=== PATIENT | female | born 1965 | race American Indian/Alaskan Native ===

== ENCOUNTER 2019-01-04 00:33 | Inpatient (IN) | payer MEDICAID ==
[2019-01-04] MEDS ORDERED: ZOFRAN IV ONE (02:31)
[2019-01-04] MEDS ORDERED: MORPHINE IV ONE (02:31)
[2019-01-04] MEDS ORDERED: NACL 0.9% 1000 ML 1,000 ML IV ONE (02:31)
[2019-01-04] MEDS ORDERED: VANCOMYCIN/NS 1 GM/250 ML 1 GM/250 ML BAG IV ONE (02:31)
--- NOTE | 2019-01-04 02:38 | Emergency Department Report ---
HPI - General Chief Complaint: Arrhythmia/Palpitations Time Seen by Provider: 01/04/19 02:22 - HPI HPI: Emergency emergency department with multiple complaints. Patient says that she has been dealing with some gangrenous wounds to the bilateral lower extremities and was just discharged from [facility] after being treated for this. She has had previous surgeries and department stunned by Dr. fisher, vascular surgery. Since the patient was discharged on 12/30/18, the patient says that she's been having nausea and vomiting and has been unable to keep down any food or liquid. She continues to have some bilateral lower extremity discomfort where she has the wounds. She has not checked her temperature but says that she's been having some chills. She has a past medical history of pyoderma gangrenosum. the patient also complains of some chest pain and palpitations. She has a history of [id number] diabetes, hypertension. Her primary care physician is Dr. Mauro and she sees [facility]. ED Past Medical Hx - Past Medical History Hx Hypertension: Yes Hx Diabetes: Yes Hx HIV: Yes Additional medical history: pyoderma gangrenosum - Surgical History Additional Surgical History: Right LE extremity. umbilical biopsy - Social History Smoking Status: Current Every Day Smoker - Medications Home Medications: Home Medications Medication Instructions Recorded Confirmed Last Taken Type Lisinopril [Zestril TAB] 40 mg PO QDAY 07/15/16 01/04/19 1 Day Ago History ~08/31/16 hydroCHLOROthiazide [HCTZ] 25 mg PO QDAY 07/15/16 01/04/19 1 Day Ago History ~08/31/16 metFORMIN [Glucophage] 500 mg PO QDAY 07/15/16 01/04/19 1 Day Ago History ~08/31/16 predniSONE [Deltasone] 30 mg PO QDAY 07/15/16 01/04/19 1 Day Ago History ~08/31/16 30 mg. PO Q day Metoprolol [Lopressor TAB] 50 mg PO BID #60 tablet 09/03/16 01/04/19 Unknown Rx Oxycodone HCl/Acetaminophen 1 each PO Q6HR PRN #12 tablet 09/03/16 01/04/19 Unknown Rx [Percocet 7.5/325 mg] Triamcinolone 0.1% [Kenalog 0.1% 1 applic TP BID #1 tube 01/20/17 01/04/19 Unknown Rx CREAM] hydrOXYzine HCl [Hydroxyzine HCl] 25 mg PO Q6HR PRN #15 tablet 01/20/17 01/04/19 Unknown Rx ED Review of Systems ROS: Stated complaint: DIABETE/HBP/PAIN Other details as noted in HPI Comment: All other systems reviewed and negative Constitutional: chills. denies: diaphoresis Eyes: denies: eye pain, vision change ENT: denies: ear pain, throat pain Respiratory: denies: cough, shortness of breath Cardiovascular: chest pain, palpitations Gastrointestinal: nausea, vomiting. denies: abdominal pain Genitourinary: denies: dysuria, discharge Musculoskeletal: denies: back pain, arthralgia Skin: lesions. denies: pruritus Neurological: denies: headache, weakness Physical Exam - Physical Exam Physical Exam: GENERAL: The patient is well-developed well-nourished. HEENT: Normocephalic. Atraumatic. Patient has moist mucous membranes. EYES: Extraocular motions are intact. Pupils are equal and reactive to light bilaterally. NECK: Supple. Trachea is midline. CHEST/LUNGS: Clear to auscultation. There is no respiratory distress noted. HEART/CARDIOVASCULAR: Regular. There is mild tachycardia. There is no obvious murmur. ABDOMEN: Abdomen is soft, nontender. Patient has normal bowel sounds. There is no abdominal distention. SKIN: The patient has multiple bilateral lower extremity ulcerating wounds. The left is much worse than the right. Patient has an area to the left medial lower leg/calf, but appears recently been provided and goes down to the muscle. She also has some of these ulcerating wounds to the left lateral foot. There is some bruising and/or weeping. No purulent discharge seen. No current bleeding. NEURO: The patient is awake, alert, and oriented. The patient is cooperative. The patient has no focal neurologic deficits. The patient has normal speech. MUSCULOSKELETAL: There is tenderness to palpation to the bilateral lower extremities with patient has multiple ulcerating wounds. ED Medical Decision Making - Lab Data Result diagrams: 01/06/19 05:01 01/05/19 04:31 - EKG Data -: EKG Interpreted by Me EKG shows normal: sinus rhythm, axis (left axis deviation), intervals, QRS complexes (LVH, Q waves to the septal leads, left anterior fascicular block), ST-T waves Rate: tachycardia (112 bpm) - EKG Data When compared to previous EKG there are: no significant change Interpretation: unchanged when compared t (09/01/16) - Radiology Data Radiology results: report reviewed, image reviewed interpreted by me: Chest x-ray does not show any pneumothorax, pleural effusion, pneumonia or obvious focal consolidation. Abdominal x-ray shows nonspecific nonobstructive bowel gas EXAM: XR TIB/FIB BILAT 2V HISTORY: LE wounds, rule out osteomyelitis TECHNIQUE: AP and lateral views of both tibia-fibula were obtained. FINDINGS: On the right side there is no evidence of fracture or osteomyelitis. The ankle and knee joints do not show any acute changes. There are vascular calcifications behind the knee. There is a moderate sized plantar calcaneal spur. The soft tissues are unremarkable. On the left side there is diffuse soft tissue swelling around the calf and particularly around the ankle. On the AP view there are questionable erosive changes along the lateral malleolus. The left ankle joint otherwise is well maintained. There is a spur along the posterior margin of the calcaneus. There is a stent behind the left knee along with surgical clips. IMPRESSION: Diffuse soft tissue swelling around the left calf with subcutaneous air around the ankle. Findings compatible cellulitis. Questionable cortical erosive changes of the distal end of the fibula/lateral malleolus. Osteomyelitis cannot be excluded. A three-view ankle series recommended for better delineation of this area. No acute process involving the right tibia-fibula. Transcribed By: RB Dictated By: DONAVAN REAL MD Electronically Authenticated By: DONAVAN REAL MD Signed Date/Time: 01/04/19 0326 LUNG SCAN, VENTILATION AND PERFUSION: History: Palpitations, elevated d-dimer. Technique: 5mci of Tc99m MAA was infused for the perfusion images. 15mci XE 133 gas was inhaled for the ventilatory images. Correlation is made with a chest x-ray dated 01/04/19. Findings: Inhalation of Xenon gas demonstrates a normal distribution of the activity throughout both lungs. The wash out phases show no focal retention of activity. After injection of Technetium 99m macroaggregated albumin gamma camera imaging of the lungs in multiple projections demonstrates normal pulmonary contours with a homogeneous distribution of activity. No focal areas of perfusion deficiency are identified. IMPRESSION: Low probability for pulmonary embolus. Transcribed By: TTR Dictated By: JOSH DAELY JR, MD Electronically Authenticated By: JOSH DALEY JR, MD Signed Date/Time: 01/04/19 0736 - Medical Decision Making This patient came in with a complaint of pain to the lateral lower extremities, left greater than right, the patient has gangrenous wounds and a history of surg ical debridement. She also has some palpitations and nausea and vomiting. Patient did not appear septic based on vitals and labs. However the wounds are extensive and may still appear cellulitic. X-ray was done of the bilateral tib- fib that did show superficial area of osteomyelitis to the distal left tib-fib. The patient's palpitations, she does have elevated troponin level without any renal insufficiency. EKG did not show any signs of ST elevation OR. Patient started on antibiotics, given aspirin, pain medication and IV fluid resuscitation. Negative for pulmonary embolism. Will be admitted for further evaluation and cardiology consultation. Accepted for admission by the [facility]. - Differential Diagnosis cellulitis, osteomyelitis, OR, dysrhythmia, PE Critical Care Time: No Critical care attestation.: If time is entered above; I have spent that time in minutes in the direct care of this critically ill patient, excluding procedure time. ED Disposition Clinical Impression: Pyoderma gangrenosum, Hypertensive urgency, Palpitations, Elevated troponin Disposition: OP ADMIT IP TO THIS HOSP Is pt being admited?: Yes Condition: Serious Time of Disposition: 07:22
[2019-01-04] MEDS ORDERED: NACL 0.9% IR ONE (03:00)
--- NOTE | 2019-01-04 03:21 | XRay Report ---
FINAL REPORT EXAM: XR ABD SERIES W CXR 1V HISTORY: abd pain TECHNIQUE: A PA view the chest was obtained along with two views of the abdomen. FINDINGS: The heart size and mediastinum appear normal. The lungs are clear. The bones and soft tissues do not show any acute changes. The abdominal bowel gas pattern is normal. There are no suspicious air-fluid levels. There are phlebo liths along the floor of the pelvis. The skeletal structures reveal arthritic changes lower lumbar sp ine. IMPRESSION: No acute process in the chest. Normal bowel gas pattern. No acute process identified.
[2019-01-04] MEDS ORDERED: NACL 0.9% 500 ML IR ONE (03:23)
--- NOTE | 2019-01-04 03:26 | XRay Report ---
FINAL REPORT EXAM: XR TIB/FIB BILAT 2V HISTORY: LE wounds, rule out osteomyelitis TECHNIQUE: AP and lateral views of both tibia-fibula were obtained. FINDINGS: On the right side there is no evidence of fracture or osteomyelitis. The ankle and knee joints do not show any acute changes. There are vascular calcifications behind the knee. There is a moderate sized plantar calcaneal spur. The soft tissues are unremarkable. On the left side there is diffuse soft tissue swelling around the calf and particularly around the an kle. On the AP view there are questionable erosive changes along the lateral malleolus. The left ankl e joint otherwise is well maintained. There is a spur along the posterior margin of the calcaneus. Th ere is a stent behind the left knee along with surgical clips. IMPRESSION: Diffuse soft tissue swelling around the left calf with subcutaneous air around the ankle. Findings co mpatible cellulitis. Questionable cortical erosive changes of the distal end of the fibula/lateral malleolus. Osteomyeliti s cannot be excluded. A three-view ankle series recommended for better delineation of this area. No acute process involving the right tibia-fibula.
[2019-01-04 04:02] LABS: BUN/Creatinine Ratio TNR; Blood Urea Nitrogen TNR mg/dL (7-17)
[2019-01-04 04:03] LABS: Alanine Aminotransferase TNR units/L (7-56); Albumin TNR g/dL (3.9-5); Calcium TNR mg/dL (8.4-10.2)
[2019-01-04 04:04] LABS: Hemolysis Index TNR
[2019-01-04 04:09] LABS: Hematocrit TNR % (30.3-42.9); Hemoglobin TNR gm/dl (10.1-14.3); Mean Corpuscular HGB Conc TNR % (30-34); Mean Corpuscular Volume TNR fl (79-97); Red Blood Count TNR M/mm3 (3.65-5.03); Red Cell Distribution Width TNR % (13.2-15.2)
[2019-01-04 04:10] LABS: Platelet Count TNR K/mm3 (140-440)
[2019-01-04 04:19] LABS: Basophils # (Auto) 0.1 K/mm3 (0.0-0.1); Basophils % (Auto) 1.1 % (0.0-1.8); Eosinophils # (Auto) 0.2 K/mm3 (0.0-0.4); Eosinophils % (Auto) 1.5 % (0.0-4.3); Hematocrit 37.1 % (30.3-42.9); Lymphocytes # (Auto) 3.2 K/mm3 (1.2-5.4); Lymphocytes % (Auto) 27.1 % (13.4-35.0); Mean Corpuscular HGB Conc 32 % (30-34); Mean Corpuscular Volume 84 fl (79-97); Monocytes # (Auto) 1.5 K/mm3 (0.0-0.8); Monocytes % (Auto) 12.7 % (0.0-7.3); Red Blood Count 4.44 M/mm3 (3.65-5.03); Red Cell Distribution Width 17.1 % (13.2-15.2)
[2019-01-04] MEDS ORDERED: NORMODYNE IV ONE ×2 (05:14→05:17)
[2019-01-04 05:41] LABS: Platelet Count 324 K/mm3 (140-440)
[2019-01-04 06:40] LABS: Alanine Aminotransferase 16 units/L (7-56); Albumin 2.5 g/dL (3.9-5); BUN/Creatinine Ratio 14; Blood Urea Nitrogen 11 mg/dL (7-17); Calcium 9.3 mg/dL (8.4-10.2); Hemolysis Index 39
[2019-01-04 06:55] LABS: Chol/HDL Ratio 5.13 %; HDL Cholesterol 29 mg/dL (40-59); LDL Cholesterol,Direct 74 mg/dL (50-130)
[2019-01-04] MEDS ORDERED: HEPARIN 10,000 UNITS/10 ML IV ONE (07:22)
[2019-01-04 07:47] LABS: INR 0.92 (0.87-1.13); Partial Thromboplastin Time 24.1 Sec. (24.2-36.6)
--- NOTE | 2019-01-04 08:39 | Nuclear Medicine Report ---
LUNG SCAN, VENTILATION AND PERFUSION: History: Palpitations, elevated d-dimer. Technique: 5mci of Tc99m MAA was infused for the perfusion images. 15mci XE 133 gas was inhaled for the ventilatory images. Correlation is made with a chest x-ray dated 01/04/19. Findings: Inhalation of Xenon gas demonstrates a normal distribution of the activity throughout both lungs. The wash out phases show no focal retention of activity. After injection of Technetium 99m macroaggregated albumin gamma camera imaging of the lungs in multiple projections demonstrates normal pulmonary contours with a homogeneous distribution of activity. No focal areas of perfusion deficiency are identified. IMPRESSION: Low probability for pulmonary embolus.
[2019-01-04] MEDS: HEPARIN/ 0.45% NACL-25,000 UNIT/500 ML 25,000 UNIT/500 ML BAG IV SCH ×2 (09:09→16:36)
[2019-01-04] MEDS ORDERED: NON-FORMULARY (Oxycodone Hcl/Acetaminophen [Percocet 7.5/325 Mg] 1 EACH) PO PRN (10:22)
--- NOTE | 2019-01-04 10:25 | History and Physical Report ---
History of Present Illness Date of examination: 01/04/19 Date of admission: 01/04/19 Chief complaint: wound infection History of present illness: Patient is a 53 year old woman with history of Diabetes, Hypertension, Pyoderma grangrenosum with multiple revascularization procedures in the past, gangrenous wounds to the bilateral lower extremities presented with nausea vomiting and worsening pain to her LEs. Patient says that she has been dealing with some gangrenous wounds to the bilateral lower extremities and was was admitted to [facility] with sepsis, infected lower extremity wounds but left AMA 12/30. She continues to have worsening bilateral lower extremity discomfort and increase discharges where she has the wounds since she left the hospital. In the ER she noted to have elevated troponin with ECG sinus rhythm. She was placed on heparin drip, started on empiric abx and called for admission for further evaluation and management. Past medical History: h/o diabetes hypertension pyoderma gangrenosum, history of SVT obesity, Past surgical History: s/p multiple vascular procedures for lower extremities Social History: Lives with family, denies drinking and elicit drug abuse. Smokes a daily Family History: Significant for hypertension and diabetes Review of System: Constitutional: no fever, no chills, no weight loss Ears, eyes, nose, mouth and throat: no nasal congestion, no nasal discharge, no sinus pressure, no vision change, no red eye. Neck: No neck pain or rigidity. Cardiovascular: No chest pain, no orthopnea, no palpitations, no leg swelling Respiratory: No shortness of breath, no cough, no congestion, no wheezing Gastrointestinal: no abdominal pain,+ nausea, + vomiting Genitourinary : no dysuria, no hematuria Musculoskeletal: no joint swelling or muscle ache Integumentary: no rash, no pruritis Neurological: no parathesias, no numbness, no tingling Endocrine: no cold or heat intolerance, no polyuria or polydipsia Hematologic/Lymphatic: no easy bruising, no easy bleeding, no gland swelling Allergic/Immunologic: no urticaria, no angioedema. Medications and Allergies Allergies Allergy/AdvReac Type Severity Reaction Status Date / Time No Known Allergies Allergy Verified 01/04/19 05:22 Home Medications Medication Instructions Recorded Confirmed Last Taken Type Lisinopril [Zestril TAB] 40 mg PO QDAY 07/15/16 01/04/19 1 Day Ago History ~08/31/16 hydroCHLOROthiazide [HCTZ] 25 mg PO QDAY 07/15/16 01/04/19 1 Day Ago History ~08/31/16 metFORMIN [Glucophage] 500 mg PO QDAY 07/15/16 01/04/19 1 Day Ago History ~08/31/16 predniSONE [Deltasone] 30 mg PO QDAY 07/15/16 01/04/19 1 Day Ago History ~08/31/16 30 mg. PO Q day Metoprolol [Lopressor TAB] 50 mg PO BID #60 tablet 09/03/16 01/04/19 Unknown Rx Oxycodone HCl/Acetaminophen 1 each PO Q6HR PRN #12 tablet 09/03/16 01/04/19 Unknown Rx [Percocet 7.5/325 mg] Triamcinolone 0.1% [Kenalog 0.1% 1 applic TP BID #1 tube 01/20/17 01/04/19 Unkno wn Rx CREAM] hydrOXYzine HCl [Hydroxyzine HCl] 25 mg PO Q6HR PRN #15 tablet 01/20/17 01/04/19 Unknown Rx Active Meds: Active Medications Hydrochlorothiazide (Hctz) 25 mg PO QDAY [facility] Hydroxyzine HCl (Atarax) 25 mg PO Q6HR PRN PRN Reason: Itching Heparin Sodium/Sodium Chloride (Heparin/ 0.45% Nacl-25,000 Unit/500 Ml) 25,000 unit in 500 mls @ 20 mls/hr IV TITRATE [facility]; Protocol Last Admin: 01/04/19 09:09 Dose: 1,000 units/hr, 20 mls/hr Documented by: Lisinopril (Zestril) 40 mg PO QDAY [facility] Metformin HCl (Glucophage) 500 mg PO QDAY [facility] Metoprolol Tartrate (Lopressor) 50 mg PO BID [facility] Miscellaneous Medication (Oxycodone Hcl/Acetaminophen [Percocet 7.5/325 Mg]) 1 each PO Q6HR PRN PRN Reason: Pain Prednisone (Deltasone) 30 mg PO QDAY [facility] Triamcinolone Acetonide (Kenalog) 1 applic TP BID [facility] Exam - Physical Exam Narrative exam: GENERAL: Obese female lying on bed appeared to be in no discomfort. HEENT: Normocephalic. Atraumatic. No conjunctival congestion or icterus. Patient has moist mucous membranes. NECK: Supple. Trachea midline. CHEST/LUNGS: Clear to auscultated bilaterally, breathing nonlabored. No wheezes crackles or rhonchi. HEART/CARDIOVASCULAR: Regular in rate and rhythm. S1 and S2 positive. ABDOMEN: Abdomen is soft, nontender. Patient has normal bowel sounds. SKIN: There is no rash. Warm and dry. NEURO: No focal motor deficit. Follows command. MUSCULOSKELETAL: No joint effusion or tenderness. EXTRIMITY: Extensive bilateral lower extremity multiple ulcers with oozing pulse PSYCH: Cooperative. - Constitutional Vitals: Temp Pulse Resp BP Pulse Ox 83 21 177/74 98 01/04/19 06:15 01/04/19 06:15 01/04/19 06:15 01/04/19 06:15 Results - Labs CBC & Chem 7: 01/06/19 05:01 01/05/19 04:31 Labs: Abnormal lab results 01/04/19 01/04/19 01/04/19 Range/Units 03:41 03:41 03:45 WBC 11.8 H (4.5-11.0) K/mm3 MCH 27 L (28-32) pg RDW 17.1 H (13.2-15.2) % [place] % (Auto) 12.7 H (0.0-7.3) % [place] # 1.5 H (0.0-0.8) K/mm3 APTT 24.1 L (24.2-36.6) Sec. D-Dimer 831.62 H (0-234) ng/mlDDU VBG pH (7.320-7.420) Potassium (3.6-5.0) mmol/L Glucose (65-100) mg/dL Alkaline Phosphatase (35-129) units/L Troponin T (0.00-0.029) ng/mL Albumin (3.9-5) g/dL Triglycerides (2-149) mg/dL HDL Cholesterol (40-59) mg/dL 01/04/19 01/04/19 Range/Units 05:58 05:58 WBC (4.5-11.0) K/mm3 MCH (28-32) pg RDW (13.2-15.2) % [place] % (Auto) (0.0-7.3) % [place] # (0.0-0.8) K/mm3 APTT (24.2-36.6) Sec. D-Dimer (0-234) ng/mlDDU VBG pH 7.315 L (7.320-7.420) Potassium 3.4 L (3.6-5.0) mmol/L Glucose 113 H (65-100) mg/dL Alkaline Phosphatase 271 H (35-129) units/L Troponin T 0.108 H* (0.00-0.029) ng/mL Albumin 2.5 L (3.9-5) g/dL Triglycerides 216 H (2-149) mg/dL HDL Cholesterol 29 L (40-59) mg/dL - Imaging and Cardiology Chest x-ray: report reviewed Abdominal x-ray: report reviewed Assessment and Plan NSTEMI likely type II - - will admit to telemetry bed - monitor with serial CE and EKG - will place on Aspirin, statin and heparin drip - as needed SL NTG and iv morphin for pain - Monitor BP, continue betablocker - order 2D echo and consult cardiology Nausea vomiting - Has no abdominal pain, abdominal x-ray showed no acute process, no obstruction -Resume diet, as needed nausea medications Bilateral lower extremity cellulitis with gangrenous ulcer - We will get wound care consult, wound culture -Continue to treat with vancomycin - We'll consult ID and we have culture results available Pyoderma gangrenosum - Continue her home dose of steroid Diabetes mellitus type 2 - Consistent Diet and sliding scale of insulin Hypertension. Uncontrolled, Continue to monitor, resume home meds Hypokalemia, replete History of SVT, continue metoprolol - provide DVT Px with lovenox
[2019-01-04] MEDS ORDERED: ATARAX PO PRN (11:00)
--- NOTE | 2019-01-04 12:57 | Consultation ---
Addendum entered and electronically signed by ALEX PORRAS MD 01/04/19 13:11: Patient is hospitalized with complaints of palpitations and chronic nonhealing u lcers of bilateral legs. EKG in the hospital was said sinus tachycardia, left axis deviation, otherwise normal ECG. There is a record of paroxysmal supraventricular tachycardia, treated with beta blockers. Previous cardiac ischemic workup was negative. No further additional cardiac workup is indicated, we'll continue beta blockers and risk factor modification. Original Note: History of Present Illness Consult date: 01/04/19 Consult reason: other (palpitations) History of present illness: Patient is a 53 year old woman with a reported history of Diabetes, Hyper tension, Pyoderma grangrenosum with multiple revascularization procedures. She also has a history of paroxysmal SVT previously treated with metoprolol. In 2015, she had a negative treadmill stress test. She exercised for four minutes. An echocardiogram done at [facility] September 2018 documents a hyperdynamic LVEF 73%. Patient presents to this hospital with complaints of palpitations and elevated blood pressure. In addition, she complains of bilateral lower extremity pain. Of note, patient was admitted to [facility] with sepsis, infected lower extremity wounds but left AMA 12/30. Patient denies chest pain and unusual shortness of breath. ECG is sinus rhythm with left axis deviation. Medications and Allergies Allergies Allergy/AdvReac Type Severity Reaction Status Date / Time No Known Allergies Allergy Verified 01/04/19 05:22 Home Medications Medication Instructions Recorded Confirmed Last Taken Type Lisinopril [Zestril TAB] 40 mg PO QDAY 07/15/16 01/04/19 1 Day Ago History ~08/31/16 hydroCHLOROthiazide [HCTZ] 25 mg PO QDAY 07/15/16 01/04/19 1 Day Ago History ~08/31/16 metFORMIN [Glucophage] 500 mg PO QDAY 07/15/16 01/04/19 1 Day Ago History ~08/31/16 predniSONE [Deltasone] 30 mg PO QDAY 07/15/16 01/04/19 1 Day Ago History ~08/31/16 30 mg. PO Q day Metoprolol [Lopressor TAB] 50 mg PO BID #60 tablet 09/03/16 01/04/19 Unknown Rx Oxycodone HCl/Acetaminophen 1 each PO Q6HR PRN #12 tablet 09/03/16 01/04/19 Unknown Rx [Percocet 7.5/325 mg] Triamcinolone 0.1% [Kenalog 0.1% 1 applic TP BID #1 tube 01/20/17 01/04/19 Unknown Rx CREAM] hydrOXYzine HCl [Hydroxyzine HCl] 25 mg PO Q6HR PRN #15 tablet 01/20/17 01/04/19 Unknown Rx Active Meds: Active Medications Hydrochlorothiazide (Hctz) 25 mg PO QDAY [facility] Hydroxyzine HCl (Atarax) 25 mg PO Q6HR PRN PRN Reason: Itching Heparin Sodium/Sodium Chloride (Heparin/ 0.45% Nacl-25,000 Unit/500 Ml) 25,000 unit in 500 mls @ 20 mls/hr IV TITRATE [facility]; Protocol Last Admin: 01/04/19 09:09 Dose: 1,000 units/hr, 20 mls/hr Documented by: Insulin Human Regular (Humulin R) 0 units SUB-Q ACHS [facility]; Protocol Lisinopril (Zestril) 40 mg PO QDAY [facility] Metoprolol Tartrate (Lopressor) 50 mg PO BID [facility] Oxycodone HCl (Roxicodone) 2.5 mg PO Q6H PRN PRN Reason: Pain, Moderate (4-6) Oxycodone/Acetaminophen (Percocet 5/325) 1 tab PO Q6H PRN PRN Reason: Pain, Moderate (4-6) Prednisone (Deltasone) 30 mg PO QDAY [facility] Triamcinolone Acetonide (Kenalog) 1 applic TP BID [facility] Physical Examination Vital Signs Resp Pulse Ox 17 98 01/04/19 02:30 01/04/19 02:30 General appearance: no acute distress HEENT: Positive: PERRL Neck: Positive: trachea midline Cardiac: Positive: Reg Rate and Rhythm Lungs: Positive: Decreased Breath Sounds Neuro: Positive: Grossly Intact Skin: Positive: Wound (bilateral LE wounds) Extremities: Present: edema Results 01/04/19 03:45 01/04/19 05:58 Cardiac Enzymes 01/04/19 01/04/19 Range/Units 03:41 05:58 AST TNR 21 Coagulation 01/04/19 Range/Units 03:41 PT 12.9 (12.2-14.9) Sec. INR 0.92 (0.87-1.13) APTT 24.1 L (24.2-36.6) Sec. Lipids 01/04/19 Range/Units 05:58 Triglycerides 216 H (2-149) mg/dL Cholesterol 149 (50-199) mg/dL HDL Cholesterol 29 L (40-59) mg/dL Cholesterol/HDL Ratio 5.13 % CBC 01/04/19 01/04/19 Range/Units 03:41 03:45 WBC TNR 11.8 H RBC TNR 4.44 Hgb TNR 12.0 Hct TNR 37.1 Plt Count TNR 324 Lymph # 3.2 (1.2-5.4) K/mm3 [place] # 1.5 H (0.0-0.8) K/mm3 Eos # 0.2 (0.0-0.4) K/mm3 Baso # 0.1 (0.0-0.1) K/mm3 Comprehensive Metabolic Panel 01/04/19 01/04/19 Range/Units 03:41 05:58 Sodium TNR 142 Potassium TNR 3.4 L Chloride TNR 103.4 Carbon Dioxide TNR 27 BUN TNR 11 Creatinine TNR 0.8 Glucose TNR 113 H Calcium TNR 9.3 AST TNR 21 ALT TNR 16 Alkaline Phosphatase TNR 271 H Total Protein TNR 6.8 Albumin TNR 2.5 L
[2019-01-04] MEDS: ROXICODONE PO PRN ×2 (13:02→19:13)
[2019-01-04] MEDS: PERCOCET 5/325 PO PRN ×2 (13:02→19:14)
[2019-01-04] MEDS: HumuLIN R SUB-Q SCH ×3 (13:21→22:41)
[2019-01-04] MEDS ORDERED: APRESOLINE IV PRN (14:40)
[2019-01-04] MEDS ORDERED: VANCOMYCIN/NS 1 GM/250 ML 1 GM/250 ML BAG IV SCH (18:00)
[2019-01-04] MEDS ORDERED: LYRICA PO SCH (18:00)
[2019-01-04] MEDS: LYRICA PO SCH (18:23)
[2019-01-04] MEDS: VANCOMYCIN 1,250 MG in NACL 0.9% 250ML 250 ML IV SCH (19:14)
[2019-01-04] MEDS ORDERED: LOPRESSOR PO SCH (22:00)
[2019-01-04] MEDS: KENALOG TP SCH (22:45)
[2019-01-04] MEDS: LOPRESSOR PO SCH (22:45)
[2019-01-05] MEDS: HumuLIN R SUB-Q SCH ×4 (07:30→22:12)
--- NOTE | 2019-01-05 09:53 | Progress Note ---
Assessment and Plan Palpitations Diabetes Hypertension Pyoderma grangrenosum with multiple LE revascularization chronic nonhealing ulcers of bilateral legs Paroxysmal supraventricular tachycardia on metoprolol In 2016, she had a negative treadmill stress test. She exercised for 4 minutes. An echocardiogram done at [facility] September 2018 documents a hyperdynamic LVEF 73%. Continue beta blockers for suppression of SVT. Otherwise conservative cardiac management. Subjective Date of service: 01/05/19 Interval history: Patient has no cardiac complaints. No events on telemetry monitoring. Objective Vital Signs Temp Pulse Pulse Resp BP Pulse Ox 01/05/19 09:42 98.8 F 01/05/19 09:41 90 18 162/72 99 01/05/19 04:51 98.6 F 76 14 159/62 92 01/05/19 00:08 87 01/04/19 22:59 98.1 F 88 12 116/51 97 01/04/19 22:45 87 168/66 01/04/19 22:00 87 18 01/04/19 19:59 98.1 F 87 14 168/66 96 01/04/19 16:40 98.2 F 94 H 12 158/78 94 01/04/19 14:26 18 01/04/19 12:56 98.6 F 94 H 12 191/79 99 01/04/19 11:51 90 22 158/64 97 01/04/19 11:41 89 23 158/64 98 01/04/19 11:31 87 22 158/64 98 01/04/19 11:21 84 23 158/64 99 01/04/19 11:11 84 22 158/64 98 01/04/19 11:00 82 22 158/64 99 01/04/19 10:51 83 22 170/67 98 01/04/19 10:42 98.2 F 01/04/19 10:41 87 24 170/67 99 01/04/19 10:35 85 23 170/67 98 01/04/19 10:31 89 24 170/67 99 01/04/19 10:25 90 25 H 170/67 99 01/04/19 10:21 89 23 171/80 94 01/04/19 10:15 86 26 H 171/80 99 01/04/19 10:11 85 25 H 171/80 99 01/04/19 10:05 87 25 H 171/80 98 01/04/19 10:00 88 24 170/67 99 01/04/19 09:55 92 H 18 99 - Physical Examination General: No Apparent Distress HEENT: Positive: PERRL Neck: Positive: trachea midline Cardiac: Positive: Reg Rate and Rhythm Lungs: Positive: Decreased Breath Sounds Neuro: Positive: Grossly Intact Skin: Positive: Wound (bilateral LE wounds) Extremities: Present: edema
[2019-01-05] MEDS ORDERED: GLUCOPHAGE PO SCH (10:00)
[2019-01-05] MEDS ORDERED: ZESTRIL PO SCH ×2 (10:00)
[2019-01-05] MEDS ORDERED: DELTASONE PO SCH (10:00)
[2019-01-05] MEDS: DELTASONE PO SCH (10:06)
[2019-01-05] MEDS: HCTZ PO SCH (10:06)
[2019-01-05] MEDS: LOPRESSOR PO SCH ×2 (10:07→22:13)
[2019-01-05] MEDS: ZESTRIL PO SCH (10:07)
[2019-01-05] MEDS: LYRICA PO SCH (10:12)
[2019-01-05] MEDS: KENALOG TP SCH ×2 (10:13→22:16)
[2019-01-05 10:30] LABS: BUN/Creatinine Ratio 13; Blood Urea Nitrogen 9 mg/dL (7-17); Calcium 9.1 mg/dL (8.4-10.2); Hemolysis Index 6
[2019-01-05] MEDS ORDERED: HCTZ PO SCH (11:00)
--- NOTE | 2019-01-05 14:29 | Progress Note ---
Assessment and Plan NSTEMI likely type II, likely from SVT - will cont on Aspirin, statin - as needed SL NTG and iv morphin for pain In 2016, she had a negative treadmill stress test. She exercised for 4 minutes. An echocardiogram done at [facility] September 2018 documents a hyperdynamic LVEF 73%. conservative cardiac management per cardiology Nausea vomiting - Has no abdominal pain, abdominal x-ray showed no acute process, no obstruction -tolerating diet, as needed nausea medications Bilateral lower extremity cellulitis with gangrenous ulcer - We follow wound care consult, wound culture -Continue to treat with vancomycin - We'll consult ID when we have culture results available Pyoderma gangrenosum - Continue her home dose of steroid Diabetes mellitus type 2 - Consistent Diet and sliding scale of insulin Hypertension. Uncontrolled, Continue to monitor, resumed home meds - adjust meds as needed Hypokalemia, repleted History of SVT, continue metoprolol - provide DVT Px with lovenox Brief History: Patient is a 53 year old woman with history of Diabetes, Hypertension, Pyoderma grangrenosum with multiple revascularization procedures in the past, gangrenous wounds to the bilateral lower extremities presented with nausea vomiting and worsening pain to her LEs. Patient was admitted to [facility] with sepsis, infected lower extremity wounds but left AMA 12/30. In the ER she noted to have elevated troponin with ECG sinus rhythm. She was placed on heparin drip, started on empiric abx and called for admission for further evaluation and management. Hospitalist Physical exam: GENERAL: Obvious female lying on bed appeared to be in no discomfort. HEENT: Normocephalic. Atraumatic. No conjunctival congestion or icterus. Patient has moist mucous membranes. NECK: Supple. Trachea midline. CHEST/LUNGS: Clear to auscultated bilaterally, breathing nonlabored. No wheezes crackles or rhonchi. HEART/CARDIOVASCULAR: Regular in rate and rhythm. S1 and S2 positive. ABDOMEN: Abdomen is soft, nontender. Patient has normal bowel sounds. SKIN: There is no rash. Warm and dry. NEURO: No focal motor deficit. Follows command. MUSCULOSKELETAL: No joint effusion or tenderness. EXTRIMITY: Bilateral Lower extremity multiple ulcerations with extensive cellulitis PSYCH: Cooperative. Subjective Date of service: 01/05/19 Interval history: Patient seen and examined. Medical records and medication list reviewed. No acute event overnight noted by the RN. Patient denies any chest pain or difficulty breathing. Patient is tolerating diet. Continue to complain of lower extremity pain Discussed plan of care at bedside with patient. Objective - Constitutional Vitals: Vital Signs - 12hr 01/05/19 01/05/19 01/05/19 04:51 09:41 09:42 Temperature 98.6 F 98.8 F Pulse Rate 76 90 Respiratory 14 18 Rate Blood Pressure 159/62 162/72 O2 Sat by Pulse 92 99 Oximetry - Labs CBC & Chem 7: 01/06/19 05:01 01/05/19 04:31 Labs: Abnormal lab results 01/04/19 01/04/19 01/04/19 Range/Units 15:02 20:46 21:07 Heparin Anti-Xa Level 0.25 L (0.3-0.7) U.I./ml Glucose (65-100) mg/dL POC Glucose 143 H (70-105) Troponin T 0.102 H* (0.00-0.029) ng/mL 01/04/19 01/05/19 01/05/19 Range/Units 22:53 01:04 04:31 Heparin Anti-Xa Level < 0.10 L (0.3-0.7) U.I./ml Glucose (65-100) mg/dL POC Glucose (70-105) Troponin T 0.102 H* 0.101 H* (0.00-0.029) ng/mL 01/05/19 01/05/19 Range/Units 04:31 11:52 Heparin Anti-Xa Level (0.3-0.7) U.I./ml Glucose 103 H (65-100) mg/dL POC Glucose 373 H (70-105) Troponin T (0.00-0.029) ng/mL
[2019-01-05] MEDS: PERCOCET 5/325 PO PRN (14:46)
[2019-01-05] MEDS: ROXICODONE PO PRN (14:52)
[2019-01-05] MEDS: VANCOMYCIN 1,250 MG in NACL 0.9% 250ML 250 ML IV SCH ×2 (17:48)
[2019-01-06 05:40] LABS: Hematocrit 31.4 % (30.3-42.9); Hemoglobin 10.2 gm/dl (10.1-14.3)
[2019-01-06] MEDS: VANCOMYCIN 1,250 MG in NACL 0.9% 250ML 250 ML IV SCH (05:58)
--- NOTE | 2019-01-06 09:35 | Progress Note ---
Addendum entered and electronically signed by ALEX PORRAS MD 01/06/19 13:16: Conservative cardiac management. Original Note: Assessment and Plan Palpitations Diabetes Hypertension Pyoderma grangrenosum with multiple LE revascularization chronic nonhealing ulcers of bilateral legs Paroxysmal supraventricular tachycardia on metoprolol In 2015, she had a negative treadmill stress test. She exercised for 4 minutes. An echocardiogram done at [facility] September 2018 documents a hyperdynamic LVEF 73%. Continue beta blockers for suppression of paroxysmal SVT. Otherwise, conservative cardiac management. Subjective Date of service: 01/06/19 Interval history: Patient has no cardiac complaints. No events on telemetry monitoring. Objective Vital Signs Temp Pulse Resp BP Pulse Ox 01/06/19 08:18 74 18 193/89 99 01/06/19 08:17 98.4 F 01/06/19 07:24 72 01/06/19 03:58 98.2 F 67 14 179/86 99 01/05/19 23:03 97.8 F 75 16 171/80 97 01/05/19 22:13 81 134/73 01/05/19 19:50 97.9 F 81 16 134/73 99 01/05/19 17:08 85 18 147/66 100 01/05/19 17:07 97.7 F 01/05/19 09:42 98.8 F 01/05/19 09:41 90 18 162/72 99 - Physical Examination General: No Apparent Distress HEENT: Positive: PERRL Neck: Positive: trachea midline Cardiac: Positive: Reg Rate and Rhythm Lungs: Positive: Decreased Breath Sounds Neuro: Positive: Grossly Intact Skin: Positive: Wound (bilateral LE wounds) Extremities: Present: edema - Labs and Meds CBC 01/06/19 Range/Units 05:01 Hgb 10.2 (10.1-14.3) gm/dl Hct 31.4 (30.3-42.9) % Plt Count 273 (140-440) K/mm3 Comprehensive Metabolic Panel 01/05/19 Range/Units 04:31 Sodium 140 (137-145) mmol/L Potassium 3.8 (3.6-5.0) mmol/L Chloride 102.7 (98-107) mmol/L Carbon Dioxide 24 (22-30) mmol/L BUN 9 (7-17) mg/dL Creatinine 0.7 (0.7-1.2) mg/dL Glucose 103 H (65-100) mg/dL Calcium 9.1 (8.4-10.2) mg/dL
[2019-01-06] MEDS: ZESTRIL PO SCH (09:47)
[2019-01-06] MEDS: LYRICA PO SCH (09:47)
[2019-01-06] MEDS: LOPRESSOR PO SCH ×2 (09:47→22:00)
[2019-01-06] MEDS: HCTZ PO SCH (09:47)
[2019-01-06] MEDS: DELTASONE PO SCH (09:47)
[2019-01-06] MEDS: KENALOG TP SCH ×2 (09:48→22:03)
[2019-01-06] MEDS: HumuLIN R SUB-Q SCH ×4 (09:48→22:00)
[2019-01-06] MEDS: PERCOCET 5/325 PO PRN ×2 (11:04→19:42)
[2019-01-06] MEDS: ROXICODONE PO PRN ×2 (11:06→19:38)
--- NOTE | 2019-01-06 15:43 | Consultation ---
History of Present Illness - Reason for Consult Consult date: 01/06/19 LE cellulitis - History of Present Illness This patient is a 53 -year-old woman with a past medical history of diabetes, hypertenison, pyoderma gangrenosum with multiple revasculaization procedures in the past, gangrenous wounds to the bilateral lower extremities, who presented in the ED on 01/04/19 with nausea, vomiting and worsening pain to her lower extremities. upon further evaluation, patient states that she was admitted to [facility] She has continued to have worsening bilateral lower extremity discomfort and discharge since she left the hospital. On admission WBC 11.8, Creatinine 0.8, Temperature 98.2, HR 107, Chest Xray showed no consolidation. Blood cultures were drawn and show no growth thus far. Review of Systems: General: +no fever, chills, nightsweats, unintentional weight change, or change in appetite Cutaneous: no rash, pruritus Head: no headaches or injury Eyes: no changes in vision, eye pain, double vision Ears: no ear pain, ear discharge, ringing or hearing loss Nose: no nose bleeding, stuffiness Mouth & throat: no bleeding gums, no horseness, no dental problems, or swollen glands Neck: no pain, node enlargement/lumps, tyroid enlargement or tenderness Respiratory: no cough, wheezing, sputum, hemoptysis, pleuritic chest pain Cardiovascular: no chest pain, leg edema, cyanosis, WORLEY, orthopnea Musculoskeletal: bilateral pyoderma grangrenosum , left ankle ulceration with purulent drainage Gastrointestinal: no nausea, vomiting, hematemesis, diarrhea, constipation, Genitourinary/Reproductive: no frequent urination, no dysuria, hematuria, incontinence Neurogical: no seizures, no headaches, no weakness, no paresthesias, no loss of speech or vision; no memory loss, no vertigo, no tremors, no numbness Psychiatric: stable mood; no excessive anxiety, sadness or moodiness Medications and Allergies Allergies Allergy/AdvReac Type Severity Reaction Status Date / Time No Known Allergies Allergy Verified 01/04/19 05:22 Home Medications Medication Instructions Recorded Confirmed Last Taken Type Lisinopril [Zestril TAB] 40 mg PO QDAY 07/15/16 01/04/19 1 Day Ago History ~08/31/16 hydroCHLOROthiazide [HCTZ] 25 mg PO QDAY 07/15/16 01/04/19 1 Day Ago History ~08/31/16 metFORMIN [Glucophage] 500 mg PO QDAY 07/15/16 01/04/19 1 Day Ago History ~08/31/16 predniSONE [Deltasone] 30 mg PO QDAY 07/15/16 01/04/19 1 Day Ago History ~08/31/16 30 mg. PO Q day Metoprolol [Lopressor TAB] 50 mg PO BID #60 tablet 09/03/16 01/04/19 Unknown Rx Oxycodone HCl/Acetaminophen 1 each PO Q6HR PRN #12 tablet 09/03/16 01/04/19 Unknown Rx [Percocet 7.5/325 mg] Triamcinolone 0.1% [Kenalog 0.1% 1 applic TP BID #1 tube 01/20/17 01/04/19 Unknown Rx CREAM] hydrOXYzine HCl [Hydroxyzine HCl] 25 mg PO Q6HR PRN #15 tablet 01/20/17 01/04/19 Unknown Rx Active Meds: Active Medications Hydralazine HCl (Apresoline) 10 mg IV Q30MIN PRN PRN Reason: Hypertension Last Admin: 01/06/19 12:37 Dose: 10 mg Documented by: Hydrochlorothiazide (Hctz) 25 mg PO QDAY [facility] Last Admin: 01/06/19 09:47 Dose: 25 mg Documented by: Hydroxyzine HCl (Atarax) 25 mg PO Q6HR PRN PRN Reason: Itching Vancomycin HCl 1,250 mg/ (Sodium Chloride) 275 mls @ 166.667 mls/hr IV Q12H [facility] Last Admin: 01/06/19 05:58 Dose: 166.667 mls/hr Documented by: Insulin Human Regular (Humulin R) 0 units SUB-Q ACHS [facility]; Protocol Last Admin: 01/06/19 12:33 Dose: 6 units Documented by: Lisinopril (Zestril) 40 mg PO QDAY [facility] Last Admin: 01/06/19 09:47 Dose: 40 mg Documented by: Metoprolol Tartrate (Lopressor) 50 mg PO BID [facility] Last Admin: 01/06/19 09:47 Dose: 50 mg Documented by: Oxycodone HCl (Roxicodone) 2.5 mg PO Q6H PRN PRN Reason: Pain, Moderate (4-6) Last Admin: 01/06/19 11:06 Dose: 2.5 mg Documented by: Oxycodone/Acetaminophen (Percocet 5/325) 1 tab PO Q6H PRN PRN Reason: Pain, Moderate (4-6) Last Admin: 01/06/19 11:04 Dose: 1 tab Documented by: Prednisone (Deltasone) 30 mg PO QDAY [facility] Last Admin: 01/06/19 09:47 Dose: 20 mg Documented by: Pregabalin (Lyrica) 300 mg PO QDAY [facility] Last Admin: 01/06/19 09:47 Dose: 300 mg Documented by: Triamcinolone Acetonide (Kenalog) 1 applic TP BID [facility] Last Admin: 01/06/19 09:48 Dose: 1 applic Documented by: Physical Examination - Physical Exam Narrative exam: Constitutional: Alert, cooperative. Left ankle pain Head, Ears, Nose: Normocephalic, atraumatic. External ears, nose normal Eyes: Conjunctivae/corneas clear. No icterus. No ptosis. Neck: Supple, no meningeal signs Oral: dentition poor. + thrush Cardiovascular: S1, S2 normal. Respiratory: Good air entry, clear to auscultation bilaterally GI: Soft, non-tender; bowel sounds normal. No peritoneal signs Musculoskeletal: + Left Lateral Malleolus Osteomylitis, Purulent drainage, no odor Skin: Bilateral Pyoderma Ganfrenosum Hem/Lymphatic: No palpable cervical or supraclavicular nodes. No lymphangitis Psych: Mood ok. Affect normal Neurological: Awake, alert, oriented. - Constitutional Vitals: Vital Signs Temp Pulse Resp BP Pulse Ox 98.2 F 71 18 192/79 99 01/06/19 12:17 01/06/19 12:20 01/06/19 12:20 01/06/19 12:37 01/06/19 12:20 Temperature -Last 24 Hours Temperature 98.2 F Temperature 98.4 F Temperature 98.2 F Temperature 97.8 F Temperature 97.9 F Temperature 97.7 F Results - Labs CBC & Chem 7: 01/06/19 05:01 01/05/19 04:31 Labs: Abnormal lab results 01/05/19 01/05/19 01/06/19 Range/Units 16:33 20:16 05:35 POC Glucose 299 H 262 H 220 H (70-105) 01/06/19 Range/Units 12:19 POC Glucose 315 H (70-105) - Imaging and Cardiology Chest x-ray: report reviewed (no consolidation) Assessment and Plan Cultures: 01/04/19 Blood: no growth thus far A/P: 53-year-old female with history of diabetes, hypertenison, pyoderma gangrenosum with multiple revasculaization procedures in the past, gangrenous wounds to the bilateral lower extremities, Previous admission to [facility] for sepsis and infected lower extremity wounds, but left AMA on 12/30/18. admitted with: 1. Left Lateral Malleolus Osteomylitis,: MRI done at [facility]. Will obtain surgery consult with Dr. Atwood. Discontinue Vancomycin, cultures at [facility] showed normal skin kip. Wound culture sent. Start Ceftriaxone . 2. Pyoderma Ganfrenosum; Bilateral lower extremities. s/p multiple revascularzation procedures in the past. upon discharge will do Minocycline, not on formulary here, will start Doxycycline. 4. Diabetes Mellitus Type 2 : uncontrolled 5. NSTEMI- likely type II: Cardiology following 6. Nausea and vomiting: Resolved. Has no abdominal pain, abdominal x-ray showed no acute process, no obstruction. 7. Tobacco abuse: 30 year smoking history. States that she recently quit. Plan Consult Dr. Atwood Order wound culture order CRP/ ESR Start Doxycycline 100 mg po BID Start Cefrtiaxone 2 gms IV every 24 hours Order wound care consult d/w Dr. Maggie Clayton, [facility] M: [phone] O:[phone]
--- NOTE | 2019-01-06 15:57 | Progress Note ---
Assessment and Plan NSTEMI likely type II, likely from SVT - will cont on Aspirin, statin - as needed SL NTG and iv morphin for pain In 2016, she had a negative treadmill stress test. She exercised for 4 minutes. An echocardiogram done at [facility] September 2018 documents a hyperdynamic LVEF 73%. conservative cardiac management per cardiology Nausea vomiting - Has no abdominal pain, abdominal x-ray showed no acute process, no obstruction -tolerating diet, as needed nausea medications Bilateral lower extremity cellulitis with gangrenous ulcer - We follow wound care consult, wound culture -Continue to treat with vancomycin - We'll consult ID for abx recommendation Pyoderma gangrenosum - Continue her home dose of steroid Diabetes mellitus type 2 - Consistent Diet and sliding scale of insulin Hypertension. Uncontrolled, Continue to monitor, resumed home meds - adjust meds as needed Hypokalemia, repleted History of SVT, continue metoprolol - provide DVT Px with lovenox Brief History: Patient is a 53 year old woman with history of Diabetes, Hypertension, Pyoderma grangrenosum with multiple revascularization procedures in the past, gangrenous wounds to the bilateral lower extremities presented with nausea vomiting and worsening pain to her LEs. Patient was admitted to [facility] with sepsis, infected lower extremity wounds but left AMA 12/30. In the ER she noted to have elevated troponin with ECG sinus rhythm. She was placed on heparin drip, started on empiric abx and called for admission for further evaluation and management. Hospitalist Physical exam: GENERAL: Obvious female lying on bed appeared to be in no discomfort. HEENT: Normocephalic. Atraumatic. No conjunctival congestion or icterus. Patient has moist mucous membranes. NECK: Supple. Trachea midline. CHEST/LUNGS: Clear to auscultated bilaterally, breathing nonlabored. No wheezes crackles or rhonchi. HEART/CARDIOVASCULAR: Regular in rate and rhythm. S1 and S2 positive. ABDOMEN: Abdomen is soft, nontender. Patient has normal bowel sounds. SKIN: There is no rash. Warm and dry. NEURO: No focal motor deficit. Follows command. MUSCULOSKELETAL: No joint effusion or tenderness. EXTRIMITY: Bilateral Lower extremity multiple ulcerations with extensive cellulitis PSYCH: Cooperative. Subjective Date of service: 01/06/19 Interval history: Patient seen and examined. Medical records and medication list reviewed. No acute event overnight noted by the RN. Patient denies any chest pain or difficulty breathing. Patient is tolerating diet. Continue to complain of lower extremity pain Discussed plan of care at bedside with patient. Objective - Constitutional Vitals: Vital Signs - 12hr 01/06/19 01/06/19 01/06/19 03:58 07:24 08:17 Temperature 98.2 F 98.4 F Pulse Rate 67 72 Respiratory 14 Rate Blood Pressure 179/86 O2 Sat by Pulse 99 Oximetry 01/06/19 01/06/19 01/06/19 08:18 12:17 12:20 Temperature 98.2 F Pulse Rate 74 71 Respiratory 18 18 Rate Blood Pressure 193/89 192/79 O2 Sat by Pulse 99 99 Oximetry 01/06/19 12:37 Temperature Pulse Rate Respiratory Rate Blood Pressure 192/79 O2 Sat by Pulse Oximetry - Labs CBC & Chem 7: 01/07/19 00:43 01/07/19 08:31 Labs: Abnormal lab results 01/05/19 01/05/19 01/06/19 Range/Units 16:33 20:16 05:35 POC Glucose 299 H 262 H 220 H (70-105) 01/06/19 Range/Units 12:19 POC Glucose 315 H (70-105)
[2019-01-06] MEDS: ROCEPHIN/NS 2 GM/100 ML 2 GM/100 ML BAG IV SCH (18:41)
[2019-01-06] MEDS: VIBRAMYCIN PO SCH (22:00)
[2019-01-07 01:02] LABS: Basophils # (Auto) 0.1 K/mm3 (0.0-0.1); Basophils % (Auto) 0.7 % (0.0-1.8); Eosinophils % (Auto) 0.2 % (0.0-4.3); Hematocrit 31.2 % (30.3-42.9); Hemoglobin 9.9 gm/dl (10.1-14.3); Lymphocytes # (Auto) 2.1 K/mm3 (1.2-5.4); Lymphocytes % (Auto) 17.7 % (13.4-35.0); Mean Corpuscular HGB Conc 32 % (30-34); Mean Corpuscular Volume 83 fl (79-97); Monocytes # (Auto) 0.9 K/mm3 (0.0-0.8); Monocytes % (Auto) 7.5 % (0.0-7.3); Platelet Count 333 K/mm3 (140-440); Red Blood Count 3.75 M/mm3 (3.65-5.03); Red Cell Distribution Width 16.8 % (13.2-15.2)
[2019-01-07] MEDS ORDERED: NORVASC PO ONE (05:08)
[2019-01-07] MEDS: PERCOCET 5/325 PO PRN ×2 (05:19→15:59)
[2019-01-07] MEDS: ROXICODONE PO PRN ×2 (05:19→15:58)
[2019-01-07] MEDS: HumuLIN R SUB-Q SCH ×4 (08:38→21:00)
[2019-01-07 09:47] LABS: BUN/Creatinine Ratio 23; Blood Urea Nitrogen 16 mg/dL (7-17); Calcium 9.7 mg/dL (8.4-10.2); Hemolysis Index 0
[2019-01-07] MEDS: HCTZ PO SCH (10:00)
[2019-01-07] MEDS: VIBRAMYCIN PO SCH ×2 (10:00→21:01)
[2019-01-07] MEDS: LYRICA PO SCH (10:01)
[2019-01-07] MEDS: KENALOG TP SCH ×2 (10:01→21:01)
[2019-01-07] MEDS: DELTASONE PO SCH (10:02)
[2019-01-07] MEDS: LOPRESSOR PO SCH ×2 (10:02→21:00)
[2019-01-07] MEDS: ZESTRIL PO SCH (10:02)
[2019-01-07] MEDS: ROCEPHIN/NS 2 GM/100 ML 2 GM/100 ML BAG IV SCH (10:03)
--- NOTE | 2019-01-07 10:16 | Progress Note ---
Assessment and Plan Palpitations Diabetes Hypertension Pyoderma grangrenosum with multiple LE revascularization chronic nonhealing ulcers of bilateral legs Paroxysmal supraventricular tachycardia on metoprolol In 2015, she had a negative treadmill stress test. She exercised for 4 minutes. An echocardiogram done at [facility] September 2018 documents a hyperdynamic LVEF 73%. Continue beta blockers for suppression of paroxysmal SVT. Otherwise, conservative cardiac management. Subjective Date of service: 01/07/19 Interval history: Patient has no cardiac complaints. Objective Vital Signs Temp Pulse Resp BP Pulse Ox 01/07/19 10:02 74 186/84 01/07/19 05:07 98.3 F 18 194/87 01/07/19 04:00 80 100 01/06/19 23:57 98.3 F 84 12 146/56 96 01/06/19 19:47 18 01/06/19 19:40 98.1 F 102 H 20 147/80 98 01/06/19 17:13 92 H 18 148/61 98 01/06/19 17:12 98.5 F 01/06/19 12:37 192/79 01/06/19 12:20 71 18 192/79 99 01/06/19 12:17 98.2 F - Physical Examination General: No Apparent Distress HEENT: Positive: PERRL Neck: Positive: trachea midline Cardiac: Positive: Reg Rate and Rhythm Lungs: Positive: Decreased Breath Sounds Neuro: Positive: Grossly Intact Skin: Positive: Wound (bilateral LE wounds) Extremities: Present: edema - Labs and Meds CBC 01/07/19 Range/Units 00:43 WBC 11.9 H (4.5-11.0) K/mm3 RBC 3.75 (3.65-5.03) M/mm3 Hgb 9.9 L (10.1-14.3) gm/dl Hct 31.2 (30.3-42.9) % Plt Count 333 (140-440) K/mm3 Lymph # 2.1 (1.2-5.4) K/mm3 [place] # 0.9 H (0.0-0.8) K/mm3 Eos # 0.0 (0.0-0.4) K/mm3 Baso # 0.1 (0.0-0.1) K/mm3 Comprehensive Metabolic Panel 01/07/19 Range/Units 08:31 Sodium 137 (137-145) mmol/L Potassium 4.4 (3.6-5.0) mmol/L Chloride 96.4 L (98-107) mmol/L Carbon Dioxide 26 (22-30) mmol/L BUN 16 (7-17) mg/dL Creatinine 0.7 (0.7-1.2) mg/dL Glucose 187 H (65-100) mg/dL Calcium 9.7 (8.4-10.2) mg/dL
--- NOTE | 2019-01-07 11:13 | Progress Note ---
Assessment and Plan Cultures: 01/04/19 Blood: no growth thus far 01/06/19 Wound : in progress A/P: 53-year-old female with history of diabetes, hypertenison, pyoderma gangrenosum with multiple revasculaization procedures in the past, gangrenous wounds to the bilateral lower extremities, Previous admission to [facility] for sepsis and infected lower extremity wounds, but left AMA on 12/30/18. admitted with: 1. Left Lateral Malleolus Osteomylitis,: MRI done at [facility]. Will obtain surgery consult with Dr. Atwood. Discontinue Vancomycin, cultures at [facility] showed normal skin kip. Wound culture sent. Start Ceftriaxone CRP - 3.20 2. Pyoderma Ganfrenosum; long-standing history of pyoderma gangrenosum, has been on chronic steroids and has also been on Biologics, most recently Remicade. She had a recent hospitalization at [facility] where an MRI on 12/28/2018 showed left lateral malleolus osteomyelitis. She left from the hospital AMA before getting any debridement. Wound cultures that grew normal skin kip. MRI did show a few adjacent gas bubbles and patient may benefit from some debridement. Anticipate discharge on 6 weeks of IV antibiotics. Would also consider discharging on PO minocycline due to its anti-inflammatory properties, since it may help the pyoderma. Patient already on steroids and also recently started Remicade. -no indication for debridement at this time especially with the fact that the wounds are related to pyoderma and can worsen with aggressive debridement. Hyperbaric therapy encouraged - Dr. Atwood following 4. Diabetes Mellitus Type 2 : uncontrolled 5. NSTEMI- likely type II: Cardiology following 6. Nausea and vomiting: Resolved. Has no abdominal pain, abdominal x-ray showed no acute process, no obstruction. 7. Tobacco abuse: 30 year smoking history. States that she recently quit. Plan f/u wound culture Continue Doxycycline 100 mg po BID, D2 Continue Cefrtiaxone 2 gms IV every 24 hours, D2 Anticipate discharge on 6 weeks of IV antibiotics f/u wound care consult Patient leaving hospital AMA, Discussed the risks of leaving the hospital, states that she has an emergency situation at home but will be back Thursday, Can discharge on Minocycline 100mg PO BID and Ciprofloxacin 750mg BID for 5 days ending 01-12-19. d/w Dr. Dennis Collins will be compensation and benefits advisor this weekend, . Please call for questions. Charlene Clayton NP [facility] M: [phone] O:[phone] Subjective Date of service: 01/07/19 Interval history: Patient seen and examined, Increased anxiety, wants to leave the hospital AMA, has a family emergency. Dr. Zapata at bedside, explained the risk of leaving [place], patient verbalized understanding. Objective - Exam Narrative Exam: Constitutional: Alert, cooperative. Left ankle pain Head, Ears, Nose: Normocephalic, atraumatic. External ears, nose normal Eyes: Conjunctivae/corneas clear. No icterus. No ptosis. Neck: Supple, no meningeal signs Oral: dentition poor. + thrush Cardiovascular: S1, S2 normal. Respiratory: Good air entry, clear to auscultation bilaterally GI: Soft, non-tender; bowel sounds normal. No peritoneal signs Musculoskeletal: + Left Lateral Malleolus Osteomylitis, Purulent drainage, no odor Skin: Bilateral Pyoderma Ganfrenosum Hem/Lymphatic: No palpable cervical or supraclavicular nodes. No lymphangitis Psych: Mood ok. Affect normal Neurological: Awake, alert, oriented. - Constitutional Vitals: Vital Signs Temp Pulse Resp BP Pulse Ox 98.1 F 74 19 186/84 100 01/07/19 08:00 01/07/19 10:02 01/07/19 08:00 01/07/19 10:02 01/07/19 04:00 Temperature -Last 24 Hours Temperature 98.1 F Temperature 98.3 F Temperature 98.3 F Temperature 98.1 F Temperature 98.5 F Temperature 98.2 F - Labs CBC & Chem 7: 01/07/19 00:43 01/07/19 08:31 Labs: Abnormal lab results 01/06/19 01/06/19 01/06/19 Range/Units 12:19 17:14 18:53 WBC (4.5-11.0) K/mm3 Hgb (10.1-14.3) gm/dl MCH (28-32) pg RDW (13.2-15.2) % [place] % (Auto) (0.0-7.3) % [place] # (0.0-0.8) K/mm3 Seg Neutrophils % (40.0-70.0) % Seg Neutrophils # (1.8-7.7) K/mm3 Chloride (98-107) mmol/L Glucose (65-100) mg/dL POC Glucose 315 H 305 H (70-105) C-Reactive Protein 3.20 H (0.00-1.30) mg/dL 01/06/19 01/07/19 01/07/19 Range/Units 20:51 00:43 05:47 WBC 11.9 H (4.5-11.0) K/mm3 Hgb 9.9 L (10.1-14.3) gm/dl MCH 27 L (28-32) pg RDW 16.8 H (13.2-15.2) % [place] % (Auto) 7.5 H (0.0-7.3) % [place] # 0.9 H (0.0-0.8) K/mm3 Seg Neutrophils % 73.9 H (40.0-70.0) % Seg Neutrophils # 8.8 H (1.8-7.7) K/mm3 Chloride (98-107) mmol/L Glucose (65-100) mg/dL POC Glucose 312 H 221 H (70-105) C-Reactive Protein (0.00-1.30) mg/dL 01/07/19 Range/Units 08:31 WBC (4.5-11.0) K/mm3 Hgb (10.1-14.3) gm/dl MCH (28-32) pg RDW (13.2-15.2) % [place] % (Auto) (0.0-7.3) % [place] # (0.0-0.8) K/mm3 Seg Neutrophils % (40.0-70.0) % Seg Neutrophils # (1.8-7.7) K/mm3 Chloride 96.4 L (98-107) mmol/L Glucose 187 H (65-100) mg/dL POC Glucose (70-105) C-Reactive Protein (0.00-1.30) mg/dL
--- NOTE | 2019-01-07 12:47 | Progress Note ---
Assessment and Plan NSTEMI likely type II, likely from SVT - will cont on Aspirin, statin - as needed SL NTG and iv morphin for pain In 2016, she had a negative treadmill stress test. She exercised for 4 minutes. An echocardiogram done at [facility] September 2018 documents a hyperdynamic LVEF 73%. conservative cardiac management per cardiology Nausea vomiting - Has no abdominal pain, abdominal x-ray showed no acute process, no obstruction -tolerating diet, as needed nausea medications Bilateral lower extremity cellulitis with gangrenous ulcer - wound care consulted, follow wound culture - Consulted ID for abx recommendation Left Lateral Malleolus Osteomylitis - MRI done at [facility]. Surgery consulted with Dr. Atwood. Discontinued Vancomycin, cultures at [facility] showed normal skin kip. - Continue Doxycycline 100 mg po BID and Cefrtiaxone 2 gms IV every 24 hours, patient will need total 6 weeks of abx, but patient wants o leave AMA Pyoderma gangrenosum - Continue her home dose of steroid Diabetes mellitus type 2 - Consistent Diet and sliding scale of insulin Hypertension. Uncontrolled, Continue to monitor, resumed home meds - adjust meds as needed Hypokalemia, repleted History of SVT, continue metoprolol - provide DVT Px with lovenox Brief History: Patient is a 53 year old woman with history of Diabetes, Hypertension, Pyoderma grangrenosum with multiple revascularization procedures in the past, gangrenous wounds to the bilateral lower extremities presented with nausea vomiting and worsening pain to her LEs. Patient was admitted to [facility] with sepsis, infected lower extremity wounds but left AMA 12/30. In the ER she noted to have elevated troponin with ECG sinus rhythm. She was placed on heparin drip, started on empiric abx and called for admission for further evaluation and management. Hospitalist Physical exam: GENERAL: Obvious female lying on bed appeared to be in no discomfort. HEENT: Normocephalic. Atraumatic. No conjunctival congestion or icterus. Patient has moist mucous membranes. NECK: Supple. Trachea midline. CHEST/LUNGS: Clear to auscultated bilaterally, breathing nonlabored. No wheezes crackles or rhonchi. HEART/CARDIOVASCULAR: Regular in rate and rhythm. S1 and S2 positive. ABDOMEN: Abdomen is soft, nontender. Patient has normal bowel sounds. SKIN: There is no rash. Warm and dry. NEURO: No focal motor deficit. Follows command. MUSCULOSKELETAL: No joint effusion or tenderness. EXTRIMITY: Bilateral Lower extremity multiple ulcerations with extensive cell ulitis PSYCH: Cooperative. Subjective Date of service: 01/07/19 Interval history: Patient seen and examined. Medical records and medication list reviewed. No acute event overnight noted by the RN. Patient denies any chest pain or difficulty breathing. Patient is tolerating diet. Continue to complain of lower extremity pain, Discussed plan of care at bedside with patient. She wants to leave AMA w/o iv abx and w/o getting a PICC line. Discussed risk of leaving AMA along with ID CORRECTIONAL SUPPLY SUPERVISOR at the bedside Objective - Exam Narrative Exam: GENERAL: Obese female lying on bed appeared to be in no discomfort. HEENT: Normocephalic. Atraumatic. No conjunctival congestion or icterus. Patient has moist mucous membranes. NECK: Supple. Trachea midline. CHEST/LUNGS: Clear to auscultated bilaterally, breathing nonlabored. No wheezes crackles or rhonchi. HEART/CARDIOVASCULAR: Regular in rate and rhythm. S1 and S2 positive. ABDOMEN: Abdomen is soft, nontender. Patient has normal bowel sounds. SKIN: There is no rash. Warm and dry. NEURO: No focal motor deficit. Follows command. MUSCULOSKELETAL: No joint effusion or tenderness. EXTRIMITY: Extensive bilateral lower extremity multiple ulcers with oozing pulse PSYCH: Cooperative. - Constitutional Vitals: Vital Signs - 12hr 01/07/19 01/07/19 01/07/19 04:00 05:07 08:00 Temperature 98.3 F 98.1 F Pulse Rate 80 74 Respiratory 18 19 Rate Blood Pressure 194/87 Blood Pressure 186/84 [Left] O2 Sat by Pulse 100 Oximetry 01/07/19 10:02 Temperature Pulse Rate 74 Respiratory Rate Blood Pressure 186/84 Blood Pressure [Left] O2 Sat by Pulse Oximetry - Labs CBC & Chem 7: 01/07/19 00:43 01/07/19 08:31 Labs: Abnormal lab results 01/06/19 01/06/19 01/06/19 Range/Units 12:19 17:14 18:53 WBC (4.5-11.0) K/mm3 Hgb (10.1-14.3) gm/dl MCH (28-32) pg RDW (13.2-15.2) % [place] % (Auto) (0.0-7.3) % [place] # (0.0-0.8) K/mm3 Seg Neutrophils % (40.0-70.0) % Seg Neutrophils # (1.8-7.7) K/mm3 Chloride (98-107) mmol/L Glucose (65-100) mg/dL POC Glucose 315 H 305 H (70-105) C-Reactive Protein 3.20 H (0.00-1.30) mg/dL 01/06/19 01/07/19 01/07/19 Range/Units 20:51 00:43 05:47 WBC 11.9 H (4.5-11.0) K/mm3 Hgb 9.9 L (10.1-14.3) gm/dl MCH 27 L (28-32) pg RDW 16.8 H (13.2-15.2) % [place] % (Auto) 7.5 H (0.0-7.3) % [place] # 0.9 H (0.0-0.8) K/mm3 Seg Neutrophils % 73.9 H (40.0-70.0) % Seg Neutrophils # 8.8 H (1.8-7.7) K/mm3 Chloride (98-107) mmol/L Glucose (65-100) mg/dL POC Glucose 312 H 221 H (70-105) C-Reactive Protein (0.00-1.30) mg/dL 01/07/19 01/07/19 Range/Units 08:31 11:55 WBC (4.5-11.0) K/mm3 Hgb (10.1-14.3) gm/dl MCH (28-32) pg RDW (13.2-15.2) % [place] % (Auto) (0.0-7.3) % [place] # (0.0-0.8) K/mm3 Seg Neutrophils % (40.0-70.0) % Seg Neutrophils # (1.8-7.7) K/mm3 Chloride 96.4 L (98-107) mmol/L Glucose 187 H (65-100) mg/dL POC Glucose 195 H (70-105) C-Reactive Protein (0.00-1.30) mg/dL
--- NOTE | 2019-01-07 13:31 | Consultation ---
History of Present Illness Consult date: 01/07/19 Chief complaint: wounds - History of present illness History of present illness: 53 yo F with hx of pyoderma ganrgenosum on steroids, DM, longstanding lower extremity wounds, PAD presents to hospital with multiple complaints including CP, wounds, and not feeling well. The patient was recently seen at [facility] during which time she left [place]. The patient states she has had these wounds for a long time. She is being treated with steroids and remicade. She also recently underwent a vascular procedure by Dr. Hill on the left leg and this led to an open infected wound. This was debrided by Dr. Hill and wound vac therapy was started. The patient already has a home health care nurse looking after her wounds. She was seen by ID who reviewed MRI report from [place] which showed osteomyelitis of left ankle. Surgery consulted for possible debridement. The patient is in a hurry to be discharged. She is adamant about going home today despite knowing that she needs IV antibiotics to be set up to treat osteomyelitis. Past History Past Medical History: diabetes, hypertension, PVD, other (pyoderma gangrenosum, bilateral lower extremity wounds, SVT) Past Surgical History: Other (right lower extremity vascular surgery, multiple wound debridements) Social history: no significant social history Family history: no significant family history Medications and Allergies Allergies Allergy/AdvReac Type Severity Reaction Status Date / Time No Known Allergies Allergy Verified 01/04/19 05:22 Home Medications Medication Instructions Recorded Confirmed Last Taken Type Lisinopril [Zestril TAB] 40 mg PO QDAY 07/15/16 01/04/19 1 Day Ago History ~08/31/16 hydroCHLOROthiazide [HCTZ] 25 mg PO QDAY 07/15/16 01/04/19 1 Day Ago History ~08/31/16 metFORMIN [Glucophage] 500 mg PO QDAY 07/15/16 01/04/19 1 Day Ago History ~08/31/16 predniSONE [Deltasone] 30 mg PO QDAY 07/15/16 01/04/19 1 Day Ago History ~08/31/16 30 mg. PO Q day Metoprolol [Lopressor TAB] 50 mg PO BID #60 tablet 09/03/16 01/04/19 Unknown Rx Oxycodone HCl/Acetaminophen 1 each PO Q6HR PRN #12 tablet 09/03/16 01/04/19 Un known Rx [Percocet 7.5/325 mg] Triamcinolone 0.1% [Kenalog 0.1% 1 applic TP BID #1 tube 01/20/17 01/04/19 Unknown Rx CREAM] hydrOXYzine HCl [Hydroxyzine HCl] 25 mg PO Q6HR PRN #15 tablet 01/20/17 01/04/19 Unknown Rx Active Meds: Active Medications Doxycycline Hyclate (Vibramycin) 100 mg PO BID [facility] Last Admin: 01/07/19 10:00 Dose: 100 mg Documented by: Hydralazine HCl (Apresoline) 10 mg IV Q30MIN PRN PRN Reason: Hypertension Last Admin: 01/06/19 12:37 Dose: 10 mg Documented by: Hydrochlorothiazide (Hctz) 25 mg PO QDAY [facility] Last Admin: 01/07/19 10:00 Dose: 25 mg Documented by: Hydroxyzine HCl (Atarax) 25 mg PO Q6HR PRN PRN Reason: Itching Ceftriaxone Sodium (Rocephin/Ns 2 Gm/100 Ml) 2 gm in 100 mls @ 200 mls/hr IV Q24HR [facility]; Protocol Last Admin: 01/07/19 10:03 Dose: 200 mls/hr Documented by: Insulin Human Regular (Humulin R) 0 units SUB-Q ACHS [facility]; Protocol Last Admin: 01/07/19 13:03 Dose: 2 units Documented by: Lisinopril (Zestril) 40 mg PO QDAY [facility] Last Admin: 01/07/19 10:02 Dose: 40 mg Documented by: Metoprolol Tartrate (Lopressor) 50 mg PO BID [facility] Last Admin: 01/07/19 10:02 Dose: 50 mg Documented by: Oxycodone HCl (Roxicodone) 2.5 mg PO Q6H PRN PRN Reason: Pain, Moderate (4-6) Last Admin: 01/07/19 05:19 Dose: 2.5 mg Documented by: Oxycodone/Acetaminophen (Percocet 5/325) 1 tab PO Q6H PRN PRN Reason: Pain, Moderate (4-6) Last Admin: 01/07/19 05:19 Dose: 1 tab Documented by: Prednisone (Deltasone) 30 mg PO QDAY [facility] Last Admin: 01/07/19 10:02 Dose: 30 mg Documented by: Pregabalin (Lyrica) 300 mg PO QDAY [facility] Last Admin: 01/07/19 10:01 Dose: 300 mg Documented by: Triamcinolone Acetonide (Kenalog) 1 applic TP BID [facility] Last Admin: 01/07/19 10:01 Dose: 1 applic Documented by: Review of Systems All systems: negative (10 pt ROS performed and negative except for that listed in HPI) Exam Vital Signs Resp Pulse Ox 17 98 01/04/19 02:30 01/04/19 02:30 Narrative exam: Gen: AAOx3. NAD ENT: no scleral icterus or conjunctival pallor CV: s1, s2+ Resp; even and unlabored Ext: bilateral lower extremity dressing intact. LLE edema. L calf wound clean and dry without odor. No TTP or crepitus around L ankle or foot. + sensation and motor. Unable to palpate peripheral pulses in LLE due to edema. children's attendant wound photos reviewed. Results - Labs 01/07/19 00:43 01/07/19 08:31 Abnormal lab results 01/06/19 01/06/19 01/06/19 Range/Units 17:14 18:53 20:51 WBC (4.5-11.0) K/mm3 Hgb (10.1-14.3) gm/dl MCH (28-32) pg RDW (13.2-15.2) % [place] % (Auto) (0.0-7.3) % [place] # (0.0-0.8) K/mm3 Seg Neutrophils % (40.0-70.0) % Seg Neutrophils # (1.8-7.7) K/mm3 Chloride (98-107) mmol/L Glucose (65-100) mg/dL POC Glucose 305 H 312 H (70-105) C-Reactive Protein 3.20 H (0.00-1.30) mg/dL 01/07/19 01/07/19 01/07/19 Range/Units 00:43 05:47 08:31 WBC 11.9 H (4.5-11.0) K/mm3 Hgb 9.9 L (10.1-14.3) gm/dl MCH 27 L (28-32) pg RDW 16.8 H (13.2-15.2) % [place] % (Auto) 7.5 H (0.0-7.3) % [place] # 0.9 H (0.0-0.8) K/mm3 Seg Neutrophils % 73.9 H (40.0-70.0) % Seg Neutrophils # 8.8 H (1.8-7.7) K/mm3 Chloride 96.4 L (98-107) mmol/L Glucose 187 H (65-100) mg/dL POC Glucose 221 H (70-105) C-Reactive Protein (0.00-1.30) mg/dL 01/07/19 Range/Units 11:55 WBC (4.5-11.0) K/mm3 Hgb (10.1-14.3) gm/dl MCH (28-32) pg RDW (13.2-15.2) % [place] % (Auto) (0.0-7.3) % [place] # (0.0-0.8) K/mm3 Seg Neutrophils % (40.0-70.0) % Seg Neutrophils # (1.8-7.7) K/mm3 Chloride (98-107) mmol/L Glucose (65-100) mg/dL POC Glucose 195 H (70-105) C-Reactive Protein (0.00-1.30) mg/dL Diabetes panel 01/07/19 Range/Units 08:31 Sodium 137 (137-145) mmol/L Potassium 4.4 (3.6-5.0) mmol/L Chloride 96.4 L (98-107) mmol/L Carbon Dioxide 26 (22-30) mmol/L BUN 16 (7-17) mg/dL Creatinine 0.7 (0.7-1.2) mg/dL Glucose 187 H (65-100) mg/dL Calcium 9.7 (8.4-10.2) mg/dL Calcium panel 01/07/19 Range/Units 08:31 Calcium 9.7 (8.4-10.2) mg/dL Pituitary panel 01/07/19 Range/Units 08:31 Sodium 137 (137-145) mmol/L Potassium 4.4 (3.6-5.0) mmol/L Chloride 96.4 L (98-107) mmol/L Carbon Dioxide 26 (22-30) mmol/L BUN 16 (7-17) mg/dL Creatinine 0.7 (0.7-1.2) mg/dL Glucose 187 H (65-100) mg/dL Calcium 9.7 (8.4-10.2) mg/dL Adrenal panel 01/07/19 Range/Units 08:31 Sodium 137 (137-145) mmol/L Potassium 4.4 (3.6-5.0) mmol/L Chloride 96.4 L (98-107) mmol/L Carbon Dioxide 26 (22-30) mmol/L BUN 16 (7-17) mg/dL Creatinine 0.7 (0.7-1.2) mg/dL Glucose 187 H (65-100) mg/dL Calcium 9.7 (8.4-10.2) mg/dL Assessment and Plan 53 yo F with 1. long standing hx of pyoderma gangrenosum 2. bilateral lower extremity wounds 3. left calf surgical wound 4. left ankle osteomyelitis 5. poorly controlled DM Plan: 1. Continue current wound care. Patient is set up to follow up in wound care cli eloisa on Thursday. She may continue her home wound vac and home health care visits as scheduled. 2. elevation of LLE 3. no indication for debridement at this time especially with the fact that the wounds are related to pyoderma and can worsen with aggressive debridement. 4. antibiotics for osteomyelitis per ID 5. I encouraged the patient to consider outpatient hyperbaric therapy 6. may discharge when cleared by ID and hospitalist service Thank you, please call with questions
--- NOTE | 2019-01-07 15:33 | Event Note ---
Date: 01/07/19 Physician Attestation: I have seen and examined patient. I personally discussed and directed assessment and management with NAILER OPERATOR Matilde. Patient was instructed to stay until a PICC line and IV abx were arranged however despite multiple effort discussing the risks of leaving the hospital, she decided to leave AMA and coming back on Thursday. She reports she has an emergent situation at home. I explained she is at risk of amputation if infection is not properly treated. I also explained oral antibiotic will NOT cure bone infection. She stated she s cominmg back on Thursday so a RX for Minocycline 100mg PO BID and Ciprofloxacin 750mg BID for 5 days would be ok. Teri Reynaga MD Infectious Diseases Pig Handler [facility] M [phone] O [phone]
[2019-01-07 20:44] VITALS: BP 184/87
--- NOTE | 2019-01-09 12:07 | Discharge Summary ---
Providers - Providers Date of Admission: 01/05/19 10:17 Date of discharge: 01/07/19 Attending physician: ARTHUR HAYS 01/04/19 07:23 Consult to Cardiology [CONS] Routine Consulting Provider: ALEX PORRAS Reason For Exam: elevated troponin, palpitations 01/04/19 14:41 Consult to Wound/ET Nurse [CONS] Routine Reason For Exam: wound eval 01/06/19 12:29 Consult to Physician [CONS] Routine Comment: Consulting Provider: LING GUTIÉRREZ Physician Instructions: Reason For Exam: LE cellulitis 01/06/19 17:14 Consult to Physician [CONS] Routine Comment: Consulting Provider: EDELMIRA SONI Physician Instructions: Reason For Exam: left Lateral malleoulus Osteomylitis 01/07/19 15:02 Consult to PICC Line RN [CONS] Stat Reason For Exam: need 6 weeks iv abx Type Line:: PICC [facility] Condition: Serious Pertinent studies: VQ scan CXr/abdomen xry Tibia/fibula xry Hospital course: Brief History: Patient is a 53 year old woman with history of Diabetes, Hypertension, Pyoderma grangrenosum with multiple revascularization procedures in the past, gangrenous wounds to the bilateral lower extremities presented with nausea vomiting and worsening pain to her LEs. Patient was admitted to [facility] with sepsis, infected lower extremity wounds but left AMA 12/30. In the ER she noted to have elevated troponin with ECG sinus rhythm. She was placed on heparin drip, started on empiric abx and called for admission for further evaluation and management. Records from [place] showed Left Lateral Malleolus Osteomylitis. No debridement planned by surgery, ID recommended total 6 weeks of IV abx, but patient decided to leave AMA. Discharge diagnosis and management: NSTEMI likely type II, likely from SVT - will cont on Aspirin, statin - as needed SL NTG and iv morphin for pain In 2015, she had a negative treadmill stress test. She exercised for 4 minutes. An echocardiogram done at [facility] September 2018 documents a hyperdynamic LVEF 73%. conservative cardiac management per cardiology Nausea vomiting - Has no abdominal pain, abdominal x-ray showed no acute process, no obstruction -tolerating diet, as needed nausea medications Bilateral lower extremity cellulitis with gangrenous ulcer - wound care consulted, follow wound culture - Consulted ID for abx recommendation Left Lateral Malleolus Osteomylitis - MRI done at [facility]. Surgery consulted with Dr. Soni. Discontinued Vancomycin, cultures at [facility] showed normal skin kip. - Continue Doxycycline 100 mg po BID and Cefrtiaxone 2 gms IV every 24 hours, patient will need total 6 weeks of abx, but patient wants o leave AMA Pyoderma gangrenosum - Continue her home dose of steroid Diabetes mellitus type 2 - Consistent Diet and sliding scale of insulin Hypertension. Uncontrolled, Continue to monitor, resumed home meds - adjust meds as needed Hypokalemia, repleted History of SVT, continue metoprolol - provide DVT Px with [place] Hospitalist Physical exam: GENERAL: Obvious female lying on bed appeared to be in no discomfort. HEENT: Normocephalic. Atraumatic. No conjunctival congestion or icterus. Patient has moist mucous membranes. NECK: Supple. Trachea midline. CHEST/LUNGS: Clear to auscultated bilaterally, breathing nonlabored. No wheezes crackles or rhonchi. HEART/CARDIOVASCULAR: Regular in rate and rhythm. S1 and S2 positive. ABDOMEN: Abdomen is soft, nontender. Patient has normal bowel sounds. SKIN: There is no rash. Warm and dry. NEURO: No focal motor deficit. Follows command. MUSCULOSKELETAL: No joint effusion or tenderness. EXTRIMITY: Bilateral Lower extremity multiple ulcerations with extensive cellulitis PSYCH: Cooperative. Disposition: DC-07 LEFT AGAINST MED ADVICE Core Measure Documentation - Palliative Care Palliative Care/ Comfort Measures: Not Applicable - Core Measures Any of the following diagnoses?: none Exam - Constitutional Vitals: Temp Pulse Resp BP Pulse Ox 98.1 F 81 18 184/87 100 01/07/19 08:00 01/07/19 20:41 01/07/19 20:41 01/07/19 20:41 01/07/19 20:41 Plan Follow up with: BEAR HEWITT MD [Primary Care Provider] - 3-5 Days Forms: AMA Form Prescriptions: Ciprofloxacin HCl [Ciprofloxacin TAB] 750 mg PO BID 5 Days #10 tablet Minocycline (Nf) [Minocin (Nf)] 100 mg PO Q12H 5 Days #10 capsule
== END 2019-01-07 21:17 | disposition left against medical advice (07) | DRG 281 ==
LOC: ED 00:33 → 4A 10:21 → OBSVTOIN 01-05 10:17
PROVIDERS: ADMIT Internal Medicine; ATTEND Internal Medicine
DX: I21.A1 Myocardial infarction type 2 (principal); I47.1 Supraventricular tachycardia; I96 Gangrene, not elsewhere classified; L97.928 Non-pressure chronic ulcer of unspecified part of left lower leg with other specified severity; L97.919 Non-pressure chronic ulcer of unspecified part of right lower leg with unspecified severity; M86.8X7 Other osteomyelitis, ankle and foot; L88 Pyoderma gangrenosum; I16.0 Hypertensive urgency; I10 Essential (primary) hypertension; E87.6 Hypokalemia; E11.51 Type 2 diabetes mellitus with diabetic peripheral angiopathy without gangrene; E11.69 Type 2 diabetes mellitus with other specified complication; T81.89XA Other complications of procedures, not elsewhere classified, initial encounter; F17.200 Nicotine dependence, unspecified, uncomplicated; E66.9 Obesity, unspecified; Z79.899 Other long term (current) drug therapy; Z68.34 Body mass index [BMI] 34.0-34.9, adult; Z82.49 Family history of ischemic heart disease and other diseases of the circulatory system; Z83.3 Family history of diabetes mellitus; Z79.51 Long term (current) use of inhaled steroids
CPT/HCPCS: 36415; 74022; 78582; 80048; 80053; 80061; 82140; 82805; 82962; 84484; 85007; 85014; 85018; 85025; 85049; 85379; 85520; 85610; 85652; 85730; 86140; 87040; 87076; 87116; 87186; 93005; 93010; 96361; 96365; 96366; 96375; G0378; A9540; A9558; J0360; J0696; J1644; J1815; J2270; J2405; J3370; J7030; J7050; J7512

== ENCOUNTER 2019-01-11 13:07 | Inpatient (IN) | payer MEDICAID ==
--- NOTE | 2019-01-11 13:41 | Emergency Department Report ---
Blank Doc - Documentation Documentation: This is a 53 y.o. female that presents with BLE wounds. PMH of DM, SVT, palpi tations, pyoderma gangrenosum, and chronic osteomyelitis in both feet and ankles. She cancelled her appointment with wound care today because she is worried of increased infection to LLE. She reports bleeding to wound in left lower dai, which never occurred before. Ordered: Labs Fast track for further evaluation.
[2019-01-11 14:52] LABS: Basophils # (Auto) 0.1 K/mm3 (0.0-0.1); Basophils % (Auto) 0.6 % (0.0-1.8); Eosinophils # (Auto) 0.3 K/mm3 (0.0-0.4); Eosinophils % (Auto) 2.4 % (0.0-4.3); Hematocrit 33.3 % (30.3-42.9); Lymphocytes % (Auto) 28.8 % (13.4-35.0); Mean Corpuscular HGB Conc 33 % (30-34); Mean Corpuscular Volume 83 fl (79-97); Monocytes # (Auto) 1.1 K/mm3 (0.0-0.8); Monocytes % (Auto) 10.7 % (0.0-7.3); Platelet Count 350 K/mm3 (140-440); Red Blood Count 4.03 M/mm3 (3.65-5.03); Red Cell Distribution Width 16.6 % (13.2-15.2)
[2019-01-11 15:10] LABS: Alanine Aminotransferase 16 units/L (7-56); Albumin 3.1 g/dL (3.9-5); BUN/Creatinine Ratio 20; Blood Urea Nitrogen 14 mg/dL (7-17); Calcium 9.7 mg/dL (8.4-10.2); Hemolysis Index 1
--- NOTE | 2019-01-11 16:31 | Emergency Department Report ---
ED General Adult HPI - General Chief complaint: Wound/Laceration Stated complaint: HIGH BP/DIABETES/INFECTIONING BONES Time Seen by Provider: 01/11/19 13:36 Source: patient, family Mode of arrival: Wheelchair Limitations: No Limitations - History of Present Illness Initial comments: 53-year-old female with history of peripheral vascular disease, diabetes, pyoderma gangrenosum and osteomyelitis of left lower leg presents to the ED for her PICC line and IV antibiotics. Patient left AMA 4 days ago because she states she was trying to avoid it getting evicted from her home. Patient states the plan was for her to get a PICC line and IV antibiotics for left lateral malleolus osteomyelitis, however, that did not happen due to her leaving. The patient also did not receive any PO antibiotics prescription prior to leaving the hospital. Patient states that her wounds are the same, no change, denies any fever. Patient had appointment with wound care clinic earlier today, however did not go and came to the ER instead. Discharge summary states there was no plan for debridement by surgery, and patient was supposed to receive Rocephin 2 g IV every 24 hours, doxycycline 100 mg by mouth twice a day for 6 weeks. Patient was not instructed to come to the ED today by Dr Serrano as the triage note states. Location: left, right, lower extremity Severity scale (0 -10): 9 Consistency: constant Improves with: none Worsens with: none Associated Symptoms: denies: fever/chills - Related Data Home Medications Medication Instructions Recorded Confirmed Last Taken Lisinopril [Zestril TAB] 40 mg PO QDAY 07/15/16 01/04/19 1 Day Ago ~08/31/16 hydroCHLOROthiazide [HCTZ] 25 mg PO QDAY 07/15/16 01/04/19 1 Day Ago ~08/31/16 metFORMIN [Glucophage] 500 mg PO QDAY 07/15/16 01/04/19 1 Day Ago ~08/31/16 predniSONE [Deltasone] 30 mg PO QDAY 07/15/16 01/04/19 1 Day Ago ~08/31/16 30 mg. PO Q day Previous Rx's Medication Instructions Recorded Last Taken Type Metoprolol [Lopressor TAB] 50 mg PO BID #60 tablet 09/03/16 Unknown Rx Oxycodone HCl/Acetaminophen 1 each PO Q6HR PRN #12 tablet 09/03/16 Unknown Rx [Percocet 7.5/325 mg] Triamcinolone 0.1% [Kenalog 0.1% 1 applic TP BID #1 tube 01/20/17 Unknown Rx CREAM] hydrOXYzine HCl [Hydroxyzine HCl] 25 mg PO Q6HR PRN #15 tablet 01/20/17 Unknown Rx Ciprofloxacin HCl [Ciprofloxacin 750 mg PO BID 5 Days #10 tablet 01/07/19 Unknown Rx TAB] Minocycline (Nf) [Minocin (Nf)] 100 mg PO Q12H 5 Days #10 capsule 01/07/19 Unknown Rx Allergies Allergy/AdvReac Type Severity Reaction Status Date / Time No Known Allergies Allergy Verified 01/11/19 13:26 ED Review of Systems ROS: Stated complaint: HIGH BP/DIABETES/INFECTIONING BONES Other details as noted in HPI Comment: All other systems reviewed and negative Constitutional: denies: chills, fever Gastrointestinal: denies: vomiting Musculoskeletal: other (reports open wounds) ED Past Medical Hx - Past Medical History Previous Medical History?: Yes Hx Hypertension: Yes Hx Diabetes: Yes Hx HIV: Yes (Pt denies h/o.) Additional medical history: pyoderma gangrenosum - Surgical History Past Surgical History?: Yes Additional Surgical History: left LE. umbilical biopsy - Social History Smoking Status: Current Every Day Smoker - Medications Home Medications: Home Medications Medication Instructions Recorded Confirmed Last Taken Type Lisinopril [Zestril TAB] 40 mg PO QDAY 07/15/16 01/04/19 1 Day Ago History ~08/31/16 hydroCHLOROthiazide [HCTZ] 25 mg PO QDAY 07/15/16 01/04/19 1 Day Ago History ~08/31/16 metFORMIN [Glucophage] 500 mg PO QDAY 07/15/16 01/04/19 1 Day Ago History ~08/31/16 predniSONE [Deltasone] 30 mg PO QDAY 07/15/16 01/04/19 1 Day Ago History ~08/31/16 30 mg. PO Q day Metoprolol [Lopressor TAB] 50 mg PO BID #60 tablet 09/03/16 01/04/19 Unknown Rx Oxycodone HCl/Acetaminophen 1 each PO Q6HR PRN #12 tablet 09/03/16 01/04/19 Unknown Rx [Percocet 7.5/325 mg] Triamcinolone 0.1% [Kenalog 0.1% 1 applic TP BID #1 tube 01/20/17 01/04/19 Unknown Rx CREAM] hydrOXYzine HCl [Hydroxyzine HCl] 25 mg PO Q6HR PRN #15 tablet 01/20/17 01/04/19 Unknown Rx Ciprofloxacin HCl [Ciprofloxacin 750 mg PO BID 5 Days #10 tablet 01/07/19 Unknown Rx TAB] Minocycline (Nf) [Minocin (Nf)] 100 mg PO Q12H 5 Days #10 capsule 01/07/19 Unknown Rx ED Physical Exam - General Limitations: No Limitations General appearance: alert, in no apparent distress - Head Head exam: Present: atraumatic, normocephalic - Eye Eye exam: Present: normal appearance - ENT ENT exam: Present: mucous membranes moist - Neck Neck exam: Present: normal inspection - Respiratory Respiratory exam: Present: normal lung sounds bilaterally. Absent: respiratory distress - Cardiovascular Cardiovascular Exam: Present: regular rate, normal rhythm - GI/Abdominal GI/Abdominal exam: Present: soft. Absent: distended - Extremities Exam Extremities exam: Present: other (large open wound to left lateral foot w/ purulent drainage present; open wound to medial aspect of left lower leg appears to be healing well w/ pink tissue and no puruelnt discharge; large chronic- appearing, mostly healed area to right lower leg with a few open areas on the edge of that wound that are not purulent) - Neurological Exam Neurological exam: Present: alert, oriented X3 - Psychiatric Psychiatric exam: Present: normal affect, normal mood - Skin Skin exam: Present: warm ED Course Vital Signs 01/11/19 13:27 Temperature 98.8 F Respiratory 16 Rate Blood Pressure 166/88 [Right] O2 Sat by Pulse 98 Oximetry - Consultations Consultation #1: 01/11/19 16:40 Spoke w/ Charlene Clayton CARE COORDINATION MANAGER for Dr Power and Dennis. Will readmit pt for IV abx and PICC line. ED Medical Decision Making - Lab Data Result diagrams: 01/11/19 14:18 01/11/19 14:18 - Medical Decision Making [id number] female with osteomyelitis presents for readmission for a PICC line and IV antibiotics. Vital signs are normal, labs unremarkable. Spoke with infectious disease CARE COORDINATION MANAGER, their service is aware of the patient. Will give patient a dose of recommended Rocephin and doxycycline. Spoke w/ Dr Marquez, hospitalist, for admission. - Differential Diagnosis osteomyelitis Critical care attestation.: If time is entered above; I have spent that time in minutes in the direct care of this critically ill patient, excluding procedure time. ED Disposition Clinical Impression: Osteomyelitis Disposition: OP ADMIT IP TO THIS HOSP Is pt being admited?: Yes Condition: Stable Referrals: ERICA WISDOM MD [Primary Care Provider] - 3-5 Days Time of Disposition: 16:43
[2019-01-11] MEDS ORDERED: VIBRAMYCIN PO ONE (16:42)
[2019-01-11] MEDS ORDERED: ROCEPHIN/NS 2 GM/100 ML 2 GM/100 ML BAG IV ONE (17:00)
--- NOTE | 2019-01-11 17:04 | History and Physical Report ---
History of Present Illness Chief complaint: My leg is red, and it hurts History of present illness: 53 YO Female with Obesity, DM, HTN, Osteomyelitis, Noncompliant with Antibiotic Therapy, Pyoderma grangrenosum with multiple revascularization procedures, BLE wounds presents to ED for evaluation. Pt states that she has experienced bilateral lower extremity redness and pain over the past week, with worsening symptoms over the past 2 days. Pt previously diagnosed with Osteomyelitis but left hospital AMA prior to initiation of IV antibiotic therapy. Pt transported to [facility] for further care and evaluation. Pt seen and evaluated in ED and found to have osteomyelitis and readmitted for IV antibiotic therapy. Infectious Disease team consulted in ED. Pt restarted on previous IV antibiotic thearpy. Pt denies fever, chills, CP, Palpitations, NVD, Syncope, Trauma, Productive cough, or recent ill contacts. Wound consult placed in ED. Past History Past Medical History: diabetes, hypertension, other (Osteomyelitis, PG, Nicotine Dependence) Social history: single, smoking Family history: diabetes, hypertension Medications and Allergies Allergies Allergy/AdvReac Type Severity Reaction Status Date / Time No Known Allergies Allergy Verified 01/11/19 13:26 Home Medications Medication Instructions Recorded Confirmed Last Taken Type Lisinopril [Zestril TAB] 40 mg PO QDAY 07/15/16 01/04/19 1 Day Ago History ~08/31/16 hydroCHLOROthiazide [HCTZ] 25 mg PO QDAY 07/15/16 01/04/19 1 Day Ago History ~08/31/16 metFORMIN [Glucophage] 500 mg PO QDAY 07/15/16 01/04/19 1 Day Ago History ~08/31/16 predniSONE [Deltasone] 30 mg PO QDAY 07/15/16 01/04/19 1 Day Ago History ~08/31/16 30 mg. PO Q day Metoprolol [Lopressor TAB] 50 mg PO BID #60 tablet 09/03/16 01/04/19 Unknown Rx Oxycodone HCl/Acetaminophen 1 each PO Q6HR PRN #12 tablet 09/03/16 01/04/19 Unknown Rx [Percocet 7.5/325 mg] Triamcinolone 0.1% [Kenalog 0.1% 1 applic TP BID #1 tube 01/20/17 01/04/19 Unknown Rx CREAM] hydrOXYzine HCl [Hydroxyzine HCl] 25 mg PO Q6HR PRN #15 tablet 01/20/17 01/04/19 Unknown Rx Ciprofloxacin HCl [Ciprofloxacin 750 mg PO BID 5 Days #10 tablet 01/07/19 Unknown Rx TAB] Minocycline (Nf) [Minocin (Nf)] 100 mg PO Q12H 5 Days #10 capsule 01/07/19 Unknown Rx Active Meds: Active Medications Ceftriaxone Sodium (Rocephin/Ns 2 Gm/100 Ml) 2 gm in 100 mls @ 200 mls/hr IV ONCE ONE; Protocol Stop: 01/11/19 17:29 Review of Systems Constitutional: no weight loss, no weight gain, no fever, no chills Ears, nose, mouth and throat: no ear pain, no ear discharge, no tinnitis, no decreased hearing, no nose pain Breasts: no change in shape, no swelling, no mass Cardiovascular: no chest pain, no orthopnea, no palpitations, no rapid/irregular heart beat, no edema, no syncope, no lightheadedness, no shortness of breath, no dyspnea on exertion, no leg edema, no decreased exercise tolerance Respiratory: no cough, no cough with sputum, no excessive sputum, no hemoptysis, no shortness of breath, no dyspnea on exertion Gastrointestinal: no abdominal pain, no nausea, no vomiting, no diarrhea, no c onstipation, no change in bowel habits Genitourinary Female: no dysmenorrhea, no pelvic pain, no flank pain, no menorrhagia, no dysuria, no urinary frequency, no urgency Rectal: no pain, no incontinence, no bleeding Musculoskeletal: no neck stiffness, no neck pain, no shooting arm pain, no low back pain, no leg numbness/tingling, no redness of joints Integumentary: redness, lesions, darkening of skin, change in hair/nails, no rash, no pruritis Neurological: no transient paralysis, no paralysis, no weakness, no parathesias, no numbness Psychiatric: no anxiety, no memory loss, no sleep disturbances, no insomnia Endocrine: no cold intolerance, no heat intolerance, no polyphagia, no excessive thirst, no polydipsia, no polyuria Hematologic/Lymphatic: no easy bruising, no easy bleeding, no lymphedema Allergic/Immunologic: no allergic rhinitis, no wheezing, no anaphylaxis Exam - Constitutional Vitals: Temp Pulse Resp BP Pulse Ox 98.8 F 16 166/88 98 01/11/19 13:27 01/11/19 13:27 01/11/19 13:27 01/11/19 13:27 General appearance: Present: mild distress, obese - EENT Eyes: Present: PERRL ENT: hearing intact, clear oral mucosa - Neck Neck: Present: supple, normal ROM - Respiratory Respiratory effort: normal Respiratory: bilateral: CTA - Cardiovascular Heart Sounds: Present: S1 & S2. Absent: rub, click - Extremities Extremities: pulses symmetrical, No edema Extremity abnormal: ulceration, erythema, pulses diminished, tenderness Peripheral Pulses: abnormal (diminished to BLE) - Abdominal General gastrointestinal: Present: soft, non-tender, non-distended, normal bowel sounds Female genitourinary: Present: normal - Integumentary Integumentary: Present: clear, warm, dry - Musculoskeletal Musculoskeletal: gait normal, strength equal bilaterally - Psychiatric Psychiatric: appropriate mood/affect, intact judgment & insight - Neurologic Neurologic: CNII-XII intact, moves all extremities Results - Labs CBC & Chem 7: 01/11/19 14:18 01/11/19 14:18 Labs: Abnormal lab results 01/11/19 01/11/19 01/11/19 Range/Units 13:26 14:18 14:18 MCH 27 L (28-32) pg RDW 16.6 H (13.2-15.2) % Motley % (Auto) 10.7 H (0.0-7.3) % Motley # 1.1 H (0.0-0.8) K/mm3 Sodium 136 L (137-145) mmol/L Chloride 97.6 L (98-107) mmol/L Glucose 282 H (65-100) mg/dL POC Glucose 299 H (70-105) Alkaline Phosphatase 235 H (35-129) units/L Albumin 3.1 L (3.9-5) g/dL Assessment and Plan - Patient Problems (1) Osteomyelitis Current Visit: Yes Status: Acute Qualifiers: Osteomyelitis location: ankle Laterality: right Plan to address problem: Admit to medical floor: IV antibiotic Therapy, PICC Line Consult, CBC, CMP, blood cultures, ID consulted in ED. IVF resuscitation therapy (2) Hypertensive urgency Current Visit: No Status: Acute Plan to address problem: Monitor BP q shift, resume prehospital medication, (3) Pyoderma gangrenosum Current Visit: No Status: Acute Plan to address problem: wound care consult, (4) DVT prophylaxis Current Visit: Yes Status: Acute Plan to address problem: SCD to BLE while in bed.
[2019-01-11] MEDS ORDERED: PROVENTIL IH PRN (17:07)
[2019-01-11] MEDS ORDERED: MORPHINE IV PRN (17:07)
[2019-01-11] MEDS ORDERED: TYLENOL PO PRN (17:07)
[2019-01-11] MEDS ORDERED: SODIUM CHLORIDE FLUSH SYRINGE 10 ML IV PRN (17:07)
[2019-01-11] MEDS ORDERED: ZOFRAN IV PRN (17:07)
[2019-01-11] MEDS ORDERED: ATARAX PO PRN (18:16)
[2019-01-11] MEDS ORDERED: NON-FORMULARY (Oxycodone Hcl/Acetaminophen [Percocet 7.5/325 Mg] 1 EACH) PO PRN (18:16)
[2019-01-11] MEDS ORDERED: D50W (25GM) Syringe IV PRN (18:18)
[2019-01-11] MEDS ORDERED: PERCOCET 5/325 PO PRN (18:26)
[2019-01-11] MEDS ORDERED: MINOCYCLINE 100 MG PO SCH (18:30)
[2019-01-11] MEDS: ROXICODONE PO PRN (20:48)
[2019-01-11] MEDS: PERCOCET 5/325 PO PRN (20:49)
[2019-01-11] MEDS: LOPRESSOR PO SCH (22:06)
[2019-01-11] MEDS: SODIUM CHLORIDE FLUSH SYRINGE 10 ML IV SCH (22:07)
[2019-01-11] MEDS: HumaLOG SUB-Q SCH (22:07)
[2019-01-12] MEDS: KENALOG TP SCH ×3 (00:12→22:14)
[2019-01-12] MEDS: DOXYCYCLINE HYCLATE 100 MG in NACL 0.9% 250ML 250 ML IV SCH ×3 (01:10→22:05)
[2019-01-12 04:39] LABS: Basophils # (Auto) 0.1 K/mm3 (0.0-0.1); Basophils % (Auto) 0.8 % (0.0-1.8); Eosinophils # (Auto) 0.3 K/mm3 (0.0-0.4); Eosinophils % (Auto) 3.8 % (0.0-4.3); Hematocrit 31.1 % (30.3-42.9); Hemoglobin 10.1 gm/dl (10.1-14.3); Lymphocytes # (Auto) 2.9 K/mm3 (1.2-5.4); Lymphocytes % (Auto) 35.6 % (13.4-35.0); Mean Corpuscular HGB Conc 33 % (30-34); Mean Corpuscular Volume 83 fl (79-97); Monocytes # (Auto) 0.9 K/mm3 (0.0-0.8); Monocytes % (Auto) 11.4 % (0.0-7.3); Platelet Count 307 K/mm3 (140-440); Red Blood Count 3.76 M/mm3 (3.65-5.03); Red Cell Distribution Width 16.6 % (13.2-15.2)
[2019-01-12 04:58] LABS: BUN/Creatinine Ratio 18; Blood Urea Nitrogen 14 mg/dL (7-17); Calcium 9.3 mg/dL (8.4-10.2); Hemolysis Index 6
[2019-01-12] MEDS: HumaLOG SUB-Q SCH ×4 (09:20→22:02)
[2019-01-12] MEDS: DELTASONE PO SCH (09:31)
[2019-01-12] MEDS: HCTZ PO SCH (09:33)
[2019-01-12] MEDS: ZESTRIL PO SCH (09:33)
[2019-01-12] MEDS: PERCOCET 5/325 PO PRN ×2 (09:35→17:44)
[2019-01-12] MEDS: LOPRESSOR PO SCH ×2 (09:35→22:04)
[2019-01-12] MEDS: ROCEPHIN/NS 2 GM/100 ML 2 GM/100 ML BAG IV SCH (10:00)
--- NOTE | 2019-01-12 15:33 | Consultation ---
History of Present Illness - Reason for Consult Consult date: 01/12/19 Osteomylitis Requesting physician: LATRELL TRUJILLO - History of Present Illness This patient is a 53-year old female with a history of peripheral vascular disease, diabetes, pyoderma gangrenosum and osteomyelitis of left lower leg She is known to ID from her last admission 4 days ago. Patient with a long-standing history of pyoderma gangrenosum, has been on chronic steroids and has also been on Biologics, most recently Remicade. She had a recent hospitalization at [facility] where an MRI on 12/28/2018 showed left lateral malleolus osteomyelitis. She left from the hospital AMA before getting any debridement. Wound cultures that grew normal skin kip. In general, pyoderma gangrenosum is associated with lethargy and debridement can cause worsening however, MRI did sh ow a few adjacent gas bubbles and patient may benefit from some debridement.. On that admission on 01/07/19, patient left AMA because she wanted avoid being evicted from her home. Patient was instructed to stay until a PICC line and IV abx were arranged however despite multiple effort discussing the risks of leaving the hospital, she decided to leave AMA and stated that she would be back. At that time IID wrote a RX for Minocycline 100mg PO BID and Ciprofloxacin 750mg BID for 5 days. On this admission WBC 10.6, Creatinine 0.7, Temperature 98.8, HR 98, BP 152/69, blood cultures were drawn and are in progress. Review of Systems: General: +no fever, chills, nightsweats, unintentional weight change, or change in appetite Cutaneous: no rash, pruritus Head: no headaches or injury Eyes: no changes in vision, eye pain, double vision Ears: no ear pain, ear discharge, ringing or hearing loss Nose: no nose bleeding, stuffiness Mouth & throat: no bleeding gums, no horseness, no dental problems, or swollen glands Neck: no pain, node enlargement/lumps, tyroid enlargement or tenderness Respiratory: no cough, wheezing, sputum, hemoptysis, pleuritic chest pain Cardiovascular: no chest pain, leg edema, cyanosis, WORLEY, orthopnea Musculoskeletal: bilateral pyoderma grangrenosum , left ankle ulceration with purulent drainage Gastrointestinal: no nausea, vomiting, hematemesis, diarrhea, constipation, Genitourinary/Reproductive: no frequent urination, no dysuria, hematuria, incontinence Neurogical: no seizures, no headaches, no weakness, no paresthesias, no loss of speech or vision; no memory loss, no vertigo, no tremors, no numbness Psychiatric:+ anxiety, tearful Past History Past Medical History: diabetes, hypertension, other (Osteomyelitis, PG, Nicotine Dependence) Social history: single, smoking Family history: diabetes, hypertension Medications and Allergies Allergies Allergy/AdvReac Type Severity Reaction Status Date / Time No Known Allergies Allergy Verified 01/11/19 13:26 Home Medications Medication Instructions Recorded Confirmed Last Taken Type Lisinopril [Zestril TAB] 40 mg PO QDAY 07/15/16 01/04/19 1 Day Ago History ~08/31/16 hydroCHLOROthiazide [HCTZ] 25 mg PO QDAY 07/15/16 01/04/19 1 Day Ago History ~08/31/16 metFORMIN [Glucophage] 500 mg PO QDAY 07/15/16 01/04/19 1 Day Ago History ~08/31/16 predniSONE [Deltasone] 30 mg PO QDAY 07/15/16 01/04/19 1 Day Ago History ~08/31/16 30 mg. PO Q day Metoprolol [Lopressor TAB] 50 mg PO BID #60 tablet 09/03/16 01/04/19 Unknown Rx Oxycodone HCl/Acetaminophen 1 each PO Q6HR PRN #12 tablet 09/03/16 01/04/19 Unknown Rx [Percocet 7.5/325 mg] Triamcinolone 0.1% [Kenalog 0.1% 1 applic TP BID #1 tube 01/20/17 01/04/19 Unknown Rx CREAM] hydrOXYzine HCl [Hydroxyzine HCl] 25 mg PO Q6HR PRN #15 tablet 01/20/17 01/04/19 Unknown Rx Ciprofloxacin HCl [Ciprofloxacin 750 mg PO BID 5 Days #10 tablet 01/07/19 Unknown Rx TAB] Minocycline (Nf) [Minocin (Nf)] 100 mg PO Q12H 5 Days #10 capsule 01/07/19 Unknown Rx Active Meds: Active Medications Acetaminophen (Tylenol) 650 mg PO Q4H PRN PRN Reason: Pain MILD(1-3)/Fever >100.5/EDUARDO Albuterol (Proventil) 2.5 mg IH Q4HRT PRN PRN Reason: Shortness Of Breath Dextrose (D50w (25gm) Syringe) 50 ml IV PRN PRN PRN Reason: Hypoglycemia Hydrochlorothiazide (Hctz) 25 mg PO QDAY [facility] Last Admin: 01/12/19 09:33 Dose: 25 mg Documented by: Hydroxyzine HCl (Atarax) 25 mg PO Q6HR PRN PRN Reason: Itching Ceftriaxone Sodium (Rocephin/Ns 2 Gm/100 Ml) 2 gm in 100 mls @ 200 mls/hr IV Q24HR [facility]; Protocol Doxycycline Hyclate 100 mg/ (Sodium Chloride) 250 mls @ 250 mls/hr IV Q12HR [facility]; Protocol Last Admin: 01/12/19 09:36 Dose: 250 mls/hr Documented by: Insulin Human Lispro (Humalog) 0 unit SUB-Q ACHS [facility]; Protocol Last Admin: 01/12/19 13:30 Dose: 4 unit Documented by: Lisinopril (Zestril) 40 mg PO QDAY [facility] Last Admin: 01/12/19 09:33 Dose: 40 mg Documented by: Metoprolol Tartrate (Lopressor) 50 mg PO BID [facility] Last Admin: 01/12/19 09:35 Dose: 50 mg Documented by: Morphine Sulfate (Morphine) 2 mg IV Q4H PRN PRN Reason: Pain, Moderate (4-6) Ondansetron HCl (Zofran) 4 mg IV Q8H PRN PRN Reason: Nausea And Vomiting Oxycodone HCl (Roxicodone) 2.5 mg PO Q6H PRN PRN Reason: Pain, Moderate (4-6) Last Admin: 01/11/19 20:48 Dose: 2.5 mg Documented by: Oxycodone/Acetaminophen (Percocet 5/325) 1 tab PO Q6H PRN PRN Reason: Pain, Moderate (4-6) Last Admin: 01/12/19 09:35 Dose: 1 tab Documented by: Oxycodone/Acetaminophen (Percocet 5/325) 1 tab PO Q6H PRN PRN Reason: Pain, Moderate (4-6) Prednisone (Deltasone) 30 mg PO QDAY [facility] Last Admin: 01/12/19 09:31 Dose: 30 mg Documented by: Sodium Chloride (Sodium Chloride Flush Syringe 10 Ml) 10 ml IV BID [facility] Last Admin: 01/11/19 22:07 Dose: 10 ml Documented by: Sodium Chloride (Sodium Chloride Flush Syringe 10 Ml) 10 ml IV PRN PRN PRN Reason: LINE FLUSH Triamcinolone Acetonide (Kenalog) 1 applic TP BID [facility] Last Admin: 01/12/19 00:12 Dose: Not Given Documented by: Physical Examination - Physical Exam Narrative exam: Constitutional: Alert, cooperative, + anxiety, tearful. Left ankle pain Head, Ears, Nose: Normocephalic, atraumatic. External ears, nose normal Eyes: Conjunctivae/corneas clear. No icterus. No ptosis. Neck: Supple, no meningeal signs Oral: dentition poor. no thrush Cardiovascular: S1, S2 normal. Respiratory: Good air entry, clear to auscultation bilaterally GI: Soft, non-tender; bowel sounds normal. No peritoneal signs Musculoskeletal: + Left Lateral Malleolus Osteomylitis, Purulent drainage, no odor Skin: Bilateral Pyoderma Ganfrenosum Hem/Lymphatic: No palpable cervical or supraclavicular nodes. No lymphangitis Psych: Mood: tearful . Affect flat Neurological: Awake, alert, oriented. - Constitutional Vitals: Vital Signs Temp Pulse Resp BP Pulse Ox 98.4 F 81 20 130/73 99 01/12/19 11:59 01/12/19 11:59 01/12/19 11:59 01/12/19 11:59 01/12/19 11:59 Temperature -Last 24 Hours Temperature 98.4 F Temperature 98.5 F Temperature 98.5 F Temperature 98.9 F Temperature 98.6 F Results - Labs CBC & Chem 7: 01/12/19 04:12 01/12/19 04:12 Labs: Abnormal lab results 01/11/19 01/11/19 01/12/19 Range/Units 13:26 21:04 04:12 MCH 27 L (28-32) pg RDW 16.6 H (13.2-15.2) % Lymph % (Auto) 35.6 H (13.4-35.0) % Pepin % (Auto) 11.4 H (0.0-7.3) % Pepin # 0.9 H (0.0-0.8) K/mm3 Glucose (65-100) mg/dL POC Glucose 299 H 304 H (70-105) 01/12/19 01/12/19 01/12/19 Range/Units 04:12 07:37 12:18 MCH (28-32) pg RDW (13.2-15.2) % Lymph % (Auto) (13.4-35.0) % Pepin % (Auto) (0.0-7.3) % Pepin # (0.0-0.8) K/mm3 Glucose 161 H (65-100) mg/dL POC Glucose 174 H 252 H (70-105) Assessment and Plan Cultures: 01/11/19 Blood: in progress 53-year-old female with history of diabetes, hypertenison, pyoderma gangrenosum with multiple revasculaization procedures in the past, gangrenous wounds to the bilateral lower extremities, Previous admission to [facility] for sepsis and infected lower extremity wounds MRi done at [facility] showed Left Lateral Malleolus Osteomylitis, but left AMA on 12/30/18. Hospital admission to [facility] on 01/07/19, OPAT discussed, however patient stated that she had a family emergency and had to leave [place] again on that day. Now readmitted with : 1. Left Lateral Malleolus Osteomylitis,: MRI done at [facility] 12/30/18.. No fevers or leukocytosis, Blood cultures were drawn and are pending. Currently being treated with ceftriaxone and doxycyline. Once cultures are negative for 48 hours, will order PICC and anticipate discharge on 6 weeks of IV antibiotics. 2. Pyoderma Ganfrenosum; long-standing history of pyoderma gangrenosum, has be en on chronic steroids and has also been on Biologics, most recently Remicade. She had a recent hospitalization at [facility] where an MRI on 12/28/2018 showed left lateral malleolus osteomyelitis. She left from the hospital AMA before getting any debridement. Wound cultures that grew normal skin kip. Would also consider discharging on PO minocycline due to its anti- inflammatory properties, since it may help the pyoderma. Patient already on steroids and also recently started Remicade. Dr. Atwood consulted previous admission, no indication for debridement at this time especially with the fact that the wounds are related to pyoderma and can worsen with aggressive debridement. Hyperbaric therapy encouraged . 4. Diabetes Mellitus Type 2 : uncontrolled 5. NSTEMI- likely type II: Cardiology following 7. Tobacco abuse: 30 year smoking history. States that she recently quit. Plan: -f/u blood cultures -Continue Ceftriaxone 2 gms IV q 24 hours -Continue Doxycycline 100mg IV q 12 hours -Once cultures are negative for 48 hours, will order PICC -anticipate discharge on 6 weeks of IV antibiotics [facility] M: [phone] O:[phone]
[2019-01-12] MEDS: SODIUM CHLORIDE FLUSH SYRINGE 10 ML IV SCH (22:04)
--- NOTE | 2019-01-12 23:51 | Progress Note ---
Assessment and Plan Assessment and plan: 53 year old diabetic woman. She was in the hospital last week and diagnosed with bilateral lower extremity osteomyelitis. She signed out AMA due to a social issue. She now presents back to the hospital with wounds on both lower extremities, edema and pain. Inability to bear weight on her lower extremities due to pain she's using a wheelchair. Diagnosis Sepsis bilateral lower extremity osteomyelitis type 2 diabetes Non adherence to rx or meds Plan CT of bilateral lower extremities to look for abscess which may need to be surgically drained or debrided continue IV antibiotics per infectious disease Chavin counseling improve compliance optimize insulin doses DVT prophylaxis with Lovenox History Interval history: c/o Bilat LE wounds, pain and edema Review of systems Constitutional: No fevers, no malaise, no joint pains CVS: No chest pain, no orthopnea, no dyspnea on exertion, GI: No abdominal pain, no diarrhea, no vomiting, no constipation Respiratory: No shortness of breath, no wheezing, no coughing Hospitalist Physical - Physical exam Narrative exam: General.: Appears well, no distress, nontoxic HEENT: Moist mucous membranes, extraocular muscles intact, no lymphadenopathy Neck: supple Cardiac: S1-S2 heard Lungs: clear to auscultation bilaterally Abdomen: soft , nontender, nondistended, bowel sounds positive Extremities: there are wound on both LE, BLE edema Skin: no rash or lesions Neurologic: no gross focal deficits Psych: calm, and cooperative - Constitutional Vitals: Temp Pulse Resp BP Pulse Ox 98.5 F 94 H 20 144/66 99 01/12/19 21:38 01/12/19 22:04 01/12/19 21:38 01/12/19 22:04 01/12/19 21:38 General appearance: Present: mild distress, obese Results - Labs CBC & Chem 7: 01/12/19 04:12 01/12/19 04:12 Labs: Laboratory Last Values WBC 8.0 K/mm3 (4.5-11.0) 01/12/19 04:12 RBC 3.76 M/mm3 (3.65-5.03) 01/12/19 04:12 Hgb 10.1 gm/dl (10.1-14.3) 01/12/19 04:12 Hct 31.1 % (30.3-42.9) 01/12/19 04:12 MCV 83 fl (79-97) 01/12/19 04:12 MCH 27 pg (28-32) L 01/12/19 04:12 MCHC 33 % (30-34) 01/12/19 04:12 RDW 16.6 % (13.2-15.2) H 01/12/19 04:12 Plt Count 307 K/mm3 (140-440) 01/12/19 04:12 Lymph % (Auto) 35.6 % (13.4-35.0) H 01/12/19 04:12 [place] % (Auto) 11.4 % (0.0-7.3) H 01/12/19 04:12 Eos % (Auto) 3.8 % (0.0-4.3) 01/12/19 04:12 Baso % (Auto) 0.8 % (0.0-1.8) 01/12/19 04:12 Lymph # 2.9 K/mm3 (1.2-5.4) 01/12/19 04:12 [place] # 0.9 K/mm3 (0.0-0.8) H 01/12/19 04:12 Eos # 0.3 K/mm3 (0.0-0.4) 01/12/19 04:12 Baso # 0.1 K/mm3 (0.0-0.1) 01/12/19 04:12 Seg Neutrophils % 48.4 % (40.0-70.0) 01/12/19 04:12 Seg Neutrophils # 3.9 K/mm3 (1.8-7.7) 01/12/19 04:12 Sodium 137 mmol/L (137-145) 01/12/19 04:12 Potassium 3.9 mmol/L (3.6-5.0) 01/12/19 04:12 Chloride 100.8 mmol/L (98-107) 01/12/19 04:12 Carbon Dioxide 26 mmol/L (22-30) 01/12/19 04:12 Anion Gap 14 mmol/L 01/12/19 04:12 BUN 14 mg/dL (7-17) 01/12/19 04:12 Creatinine 0.8 mg/dL (0.7-1.2) 01/12/19 04:12 Estimated GFR > 60 ml/min 01/12/19 04:12 BUN/Creatinine Ratio 18 % 01/12/19 04:12 Glucose 161 mg/dL (65-100) H 01/12/19 04:12 POC Glucose 372 (70-105) H 01/12/19 21:40 Calcium 9.3 mg/dL (8.4-10.2) 01/12/19 04:12 Total Bilirubin 0.40 mg/dL (0.1-1.2) 01/11/19 14:18 AST 18 units/L (5-40) 01/11/19 14:18 ALT 16 units/L (7-56) 01/11/19 14:18 Alkaline Phosphatase 235 units/L (35-129) H 01/11/19 14:18 Total Protein 7.2 g/dL (6.3-8.2) 01/11/19 14:18 Albumin 3.1 g/dL (3.9-5) L 01/11/19 14:18 Albumin/Globulin Ratio 0.8 % 01/11/19 14:18
--- NOTE | 2019-01-13 08:49 | Progress Note ---
Assessment and Plan Cultures: 01/11/19 Blood: no growth to date 53-year-old female with history of diabetes, hypertenison, pyoderma gangrenosum with multiple revasculaization procedures in the past, gangrenous wounds to the bilateral lower extremities, Previous admission to [facility] for sepsis and infected lower extremity wounds MRi done at [facility] showed Left Lateral Malleolus Osteomylitis, but left AMA on 12/30/18. Hospital admission to [facility] on 01/07/19, OPAT discussed, however patient stated that she had a family emergency and had to leave AMA again on that day. Now readmitted with : 1. Left Lateral Malleolus Osteomylitis,: MRI done at [facility] 12/30/18.. No fevers or leukocytosis, Blood cultures were drawn and are pending. Currently being treated with ceftriaxone and doxycyline. Once cultures are negative for 48 hours, will order PICC and anticipate discharge on 6 weeks of IV antibiotics. 2. Pyoderma Ganfrenosum; long-standing history of pyoderma gangrenosum, has been on chronic steroids and has also been on Biologics, most recently Remicade. Would also consider discharging on PO minocycline due to its anti-inflammatory properties, since it may help the pyoderma. Patient already on steroids and also recently started Remicade. Dr. Atwood consulted previous admission, no indication for debridement at this time especially with the fact that the wounds are related to pyoderma and can worsen with aggressive debridement. Hyperbaric therapy encouraged . 4. Diabetes Mellitus Type 2 : uncontrolled 5. NSTEMI- likely type II: Cardiology following 7. Tobacco abuse: 30 year smoking history. States that she recently quit. Plan: -f/u blood cultures -Continue Ceftriaxone 2 gms IV q 24 hours, D2 -Continue Doxycycline 100mg IV q 12 hours, D2 -Once cultures are negative for 48 hours and UDS negative, will order PICC -anticipate discharge on 6 weeks of IV antibiotics -continue wound care -Patient leaving AMA once again, discussed the risk factors associated with leaving without OPAT treatment, verbalized understanding. [facility] M: [phone] O:[phone] Subjective Date of service: 01/13/19 Interval history: Patient seen and examined, Denied generalized pain, SOB, or fevers. Stated that she was going to be homeless in 30 days, so wanted to leave A until her housing situation is resolved. Does not want to get OPAT at a SNF. Discussed risk factors involved with not getting treatment, verbalized understanding. Objective - Exam Narrative Exam: Constitutional: Alert, cooperative, + anxiety, tearful. No acute distress Head, Ears, Nose: Normocephalic, atraumatic. External ears, nose normal Eyes: Conjunctivae/corneas clear. No icterus. No ptosis. Neck: Supple, no meningeal signs Oral: dentition poor. no thrush Cardiovascular: S1, S2 normal. Respiratory: Good air entry, clear to auscultation bilaterally GI: Soft, non-tender; bowel sounds normal. No peritoneal signs Musculoskeletal: + Left Lateral Malleolus Osteomylitis, Purulent drainage, no odor Skin: Bilateral Pyoderma Ganfrenosum Hem/Lymphatic: No palpable cervical or supraclavicular nodes. No lymphangitis Psych: Mood: tearful . Affect flat Neurological: Awake, alert, oriented. - Constitutional Vitals: Vital Signs Temp Pulse Resp BP Pulse Ox 98.8 F 75 20 143/58 96 01/13/19 04:07 01/13/19 04:07 01/13/19 04:07 01/13/19 04:07 01/13/19 04:07 Temperature -Last 24 Hours Temperature 98.8 F Temperature 98.5 F Temperature 97.5 F Temperature 98.4 F - Labs CBC & Chem 7: 01/12/19 04:12 01/12/19 04:12 Labs: Abnormal lab results 01/12/19 01/12/19 01/12/19 Range/Units 12:18 16:46 19:48 POC Glucose 252 H 396 H 381 H (70-105) 01/12/19 Range/Units 21:40 POC Glucose 372 H (70-105)
[2019-01-13] MEDS: HumaLOG SUB-Q SCH ×2 (09:24→12:45)
[2019-01-13] MEDS: DOXYCYCLINE HYCLATE 100 MG in NACL 0.9% 250ML 250 ML IV SCH (09:26)
[2019-01-13] MEDS: ROXICODONE PO PRN ×2 (09:27→16:03)
[2019-01-13] MEDS: PERCOCET 5/325 PO PRN (09:28)
--- NOTE | 2019-01-13 09:38 | Consultation ---
History of Present Illness Consult date: 01/13/19 Chief complaint: Bilateral leg wounds - History of present illness History of present illness: 53 yo diabetic female with pyoderma gangrenosum and chronic bilateral leg wounds. She underwent a LLE revascularization procedure in August 2018. She is currently in a situation with her landlord and is potentially homeless. She has signed out AMA 2 times within the past month. Recent LLE MRI reveals osteomyelitis of her left lateral malleolus. She has been non-ambulatory for several months. Past History Past Medical History: diabetes, hypertension, other (Osteomyelitis, PG, Nicotine Dependence) Social history: single, smoking Family history: diabetes, hypertension Medications and Allergies Allergies Allergy/AdvReac Type Severity Reaction Status Date / Time No Known Allergies Allergy Verified 01/11/19 13:26 Home Medications Medication Instructions Recorded Confirmed Last Taken Type Lisinopril [Zestril TAB] 40 mg PO QDAY 07/15/16 01/04/19 1 Day Ago History ~08/31/16 hydroCHLOROthiazide [HCTZ] 25 mg PO QDAY 07/15/16 01/04/19 1 Day Ago History ~08/31/16 metFORMIN [Glucophage] 500 mg PO QDAY 07/15/16 01/04/19 1 Day Ago History ~08/31/16 predniSONE [Deltasone] 30 mg PO QDAY 07/15/16 01/04/19 1 Day Ago History ~08/31/16 30 mg. PO Q day Metoprolol [Lopressor TAB] 50 mg PO BID #60 tablet 09/03/16 01/04/19 Unknown Rx Oxycodone HCl/Acetaminophen 1 each PO Q6HR PRN #12 tablet 09/03/16 01/04/19 Unknown Rx [Percocet 7.5/325 mg] Triamcinolone 0.1% [Kenalog 0.1% 1 applic TP BID #1 tube 01/20/17 01/04/19 Unknown Rx CREAM] hydrOXYzine HCl [Hydroxyzine HCl] 25 mg PO Q6HR PRN #15 tablet 01/20/17 01/04/19 Unknown Rx Ciprofloxacin HCl [Ciprofloxacin 750 mg PO BID 5 Days #10 tablet 01/07/19 Unknown Rx TAB] Minocycline (Nf) [Minocin (Nf)] 100 mg PO Q12H 5 Days #10 capsule 01/07/19 Unknown Rx Active Meds: Active Medications Acetaminophen (Tylenol) 650 mg PO Q4H PRN PRN Reason: Pain MILD(1-3)/Fever >100.5/EDUARDO Albuterol (Proventil) 2.5 mg IH Q4HRT PRN PRN Reason: Shortness Of Breath Dextrose (D50w (25gm) Syringe) 50 ml IV PRN PRN PRN Reason: Hypoglycemia Hydrochlorothiazide (Hctz) 25 mg PO QDAY [facility] Last Admin: 01/12/19 09:33 Dose: 25 mg Documented by: Hydroxyzine HCl (Atarax) 25 mg PO Q6HR PRN PRN Reason: Itching Ceftriaxone Sodium (Rocephin/Ns 2 Gm/100 Ml) 2 gm in 100 mls @ 200 mls/hr IV Q24HR [facility]; Protocol Last Admin: 01/12/19 10:00 Dose: Not Given Documented by: Doxycycline Hyclate 100 mg/ (Sodium Chloride) 250 mls @ 250 mls/hr IV Q12HR [facility]; Protocol Last Admin: 01/13/19 09:26 Dose: 250 mls/hr Documented by: Insulin Human Lispro (Humalog) 0 unit SUB-Q ACHS [facility]; Protocol Last Admin: 01/13/19 09:24 Dose: 3 unit Documented by: Lisinopril (Zestril) 40 mg PO QDAY [facility] Last Admin: 01/12/19 09:33 Dose: 40 mg Documented by: Metoprolol Tartrate (Lopressor) 50 mg PO BID [facility] Last Admin: 01/12/19 22:04 Dose: 50 mg Documented by: Morphine Sulfate (Morphine) 2 mg IV Q4H PRN PRN Reason: Pain, Moderate (4-6) Last Admin: 01/13/19 00:47 Dose: 2 mg Documented by: Ondansetron HCl (Zofran) 4 mg IV Q8H PRN PRN Reason: Nausea And Vomiting Oxycodone HCl (Roxicodone) 2.5 mg PO Q6H PRN PRN Reason: Pain, Moderate (4-6) Last Admin: 01/13/19 09:27 Dose: 2.5 mg Documented by: Oxycodone/Acetaminophen (Percocet 5/325) 1 tab PO Q6H PRN PRN Reason: Pain, Moderate (4-6) Last Admin: 01/13/19 09:28 Dose: 1 tab Documented by: Oxycodone/Acetaminophen (Percocet 5/325) 1 tab PO Q6H PRN PRN Reason: Pain, Moderate (4-6) Prednisone (Deltasone) 30 mg PO QDAY [facility] Last Admin: 01/12/19 09:31 Dose: 30 mg Documented by: Sodium Chloride (Sodium Chloride Flush Syringe 10 Ml) 10 ml IV BID [facility] Last Admin: 01/12/19 22:04 Dose: 10 ml Documented by: Sodium Chloride (Sodium Chloride Flush Syringe 10 Ml) 10 ml IV PRN PRN PRN Reason: LINE FLUSH Triamcinolone Acetonide (Kenalog) 1 applic TP BID [facility] Last Admin: 01/12/19 22:14 Dose: Not Given Documented by: Review of Systems All systems: negative (none) Exam Vital Signs Temp Resp BP Pulse Ox 98.8 F 16 166/88 98 01/11/19 13:27 01/11/19 13:27 01/11/19 13:27 01/11/19 13:27 - General physical appearance Positive: well developed, well nourished, no distress - Eyes Positive: PERRL, normal occular movement - ENT Positive: normal pinna, normal nares, normal mucosa, no hearing loss, no congestion - Neck Positive: no masses, no bruits, trachea midline, no venous distension - Respiratory Positive: normal expansion, normal respiratory effort, clear to auscultation - Cardiovascular Rhythm: regular Heart Sounds: Present: S1 & S2. Absent: rub, click - Extremities Extremities: no ischemia, pulses symmetrical, No edema - Breasts Breasts: deferred - Abdomen Abdomen: Present: soft, bowel sounds normal. Absent: tender, distended Hernia: none - Genitourinary Female Genitourinary: deferred - Integumentary other (There are multiple small ulcerations of her right anterior leg. There is a 9 X 4 X 1 cm fairly clean wound of her left proximal medial leg. There is also a quarter sized deep ulcer over the left lateral malleolus which has a moist necrotic base.) - Neurologic Neurologic: alert and oriented to time, place and person, motor strength and sensation are grossly intact, CN II-XII intact - Psychiatric Psychiatric: appropriate mood/affect, intact judgment & insight Results - Labs 01/12/19 04:12 01/12/19 04:12 Abnormal lab results 01/12/19 01/12/19 01/12/19 Range/Units 12:18 16:46 19:48 POC Glucose 252 H 396 H 381 H (70-105) 01/12/19 01/13/19 Range/Units 21:40 08:13 POC Glucose 372 H 228 H (70-105) Assessment and Plan - Patient Problems (1) Osteomyelitis Current Visit: Yes Status: Acute Qualifiers: Osteomyelitis location: ankle Laterality: right Plan to address problem: 1) I had a long d/w the pt re her need for HBOT. She is adamant that coming to the [facility]ound Clinic 5 days per week is impossible right now because she is not even sure if she has a home to go to. She is aware that her left lateral malleolar osteomyelitis could result in a major limb amputation. 2) Continue local wound care. 3) Elevate her BLE's at all times. 4) Debridement is not indicated with her PG. 5) Pt can f/u in the Wound Clinic after discharge.
--- NOTE | 2019-01-13 10:02 | Progress Note ---
Assessment and Plan Assessment and plan: 53 year old diabetic woman. She was in the hospital last week and diagnosed with bilateral lower extremity osteomyelitis. She signed out AMA due to a social issue. She now presents back to the hospital with wounds on both lower extremities, edema and pain. Inability to bear weight on her lower extremities due to pain she's using a wheelchair. Diagnosis Sepsis bilateral lower extremity osteomyelitis type 2 diabetes Non adherence to rx or meds Plan CT of bilateral lower extremities to look for abscess which may need to be surgically drained or debrided continue IV antibiotics per infectious disease has been counseled on improved adherence optimize insulin doses DVT prophylaxis with Lovenox History Interval history: c/o Bilat LE wounds, pain and edema Review of systems Constitutional: No fevers, no malaise, no joint pains CVS: No chest pain, no orthopnea, no dyspnea on exertion, GI: No abdominal pain, no diarrhea, no vomiting, no constipation Respiratory: No shortness of breath, no wheezing, no coughing Hospitalist Physical - Physical exam Narrative exam: General.: Appears well, no distress, nontoxic HEENT: Moist mucous membranes, extraocular muscles intact, no lymphadenopathy Neck: supple Cardiac: S1-S2 heard Lungs: clear to auscultation bilaterally Abdomen: soft , nontender, nondistended, bowel sounds positive Extremities: there are wound on both LE, BLE edema Skin: no rash or lesions Neurologic: no gross focal deficits Psych: calm, and cooperative - Constitutional Vitals: Temp Pulse Resp BP Pulse Ox 98.8 F 75 20 143/58 96 01/13/19 04:07 01/13/19 04:07 01/13/19 04:07 01/13/19 04:07 01/13/19 04:07 General appearance: Present: mild distress, obese Results - Labs CBC & Chem 7: 01/12/19 04:12 01/12/19 04:12 Labs: Laboratory Last Values WBC 8.0 K/mm3 (4.5-11.0) 01/12/19 04:12 RBC 3.76 M/mm3 (3.65-5.03) 01/12/19 04:12 Hgb 10.1 gm/dl (10.1-14.3) 01/12/19 04:12 Hct 31.1 % (30.3-42.9) 01/12/19 04:12 MCV 83 fl (79-97) 01/12/19 04:12 MCH 27 pg (28-32) L 01/12/19 04:12 MCHC 33 % (30-34) 01/12/19 04:12 RDW 16.6 % (13.2-15.2) H 01/12/19 04:12 Plt Count 307 K/mm3 (140-440) 01/12/19 04:12 Lymph % (Auto) 35.6 % (13.4-35.0) H 01/12/19 04:12 [place] % (Auto) 11.4 % (0.0-7.3) H 01/12/19 04:12 Eos % (Auto) 3.8 % (0.0-4.3) 01/12/19 04:12 Baso % (Auto) 0.8 % (0.0-1.8) 01/12/19 04:12 Lymph # 2.9 K/mm3 (1.2-5.4) 01/12/19 04:12 [place] # 0.9 K/mm3 (0.0-0.8) H 01/12/19 04:12 Eos # 0.3 K/mm3 (0.0-0.4) 01/12/19 04:12 Baso # 0.1 K/mm3 (0.0-0.1) 01/12/19 04:12 Seg Neutrophils % 48.4 % (40.0-70.0) 01/12/19 04:12 Seg Neutrophils # 3.9 K/mm3 (1.8-7.7) 01/12/19 04:12 Sodium 137 mmol/L (137-145) 01/12/19 04:12 Potassium 3.9 mmol/L (3.6-5.0) 01/12/19 04:12 Chloride 100.8 mmol/L (98-107) 01/12/19 04:12 Carbon Dioxide 26 mmol/L (22-30) 01/12/19 04:12 Anion Gap 14 mmol/L 01/12/19 04:12 BUN 14 mg/dL (7-17) 01/12/19 04:12 Creatinine 0.8 mg/dL (0.7-1.2) 01/12/19 04:12 Estimated GFR > 60 ml/min 01/12/19 04:12 BUN/Creatinine Ratio 18 % 01/12/19 04:12 Glucose 161 mg/dL (65-100) H 01/12/19 04:12 POC Glucose 228 (70-105) H 01/13/19 08:13 Calcium 9.3 mg/dL (8.4-10.2) 01/12/19 04:12 Total Bilirubin 0.40 mg/dL (0.1-1.2) 01/11/19 14:18 AST 18 units/L (5-40) 01/11/19 14:18 ALT 16 units/L (7-56) 01/11/19 14:18 Alkaline Phosphatase 235 units/L (35-129) H 01/11/19 14:18 Total Protein 7.2 g/dL (6.3-8.2) 01/11/19 14:18 Albumin 3.1 g/dL (3.9-5) L 01/11/19 14:18 Albumin/Globulin Ratio 0.8 % 01/11/19 14:18
[2019-01-13] MEDS: ZESTRIL PO SCH (12:43)
[2019-01-13] MEDS: HCTZ PO SCH (12:44)
[2019-01-13] MEDS: LOPRESSOR PO SCH (12:44)
[2019-01-13] MEDS: DELTASONE PO SCH (12:44)
[2019-01-13 13:12] VITALS: BP 144/78
--- NOTE | 2019-01-13 15:31 | Event Note ---
Melly Acosta is a 53-year-old woman. She has been in the care of physicians of [facility]. She needs ongoing medical care which includes extended IV antibiotics and wound care. She will need an address of residence where home health and medications services can be set up for her to continue treatments. At this time she is planned to be on treatment for greater than 2 months.
--- NOTE | 2019-01-13 15:34 | Discharge Summary ---
Providers - Providers Date of Admission: 01/11/19 17:08 Attending physician: LATRELL TRUJILLO MD 01/11/19 17:06 Consult to PICC Line RN [CONS] Routine Reason For Exam: Iv antibiotics Type Line:: PICC 01/11/19 17:15 Consult to Wound/ET Nurse [CONS] Routine Reason For Exam: wound eval 01/11/19 17:16 Consult to Case Management [CONS] Routine Services Needed at Discharge: Other Home Health Services Notified:: cm Additional Physician Instructions: IV antibiotic therapy 01/12/19 10:46 Consult to Physician [CONS] Routine Comment: Consulting Provider: TALIA MICHELE Physician Instructions: Reason For Exam: OM 01/12/19 14:02 Consult to Physician [CONS] Routine Comment: Consulting Provider: ADONIS SOTELO Physician Instructions: EVALUATE FOR DEBRIDEMENT Reason For Exam: LEFT LATERAL HEEL Primary care physician: ERICA WISDOM Hospitalization Condition: Stable Hospital course: 53-year-old woman history of diabetes. She was recently diagnosed with bilateral lower extremity osteomyelitis. She was planned for IV antibiotics and possible debridement. The patient signed out AGAINST MEDICAL ADVICE. She returned to the hospital with the same complaint wounds on both lower extremities swelling and pain. She was being seen by general surgeon, infectious disease doctors, as she was again planned for IV antibiotics at home and wound care. Unfortunately the patient stated that she needed to leave the hospital urgently again to take care of social issues, she signed out AGAINST MEDICAL ADVICE and left the hospital. Diagnoses Osteomyelitis of bilateral lower extremities Type 2 diabetes sepsis Non adherence to rx or meds Disposition: DC-07 LEFT AGAINST MED ADVICE Time spent for discharge: 33 minutes Core Measure Documentation - Palliative Care Palliative Care/ Comfort Measures: Not Applicable - Core Measures Any of the following diagnoses?: none Exam - Physical Exam Narrative exam: General.: Appears well, no distress, nontoxic HEENT: Moist mucous membranes, extraocular muscles intact, no lymphadenopathy Neck: supple Cardiac: S1-S2 heard Lungs: clear to auscultation bilaterally Abdomen: soft , nontender, nondistended, bowel sounds positive Extremities: there are wound on both LE, BLE edema Skin: no rash or lesions Neurologic: no gross focal deficits Psych: calm, and cooperative - Constitutional Vitals: Temp Pulse Resp BP Pulse Ox 98.1 F 96 H 16 144/78 100 01/13/19 13:06 01/13/19 13:06 01/13/19 13:06 01/13/19 13:06 01/13/19 13:06 Plan Follow up with: ERICA WISDOM MD [Primary Care Provider] - 3-5 Days
[2019-01-13] MEDS: ROCEPHIN/NS 2 GM/100 ML 2 GM/100 ML BAG IV SCH (15:35)
== END 2019-01-13 16:45 | disposition left against medical advice (07) | DRG 871 ==
LOC: ED 13:07 → 3A 17:08
PROVIDERS: ADMIT Internal Medicine; ATTEND Internal Medicine
DX: A41.9 Sepsis, unspecified organism (principal); I21.4 Non-ST elevation (NSTEMI) myocardial infarction; L88 Pyoderma gangrenosum; E66.9 Obesity, unspecified; Z53.21 Procedure and treatment not carried out due to patient leaving prior to being seen by health care provider; E11.69 Type 2 diabetes mellitus with other specified complication; M86.8X7 Other osteomyelitis, ankle and foot; F17.200 Nicotine dependence, unspecified, uncomplicated; M86.672 Other chronic osteomyelitis, left ankle and foot; M86.671 Other chronic osteomyelitis, right ankle and foot; I10 Essential (primary) hypertension; I16.0 Hypertensive urgency; Z68.32 Body mass index [BMI] 32.0-32.9, adult; Z91.19 Patient's noncompliance with other medical treatment and regimen; Z83.3 Family history of diabetes mellitus; Z82.49 Family history of ischemic heart disease and other diseases of the circulatory system; Z79.84 Long term (current) use of oral hypoglycemic drugs; Z79.899 Other long term (current) drug therapy
CPT/HCPCS: 36415; 80048; 80053; 82962; 85025; 87040; G0378; J0696; J1815; J2270; J7050; J7512

== ENCOUNTER 2019-01-24 01:38 | Inpatient (IN) | payer MEDICAID ==
[2019-01-24 03:14] LABS: Basophils # (Auto) 0.1 K/mm3 (0.0-0.1); Basophils % (Auto) 0.8 % (0.0-1.8); Eosinophils # (Auto) 0.2 K/mm3 (0.0-0.4); Eosinophils % (Auto) 1.8 % (0.0-4.3); Hematocrit 34.9 % (30.3-42.9); Hemoglobin 11.2 gm/dl (10.1-14.3); Lymphocytes # (Auto) 3.4 K/mm3 (1.2-5.4); Lymphocytes % (Auto) 27.7 % (13.4-35.0); Mean Corpuscular HGB Conc 32 % (30-34); Mean Corpuscular Volume 83 fl (79-97); Monocytes # (Auto) 1.6 K/mm3 (0.0-0.8); Monocytes % (Auto) 12.7 % (0.0-7.3); Platelet Count 244 K/mm3 (140-440); Red Cell Distribution Width 16.2 % (13.2-15.2)
[2019-01-24 03:34] LABS: Alanine Aminotransferase 15 units/L (7-56); Albumin 2.8 g/dL (3.9-5); BUN/Creatinine Ratio 14; Blood Urea Nitrogen 13 mg/dL (7-17); Calcium 9.2 mg/dL (8.4-10.2); Hemolysis Index 11
[2019-01-24] MEDS ORDERED: NORCO 10/325 PO ONE (03:35)
[2019-01-24] MEDS ORDERED: NACL 0.9% 500 ML IR ONE (04:12)
--- NOTE | 2019-01-24 05:11 | Emergency Department Report ---
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 Patient was admitted back in December, notes from ID at that time showed that she was recommended for PICC line placement for outpatient antibiotics but left prior to initiation of PICC line and outpatient IV antibiotics. Patient states she had never followed up with her PCP, wound care, all infectious diseases doctor. She states she's been p artially homeless during that time, causing her noncompliance to follow up. Pt states that she has experienced bilateral lower extremity redness and pain over the past week, worse today with drainage of her left ankle wound, an her right upper leg wound. Patient also had an hospitalization at [facility] in december but she left AMA. ED Past Medical Hx - Past Medical History Previous Medical History?: Yes Hx Hypertension: Yes Hx Diabetes: Yes Hx HIV: Yes (Pt denies h/o.) Additional medical history: pyoderma gangrenosum. osteomyelitis - Surgical History Past Surgical History?: Yes Additional Surgical History: left LE. umbilical biopsy - Social History Smoking Status: Current Every Day Smoker Substance Use Type: None - Medications Home Medications: Home Medications Medication Instructions Recorded Confirmed Last Taken Type Lisinopril [Zestril TAB] 40 mg PO QDAY 07/15/16 01/04/19 1 Day Ago History ~08/31/16 hydroCHLOROthiazide [HCTZ] 25 mg PO QDAY 07/15/16 01/04/19 1 Day Ago History ~08/31/16 metFORMIN [Glucophage] 500 mg PO QDAY 07/15/16 01/04/19 1 Day Ago History ~08/31/16 predniSONE [Deltasone] 30 mg PO QDAY 07/15/16 01/04/19 1 Day Ago History ~08/31/16 30 mg. PO Q day Metoprolol [Lopressor TAB] 50 mg PO BID #60 tablet 09/03/16 01/04/19 Unknown Rx Oxycodone HCl/Acetaminophen 1 each PO Q6HR PRN #12 tablet 09/03/16 01/04/19 Unknown Rx [Percocet 7.5/325 mg] Triamcinolone 0.1% [Kenalog 0.1% 1 applic TP BID #1 tube 01/20/17 01/04/19 Unknown Rx CREAM] hydrOXYzine HCl [Hydroxyzine HCl] 25 mg PO Q6HR PRN #15 tablet 01/20/17 01/04/19 Unknown Rx Ciprofloxacin HCl [Ciprofloxacin 750 mg PO BID 5 Days #10 tablet 01/24/19 Unknown Rx TAB] Minocycline (Nf) [Minocin (Nf)] 100 mg PO Q12H 5 Days #10 capsule 01/24/19 Unknown Rx ED Review of Systems ROS: Stated complaint: INFECTION IN BONES/HBP/CHILLS/DIABETES Other details as noted in HPI Comment: All other systems reviewed and negative Constitutional: denies: chills, fever Eyes: denies: eye pain, eye discharge, vision change ENT: denies: ear pain, throat pain Respiratory: denies: cough, shortness of breath, wheezing Cardiovascular: denies: chest pain, palpitations Endocrine: no symptoms reported Gastrointestinal: denies: abdominal pain, nausea, diarrhea Genitourinary: denies: urgency, dysuria, discharge Musculoskeletal: denies: back pain, joint swelling, arthralgia Skin: rash, lesions, other (LOWER EXT LESIONS, DIFF STAGES) Neurological: denies: headache, weakness, paresthesias Psychiatric: denies: anxiety, depression Hematological/Lymphatic: denies: easy bleeding, easy bruising Physical Exam - Physical Exam Vital Signs: Vital Signs 01/24/19 01/24/19 01/24/19 01:44 03:00 03:16 Temperature 98.7 F Pulse Rate 110 H 100 H 96 H Respiratory 18 13 18 Rate Blood Pressure 193/99 152/75 168/70 O2 Sat by Pulse 96 100 100 Oximetry 01/24/19 01/24/19 03:30 03:46 Temperature Pulse Rate 93 H 95 H Respiratory 21 24 Rate Blood Pressure 158/67 158/67 O2 Sat by Pulse 99 99 Oximetry Physical Exam: - General Limitations: No Limitations General appearance: alert, in no apparent distress - Head Head exam: Present: atraumatic, normocephalic - Eye Eye exam: Present: normal appearance - ENT ENT exam: Present: mucous membranes moist - Neck Neck exam: Present: normal inspection - Respiratory Respiratory exam: Present: normal lung sounds bilaterally. Absent: respiratory distress - Cardiovascular Cardiovascular Exam: Present: regular rate, normal rhythm. Absent: systolic murmur, diastolic murmur, rubs, gallop - GI/Abdominal GI/Abdominal exam: Present: soft, normal bowel sounds - Extremities Exam Extremities exam: Present: normal inspection - Back Exam Back exam: Present: normal inspection - Neurological Exam Neurological exam: Present: alert, oriented X3 - Psychiatric Psychiatric exam: Present: normal affect, normal mood - Skin Skin exam: Present: Chronic ulceration and lower extremities worse on the left ankle, and right upper leg, areas of drainage, purulent. ED Course Vital Signs 01/24/19 01/24/19 01/24/19 01:44 03:00 03:16 Temperature 98.7 F Pulse Rate 110 H 100 H 96 H Respiratory 18 13 18 Rate Blood Pressure 193/99 152/75 168/70 O2 Sat by Pulse 96 100 100 Oximetry 01/24/19 01/24/19 03:30 03:46 Temperature Pulse Rate 93 H 95 H Respiratory 21 24 Rate Blood Pressure 158/67 158/67 O2 Sat by Pulse 99 99 Oximetry - Reevaluation(s) Reevaluation #1: 01/24/19 06:34 Area of drainage in both legs cleaned in a sterile manner, dressing placed ED Medical Decision Making - Lab Data Result diagrams: 01/24/19 02:58 01/24/19 02:58 - Medical Decision Making elevated wbc, h/o osteomyolitis, admit for iv antibiotics Critical care attestation.: If time is entered above; I have spent that time in minutes in the direct care of this critically ill patient, excluding procedure time. ED Disposition Clinical Impression: Pyoderma gangrenosum Osteomyelitis Qualifiers: Osteomyelitis type: chronic multifocal Osteomyelitis location: ankle Later ality: right Qualified Code(s): M86.371 - Chronic multifocal osteomyelitis, right ankle and foot Disposition: OP ADMIT IP TO THIS HOSP Is pt being admited?: Yes Does the pt Need Aspirin: No Condition: Stable Instructions: Chronic Wound Care (ED) Prescriptions: Ciprofloxacin HCl [Ciprofloxacin TAB] 750 mg PO BID 5 Days #10 tablet Minocycline (Nf) [Minocin (Nf)] 100 mg PO Q12H 5 Days #10 capsule Referrals: PRIMARY CARE, [Primary Care Provider] - 3-5 Days
[2019-01-24] MEDS ORDERED: NACL 0.9% IR ONE (05:37)
[2019-01-24] MEDS ORDERED: VANCOMYCIN/NS 1 GM/250 ML 1 GM/250 ML BAG IV ONE (05:41)
[2019-01-24] MEDS ORDERED: SODIUM CHLORIDE FLUSH SYRINGE 10 ML IV PRN (06:06)
[2019-01-24] MEDS ORDERED: TYLENOL PO PRN (06:06)
[2019-01-24] MEDS ORDERED: D50W (25GM) Syringe IV PRN (06:06)
--- NOTE | 2019-01-24 06:12 | History and Physical Report ---
History of Present Illness Date of examination: 01/24/19 History of present illness: 53-year-old woman with history of hypertension, diabetes, pyoderma gangrenosum, left ankle osteomyelitis as well as back to the emergency room for continuation of care. The patient signed out AGAINST MEDICAL ADVICE due to his social hi story and was not able to get her antibiotics set up for outpatient. She has increased drainage from the wound, no fever or chills Review of systems Constitutional: no weight loss, chills, fever Ears, eyes, nose, mouth and throat: no nasal congestion, no nasal discharge, no sinus pressure, no vision change, no red eye. Neck: No neck pain or rigidity. Cardiovascular: no palpitations, chest pain Respiratory: no cough, shortness of breath Gastrointestinal: no hematochezia, abdominal pain Genitourinary : no frequency , no hematuria Musculoskeletal: no joint swelling or muscle ache Integumentary: no rash, no pruritis Neurological: no parathesias, no focal weakness Endocrine: no cold or heat intolerance, no polyuria or polydipsia Hematologic/Lymphatic: no easy bruising, no easy bleeding, no gland swelling Allergic/Immunologic: no urticaria, no angioedema. PAST MEDICAL HISTORY:hypertension, diabetes, pyoderma gangrenosum, left ankle osteomyelitis PAST SURGICAL HISTORY: None SOCIAL HISTORY: Denies alcohol, drugs, smoke half a pack a day FAMILY HISTORY: Hypertension Medications and Allergies Allergies Allergy/AdvReac Type Severity Reaction Status Date / Time No Known Allergies Allergy Verified 01/11/19 13:26 Home Medications Medication Instructions Recorded Confirmed Last Taken Type Metoprolol [Lopressor TAB] 50 mg PO BID #60 tablet 09/03/16 01/24/19 Unknown Rx Triamcinolone 0.1% [Kenalog 0.1% 1 applic TP BID #1 tube 01/20/17 01/24/19 Unknown Rx CREAM] Ciprofloxacin HCl [Ciprofloxacin 750 mg PO BID 5 Days #10 tablet 01/24/19 Unknown Rx TAB] Lispro Insulin [Humalog] 20 unit SQ TID 01/24/19 01/24/19 Unknown History Lyrica 300 mg PO DAILY 01/24/19 01/24/19 Unknown History Minocycline (Nf) [Minocin (Nf)] 100 mg PO Q12H 5 Days #10 capsule 01/24/19 Unknown Rx Acetaminophen [Acetaminophen TAB] 650 mg PO Q4H PRN #15 tablet 01/28/19 Unknown Rx Amoxicillin/K Clav Tab [Augmentin 1 tab PO Q12HR 38 Days #76 tab 01/28/19 Unknown Rx 875 mg] Lisinopril [Zestril TAB] 40 mg PO QDAY #30 tablet 01/28/19 Unknown Rx Minocycline (Nf) [Minocin (Nf)] 100 mg PO Q12H 38 Days #76 capsule 01/28/19 Unknown Rx Ondansetron [Zofran Odt] 4 mg PO Q4H PRN #15 tab.rapdis 01/28/19 Unknown Rx hydroCHLOROthiazide [HCTZ] 25 mg PO QDAY #30 tab 01/28/19 01/24/19 1 Day Ago Rx ~08/31/16 oxyCODONE [Roxicodone TAB] 2.5 mg PO Q6H PRN #15 tablet 01/28/19 Unknown Rx Active Meds: Active Medications Acetaminophen (Tylenol) 650 mg PO Q4H PRN PRN Reason: Pain MILD(1-3)/Fever >100.5/EDUARDO Dextrose (D50w (25gm) Syringe) 50 ml IV PRN PRN PRN Reason: Hypoglycemia Enoxaparin Sodium (Lovenox) 30 mg SUB-Q QDAY [facility] Ceftriaxone Sodium (Rocephin/Ns 2 Gm/100 Ml) 2 gm in 100 mls @ 200 mls/hr IV Q2 4H [facility]; Protocol Doxycycline Hyclate 100 mg/ (Sodium Chloride) 250 mls @ 250 mls/hr IV Q12H [facility]; Protocol Ondansetron HCl (Zofran) 4 mg IV Q8H PRN PRN Reason: Nausea And Vomiting Oxycodone/Acetaminophen (Percocet 5/325) 1 tab PO Q6H PRN PRN Reason: Pain, Moderate (4-6) Sodium Chloride (Sodium Chloride Flush Syringe 10 Ml) 10 ml IV BID [facility] Sodium Chloride (Sodium Chloride Flush Syringe 10 Ml) 10 ml IV PRN PRN PRN Reason: LINE FLUSH Exam - Physical Exam Narrative exam: General Apperance: The patient lying in bed, breathing comfortable HEENT: Normocephalic, atraumatic. Pupils equally round and reactive to light, EOMI, no sclericterus or JVD or thyromegaly or nodule. , no carotid bruit, mucous membranes moist, no exudate or erythema Heart: S1-S2, regular is rhythm Lungs: Clear to auscultation bilaterally, breathing comfortable Abdomen: Positive bowel sounds, soft, nontender, nondistended, no organomegaly Extremities: Bilateral lower extremity wounds, No edema cyanosis clubbing Skin: no rash, nodule, warm and dry Neuro: cranial nerves 2-12 intact, speech is fluent, motor/sensory intact - Constitutional Vitals: Temp Pulse Resp BP Pulse Ox 98.7 F 95 H 24 158/67 99 01/24/19 01:44 01/24/19 03:46 01/24/19 03:46 01/24/19 03:46 01/24/19 03:46 Results - Labs CBC & Chem 7: 01/26/19 12:45 01/25/19 06:10 Labs: Abnormal lab results 01/24/19 01/24/19 Range/Units 02:58 02:58 WBC 12.3 H (4.5-11.0) K/mm3 MCH 27 L (28-32) pg RDW 16.2 H (13.2-15.2) % [facility] % (Auto) 12.7 H (0.0-7.3) % [facility] # 1.6 H (0.0-0.8) K/mm3 Sodium 133 L (137-145) mmol/L Chloride 96.8 L (98-107) mmol/L Glucose 158 H (65-100) mg/dL Alkaline Phosphatase 214 H (35-129) units/L Albumin 2.8 L (3.9-5) g/dL Assessment and Plan Assessment Osteomyelitis of the left lower extremity Pyoderma gangrenosa Hypertension Diabetes Plan Admit to medicine Restart IV Rocephin, doxycycline Consult infectious disease, check fingersticks, initiate insulin sliding scale Continue appropriate outpatient medications DVT prophylaxis
[2019-01-24] MEDS: ROCEPHIN/NS 2 GM/100 ML 2 GM/100 ML BAG IV SCH ×2 (07:15→07:49)
[2019-01-24] MEDS ORDERED: GLUCOPHAGE ONE (08:30)
[2019-01-24] MEDS: DOXYCYCLINE HYCLATE 100 MG in NACL 0.9% 250ML 250 ML IV SCH ×2 (08:36→18:19)
[2019-01-24] MEDS: GLUCOPHAGE PO SCH (08:36)
[2019-01-24] MEDS ORDERED: PERCOCET 5/325 ONE (09:03)
[2019-01-24] MEDS: PERCOCET 5/325 PO PRN ×3 (09:12→23:24)
[2019-01-24] MEDS ORDERED: DELTASONE PO SCH (10:00)
[2019-01-24] MEDS: SODIUM CHLORIDE FLUSH SYRINGE 10 ML IV SCH ×2 (10:01→23:17)
[2019-01-24] MEDS: LOVENOX SUB-Q SCH (11:40)
[2019-01-24] MEDS: ZESTRIL PO SCH (11:41)
[2019-01-24] MEDS: HCTZ PO SCH (11:41)
[2019-01-24] MEDS: LOPRESSOR PO SCH ×2 (11:41→23:16)
--- NOTE | 2019-01-24 14:06 | Event Note ---
Date: 01/24/19 Patient seen and examined discussed with daughter and the patient left AMA twice before due to social issue states she will be compliant this time will f/u with ID and cont current Mx and plan as dictated in the h/p.
--- NOTE | 2019-01-24 14:21 | Consultation ---
History of Present Illness - Reason for Consult Consult date: 01/24/19 Osteomyelitis Requesting physician: LILY LOVE - History of Present Illness The patient is 53-year-old female with a past medical history of diabetes, hypertenison, pyoderma gangrenosum with multiple revascularization procedures in the past, left lateral malleolus osteomyelitis per MRI done at [facility] on 12/28/2018 but left [facility], was hospitalized here at [facility], again left AMA on 01/08/2019, re-admitted here on 01/11/2019, was being planned for OPAT with IV Ceftriaxone and PO Minocycline, but again left the hospital AMA due to social issues on 01/13/2019. She presented to the emergency room again today with complaints of bilateral lower extremity pain and redness and drainage from her left ankle. She reports some nausea but no vomiting. Denies any fevers but reports chills. Review of Systems: General: no fevers, chills + HEENT: no new visual disturbance Respiratory: No cough, sputum, hemoptysis or shortness of breath Cardiovascular: No chest pain, syncope Gastrointestinal: nausea +, no vomiting or diarrhea Genitourinary: No dysuria or hematuria Musculoskeletal: No new or worsening neck pain or back pain Neurologic: No headaches, seizures Hematologic: No easy bruising or bleeding Endocrine: No night sweats or acute weight loss Skin: negative for rash, jaundice Psychiatric: No suicidal or homicidal ideation Medications and Allergies Allergies Allergy/AdvReac Type Severity Reaction Status Date / Time No Known Allergies Allergy Verified 01/11/19 13:26 Home Medications Medication Instructions Recorded Confirmed Last Taken Type Lisinopril [Zestril TAB] 40 mg PO QDAY 07/15/16 01/24/19 1 Day Ago History ~08/31/16 hydroCHLOROthiazide [HCTZ] 25 mg PO QDAY 07/15/16 01/24/19 1 Day Ago History ~08/31/16 predniSONE [Deltasone] 10 mg PO Q48H 07/15/16 01/24/19 1 Day Ago History ~08/31/16 30 mg. PO Q day Metoprolol [Lopressor TAB] 50 mg PO BID #60 tablet 09/03/16 01/24/19 Unknown Rx Oxycodone HCl/Acetaminophen 1 each PO Q6HR PRN #12 tablet 09/03/16 01/24/19 Unknown Rx [Percocet 7.5/325 mg] Triamcinolone 0.1% [Kenalog 0.1% 1 applic TP BID #1 tube 01/20/17 01/24/19 Unknown Rx CREAM] Ciprofloxacin HCl [Ciprofloxacin 750 mg PO BID 5 Days #10 tablet 01/24/19 Unknown Rx TAB] Lispro Insulin [Humalog] 20 unit SQ TID 01/24/19 01/24/19 Unknown History Minocycline (Nf) [Minocin (Nf)] 100 mg PO Q12H 5 Days #10 capsule 01/24/19 Unknown Rx Active Meds: Active Medications Acetaminophen (Tylenol) 650 mg PO Q4H PRN PRN Reason: Pain MILD(1-3)/Fever >100.5/EDUARDO Dextrose (D50w (25gm) Syringe) 50 ml IV PRN PRN PRN Reason: Hypoglycemia Enoxaparin Sodium (Lovenox) 40 mg SUB-Q QDAY [facility] Last Admin: 01/24/19 11:40 Dose: 40 mg Documented by: Hydrochlorothiazide (Hctz) 25 mg PO QDAY [facility] Last Admin: 01/24/19 11:41 Dose: 25 mg Documented by: Ceftriaxone Sodium (Rocephin/Ns 2 Gm/100 Ml) 2 gm in 100 mls @ 200 mls/hr IV Q24H [facility]; Protocol Last Admin: 01/24/19 07:49 Dose: Not Given Documented by: Doxycycline Hyclate 100 mg/ (Sodium Chloride) 250 mls @ 250 mls/hr IV Q12H [facility]; Protocol Last Admin: 01/24/19 08:36 Dose: 250 mls/hr Documented by: Lisinopril (Zestril) 40 mg PO QDAY [facility] Last Admin: 01/24/19 11:41 Dose: 40 mg Documented by: Metformin HCl (Glucophage) 500 mg PO QDDIAB [facility] Last Admin: 01/24/19 08:36 Dose: Not Given Documented by: Metoprolol Tartrate (Lopressor) 50 mg PO BID [facility] Last Admin: 01/24/19 11:41 Dose: 50 mg Documented by: Ondansetron HCl (Zofran) 4 mg IV Q8H PRN PRN Reason: Nausea And Vomiting Oxycodone/Acetaminophen (Percocet 5/325) 1 tab PO Q6H PRN PRN Reason: Pain, Moderate (4-6) Last Admin: 01/24/19 09:12 Dose: 1 tab Documented by: Sodium Chloride (Sodium Chloride Flush Syringe 10 Ml) 10 ml IV BID [facility] Last Admin: 01/24/19 10:01 Dose: 10 ml Documented by: Sodium Chloride (Sodium Chloride Flush Syringe 10 Ml) 10 ml IV PRN PRN PRN Reason: LINE FLUSH Physical Examination - Physical Exam Narrative exam: Physical Exam: Constitutional: Alert, cooperative. No acute distress Head, Ears, Nose: Normocephalic, atraumatic. External ears, nose normal Eyes: Conjunctivae/corneas clear. No icterus. No ptosis. Neck: Supple, no meningeal signs Oral: no thrush Cardiovascular: S1, S2 normal. Respiratory: Good air entry, clear to auscultation bilaterally GI: Soft, non-tender; bowel sounds normal. No peritoneal signs Musculoskeletal: RLE with small wounds. LLE calf with a large wound with good healthy granulation tissue. Left lateral heel with about 3 cm wound with slough and fibrous tissue. Skin: No rash or abscess Hem/Lymphatic: No palpable cervical or supraclavicular nodes. No lymphangitis Psych: Mood ok. Affect normal Neurological: Awake, alert, oriented. No gross abnormality - Constitutional Vitals: Vital Signs Temp Pulse Resp BP Pulse Ox 97.7 F 85 16 174/83 100 01/24/19 12:35 01/24/19 12:35 01/24/19 12:35 01/24/19 12:35 01/24/19 12:35 Temperature -Last 24 Hours Temperature 97.7 F Temperature 98.2 F Temperature 98.7 F Results - Labs CBC & Chem 7: 01/24/19 02:58 01/24/19 02:58 Labs: Abnormal lab results 01/24/19 01/24/19 Range/Units 02:58 02:58 WBC 12.3 H (4.5-11.0) K/mm3 MCH 27 L (28-32) pg RDW 16.2 H (13.2-15.2) % [facility] % (Auto) 12.7 H (0.0-7.3) % [facility] # 1.6 H (0.0-0.8) K/mm3 Sodium 133 L (137-145) mmol/L Chloride 96.8 L (98-107) mmol/L Glucose 158 H (65-100) mg/dL Alkaline Phosphatase 214 H (35-129) units/L Albumin 2.8 L (3.9-5) g/dL Assessment and Plan Previous cultures and chart reviewed. Cultures: 01/06/2019 left ankle wound culture: Escherichia coli (resistant only to fluoroquinolones) 01/24/2019 blood culture: In progress A/P: 53-year-old female with a past medical history of diabetes, hypertenison, pyoderma gangrenosum with multiple revascularization procedures in the past, left lateral malleolus osteomyelitis per MRI done at [facility] on 12/28/2018 who has left the hospital multiple times AMA re-admitted with: 1. Left Lateral Malleolus Acute Osteomyelitis: based on MRI done at [facility] 12/30/18. Wound culture in the past has grown Escherichia coli. She will need a multidisciplinary approach which includes tobacco cessation, tight glycemic control, good wound care along with prolonged IV antibiotics. She has left the hospital multiple times AGAINST MEDICAL ADVICE due to social issues i ncluding homelessness. She does not want to go to a rehabilitation facility. I also gave her the option of prolonged oral antibiotics as an alternative. She will think about all of these and let us know. For now, will start her on IV ceftriaxone and oral doxycycline. 2. Pyoderma Gangrenosum; long-standing history of pyoderma gangrenosum, has been on chronic steroids and has also been on biologics, most recently Remicade about 6-8 weeks ago x 1, did not receive subsequent doses due to infection. Would also consider discharging also on PO minocycline due to its anti- inflammatory properties, since it may help the pyoderma. Dr. Atwood and Flaco were consulted during previous admissions, no indication for debridement at this time especially with the fact that the wounds are related to pyoderma and can worsen with aggressive debridement due to pathergy. Hyperbaric therapy was recommended but patient declined. 3. DM-2: uncontrolled: recommend tight glycemic control 4. Tobacco abuse: patient states she quit, her daughter at bedside states otherwise. Recs: - recheck wound culture - started IV ceftriaxone 2 gm q24 hrs - started PO Doxycycline 100 mg BID - patient still undecided about ultimate disposition (oral abx v/s PICC line for home IV abx v/s PICC line and abx at rehab) - continue wound care MD [facility] C: [phone] O: [phone] F: [phone]
[2019-01-24] MEDS: VIBRAMYCIN PO SCH ×2 (17:36→23:16)
[2019-01-24] MEDS ORDERED: HumaLOG SUB-Q ONE (20:18)
[2019-01-25 06:29] LABS: Basophils # (Auto) 0.1 K/mm3 (0.0-0.1); Basophils % (Auto) 0.8 % (0.0-1.8); Eosinophils # (Auto) 0.4 K/mm3 (0.0-0.4); Eosinophils % (Auto) 4.1 % (0.0-4.3); Hematocrit 33.5 % (30.3-42.9); Hemoglobin 10.8 gm/dl (10.1-14.3); Lymphocytes # (Auto) 2.7 K/mm3 (1.2-5.4); Lymphocytes % (Auto) 28.2 % (13.4-35.0); Mean Corpuscular HGB Conc 32 % (30-34); Mean Corpuscular Volume 82 fl (79-97); Monocytes # (Auto) 1.1 K/mm3 (0.0-0.8); Monocytes % (Auto) 11.9 % (0.0-7.3); Platelet Count 235 K/mm3 (140-440); Red Blood Count 4.11 M/mm3 (3.65-5.03); Red Cell Distribution Width 15.9 % (13.2-15.2)
[2019-01-25 07:01] LABS: BUN/Creatinine Ratio 15; Blood Urea Nitrogen 12 mg/dL (7-17); Hemolysis Index 4
[2019-01-25 07:05] LABS: Calcium 9.1 mg/dL (8.4-10.2)
[2019-01-25] MEDS: GLUCOPHAGE PO SCH (08:27)
[2019-01-25] MEDS: ZOFRAN IV PRN (08:45)
[2019-01-25] MEDS: ROCEPHIN/NS 2 GM/100 ML 2 GM/100 ML BAG IV SCH (08:52)
--- NOTE | 2019-01-25 08:53 | Progress Note ---
Assessment and Plan 01/06/2019 left ankle wound culture: Escherichia coli (resistant only to fluoroquinolones) 01/24/2019 blood culture: no growth to date A/P: 53-year-old female with a past medical history of diabetes, hypertenison, pyoderma gangrenosum with multiple revascularization procedures in the past, left lateral malleolus osteomyelitis per MRI done at [facility] on 12/28/2018 who has left the hospital multiple times AMA re-admitted with: 1. Left Lateral Malleolus Acute Osteomyelitis: based on MRI done at [facility] 12/30/18. Wound culture in the past has grown Escherichia coli. She will need a multidisciplinary approach which includes tobacco cessation, tight glycemic control, good wound care along with prolonged IV antibiotics. She has left the hospital multiple times AGAINST MEDICAL ADVICE due to social issues including homelessness. She does not want to go to a rehabilitation facility. I also gave her the option of prolonged oral antibiotics as an alternative. She will think about all of these and let us know. For now, will start her on IV ceftriaxone and oral doxycycline. 2. Pyoderma Gangrenosum; long-standing history of pyoderma gangrenosum, has been on chronic steroids and has also been on biologics, most recently Remicade about 6-8 weeks ago x 1, did not receive subsequent doses due to infection. Would also consider discharging also on PO minocycline due to its anti-i nflammatory properties, since it may help the pyoderma. Dr. Atwood and Flaco were consulted during previous admissions, no indication for debridement at this time especially with the fact that the wounds are related to pyoderma and can worsen with aggressive debridement due to pathergy. Hyperbaric therapy was recommended but patient declined. 3. DM-2: uncontrolled: recommend tight glycemic control 4. Tobacco abuse: patient states she quit, her daughter at bedside states otherwise. Recs: - f/u wound culture - continue IV ceftriaxone 2 gm q24 hrs, D2 - discontinue doxycycline - patient reported nausea - patient still undecided about ultimate disposition (oral abx v/s PICC line for home IV abx v/s PICC line and abx at rehab) - not willing to discuss today, agitated and uncooperative - continue wound care [facility] M: [phone] O:[phone] Subjective Date of service: 01/25/19 Interval history: Patient seen and examined. Stated that she did not feel like answering questions due to nausea. Per nursing, patient refusing antibiotic treatment. Objective - Exam Narrative Exam: Constitutional: Alert, uncooperative. Acute distress. Head, Ears, Nose: Normocephalic, atraumatic. External ears, nose normal Eyes: Conjunctivae/corneas clear. No icterus. No ptosis. Neck: Supple, no meningeal signs Oral: unable to access Cardiovascular: unable to access Respiratory: unable to access GI: unable to access Musculoskeletal: RLE with small wounds. LLE calf with a large wound with good healthy granulation tissue. Left lateral heel with about 3 cm wound with slough and fibrous tissue + dressing Skin: No rash or abscess Hem/Lymphatic:unable to access Psych: affect: agitated, uncooperative Neurological: Awake, alert, agitated, uncooperative - Constitutional Vitals: Vital Signs Temp Pulse Resp BP Pulse Ox 97.9 F 75 20 148/66 96 01/25/19 06:24 01/25/19 06:24 01/25/19 06:24 01/25/19 06:24 01/25/19 06:24 Temperature -Last 24 Hours Temperature 97.9 F Temperature 99.4 F Temperature 97.8 F Temperature 97.7 F - Labs CBC & Chem 7: 01/25/19 06:10 01/25/19 06:10 Labs: Abnormal lab results 01/25/19 01/25/19 Range/Units 06:10 06:10 MCH 26 L (28-32) pg RDW 15.9 H (13.2-15.2) % [place] % (Auto) 11.9 H (0.0-7.3) % [place] # 1.1 H (0.0-0.8) K/mm3 Sodium 136 L (137-145) mmol/L Glucose 151 H (65-100) mg/dL
[2019-01-25] MEDS: ROXICODONE PO PRN (08:57)
[2019-01-25] MEDS: PERCOCET 5/325 PO PRN (08:58)
[2019-01-25] MEDS: HumaLOG SUB-Q SCH ×3 (09:01→22:57)
[2019-01-25] MEDS: HCTZ PO SCH (11:48)
[2019-01-25] MEDS: LOPRESSOR PO SCH ×2 (11:48→21:42)
[2019-01-25] MEDS: LOVENOX SUB-Q SCH (11:49)
[2019-01-25] MEDS: LYRICA PO SCH (11:49)
[2019-01-25] MEDS: VIBRAMYCIN PO SCH (11:49)
[2019-01-25] MEDS: SODIUM CHLORIDE FLUSH SYRINGE 10 ML IV SCH ×2 (11:49→21:42)
[2019-01-25] MEDS: MORPHINE IV PRN ×2 (11:54→21:42)
[2019-01-25] MEDS: ZESTRIL PO SCH (14:39)
--- NOTE | 2019-01-25 16:43 | Progress Note ---
Assessment and Plan Assessment and plan: Patient is a 53 yo woman with a history of DM type 2, hypertenison, pyoderma gangrenosum with multiple re-vascularization procedures in the past, left lateral malleolus osteomyelitis per MRI done at [facility] on 12/28/2018 who has left the hospital multiple times AMA re-admitted with: Left Lateral Malleolus Acute Osteomyelitis: abx per ID, she refused doxyc today and iv abx changed Pyoderma gangrenosa: needs hyperbaric O2, pt refuses. Hypertension: low salt diet DM-2: uncontrolled: recommend tight glycemic control Tobacco abuse: patient states she quit, her daughter at bedside states otherwise. History Interval history: Patient was seen and examined. Follow-up on current diagnosis of left leg infection. Overnight uneventful. Patient denies any chest pain, shortness breath, nausea/vomiting or severe headaches. Imaging, nursing note, chart, labs and old chart reviewed. Discussed with patient. Hospitalist Physical - Physical exam Narrative exam: GEN: WDWN, NAD, Awake, Alert, Orientated HEENT: NCAT, EOMI, PERRL, OP Clear NECK: supple, no adenopathy, no thyromegaly, no JVD CVS/HEART: RRR, normal S1S2, pulses present bilaterally CHEST/LUNGS: CTA B, Symmetrical chest expansion, good air entry bilaterally GI/Abdomen: soft, NTND, good bowel sounds, no guarding or rebound /Bladder: no suprapubic tenderness, no CVA or paraspinal tenderness EXT/Skin: Musculoskeletal: RLE with small wounds. LLE calf with a large wound with good healthy granulation tissue. Left lateral heel with about 3 cm wound with slough and fibrous tissue. MSK: FROM x 4 Neuro: CN 2-12 grossly intact, no new focal deficits Psych: calm - Constitutional Vitals: Temp Pulse Resp BP Pulse Ox 98.0 F 75 18 137/69 97 01/25/19 11:47 01/25/19 14:39 01/25/19 11:45 01/25/19 14:40 01/25/19 11:45 Results - Labs CBC & Chem 7: 01/25/19 06:10 01/25/19 06:10 Labs: Laboratory Last Values WBC 9.5 K/mm3 (4.5-11.0) 01/25/19 06:10 RBC 4.11 M/mm3 (3.65-5.03) 01/25/19 06:10 Hgb 10.8 gm/dl (10.1-14.3) 01/25/19 06:10 Hct 33.5 % (30.3-42.9) 01/25/19 06:10 MCV 82 fl (79-97) 01/25/19 06:10 MCH 26 pg (28-32) L 01/25/19 06:10 MCHC 32 % (30-34) 01/25/19 06:10 RDW 15.9 % (13.2-15.2) H 01/25/19 06:10 Plt Count 235 K/mm3 (140-440) 01/25/19 06:10 Lymph % (Auto) 28.2 % (13.4-35.0) 01/25/19 06:10 [place] % (Auto) 11.9 % (0.0-7.3) H 01/25/19 06:10 Eos % (Auto) 4.1 % (0.0-4.3) 01/25/19 06:10 Baso % (Auto) 0.8 % (0.0-1.8) 01/25/19 06:10 Lymph # 2.7 K/mm3 (1.2-5.4) 01/25/19 06:10 [place] # 1.1 K/mm3 (0.0-0.8) H 01/25/19 06:10 Eos # 0.4 K/mm3 (0.0-0.4) 01/25/19 06:10 Baso # 0.1 K/mm3 (0.0-0.1) 01/25/19 06:10 Seg Neutrophils % 55.0 % (40.0-70.0) 01/25/19 06:10 Seg Neutrophils # 5.2 K/mm3 (1.8-7.7) 01/25/19 06:10 Sodium 136 mmol/L (137-145) L 01/25/19 06:10 Potassium 4.0 mmol/L (3.6-5.0) 01/25/19 06:10 Chloride 100.6 mmol/L (98-107) 01/25/19 06:10 Carbon Dioxide 23 mmol/L (22-30) 01/25/19 06:10 Anion Gap 16 mmol/L 01/25/19 06:10 BUN 12 mg/dL (7-17) 01/25/19 06:10 Creatinine 0.8 mg/dL (0.7-1.2) 01/25/19 06:10 Estimated GFR > 60 ml/min 01/25/19 06:10 BUN/Creatinine Ratio 15 % 01/25/19 06:10 Glucose 151 mg/dL (65-100) H 01/25/19 06:10 Calcium 9.1 mg/dL (8.4-10.2) 01/25/19 06:10 Total Bilirubin 0.30 mg/dL (0.1-1.2) 01/24/19 02:58 AST 20 units/L (5-40) 01/24/19 02:58 ALT 15 units/L (7-56) 01/24/19 02:58 Alkaline Phosphatase 214 units/L (35-129) H 01/24/19 02:58 Total Protein 6.4 g/dL (6.3-8.2) 01/24/19 02:58 Albumin 2.8 g/dL (3.9-5) L 01/24/19 02:58 Albumin/Globulin Ratio 0.8 % 01/24/19 02:58 Nutrition/Malnutrition Assess - Dietary Evaluation Nutrition/Malnutrition Findings: Nutrition Notes Start: 01/25/19 13:32 Freq: Status: Active Protocol: Document 01/25/19 15:31 RM (Rec: 01/25/19 15:44 RM [email or web address]) Nutrition Notes Need for Assessment generated from: MST Initial or Follow up Assessment Current Diagnosis Diabetes,Hypertension Other Pertinent Diagnosis Pyoderma gangrenosum, R & L leg wound, L heel wound, R Knee wound Current Diet Cardiac/Consistent CHO Labs/Tests Reviewed Pertinent Medications Reviewed Height 5 ft 4 in Weight 99.8 kg [place] Body Weight (kg) 54.54 BMI 37.8 Subjective/Other Information Screened for malnutrition. Pt w/wound nurse at time of visit. Recorded PO intake 75% X 3 meals. Percent of energy/protein needs met: 100%/68% Burn Absent Trauma Absent #1 Nutrition Diagnosis Increased nutrient needs ( specify in comment below) Comments: arginine, glutamine Etiology wound healing As Evidenced by Signs and Symptoms R & L leg wound, L heel wound, R knee wound Is patient on ventilator? No Is Patient Ambulatory and/or Out of Bed No [facility] 1903.584 Kcal/Kg value to use for calculation 14 Approximate Energy Requirements Using 1397 kcal/Kg Calculation Used for Recommendations Kcal/kg Additional Notes Protein Needs:92-116g (1.2-1. 5g/kg 77kg adjBW) Fluid Needs: 1 ml/kcal Nutrition Intervention Change Diet Order: Continue current Goal #1 Meet at least 75% of calorie and protein needs via PO intakes Anticipated Discharge Needs: Cardiac/Consistent CHO Follow-Up By: 01/26/19 Additional Comments Follow for willingness to try Vinnie, malnutrition assessment
[2019-01-25] MEDS ORDERED: KENALOG TP PRN (17:00)
[2019-01-26] MEDS: ROCEPHIN/NS 2 GM/100 ML 2 GM/100 ML BAG IV SCH (08:33)
[2019-01-26] MEDS: GLUCOPHAGE PO SCH ×2 (08:34→08:46)
[2019-01-26] MEDS: MORPHINE IV PRN ×4 (08:34→22:18)
[2019-01-26] MEDS: HumaLOG SUB-Q SCH ×3 (08:36→18:00)
--- NOTE | 2019-01-26 10:01 | Progress Note ---
Assessment and Plan 01/06/2019 left ankle wound culture: Escherichia coli (resistant only to fluoroquinolones) 01/24/2019 blood culture: no growth to date A/P: 53-year-old female with a past medical history of diabetes, hypertenison, pyoderma gangrenosum with multiple revascularization procedures in the past, left lateral malleolus osteomyelitis per MRI done at [facility] on 12/28/2018 who has left the hospital multiple times AMA re-admitted with: 1. Left Lateral Malleolus Acute Osteomyelitis: based on MRI done at [facility] 12/30/18. Wound culture in the past has grown Escherichia coli. She will need a multidisciplinary approach which includes tobacco cessation, tight glycemic control, good wound care along with prolonged IV antibiotics. She has left the hospital multiple times AGAINST MEDICAL ADVICE due to social issues including homelessness. She does not want to go to a rehabilitation facility. I also gave her the option of prolonged oral antibiotics as an alternative. She will think about all of these and let us know. For now, will start her on IV ceftriaxone and oral doxycycline. 2. Pyoderma Gangrenosum; long-standing history of pyoderma gangrenosum, has been on chronic steroids and has also been on biologics, most recently Remicade about 6-8 weeks ago x 1, did not receive subsequent doses due to infection. Would also consider discharging also on PO minocycline due to its anti-i nflammatory properties, since it may help the pyoderma. Dr. Atwood and Flaco were consulted during previous admissions, no indication for debridement at this time especially with the fact that the wounds are related to pyoderma and can worsen with aggressive debridement due to pathergy. Hyperbaric therapy was recommended but patient declined. 3. DM-2: uncontrolled: recommend tight glycemic control 4. Tobacco abuse: patient states she quit, her daughter at bedside states otherwise. Recs: - f/u wound culture - continue IV ceftriaxone 2 gm q24 hrs, D2 - patient still undecided about ultimate disposition, leaning towards oral abx vs PICC line management - continue wound care [facility] [employer] M: [phone] O:[phone] Subjective Date of service: 01/26/19 Interval history: Patient seen and examined. Complained of left ankle pain 6/10 on numeric pain scale. No fever or SOB. Objective - Exam Narrative Exam: Constitutional: Alert, cooperative. Left ankle pain. Head, Ears, Nose: Normocephalic, atraumatic. External ears, nose normal Eyes: Conjunctivae/corneas clear. No icterus. No ptosis. Neck: Supple, no meningeal signs Oral: no thrush Cardiovascular: S1, S2 normal. Respiratory: Good air entry, clear to auscultation bilaterally GI: Soft, non-tender; bowel sounds normal. No peritoneal signs Musculoskeletal: RLE with small wounds. LLE calf with a large wound with good healthy granulation tissue. Left lateral heel with about 3 cm wound with slough and fibrous tissue. Skin: No rash or abscess Hem/Lymphatic: No palpable cervical or supraclavicular nodes. No lymphangitis Psych: Mood ok. Affect normal Neurological: Awake, alert, oriented. No gross abnormality - Constitutional Vitals: Vital Signs Temp Pulse Resp BP Pulse Ox 98.4 F 88 20 151/68 100 01/26/19 04:19 01/26/19 04:19 01/26/19 04:19 01/26/19 04:19 01/26/19 04:19 Temperature -Last 24 Hours Temperature 98.4 F Temperature 99.2 F Temperature 98.8 F Temperature 98.0 F - Labs CBC & Chem 7: 01/25/19 06:10 01/25/19 06:10
[2019-01-26] MEDS: LOPRESSOR PO SCH ×2 (10:31→22:09)
[2019-01-26] MEDS: HCTZ PO SCH (10:32)
[2019-01-26] MEDS: LOVENOX SUB-Q SCH (10:32)
[2019-01-26] MEDS: ZESTRIL PO SCH (10:32)
[2019-01-26] MEDS: LYRICA PO SCH (10:32)
[2019-01-26] MEDS: SODIUM CHLORIDE FLUSH SYRINGE 10 ML IV SCH ×2 (10:33→22:19)
[2019-01-26] MEDS: PERCOCET 5/325 PO PRN (10:59)
[2019-01-26] MEDS: ROXICODONE PO PRN (11:00)
[2019-01-26 14:32] LABS: Basophils # (Auto) 0.1 K/mm3 (0.0-0.1); Basophils % (Auto) 1.3 % (0.0-1.8); Eosinophils # (Auto) 0.2 K/mm3 (0.0-0.4); Eosinophils % (Auto) 2.1 % (0.0-4.3); Hematocrit 35.4 % (30.3-42.9); Hemoglobin 11.4 gm/dl (10.1-14.3); Lymphocytes % (Auto) 27.6 % (13.4-35.0); Mean Corpuscular HGB Conc 32 % (30-34); Mean Corpuscular Volume 82 fl (79-97); Monocytes # (Auto) 1.2 K/mm3 (0.0-0.8); Monocytes % (Auto) 10.9 % (0.0-7.3); Platelet Count 283 K/mm3 (140-440)
--- NOTE | 2019-01-26 16:42 | Progress Note ---
Assessment and Plan Assessment and plan: Patient is a 53 yo woman with a history of DM type 2, hypertenison, pyoderma gangrenosum with multiple re-vascularization procedures in the past, left lateral malleolus osteomyelitis per MRI done at [facility] on 12/28/2018 who has left the hospital multiple times AMA re-admitted with: Left Lateral Malleolus Acute Osteomyelitis: abx per ID, she refused doxyc today and iv abx changed Pyoderma gangrenosa: needs hyperbaric O2, pt refuses. Hypertension: low salt diet DM-2: uncontrolled: recommend tight glycemic control Tobacco abuse: patient states she quit, her daughter at bedside states otherwise. History Interval history: Patient was seen and examined. Follow-up on current diagnosis of left leg infection. Overnight uneventful. Patient denies any chest pain, shortness breath, nausea/vomiting or severe headaches. Imaging, nursing note, chart, labs and old chart reviewed. Discussed with patient. Hospitalist Physical - Physical exam Narrative exam: GEN: WDWN, NAD, Awake, Alert, Orientated HEENT: NCAT, EOMI, PERRL, OP Clear NECK: supple, no adenopathy, no thyromegaly, no JVD CVS/HEART: RRR, normal S1S2, pulses present bilaterally CHEST/LUNGS: CTA B, Symmetrical chest expansion, good air entry bilaterally GI/Abdomen: soft, NTND, good bowel sounds, no guarding or rebound /Bladder: no suprapubic tenderness, no CVA or paraspinal tenderness EXT/Skin: Musculoskeletal: RLE with small wounds. LLE calf with a large wound with good healthy granulation tissue. Left lateral heel with about 3 cm wound with slough and fibrous tissue. MSK: FROM x 4 Neuro: CN 2-12 grossly intact, no new focal deficits Psych: calm - Constitutional Vitals: Temp Pulse Resp BP Pulse Ox 98.2 F 85 18 152/54 100 01/26/19 12:13 01/26/19 12:13 01/26/19 12:13 01/26/19 12:13 01/26/19 12:13 Results - Labs CBC & Chem 7: 01/26/19 12:45 01/25/19 06:10 Labs: Laboratory Last Values WBC 10.8 K/mm3 (4.5-11.0) 01/26/19 12:45 RBC 4.30 M/mm3 (3.65-5.03) 01/26/19 12:45 Hgb 11.4 gm/dl (10.1-14.3) 01/26/19 12:45 Hct 35.4 % (30.3-42.9) 01/26/19 12:45 MCV 82 fl (79-97) 01/26/19 12:45 MCH 27 pg (28-32) L 01/26/19 12:45 MCHC 32 % (30-34) 01/26/19 12:45 RDW 16.0 % (13.2-15.2) H 01/26/19 12:45 Plt Count 283 K/mm3 (140-440) 01/26/19 12:45 Lymph % (Auto) 27.6 % (13.4-35.0) 01/26/19 12:45 [place] % (Auto) 10.9 % (0.0-7.3) H 01/26/19 12:45 Eos % (Auto) 2.1 % (0.0-4.3) 01/26/19 12:45 Baso % (Auto) 1.3 % (0.0-1.8) 01/26/19 12:45 Lymph # 3.0 K/mm3 (1.2-5.4) 01/26/19 12:45 [place] # 1.2 K/mm3 (0.0-0.8) H 01/26/19 12:45 Eos # 0.2 K/mm3 (0.0-0.4) 01/26/19 12:45 Baso # 0.1 K/mm3 (0.0-0.1) 01/26/19 12:45 Seg Neutrophils % 58.1 % (40.0-70.0) 01/26/19 12:45 Seg Neutrophils # 6.3 K/mm3 (1.8-7.7) 01/26/19 12:45 Sodium 136 mmol/L (137-145) L 01/25/19 06:10 Potassium 4.0 mmol/L (3.6-5.0) 01/25/19 06:10 Chloride 100.6 mmol/L (98-107) 01/25/19 06:10 Carbon Dioxide 23 mmol/L (22-30) 01/25/19 06:10 Anion Gap 16 mmol/L 01/25/19 06:10 BUN 12 mg/dL (7-17) 01/25/19 06:10 Creatinine 0.8 mg/dL (0.7-1.2) 01/25/19 06:10 Estimated GFR > 60 ml/min 01/25/19 06:10 BUN/Creatinine Ratio 15 % 01/25/19 06:10 Glucose 151 mg/dL (65-100) H 01/25/19 06:10 Calcium 9.1 mg/dL (8.4-10.2) 01/25/19 06:10 Total Bilirubin 0.30 mg/dL (0.1-1.2) 01/24/19 02:58 AST 20 units/L (5-40) 01/24/19 02:58 ALT 15 units/L (7-56) 01/24/19 02:58 Alkaline Phosphatase 214 units/L (35-129) H 01/24/19 02:58 Total Protein 6.4 g/dL (6.3-8.2) 01/24/19 02:58 Albumin 2.8 g/dL (3.9-5) L 01/24/19 02:58 Albumin/Globulin Ratio 0.8 % 01/24/19 02:58 Nutrition/Malnutrition Assess - Dietary Evaluation Nutrition/Malnutrition Findings: Nutrition Notes Start: 01/25/19 13:32 Freq: Status: Active Protocol: Document 01/26/19 09:47 TW (Rec: 01/26/19 11:00 TW [id number]) Co-Sign 01/26/19 09:47 LP Nutrition Notes Initial or Follow up Reassessment Current Diagnosis Diabetes,Hypertension Other Pertinent Diagnosis Pyoderma gangrenosum, R & L leg wound, L heel wound, R Knee wound Current Diet Cardiac/Consistent CHO Labs/Tests Na: 136 Pertinent Medications Reviewed Height 5 ft 4 in Weight 99.8 kg [place] Body Weight (kg) 54.54 BMI 37.8 Subjective/Other Information Pt stated she does not have an appetite and that she is eating about 25% of her food. She stated that she is unsure if she has lost any weight, and she does not want jerod because it make her have N/V. No signs of wasting. Percent of energy/protein needs met: 38%/23% Burn Absent Trauma Absent #2 Nutrition Diagnosis Inadequate oral intake Etiology decreased appetite As Evidenced by Signs and Symptoms Meeting 38% of her energy needs and 23% of her protein needs #1 Nutrition Diagnosis Increased nutrient needs ( specify in comment below) Diagnosis Progress(for reassessment Continues documentation) Is patient on ventilator? No Is Patient Ambulatory and/or Out of Bed No [facility] 1903.584 Kcal/Kg value to use for calculation 14 Approximate Energy Requirements Using 1397 kcal/Kg Calculation Used for Recommendations Kcal/kg Additional Notes Protein Needs:92-116g (1.2-1. 5g/kg 77kg adjBW) Fluid Needs: 1 ml/kcal Nutrition Intervention Change Diet Order: Continue current Add Supplement/Snack (indicate name/kcal Ensure Enlive daily /protein ) Provides kCal: 350 Provides Protein (gm) 20 Goal #1 Meet at least 75% of calorie and protein needs via PO intakes Goal #2 ONS tolerance Anticipated Discharge Needs: Cardiac/Consistent CHO Follow-Up By: 01/28/19 Additional Comments F/U for PO intake and ONS tolerance
[2019-01-27] MEDS: MORPHINE IV PRN ×2 (05:50→10:37)
[2019-01-27] MEDS: HumaLOG SUB-Q SCH ×5 (06:49→23:01)
--- NOTE | 2019-01-27 09:53 | Progress Note ---
Assessment and Plan 01/06/2019 left ankle wound culture: Escherichia coli (resistant only to fluoroquinolones) 01/24/2019 blood culture: no growth to date 01/26/19: Gram negative [place], Enterococcus A/P: 53-year-old female with a past medical history of diabetes, hypertenison, pyoderma gangrenosum with multiple revascularization procedures in the past, left lateral malleolus osteomyelitis per MRI done at [facility] on 12/28/2018 who has left the hospital multiple times AMA re-admitted with: 1. Left Lateral Malleolus Acute Osteomyelitis: based on MRI done at [facility] 12/30/18. Wound culture in the past has grown Escherichia coli. She will need a multidisciplinary approach which includes tobacco cessation, tight glycemic control, good wound care along with prolonged IV antibiotics. She has left the hospital multiple times AGAINST MEDICAL ADVICE due to social issues including homelessness. She does not want to go to a rehabilitation facility. I also gave her the option of prolonged oral antibiotics as an alternative. She will think about all of these and let us know. Wound cultures currently growing GNR and Enterococcus, f/u on ID and LAMINE's. 2. Pyoderma Gangrenosum; long-standing history of pyoderma gangrenosum, has been on chronic steroids and has also been on biologics, most recently Remicade about 6-8 weeks ago x 1, did not receive subsequent doses due to infection. Would also consider discharging also on PO minocycline due to its anti- inflammatory properties, since it may help the pyoderma. Dr. Atwood and Flaco were consulted during previous admissions, no indication for debridement at this time especially with the fact that the wounds are related to pyoderma and can worsen with aggressive debridement due to pathergy. Hyperbaric therapy was recommended but patient declined. 3. DM-2: uncontrolled: recommend tight glycemic control 4. Tobacco abuse: patient states she quit, her daughter at bedside states otherwise. Recs: - f/u wound culture growing GNR and Enterococcus, awaiting ID and LAMINE's. - continue IV ceftriaxone 2 gm q24 hrs, D3 - patient still undecided about ultimate disposition, leaning towards oral abx vs PICC line management - continue wound care [facility] M: [phone] O:[phone] Subjective Date of service: 01/27/19 Interval history: Patient seen and examined. Sitting up in the bed eating. No acute distress. No fevers. Objective - Exam Narrative Exam: Constitutional: Alert, cooperative. Preethi cute distress Head, Ears, Nose: Normocephalic, atraumatic. External ears, nose normal Eyes: Conjunctivae/corneas clear. No icterus. No ptosis. Neck: Supple, no meningeal signs Oral: no thrush Cardiovascular: S1, S2 normal. Respiratory: Good air entry, clear to auscultation bilaterally GI: Soft, non-tender; bowel sounds normal. No peritoneal signs Musculoskeletal: RLE with small wounds. LLE calf with a large wound with good healthy granulation tissue. Left lateral heel with about 3 cm wound with slough and fibrous tissue. Skin: No rash or abscess Hem/Lymphatic: No palpable cervical or supraclavicular nodes. No lymphangitis Psych: Mood ok. Affect normal Neurological: Awake, alert, oriented. No gross abnormality - Constitutional Vitals: Vital Signs Temp Pulse Resp BP Pulse Ox 98.3 F 78 16 98/31 98 01/27/19 06:17 01/27/19 06:17 01/27/19 06:17 01/27/19 06:17 01/27/19 06:17 Temperature -Last 24 Hours Temperature 98.3 F Temperature 99.0 F Temperature 99.4 F Temperature 98.2 F Temperature 98.2 F - Labs CBC & Chem 7: 01/26/19 12:45 01/25/19 06:10 Labs: Abnormal lab results 01/24/19 01/24/19 01/24/19 Range/Units 07:42 11:47 17:24 MCH (28-32) pg RDW (13.2-15.2) % [place] % (Auto) (0.0-7.3) % [place] # (0.0-0.8) K/mm3 POC Glucose 138 H 166 H 237 H (70-105) 01/24/19 01/25/19 01/25/19 Range/Units 22:16 07:56 17:26 MCH (28-32) pg RDW (13.2-15.2) % [place] % (Auto) (0.0-7.3) % [place] # (0.0-0.8) K/mm3 POC Glucose 118 H 184 H 111 H (70-105) 01/25/19 01/26/19 01/26/19 Range/Units 21:19 07:54 10:56 MCH (28-32) pg RDW (13.2-15.2) % [place] % (Auto) (0.0-7.3) % [place] # (0.0-0.8) K/mm3 POC Glucose 192 H 164 H 198 H (70-105) 01/26/19 01/26/19 01/26/19 Range/Units 12:45 16:46 22:42 MCH 27 L (28-32) pg RDW 16.0 H (13.2-15.2) % [place] % (Auto) 10.9 H (0.0-7.3) % [place] # 1.2 H (0.0-0.8) K/mm3 POC Glucose 154 H 143 H (70-105) 01/27/19 Range/Units 06:19 MCH (28-32) pg RDW (13.2-15.2) % [place] % (Auto) (0.0-7.3) % [place] # (0.0-0.8) K/mm3 POC Glucose 138 H (70-105)
[2019-01-27] MEDS: ROCEPHIN/NS 2 GM/100 ML 2 GM/100 ML BAG IV SCH (10:36)
[2019-01-27] MEDS: LOPRESSOR PO SCH ×2 (10:38→23:00)
[2019-01-27] MEDS: HCTZ PO SCH (10:40)
[2019-01-27] MEDS: LYRICA PO SCH (10:40)
[2019-01-27] MEDS: ZESTRIL PO SCH (10:40)
[2019-01-27] MEDS: LOVENOX SUB-Q SCH (10:41)
[2019-01-27] MEDS: SODIUM CHLORIDE FLUSH SYRINGE 10 ML IV SCH ×2 (10:42→23:00)
[2019-01-27] MEDS: GLUCOPHAGE PO SCH (10:42)
[2019-01-27] MEDS: PERCOCET 5/325 PO PRN (16:10)
[2019-01-27] MEDS: ROXICODONE PO PRN (16:17)
--- NOTE | 2019-01-27 16:49 | Progress Note ---
Assessment and Plan Assessment and plan: Patient is a 53 yo woman with a history of DM type 2, hypertenison, pyoderma gangrenosum with multiple re-vascularization procedures in the past, left lateral malleolus osteomyelitis per MRI done at [facility] on 12/28/2018 who has left the hospital multiple times AMA re-admitted with: Left Lateral Malleolus Acute Osteomyelitis: abx per ID, Pyoderma gangrenosa: needs hyperbaric O2, pt refuses. Hypertension: low salt diet DM-2: uncontrolled: recommend tight glycemic control Tobacco abuse: patient states she quit, her daughter at bedside states otherwise. awaiting for final wound ctx to result History Interval history: Patient was seen and examined. Follow-up on current diagnosis of left leg infection. Overnight uneventful. Patient denies any chest pain, shortness breath, nausea/vomiting or severe headaches. Imaging, nursing note, chart, labs and old chart reviewed. Discussed with patient. Hospitalist Physical - Physical exam Narrative exam: GEN: WDWN, NAD, Awake, Alert, Orientated HEENT: NCAT, EOMI, PERRL, OP Clear NECK: supple, no adenopathy, no thyromegaly, no JVD CVS/HEART: RRR, normal S1S2, pulses present bilaterally CHEST/LUNGS: CTA B, Symmetrical chest expansion, good air entry bilaterally GI/Abdomen: soft, NTND, good bowel sounds, no guarding or rebound /Bladder: no suprapubic tenderness, no CVA or paraspinal tenderness EXT/Skin: Musculoskeletal: RLE with small wounds. LLE calf with a large wound with good healthy granulation tissue. Left lateral heel with about 3 cm wound with slough and fibrous tissue. MSK: FROM x 4 Neuro: CN 2-12 grossly intact, no new focal deficits Psych: calm - Constitutional Vitals: Temp Pulse Resp BP Pulse Ox 98.0 F 86 18 150/76 100 01/27/19 11:29 01/27/19 11:29 01/27/19 11:29 01/27/19 11:29 01/27/19 11:29 Results - Labs CBC & Chem 7: 01/26/19 12:45 01/25/19 06:10 Labs: Laboratory Last Values WBC 10.8 K/mm3 (4.5-11.0) 01/26/19 12:45 RBC 4.30 M/mm3 (3.65-5.03) 01/26/19 12:45 Hgb 11.4 gm/dl (10.1-14.3) 01/26/19 12:45 Hct 35.4 % (30.3-42.9) 01/26/19 12:45 MCV 82 fl (79-97) 01/26/19 12:45 MCH 27 pg (28-32) L 01/26/19 12:45 MCHC 32 % (30-34) 01/26/19 12:45 RDW 16.0 % (13.2-15.2) H 01/26/19 12:45 Plt Count 283 K/mm3 (140-440) 01/26/19 12:45 Lymph % (Auto) 27.6 % (13.4-35.0) 01/26/19 12:45 [place] % (Auto) 10.9 % (0.0-7.3) H 01/26/19 12:45 Eos % (Auto) 2.1 % (0.0-4.3) 01/26/19 12:45 Baso % (Auto) 1.3 % (0.0-1.8) 01/26/19 12:45 Lymph # 3.0 K/mm3 (1.2-5.4) 01/26/19 12:45 [place] # 1.2 K/mm3 (0.0-0.8) H 01/26/19 12:45 Eos # 0.2 K/mm3 (0.0-0.4) 01/26/19 12:45 Baso # 0.1 K/mm3 (0.0-0.1) 01/26/19 12:45 Seg Neutrophils % 58.1 % (40.0-70.0) 01/26/19 12:45 Seg Neutrophils # 6.3 K/mm3 (1.8-7.7) 01/26/19 12:45 Sodium 136 mmol/L (137-145) L 01/25/19 06:10 Potassium 4.0 mmol/L (3.6-5.0) 01/25/19 06:10 Chloride 100.6 mmol/L (98-107) 01/25/19 06:10 Carbon Dioxide 23 mmol/L (22-30) 01/25/19 06:10 Anion Gap 16 mmol/L 01/25/19 06:10 BUN 12 mg/dL (7-17) 01/25/19 06:10 Creatinine 0.8 mg/dL (0.7-1.2) 01/25/19 06:10 Estimated GFR > 60 ml/min 01/25/19 06:10 BUN/Creatinine Ratio 15 % 01/25/19 06:10 Glucose 151 mg/dL (65-100) H 01/25/19 06:10 POC Glucose 176 (70-105) H 01/27/19 11:36 Calcium 9.1 mg/dL (8.4-10.2) 01/25/19 06:10 Total Bilirubin 0.30 mg/dL (0.1-1.2) 01/24/19 02:58 AST 20 units/L (5-40) 01/24/19 02:58 ALT 15 units/L (7-56) 01/24/19 02:58 Alkaline Phosphatase 214 units/L (35-129) H 01/24/19 02:58 Total Protein 6.4 g/dL (6.3-8.2) 01/24/19 02:58 Albumin 2.8 g/dL (3.9-5) L 01/24/19 02:58 Albumin/Globulin Ratio 0.8 % 01/24/19 02:58 Nutrition/Malnutrition Assess - Dietary Evaluation Nutrition/Malnutrition Findings: Nutrition Notes Start: 01/25/19 13:32 Freq: Status: Active Protocol: Document 01/26/19 09:47 TW (Rec: 01/26/19 11:00 TW [email or web address]) Co-Sign 01/26/19 09:47 LP Nutrition Notes Initial or Follow up Reassessment Current Diagnosis Diabetes,Hypertension Other Pertinent Diagnosis Pyoderma gangrenosum, R & L leg wound, L heel wound, R Knee wound Current Diet Cardiac/Consistent CHO Labs/Tests Na: 136 Pertinent Medications Reviewed Height 5 ft 4 in Weight 99.8 kg [place] Body Weight (kg) 54.54 BMI 37.8 Subjective/Other Information Pt stated she does not have an appetite and that she is eating about 25% of her food. She stated that she is unsure if she has lost any weight, and she does not want jerod because it make her have N/V. No signs of wasting. Percent of energy/protein needs met: 38%/23% Burn Absent Trauma Absent #2 Nutrition Diagnosis Inadequate oral intake Etiology decreased appetite As Evidenced by Signs and Symptoms Meeting 38% of her energy needs and 23% of her protein needs #1 Nutrition Diagnosis Increased nutrient needs ( specify in comment below) Diagnosis Progress(for reassessment Continues documentation) Is patient on ventilator? No Is Patient Ambulatory and/or Out of Bed No REE-([place] or-confined to bed) 1903.584 Kcal/Kg value to use for calculation 14 Approximate Energy Requirements Using 1397 kcal/Kg Calculation Used for Recommendations Kcal/kg Additional Notes Protein Needs:92-116g (1.2-1. 5g/kg 77kg adjBW) Fluid Needs: 1 ml/kcal Nutrition Intervention Change Diet Order: Continue current Add Supplement/Snack (indicate name/kcal Ensure Enlive daily /protein ) Provides kCal: 350 Provides Protein (gm) 20 Goal #1 Meet at least 75% of calorie and protein needs via PO intakes Goal #2 ONS tolerance Anticipated Discharge Needs: Cardiac/Consistent CHO Follow-Up By: 01/28/19 Additional Comments F/U for PO intake and ONS tolerance
[2019-01-27] MEDS: ZOFRAN IV PRN (19:21)
[2019-01-28] MEDS: MORPHINE IV PRN ×2 (00:32→17:20)
[2019-01-28] MEDS: ZOFRAN IV PRN ×2 (04:24→13:16)
[2019-01-28] MEDS: GLUCOPHAGE PO SCH (08:23)
[2019-01-28] MEDS: ROCEPHIN/NS 2 GM/100 ML 2 GM/100 ML BAG IV SCH (08:23)
[2019-01-28] MEDS: HumaLOG SUB-Q SCH ×2 (08:24→12:33)
[2019-01-28] MEDS: LYRICA PO SCH (09:10)
[2019-01-28] MEDS: HCTZ PO SCH (09:11)
[2019-01-28] MEDS: PERCOCET 5/325 PO PRN ×2 (09:11→15:57)
[2019-01-28] MEDS: LOPRESSOR PO SCH (09:11)
[2019-01-28] MEDS: ZESTRIL PO SCH (09:11)
[2019-01-28] MEDS: ROXICODONE PO PRN ×2 (09:12→15:57)
[2019-01-28] MEDS: LOVENOX SUB-Q SCH (09:14)
[2019-01-28] MEDS: SODIUM CHLORIDE FLUSH SYRINGE 10 ML IV SCH (09:19)
--- NOTE | 2019-01-28 10:34 | Progress Note ---
Assessment and Plan 01/06/2019 left ankle wound culture: Escherichia coli (resistant only to fluoroquinolones) 01/24/2019 blood culture: no growth to date 01/26/19: Gram negative [place], Enterococcus A/P: 53-year-old female with a past medical history of diabetes, hypertenison, pyoderma gangrenosum with multiple revascularization procedures in the past, left lateral malleolus osteomyelitis per MRI done at [facility] on 12/28/2018 who has left the hospital multiple times AMA re-admitted with: 1. Left Lateral Malleolus Acute Osteomyelitis: based on MRI done at [facility] 12/30/18. Wound culture in the past has grown Escherichia coli. She will need a multidisciplinary approach which includes tobacco cessation, tight glycemic control, good wound care along with prolonged IV antibiotics. She has left the hospital multiple times AGAINST MEDICAL ADVICE due to social issues including homelessness. She does not want to go to a rehabilitation facility. I also gave her the option of prolonged oral antibiotics as an alternative. She will think about all of these and let us know. Wound cultures currently growing GNR and Enterococcus, f/u on ID and LAMINE's. 2. Pyoderma Gangrenosum; long-standing history of pyoderma gangrenosum, has been on chronic steroids and has also been on biologics, most recently Remicade about 6-8 weeks ago x 1, did not receive subsequent doses due to infection. Would also consider discharging also on PO minocycline due to its anti- inflammatory properties, since it may help the pyoderma. Dr. Atwood and Flaco were consulted during previous admissions, no indication for debridement at this time especially with the fact that the wounds are related to pyoderma and can worsen with aggressive debridement due to pathergy. Hyperbaric therapy was recommended but patient declined. 3. DM-2: uncontrolled: recommend tight glycemic control 4. Tobacco abuse: patient states she quit, her daughter at bedside states otherwise. Recs: - f/u wound culture growing GNR and Enterococcus, awaiting ID and LAMINE's. - continue IV ceftriaxone 2 gm q24 hrs, D4 - patient wants to be discharged on oral antibiotics - anticipated discharge on Augmentin 875mg PO BID and minocycline 100 mg PO BID for 6 weeks ending 03-07-18 - f/u in office 02-15-19 -Continue wound care out patient -prescriptions on the chart Dr. Collins will be chronometer repairer this weekend [phone], please call for questions. Charlene Clayton NP [facility] M: [phone] O:[phone] Subjective Date of service: 01/28/19 Interval history: Patient seen and examined. No generalized pain, SOB reported. No fevers. Outpatient PO antibiotic therapy discussed. Questions answered. Verbalized understanding regarding treatment plan. Objective - Exam Narrative Exam: Constitutional: Alert, cooperative. No acute distress Head, Ears, Nose: Normocephalic, atraumatic. External ears, nose normal Eyes: Conjunctivae/corneas clear. No icterus. No ptosis. Neck: Supple, no meningeal signs Oral: no thrush Cardiovascular: S1, S2 normal. Respiratory: Good air entry, clear to auscultation bilaterally GI: Soft, non-tender; bowel sounds normal. No peritoneal signs Musculoskeletal: RLE with small wounds. LLE calf with a large wound with good healthy granulation tissue. Left lateral heel with about 3 cm wound with slough and fibrous tissue. Skin: No rash or abscess Hem/Lymphatic: No palpable cervical or supraclavicular nodes. No lymphangitis Psych: Mood ok. Affect normal Neurological: Awake, alert, oriented. No gross abnormality - Constitutional Vitals: Vital Signs Temp Pulse Resp BP Pulse Ox 97.7 F 82 18 140/67 99 01/28/19 04:52 01/28/19 04:52 01/28/19 04:52 01/28/19 09:11 01/28/19 04:52 Temperature -Last 24 Hours Temperature 97.7 F Temperature 98.3 F Temperature 98.9 F Temperature 98.0 F - Labs CBC & Chem 7: 01/26/19 12:45 01/25/19 06:10 Labs: Abnormal lab results 01/27/19 01/27/19 01/27/19 Range/Units 11:36 16:26 22:38 POC Glucose 176 H 138 H 268 H (70-105) 01/28/19 Range/Units 08:28 POC Glucose 140 H (70-105)
[2019-01-28 12:19] VITALS: BP 109/63
--- NOTE | 2019-01-28 15:53 | Discharge Summary ---
Providers - Providers Date of Admission: 01/24/19 07:00 Date of discharge: 01/28/19 Attending physician: MATTHEW SILVA 01/24/19 06:48 Consult to Physician [CONS] Routine Comment: Consulting Provider: TALIA MICHELE Physician Instructions: Reason For Exam: om 01/24/19 11:43 Consult to Wound/ET Nurse [CONS] Routine Reason For Exam: wound eval 01/26/19 16:41 Occupational Therapy Evaluate and Treat [CONS] Routine Comment: Reason For Exam: generalized weakness 01/27/19 10:22 Physical Therapy Evaluation and Treat [CONS] Routine Comment: Reason For Exam: Difficulty in ambulation Primary care physician: DIVING INSTRUCTOR Hospitalization Condition: Stable Hospital course: Patient is a 53 yo woman with a history of DM type 2, hypertension, Pyoderma Gangrenosum with multiple re-vascularization procedures in the past, left lateral malleolus osteomyelitis per MRI done at [facility] on 12/28/2018 who has left the hospital multiple times AMA re-admitted with: Left Lateral Malleolus Acute Osteomyelitis: abx per ID, Pyoderma gangrenosa: needs hyperbaric O2, pt refuses. Hypertension: low salt diet DM-2: uncontrolled: recommend tight glycemic control Tobacco abuse: patient states she quit, her daughter at bedside states otherwise. Anticipated discharge on Augmentin 875mg PO BID and minocycline 100 mg PO BID for 6 weeks ending 03-07-18 Disposition: DC/TX-06 HOME UNDER HOME [facility] Time spent for discharge: 35 minutes Core Measure Documentation - Palliative Care Palliative Care/ Comfort Measures: Not Applicable - Core Measures Any of the following diagnoses?: none - VTE Discharge Requirements Deep Vein Thrombosis/Pulmonary Embolism Present on Admission: No Has pt received <5 days of overlap therapy or INR<2.0: No Anticoagulant overlap therapy prescribed at discharge: No Contraindication No Overlap Therapy order at DC: Not Indicated Exam - Physical Exam Narrative exam: GEN: WDWN, NAD, Awake, Alert, Orientated HEENT: NCAT, EOMI, PERRL, OP Clear NECK: supple, no adenopathy, no thyromegaly, no JVD CVS/HEART: RRR, normal S1S2, pulses present bilaterally CHEST/LUNGS: CTA B, Symmetrical chest expansion, good air entry bilaterally GI/Abdomen: soft, NTND, good bowel sounds, no guarding or rebound /Bladder: no suprapubic tenderness, no CVA or paraspinal tenderness EXT/Skin: Musculoskeletal: RLE with small wounds. LLE calf with a large wound with good healthy granulation tissue. Left lateral heel with about 3 cm wound with slough and fibrous tissue. MSK: FROM x 4 Neuro: CN 2-12 grossly intact, no new focal deficits Psych: calm - Constitutional Vitals: Temp Pulse Resp BP Pulse Ox 98.2 F 92 H 16 109/63 97 01/28/19 12:19 01/28/19 12:19 01/28/19 12:19 01/28/19 12:01/28/19 12:19 Plan Activity: other (no strenous activites ) Diet: low salt Special Instructions: home health RN Follow up with: PRIMARY CAREMD [Primary Care Provider] - 3-5 Days TALIA MICHELE MD [Staff Physician] - 7 Days Prescriptions: Amoxicillin/K Clav Tab [Augmentin 875 mg] 1 tab PO Q12HR 38 Days #76 tab Ciprofloxacin HCl [Ciprofloxacin TAB] 750 mg PO BID 5 Days #10 tablet Minocycline (Nf) [Minocin (Nf)] 100 mg PO Q12H 5 Days #10 capsule Minocycline (Nf) [Minocin (Nf)] 100 mg PO Q12H 38 Days #76 capsule oxyCODONE [Roxicodone TAB] 2.5 mg PO Q6H PRN #15 tablet PRN Reason: Pain , Severe (7-10) Ondansetron [Zofran Odt] 4 mg PO Q4H PRN #15 tab.rapdis PRN Reason: Nausea And Vomiting
== END 2019-01-28 20:07 | disposition home health service (06) | DRG 872 ==
LOC: ED 01:38 → SUATTDRO 01:38 → 3B-SURG 07:00 → 3A 08:55
PROVIDERS: ADMIT Internal Medicine; ATTEND Internal Medicine
DX: A41.9 Sepsis, unspecified organism (principal); E11.69 Type 2 diabetes mellitus with other specified complication; M86.172 Other acute osteomyelitis, left ankle and foot; L88 Pyoderma gangrenosum; M86.671 Other chronic osteomyelitis, right ankle and foot; E66.9 Obesity, unspecified; I10 Essential (primary) hypertension; F17.210 Nicotine dependence, cigarettes, uncomplicated; Z79.84 Long term (current) use of oral hypoglycemic drugs; Z68.34 Body mass index [BMI] 34.0-34.9, adult; E44.0 Moderate protein-calorie malnutrition
CPT/HCPCS: 36415; 80048; 80053; 82962; 85025; 87040; 87076; 87116; 87186; G0378; J0696; J1650; J1815; J2270; J2405; J7050

== ENCOUNTER 2019-02-18 22:20 | Emergency (ER) | payer MEDICAID ==
[2019-02-18 23:07] LABS: Hematocrit 36.2 % (30.3-42.9); Hemoglobin 11.8 gm/dl (10.1-14.3); Mean Corpuscular HGB Conc 33 % (30-34); Mean Corpuscular Volume 81 fl (79-97); Platelet Count 318 K/mm3 (140-440); Red Blood Count 4.47 M/mm3 (3.65-5.03); Red Cell Distribution Width 16.3 % (13.2-15.2)
[2019-02-18 23:13] LABS: Calcium 9.6 mg/dL (8.4-10.2)
--- NOTE | 2019-02-19 00:12 | Emergency Department Report ---
ED General Adult HPI - General Chief complaint: Headache Stated complaint: HEAD PAIN, INFECTION LEFT FOOT/LEG Time Seen by Provider: 02/18/19 23:38 Source: patient Mode of arrival: Wheelchair Limitations: Physical Limitation - History of Present Illness Initial comments: 53-year-old female presents to ED with complaints of pain to left foot and ankle. Patient has history of pyoderma gangrenosum, diabetes, osteomyelitis of the left lateral malleolus per MRI done at [facility] on 12/28/2018. Patient has been seen in this facility multiple times for left ankle wound. Patient was admitted twice and left AMA twice during the month of December 2018, so, did not have a PICC line placed during those admissions for IV antibiotic therapy. Patient states her reasons for leaving AMA is due to her living situations, that she has an ongoing issue with the landlord of the place that she lives, and has been intermittently homeless. Patient was again admitted on 01/24/19 and seen by infectious disease physicians. Decision was made to place patient on oral antibiotics, Augmentin and minocycline, 6 weeks until 03/07/2019. Patient reports that she has not been taking any of her follow-up appointments with wound care or the infectious disease clinic since her discharge. Patient states she is remains compliant with the minocycline, however she states she stopped taking the Augmentin because it caused nausea and vomiting. Patient presents today with pain of the left ankle. She says this is an ongoing pain, it is not worse than it has been in the past. Patient also reports that she fell and hit her head earlier this afternoon. Unknown LOC. Reports mild headache. -: month(s) Location: left, lower extremity Radiation: non-radiation Severity scale (0 -10): 10 Quality: aching Consistency: constant Improves with: none Worsens with: movement Associated Symptoms: denies: fever/chills, nausea/vomiting Treatments Prior to Arrival: other (augmentin, minocycline) - Related Data Home Medications Medication Instructions Recorded Confirmed Last Taken Lispro Insulin [Humalog] 20 unit SQ TID 01/24/19 01/24/19 Unknown Lyrica 300 mg PO DAILY 01/24/19 01/24/19 Unknown Previous Rx's Medication Instructions Recorded Last Taken Type Metoprolol [Lopressor TAB] 50 mg PO BID #60 tablet 09/03/16 Unknown Rx Triamcinolone 0.1% [Kenalog 0.1% 1 applic TP BID #1 tube 01/20/17 Unknown Rx CREAM] Ciprofloxacin HCl [Ciprofloxacin 750 mg PO BID 5 Days #10 tablet 01/24/19 Unknown Rx TAB] Minocycline (Nf) [Minocin (Nf)] 100 mg PO Q12H 5 Days #10 capsule 01/24/19 Unknown Rx Acetaminophen [Acetaminophen TAB] 650 mg PO Q4H PRN #15 tablet 01/28/19 Unknown Rx Amoxicillin/K Clav Tab [Augmentin 1 tab PO Q12HR 38 Days #76 tab 01/28/19 Unknown Rx 875 mg] Lisinopril [Zestril TAB] 40 mg PO QDAY #30 tablet 01/28/19 Unknown Rx Minocycline (Nf) [Minocin (Nf)] 100 mg PO Q12H 38 Days #76 capsule 01/28/19 Un known Rx Ondansetron [Zofran Odt] 4 mg PO Q4H PRN #15 tab.rapdis 01/28/19 Unknown Rx hydroCHLOROthiazide [HCTZ] 25 mg PO QDAY #30 tab 01/28/19 1 Day Ago Rx ~08/31/16 oxyCODONE [Roxicodone TAB] 2.5 mg PO Q6H PRN #15 tablet 01/28/19 Unknown Rx Ondansetron [Zofran Odt] 4 mg PO Q8HR PRN #20 tab.rapdis 02/19/19 Unknown Rx Promethazine [Phenergan TAB] 25 mg PO Q6HR PRN #20 tab 02/19/19 Unknown Rx Allergies Allergy/AdvReac Type Severity Reaction Status Date / Time No Known Allergies Allergy Verified 02/18/19 22:39 ED Review of Systems ROS: Stated complaint: HEAD PAIN, INFECTION LEFT FOOT/LEG Other details as noted in HPI Comment: All other systems reviewed and negative Constitutional: denies: fever Musculoskeletal: as per HPI Neurological: headache ED Past Medical Hx - Past Medical History Hx Hypertension: Yes Hx Congestive Heart Failure: No Hx Diabetes: Yes Hx Asthma: No Hx COPD: No Hx HIV: Yes (Pt denies h/o.) Additional medical history: pyoderma gangrenosum. osteomyelitis - Surgical History Additional Surgical History: left LE. umbilical biopsy - Social History Smoking Status: Never Smoker Substance Use Type: None - Medications Home Medications: Home Medications Medication Instructions Recorded Confirmed Last Taken Type Metoprolol [Lopressor TAB] 50 mg PO BID #60 tablet 09/03/16 01/24/19 Unknown Rx Triamcinolone 0.1% [Kenalog 0.1% 1 applic TP BID #1 tube 01/20/17 01/24/19 Unknown Rx CREAM] Ciprofloxacin HCl [Ciprofloxacin 750 mg PO BID 5 Days #10 tablet 01/24/19 Unknown Rx TAB] Lispro Insulin [Humalog] 20 unit SQ TID 01/24/19 01/24/19 Unknown History Lyrica 300 mg PO DAILY 01/24/19 01/24/19 Unknown History Minocycline (Nf) [Minocin (Nf)] 100 mg PO Q12H 5 Days #10 capsule 01/24/19 Unkn own Rx Acetaminophen [Acetaminophen TAB] 650 mg PO Q4H PRN #15 tablet 01/28/19 Unknown Rx Amoxicillin/K Clav Tab [Augmentin 1 tab PO Q12HR 38 Days #76 tab 01/28/19 Unknown Rx 875 mg] Lisinopril [Zestril TAB] 40 mg PO QDAY #30 tablet 01/28/19 Unknown Rx Minocycline (Nf) [Minocin (Nf)] 100 mg PO Q12H 38 Days #76 capsule 01/28/19 Unknown Rx Ondansetron [Zofran Odt] 4 mg PO Q4H PRN #15 tab.rapdis 01/28/19 Unknown Rx hydroCHLOROthiazide [HCTZ] 25 mg PO QDAY #30 tab 01/28/19 01/24/19 1 Day Ago Rx ~08/31/16 oxyCODONE [Roxicodone TAB] 2.5 mg PO Q6H PRN #15 tablet 01/28/19 Unknown Rx Ondansetron [Zofran Odt] 4 mg PO Q8HR PRN #20 tab.rapdis 02/19/19 Unknown Rx Promethazine [Phenergan TAB] 25 mg PO Q6HR PRN #20 tab 02/19/19 Unknown Rx ED Physical Exam - General Limitations: Physical Limitation General appearance: alert, in no apparent distress - Head Head exam: Present: atraumatic, normocephalic - Eye Eye exam: Present: normal appearance - ENT ENT exam: Present: mucous membranes moist - Neck Neck exam: Present: normal inspection - Respiratory Respiratory exam: Present: normal lung sounds bilaterally. Absent: respiratory distress - Cardiovascular Cardiovascular Exam: Present: normal rhythm, tachycardia - GI/Abdominal GI/Abdominal exam: Present: soft. Absent: distended - Extremities Exam Extremities exam: Present: other (multiple scars to bilateral lower extremities; open wound to left lateral ankle approx the size of a quarter, minimal drainage from site, no surrounding erythema; moderate edema to left foot) - Neurological Exam Neurological exam: Present: alert, oriented X3. Absent: motor sensory deficit - Psychiatric Psychiatric exam: Present: normal affect, normal mood - Skin Skin exam: Present: warm, dry ED Course Vital Signs 02/18/19 02/19/19 22:27 01:02 Temperature 97.7 F Pulse Rate 103 H 94 H Respiratory 18 18 Rate Blood Pressure 189/111 Blood Pressure 197/90 [Left] O2 Sat by Pulse 99 100 Oximetry ED Medical Decision Making - Lab Data Result diagrams: 02/18/19 22:29 02/18/19 22:38 - Radiology Data Radiology results: report reviewed, image reviewed - Medical Decision Making 53-year-old female with pyoderma gangrenosum and osteomyelitis of the left lateral malleolus. Here today with chronic pain of left ankle, states there has been no increase in her pain, states she is in constant pain due to her pyoderma gangrenosum. Patient has been noncompliant with therapy, noncompliant with follow-up. Patient supposed to be on oral abx therapy until 03/07, currently taking minocycline. Patient states she recently stopped the augmentin due to GI upset. Labs normal, pt afebrile. The patient does not require admission at this time. RN cleaned and dressed wound. Will give rx for zofran and phenergan for pt to take with augmentin, I instructed her to restart, to combat the GI side effects. Patient should have percocet left from last prescription which was filled on 01/29/19, 60 tabs, 30 day supply. Advised outpatient follow-up with Dr Serrano. Return precautions given. - Differential Diagnosis head contusion, concussion, osteomyelitis Critical care attestation.: If time is entered above; I have spent that time in minutes in the direct care of this critically ill patient, excluding procedure time. ED Disposition Clinical Impression: Pyoderma gangrenosum, Osteomyelitis, Head injury Disposition: - TO HOME OR SELFCARE Is pt being admited?: No Condition: Stable Instructions: Minor Head Injury (ED), Chronic Wound Care (ED) Prescriptions: Promethazine [Phenergan TAB] 25 mg PO Q6HR PRN #20 tab PRN Reason: Nausea Ondansetron [Zofran Odt] 4 mg PO Q8HR PRN #20 tab.rapdis PRN Reason: Vomiting Referrals: LING SERRANO MD [Staff Physician] - 3-5 Days Time of Disposition: 01:34
[2019-02-19] MEDS ORDERED: NORCO 7.5/325 PO ONE (00:38)
--- NOTE | 2019-02-19 00:43 | Cat Scan Report ---
PROCEDURE: CT HEAD/BRAIN WO CON TECHNIQUE: Spiral CT imaging of the brain was obtained without IV contrast. HISTORY: injury. Pain. COMPARISONS: FINDINGS: Patient was scanned lying on her side due to pain. Brain: Brain density appears normal. No evidence of intracranial hemorrhage. No parenchymal hemorr summer, mass lesions or mass effect are seen. No abnormal extra-axial fluid collects or masses are see n. Ventricles: Ventricles are normal size and are midline. Bone Windows: No evidence of skull fracture. Paranasal sinuses: There is mild patchy mucosal disease seen in a few of the posterior ethmoid air ce lls on the right. Mastoid air cells: Clear. IMPRESSION: No acute abnormalities are seen. No evidence of intracranial hemorrhage or skull fracture. Minimal paranasal sinus disease as described. This document is electronically signed by Jose Giraldo MD., February 19 2019 12:41:54 AM ET
[2019-02-19] MEDS ORDERED: CATAPRES PO ONE (01:37)
[2019-02-19 03:34] VITALS: BP 164/84
== END 2019-02-19 03:00 | disposition home or self-care (01) ==
LOC: ED 22:20
DX: S09.90XA Unspecified injury of head, initial encounter (principal); L88 Pyoderma gangrenosum; M86.9 Osteomyelitis, unspecified; I10 Essential (primary) hypertension; E11.9 Type 2 diabetes mellitus without complications; W18.30XA Fall on same level, unspecified, initial encounter; Y93.89 Activity, other specified; Y92.89 Other specified places as the place of occurrence of the external cause; Y99.8 Other external cause status
CPT/HCPCS: 36415; 70450; 80048; 82962; 85025

== ENCOUNTER 2019-06-05 22:51 | Inpatient (IN) | payer MEDICAID ==
[2019-06-05] MEDS ORDERED: NACL 0.9% 1000 ML 1,000 ML IV ONE ×2 (22:57→23:18)
[2019-06-05] MEDS ORDERED: ZOFRAN IV ONE (22:59)
[2019-06-05] MEDS ORDERED: ZOFRAN ONE (22:59)
[2019-06-05] MEDS ORDERED: NACL 0.9% 1000 ML 1,000 ML ONE (23:01)
--- NOTE | 2019-06-05 23:05 | Emergency Department Report ---
HPI - General Time Seen by Provider: 06/05/19 22:57 - HPI HPI: Room 1 The patient is a 53-year-old female presented with a chief complaint altered mental status. Per EMS the patient sustained a fall earlier today (details of the fall aren't known at this time). They state and eminence came out to evaluate the patient but the patient refused. MSK set the patient did not com plain of anything throughout the day until this evening when she had an episode of nausea vomiting and then went unresponsive. In the ED the patient has a gag reflex and awakens to sternal rub but immediately goes back to sleep. Location: [See above] Duration: [See above] Quality: [See above] Severity: [See above] Modifying factors: [see above] Context: [see above] Mode of transportation: [not driving] ED Past Medical Hx - Past Medical History Hx Hypertension: Yes Hx Diabetes: Yes Hx HIV: Yes (Pt denies h/o.) Additional medical history: pyoderma gangrenosum. osteomyelitis - Surgical History Additional Surgical History: left LE. umbilical biopsy - Family History Family history: no significant - Social History Smoking Status: Unknown if ever smoked Substance Use Type: None - Medications Home Medications: Home Medications Medication Instructions Recorded Confirmed Last Taken Type Metoprolol [Lopressor TAB] 50 mg PO BID #60 tablet 09/03/16 06/06/19 Unknown Rx Triamcinolone 0.1% [Kenalog 0.1% 1 applic TP BID #1 tube 01/20/17 06/06/19 Unknown Rx CREAM] Lispro Insulin [HumaLOG] 20 unit SQ TID 01/24/19 06/06/19 Unknown History Lyrica 300 mg PO DAILY 01/24/19 06/06/19 Unknown History Ondansetron [Zofran Odt] 4 mg PO Q4H PRN #15 tab.rapdis 01/28/19 06/06/19 Unknown Rx hydroCHLOROthiazide [HCTZ] 25 mg PO QDAY #30 tab 01/28/19 06/06/19 1 Day Ago Rx ~08/31/16 Percocet 7.5/325 mg 1 tab PO TID PRN 06/06/19 06/06/19 Unknown History ED Review of Systems ROS: Stated complaint: AMS/HIGH BP Other details as noted in HPI Comment: Unobtainable due to pts medical conditions Physical Exam - Physical Exam Physical Exam: GENERAL: The patient is well-developed well-nourished female lying on stretcher responsive to painful stimuli. [] HEENT: Normocephalic. Atraumatic. Pupils 4 mm to 3 bilaterally NECK: Trachea midline CHEST/LUNGS: Clear to auscultation. There is no respiratory distress noted. HEART/CARDIOVASCULAR: Regular. There is no tachycardia. There is no gallop rub or murmur. ABDOMEN: Abdomen is soft, nontender. Patient has normal bowel sounds. There is no abdominal distention. SKIN: There is no rash. There is no edema. There is no diaphoresis. NEURO: The patient is lethargic. Patient opens eyes in response to sternal rub but will not follow commands for neurologic exam. Patient has a gag reflex MUSCULOSKELETAL: There is no evidence of acute injury. ED Medical Decision Making - Lab Data Result diagrams: 06/05/19 23:05 06/05/19 23:05 Laboratory Tests 06/05/19 06/05/19 06/05/19 23:01 23:05 23:05 WBC 10.4 RBC 4.26 Hgb 11.0 Hct 33.5 MCV 79 MCH 26 L MCHC 33 RDW 18.2 H Plt Count 360 Lymph % (Auto) 33.3 [place]ha % (Auto) 10.7 H Eos % (Auto) 4.6 H Baso % (Auto) 0.9 Lymph # 3.5 Desha # 1.1 H Eos # 0.5 H Baso # 0.1 Seg Neutrophils % 50.5 Seg Neutrophils # 5.3 PT INR APTT VBG pH Sodium 137 Potassium 5.4 H Chloride 100.1 Carbon Dioxide 25 Anion Gap 17 BUN 29 H Creatinine 1.0 Estimated GFR > 60 BUN/Creatinine Ratio 29 Glucose 120 H POC Glucose 147 H Lactic Acid Calcium 9.2 Total Bilirubin 0.20 AST 44 H ALT 44 Alkaline Phosphatase 365 H Ammonia Total Creatine Kinase 62 CK-MB (CK-2) 1.4 CK-MB (CK-2) Rel Index 2.2 Troponin T 0.028 Total Protein 6.7 Albumin 3.0 L Albumin/Globulin Ratio 0.8 Urine Color Urine Turbidity Urine pH Ur Specific [place] Urine Protein Urine Glucose (UA) Urine Ketones Urine Blood Urine Nitrite Urine Bilirubin Urine Urobilinogen Ur Leukocyte Esterase Urine WBC (Auto) Urine RBC (Auto) U Epithel Cells (Auto) Amorphous Crystals Urine Opiates Screen Urine Methadone Screen Ur Barbiturates Screen Ur Phencyclidine Scrn Ur Amphetamines Screen U Benzodiazepines Scrn Urine Cocaine Screen U Marijuana (THC) Screen Plasma/Serum Alcohol 06/05/19 06/05/19 06/05/19 23:05 23:05 23:05 WBC RBC Hgb Hct MCV MCH MCHC RDW Plt Count Lymph % (Auto) [place] % (Auto) Eos % (Auto) Baso % (Auto) Lymph # Desha # Eos # Baso # Seg Neutrophils % Seg Neutrophils # PT INR APTT VBG pH 7.395 Sodium Potassium Chloride Carbon Dioxide Anion Gap BUN Creatinine Estimated GFR BUN/Creatinine Ratio Glucose POC Glucose Lactic Acid 2.20 H* Calcium Total Bilirubin AST ALT Alkaline Phosphatase Ammonia Total Creatine Kinase CK-MB (CK-2) CK-MB (CK-2) Rel Index Troponin T Total Protein Albumin Albumin/Globulin Ratio Urine Color Urine Turbidity Urine pH Ur Specific [place] Urine Protein Urine Glucose (UA) Urine Ketones Urine Blood Urine Nitrite Urine Bilirubin Urine Urobilinogen Ur Leukocyte Esterase Urine WBC (Auto) Urine RBC (Auto) U Epithel Cells (Auto) Amorphous Crystals Urine Opiates Screen Urine Methadone Screen Ur Barbiturates Screen Ur Phencyclidine Scrn Ur Amphetamines Screen U Benzodiazepines Scrn Urine Cocaine Screen U Marijuana (THC) Screen Plasma/Serum Alcohol < 0.01 06/06/19 06/06/19 06/06/19 00:31 00:31 01:00 WBC RBC Hgb Hct MCV MCH MCHC RDW Plt Count Lymph % (Auto) [place] % (Auto) Eos % (Auto) Baso % (Auto) Lymph # Desha # Eos # Baso # Seg Neutrophils % Seg Neutrophils # PT 12.7 INR 0.98 APTT 26.6 VBG pH Sodium Potassium Chloride Carbon Dioxide Anion Gap BUN Creatinine Estimated GFR BUN/Creatinine Ratio Glucose POC Glucose Lactic Acid Calcium Total Bilirubin AST ALT Alkaline Phosphatase Ammonia Total Creatine Kinase CK-MB (CK-2) CK-MB (CK-2) Rel Index Troponin T Total Protein Albumin Albumin/Globulin Ratio Urine Color Yellow Urine Turbidity Cloudy Urine pH 7.0 Ur Specific [place] 1.017 Urine Protein 100 mg/dl Urine Glucose (UA) 50 Urine Ketones Neg Urine Blood Mod Urine Nitrite Neg Urine Bilirubin Neg Urine Urobilinogen < 2.0 Ur Leukocyte Esterase Mod Urine WBC (Auto) > 182.0 H Urine RBC (Auto) 174.0 U Epithel Cells (Auto) < 1.0 Amorphous Crystals Few Urine Opiates Screen Presumptive negative Urine Methadone Screen Presumptive negative Ur Barbiturates Screen Presumptive negative Ur Phencyclidine Scrn Presumptive negative Ur Amphetamines Screen Presumptive negative U Benzodiazepines Scrn Presumptive negative Urine Cocaine Screen Presumptive negative U Marijuana (THC) Screen Presumptive negative Plasma/Serum Alcohol 06/06/19 06/06/19 01:00 01:00 WBC RBC Hgb Hct MCV MCH MCHC RDW Plt Count Lymph % (Auto) [place] % (Auto) Eos % (Auto) Baso % (Auto) Lymph # [place] # Eos # Baso # Seg Neutrophils % Seg Neutrophils # PT INR APTT VBG pH Sodium Potassium Chloride Carbon Dioxide Anion Gap BUN Creatinine Estimated GFR BUN/Creatinine Ratio Glucose POC Glucose Lactic Acid 1.30 Calcium Total Bilirubin AST ALT Alkaline Phosphatase Ammonia 37.0 Total Creatine Kinase CK-MB (CK-2) CK-MB (CK-2) Rel Index Troponin T Total Protein Albumin Albumin/Globulin Ratio Urine Color Urine Turbidity Urine pH Ur Specific [place] Urine Protein Urine Glucose (UA) Urine Ketones Urine Blood Urine Nitrite Urine Bilirubin Urine Urobilinogen Ur Leukocyte Esterase Urine WBC (Auto) Urine RBC (Auto) U Epithel Cells (Auto) Amorphous Crystals Urine Opiates Screen Urine Methadone Screen Ur Barbiturates Screen Ur Phencyclidine Scrn Ur Amphetamines Screen U Benzodiazepines Scrn Urine Cocaine Screen U Marijuana (THC) Screen Plasma/Serum Alcohol - EKG Data -: EKG Interpreted by Me EKG shows normal: sinus rhythm Rate: normal - EKG Data When compared to previous EKG there are: changes noted Interpretation: other (sinus pause. Otherwise unchanged when compared to pr evious EKG dated 01/04/2019) - Radiology Data Radiology results: report reviewed (CT head, chest x-ray), image reviewed (CT head, chest x-ray) interpreted by me: Chest x-ray-no focal infiltrates, no pneumothorax [facility] [address] [place] [address] Cat Scan Report Signed Patient: ROS COYLE MR#: [id number] : 1965 Acct:[id number] Age/Sex: 53 / F ADM Date: 06/05/19 Loc: ED Attending Dr: Ordering Physician: AMANDA CUMMINS MD Date of Service: 06/05/19 Procedure(s): CT head/brain wo con Accession Number(s): [id number] cc: AMANDA CUMMINS MD CT HEAD WITHOUT CONTRAST INDICATION : altered mental status. History of fall. TECHNIQUE: Axial, coronal and sagittal CT imaging was performed from the skull apex through the skull base without contrast. All CT scans at this location are performed using CT dose reduction fo r ALARA by means of automated exposure control. COMPARISON: CT of the head without contrast from 02/19/2019. FINDINGS: PARENCHYMA: No mass, midline shift, hemorrhage, extraaxial collection or acute territorial infarction. VENTRICLES: Symmetric and normal in size. SOFT TISSUES: Soft tissues including the orbits appear normal. BONES: No acute osseous abn ormality. SINUSES: There is similar partial opacification of the ethmoid air cells, right greater than left. The other visualized sinuses are clear. The mastoid air cells are patent. ADDITIONAL FINDINGS: None. IMPRESSION: 1. No acute intracranial abnormality. 2. Stable sinus disease. Signer Name: Leon March MD Signed: 06/05/2019 11:31 PM Workstation Name: [id number] Transcribed By: [place] Dictated By: Leon March MD Electronically Authenticated By: Leon March MD Signed Date/Time: 06/05/192330 DD/ 28 TD/TT: [facility] [address] [place] [address] XRay Report Signed Patient: ROS COYLE MR#: [id number] : 1965 Acct:[id number] Age/Sex: 53 / F ADM Date: 06/05/19 Loc: ED Attending Dr: Lowell cm Physician: AMANDA CUMMINS MD Date of Service: 06/05/19 Procedure(s): XR chest 1V ap Accession Number(s): [id number] cc: AMANDA CUMMINS MD Fluoro Time In Minutes: CHEST 1 VIEW 06/05/2019 11:56 PM INDICATION / CLINICAL INFORMATION: hypotension. COMPARISON: None available. FINDINGS: SUPPORT DEVICES: None. HEART / MEDIASTINUM: No significant abnormality. LUNGS / PLEURA: No significant pulmonary or pleural abnormality. No pneumothorax. ADDITIONAL FINDINGS: No significant additional findings. IMPRESSION: No acute findings. Signer Name: Leon March MD Signed: 06/06/2019 12:20 AM Workstation Name: [id number] Transcribed By: MN Dictated By: Leon March MD Electronically Authenticated By: Leon March MD Signed Date/Time: 06/06/1919 DD/ TD/TT: - Differential Diagnosis ICH, altered mental status, DKA, hypoglycemia Critical care attestation.: If time is entered above; I have spent that time in minutes in the direct care of this critically ill patient, excluding procedure time. ED Disposition Clinical Impression: Altered mental status, Hypotension, UTI (urinary tract infection) Disposition: DC-09 OP ADMIT IP TO THIS HOSP Is pt being admited?: Yes Does the pt Need Aspirin: No Condition: Fair Time of Disposition: 01:50 (hospitalist paged (Dr Muro))
--- NOTE | 2019-06-05 23:35 | Cat Scan Report ---
CT HEAD WITHOUT CONTRAST INDICATION : altered mental status. History of fall. TECHNIQUE: Axial, coronal and sagittal CT imaging was performed from the skull apex through the skul l base without contrast. All CT scans at this location are performed using CT dose reduction for ALA RA by means of automated exposure control. COMPARISON: CT of the head without contrast from 02/19/2019. FINDINGS: PARENCHYMA: No mass, midline shift, hemorrhage, extraaxial collection or acute territorial infarctio n. VENTRICLES: Symmetric and normal in size. SOFT TISSUES: Soft tissues including the orbits appear normal. BONES: No acute osseous abnormality. SINUSES: There is similar partial opacification of the ethmoid air cells, right greater than left. Th e other visualized sinuses are clear. The mastoid air cells are patent. ADDITIONAL FINDINGS: None. IMPRESSION: 1. No acute intracranial abnormality. 2. Stable sinus disease. Signer Name: Leon March MD Signed: 06/05/2019 11:31 PM Workstation Name: [id number]
[2019-06-05 23:56] LABS: Basophils # (Auto) 0.1 K/mm3 (0.0-0.1); Basophils % (Auto) 0.9 % (0.0-1.8); Eosinophils # (Auto) 0.5 K/mm3 (0.0-0.4); Eosinophils % (Auto) 4.6 % (0.0-4.3); Hematocrit 33.5 % (30.3-42.9); Lymphocytes # (Auto) 3.5 K/mm3 (1.2-5.4); Lymphocytes % (Auto) 33.3 % (13.4-35.0); Mean Corpuscular HGB Conc 33 % (30-34); Mean Corpuscular Volume 79 fl (79-97); Monocytes # (Auto) 1.1 K/mm3 (0.0-0.8); Monocytes % (Auto) 10.7 % (0.0-7.3); Platelet Count 360 K/mm3 (140-440); Red Blood Count 4.26 M/mm3 (3.65-5.03); Red Cell Distribution Width 18.2 % (13.2-15.2)
[2019-06-06 00:22] LABS: Creatine Kinase MB 1.4 ng/mL (0.0-4.0)
[2019-06-06 00:23] LABS: BUN/Creatinine Ratio 29; Blood Urea Nitrogen 29 mg/dL (7-17); Calcium 9.2 mg/dL (8.4-10.2); Hemolysis Index 154
--- NOTE | 2019-06-06 00:25 | XRay Report ---
CHEST 1 VIEW 06/05/2019 11:56 PM INDICATION / CLINICAL INFORMATION: hypotension. COMPARISON: None available. FINDINGS: SUPPORT DEVICES: None. HEART / MEDIASTINUM: No significant abnormality. LUNGS / PLEURA: No significant pulmonary or pleural abnormality. No pneumothorax. ADDITIONAL FINDINGS: No significant additional findings. IMPRESSION: No acute findings. Signer Name: Leon March MD Signed: 06/06/2019 12:20 AM Workstation Name: [id number]
[2019-06-06 00:42] LABS: Alanine Aminotransferase 44 units/L (7-56)
[2019-06-06 01:28] LABS: INR 0.98 (0.87-1.13)
[2019-06-06 01:29] LABS: Partial Thromboplastin Time 26.6 Sec. (24.2-36.6)
[2019-06-06 01:38] LABS: Amphetamine Screen,Urine PRESUMPTIVE NEGATIVE; Benzodiazepines Screen,Urine PRESUMPTIVE NEGATIVE; Cannabinoid Screen,Urine PRESUMPTIVE NEGATIVE; Cocaine Screen,Urine PRESUMPTIVE NEGATIVE; Methadone Screen,Urine PRESUMPTIVE NEGATIVE; Opiate Screen,Urine PRESUMPTIVE NEGATIVE
[2019-06-06 01:39] LABS: Amorphous Crystals,Urine Few; Bilirubin,Urine NEG (Negative); Blood,Urine MOD (Negative); Color,Urine Yellow (Yellow); Urobilinogen,Urine < 2.0 mg/dL (<2.0); WBC,Urine > 182.0 /HPF (0.0-6.0)
[2019-06-06] MEDS ORDERED: LEVAQUIN 500MG/100ML 500 MG/100 ML BAG IV ONE (01:48)
[2019-06-06] MEDS ORDERED: SODIUM CHLORIDE FLUSH SYRINGE 10 ML IV PRN (02:06)
[2019-06-06] MEDS ORDERED: TYLENOL PO PRN (02:06)
[2019-06-06] MEDS ORDERED: D50W (25GM) Syringe IV PRN (02:06)
[2019-06-06] MEDS ORDERED: ZOFRAN IV PRN (02:06)
[2019-06-06] MEDS ORDERED: KIONEX PR ONE (02:10)
--- NOTE | 2019-06-06 02:16 | History and Physical Report ---
History of Present Illness Date of examination: 06/06/19 Date of admission: 06/06/2019 Chief complaint: Altered mental status History of present illness: 53-year-old -[place]ong[place] female with history of hypertension, uncontrolled insulin-dependent diabetes, pyoderma gangrenosum, left ankle osteomyelitis presents [facility] via EMS with complaints of n/v, unresponsiveness and altered mental status. Patient is lethargic and unable to provide history. History is taken from EMS and medical records. Once the EMS patient sustained a fall yesterday and EMS was called to evaluate the patient. However patient refused treatment. Later on that even patient had an episode of nausea and vomiting and became unresponsive. EMS was called and patient was transported to our facility. Past History Past Medical History: diabetes (uncontrolled), hypertension, other (pyoderma gangrenosum, left ankle osteomyelitis) Past Surgical History: Other ( s/p multiple vascular procedures of lower extremities) Social history: smoking (current smoker) Family history: no significant family history Medications and Allergies Allergies Allergy/AdvReac Type Severity Reaction Status Date / Time No Known Allergies Allergy Verified 02/18/19 22:39 Home Medications Medication Instructions Recorded Confirmed Last Taken Type Metoprolol [Lopressor TAB] 50 mg PO BID #60 tablet 09/03/16 06/06/19 Unknown Rx Triamcinolone 0.1% [Kenalog 0.1% 1 applic TP BID #1 tube 01/20/17 06/06/19 U nknown Rx CREAM] Lispro Insulin [HumaLOG] 20 unit SQ TID 01/24/19 06/06/19 Unknown History Lyrica 300 mg PO DAILY 01/24/19 06/06/19 Unknown History Ondansetron [Zofran Odt] 4 mg PO Q4H PRN #15 tab.rapdis 01/28/19 06/06/19 Unknown Rx hydroCHLOROthiazide [HCTZ] 25 mg PO QDAY #30 tab 01/28/19 06/06/19 1 Day Ago Rx ~08/31/16 Percocet 7.5/325 mg 1 tab PO TID PRN 06/06/19 06/06/19 Unknown History Active Meds: Active Medications Acetaminophen (Tylenol) 650 mg PO Q4H PRN PRN Reason: Pain MILD(1-3)/Fever >100.5/EDUARDO Dextrose (D50w (25gm) Syringe) 50 ml IV PRN PRN PRN Reason: Hypoglycemia Enoxaparin Sodium (Lovenox) 40 mg SUB-Q QDAY CECY Levofloxacin/Dextrose (Levaquin 500mg/100ml) 500 mg in 100 mls @ 100 mls/hr IV ONCE ONE Stop: 06/06/19 02:47 Ceftriaxone Sodium (Rocephin/Ns 1 Gm/50 Ml) 1 gm in 50 mls @ 100 mls/hr IV Q24HR CECY; Protocol Sodium Chloride (Nacl 0.9% 1000 Ml) 1,000 mls @ 100 mls/hr IV DIRECT CECY Insulin Human Regular (Humulin R) 0 units SUB-Q Q6HR CECY; Protocol Ondansetron HCl (Zofran) 4 mg IV Q8H PRN PRN Reason: Nausea And Vomiting Sodium Chloride (Sodium Chloride Flush Syringe 10 Ml) 10 ml IV BID CECY Sodium Chloride (Sodium Chloride Flush Syringe 10 Ml) 10 ml IV PRN PRN PRN Reason: LINE FLUSH Review of Systems ROS unobtainable: due to mental status Exam - Physical Exam Narrative exam: Physical exam General appearance: Present: No acute distress, lethargic, obese, - [place] female - EENT Eyes: Present: PERRL, EOM intact ENT: hearing intact, poor dentition - Neck Neck: Present: supple, normal ROM - Respiratory Respiratory effort: Non-labored Respiratory: bilateral: diminished (bases) - Cardiovascular Heart rate: 70 (bpm) Rhythm: SR Heart Sounds: Present: S1 & S2. Absent: rub, click - Extremities Extremities: no ischemia, pulses intact - Peripheral Assessment Peripheral Pulses: within normal limits - Abdominal General gastrointestinal: Obese, soft, non-tender, normal bowel sounds - Integumentary Integumentary: Present: warm, dry, left heel wound - Musculoskeletal Musculoskeletal: generalized weakness - Psychiatric Psychiatric: Lethargic, unable to assess - Constitutional Vitals: Temp Pulse Resp BP Pulse Ox 98.4 F 79 16 132/66 100 06/05/19 23:00 06/06/19 02:00 06/06/19 02:00 06/06/19 02:00 06/06/19 02:00 Results - Labs CBC & Chem 7: 06/05/19 23:05 06/05/19 23:05 Labs: Laboratory Last Values WBC 10.4 K/mm3 (4.5-11.0) 06/05/19 23:05 RBC 4.26 M/mm3 (3.65-5.03) 06/05/19 23:05 Hgb 11.0 gm/dl (10.1-14.3) 06/05/19 23:05 Hct 33.5 % (30.3-42.9) 06/05/19 23:05 MCV 79 fl (79-97) 06/05/19 23:05 MCH 26 pg (28-32) L 06/05/19 23:05 MCHC 33 % (30-34) 06/05/19 23:05 RDW 18.2 % (13.2-15.2) H 06/05/19 23:05 Plt Count 360 K/mm3 (140-440) 06/05/19 23:05 Lymph % (Auto) 33.3 % (13.4-35.0) 06/05/19 23:05 [place] % (Auto) 10.7 % (0.0-7.3) H 06/05/19 23:05 Eos % (Auto) 4.6 % (0.0-4.3) H 06/05/19 23:05 Baso % (Auto) 0.9 % (0.0-1.8) 06/05/19 23:05 Lymph # 3.5 K/mm3 (1.2-5.4) 06/05/19 23:05 [place] # 1.1 K/mm3 (0.0-0.8) H 06/05/19 23:05 Eos # 0.5 K/mm3 (0.0-0.4) H 06/05/19 23:05 Baso # 0.1 K/mm3 (0.0-0.1) 06/05/19 23:05 Seg Neutrophils % 50.5 % (40.0-70.0) 06/05/19 23:05 Seg Neutrophils # 5.3 K/mm3 (1.8-7.7) 06/05/19 23:05 PT 12.7 Sec. (12.2-14.9) 06/06/19 01:00 INR 0.98 (0.87-1.13) 06/06/19 01:00 APTT 26.6 Sec. (24.2-36.6) 06/06/19 01:00 VBG pH 7.395 (7.320-7.420) 06/05/19 23:05 Sodium 137 mmol/L (137-145) 06/05/19 23:05 Potassium 5.4 mmol/L (3.6-5.0) H 06/05/19 23:05 Chloride 100.1 mmol/L (98-107) 06/05/19 23:05 Carbon Dioxide 25 mmol/L (22-30) 06/05/19 23:05 17 mmol/L 06/05/19 23:05 BUN 29 mg/dL (7-17) H 06/05/19 23:05 1.0 mg/dL (0.7-1.2) 06/05/19 23:05 Estimated GFR > 60 ml/min 06/05/19 23:05 29 % 06/05/19 23:05 Glucose 120 mg/dL (65-100) H 06/05/19 23:05 POC Glucose 147 (70-105) H 06/05/19 23:01 Lactic Acid 1.30 mmol/L (0.7-2.0) 06/06/19 01:00 Calcium 9.2 mg/dL (8.4-10.2) 06/05/19 23:05 0.20 mg/dL (0.1-1.2) 06/05/19 23:05 AST 44 units/L (5-40) H 06/05/19 23:05 ALT 44 units/L (7-56) 06/05/19 23:05 365 units/L (35-129) H 06/05/19 23:05 37.0 umol/L (25-60) 06/06/19 01:00 62 units/L (30-135) 06/05/19 23:05 CK-MB (CK-2) 1.4 ng/mL (0.0-4.0) 06/05/19 23:05 CK-MB (CK-2) Rel Index 2.2 (0-4) 06/05/19 23:05 0.028 ng/mL (0.00-0.029) 06/05/19 23:05 6.7 g/dL (6.3-8.2) 06/05/19 23:05 3.0 g/dL (3.9-5) L 06/05/19 23:05 0.8 % 06/05/19 23:05 Yellow (Yellow) 06/06/19 00:31 Cloudy (Clear) 06/06/19 00:31 7.0 (5.0-7.0) 06/06/19 00:31 Ur Specific [place] 1.017 (1.003-1.030) 06/06/19 00:31 100 mg/dl mg/dL (Negative) 06/06/19 00:31 50 mg/dL (Negative) 06/06/19 00:31 Neg mg/dL (Negative) 06/06/19 00:31 Mod (Negative) 06/06/19 00:31 Neg (Negative) 06/06/19 00:31 Neg (Negative) 06/06/19 00:31 < 2.0 mg/dL (<2.0) 06/06/19 00:31 Ur Leukocyte Esterase Mod (Negative) 06/06/19 00:31 > 182.0 /HPF (0.0-6.0) H 06/06/19 00:31 174.0 /HPF (0.0-6.0) 06/06/19 00:31 U Epithel Cells (Auto) < 1.0 /HPF (0-13.0) 06/06/19 00:31 Amorphous Crystals Few 06/06/19 00:31 Presumptive negative 06/06/19 00:31 Presumptive negative 06/06/19 00:31 Ur Barbiturates Screen Presumptive negative 06/06/19 00:31 Ur Phencyclidine Scrn Presumptive negative 06/06/19 00:31 Ur Amphetamines Screen Presumptive negative 06/06/19 00:31 U Benzodiazepines Scrn Presumptive negative 06/06/19 00:31 Presumptive negative 06/06/19 00:31 U Marijuana (THC) Screen Presumptive negative 06/06/19 00:31 Plasma/Serum Alcohol < 0.01 % (0-0.07) 06/05/19 23:05 - Imaging and Cardiology Chest x-ray: report reviewed (LUNGS / PLEURA: No significant pulmonary or pleural abnormality. No pneumothorax. ), image reviewed Imaging and Cardiology: CT Head: FINDINGS: PARENCHYMA: No mass, midline shift, hemorrhage, extraaxial collection or acute territorial infarction. VENTRICLES: Symmetric and normal in size. SOFT TISSUES: Soft tissues including the orbits appear normal. BONES: No acute osseous abnormality. SINUSES: There is similar partial opacification of the ethmoid air cells, right greater than left. The other visualized sinuses are clear. The mastoid air cells are patent. ADDITIONAL FINDINGS: None. IMPRESSION: 1. No acute intracranial abnormality. 2. Stable sinus disease. Assessment and Plan Assessment and plan: 53-year-old -[place]ong[place] female with history of hypertension, uncontrolled insulin-dependent diabetes, pyoderma gangrenosum, left ankle osteomyelitis presents [facility] ED via EMS with complaints of n/v, unresponsiveness and altered mental status. Acute encephalopathy -Likely due to urinary tract infection -CT Head negative for acute intracranial abnormality -Neuro checks every shift -Echocardiogram pending -Serial cardiac enzymes -Cardiology consulted -Shaped fall cautions -PT/OT when mentation improves UTI -Urine WBC> 182 -Urine culture pending -Blood cultures pending -Start Rocephin -Monitor CBC Hypotension -Likely due to dehydration, BUN 29 -Monitor BP -Hold all antihypertensive medications for now -Hydrate with IVF Hyperkalemia -Potassium on admission 5.4 -Kayexalate given 1 -Continue to monitor electrolytes Insulin-dependent diabetes -History of uncontrolled diabetes -Hemoglobin A1c pending -POC BG monitoring -SSI Coverage Left Heel Wound -ID consulted -Wound care consulted -On IV abx Obesity -Diet and lifestyle modifications -May benefit from outpatient weight management program History of Tobacco Abuse -Assess smoking status when mentation improves History of hypertension History of left ankle osteomyelitis History of pyoderma gangrenosum DVT PPX -On Lovenox Advance Directives: No VTE prophylaxis?: Chemical Plan of care discussed with patient/family: Yes
[2019-06-06] MEDS ORDERED: NACL 0.9% 1000 ML 1,000 ML IV SCH (03:00)
[2019-06-06 04:42] LABS: Creatine Kinase MB 1.2 ng/mL (0.0-4.0)
[2019-06-06] MEDS: HumuLIN R SUB-Q SCH ×2 (06:36→11:36)
[2019-06-06] MEDS ORDERED: MORPHINE IV PRN (09:07)
[2019-06-06] MEDS ORDERED: MORPHINE ONE (09:31)
[2019-06-06] MEDS ORDERED: ROCEPHIN/NS 1 GM/50 ML 1 GM/50 ML BAG IV SCH (10:00)
[2019-06-06] MEDS ORDERED: LOVENOX SUB-Q SCH (10:00)
[2019-06-06] MEDS ORDERED: SODIUM CHLORIDE FLUSH SYRINGE 10 ML IV SCH (10:00)
[2019-06-06] MEDS ORDERED: ROCEPHIN/NS 1 GM/50 ML 1 GM/50 ML BAG IV ONE (10:01)
[2019-06-06] MEDS ORDERED: LOVENOX SUB-Q ONE (10:01)
--- NOTE | 2019-06-06 10:57 | Consultation ---
History of Present Illness - Reason for Consult Consult date: 06/06/19 - History of Present Illness 53-year-old female with a past medical history of diabetes, hypertenison, pyoderma gangrenosum with multiple revascularization procedures in the past, left lateral malleolus osteomyelitis per MRI done at [facility] on 12/28/2018 but left [place] AMA, was hospitalized here at [facility], again left AMA on 01/08/2019, re-admitted here on 01/11/2019, was being planned for OPAT with IV Ceftriaxone and PO Minocycline, but again left the hospital AMA due to social issues on 01/13/2019. She presented to the emergency room again today with complaints of bilateral lower extremity pain and redness and drainage from her left ankle. She reports some nausea but no vomiting. Denies any fevers but reports chills. Patient will wait to do IV abx therapy once her home situation improves. She states she will follow up in ID clinic to get that set up. Meanwhile, I advised her to continue to go to wound care clinic as well and smoking cessation. I have personally seen and evaluated this patient on 01/28/2019 with Ismael Clayton NP. I have reviewed and confirmed the medical history, physical examination findings, pertinent lab data, microbiologic data & personally reviewed the imaging. I evaluated the risk-benefit, side effect profile of anti-microbials and formulated the assessment and plan. Addendum entered and electronically signed by ISMAEL CLAYTON NP 01/28/19 15:03: ID and LAMINE's already received from micro lab, PO antibiotic therapy Augmentin and Minocycline for 6 weeks ending 03-07-19. Original Note: Assessment and Plan 01/06/2019 left ankle wound culture: Escherichia coli (resistant only to fluoroquinolones) 01/24/2019 blood culture: no growth to date 01/26/19: Gram negative Delvis, Enterococcus A/P: 53-year-old female with a past medical history of diabetes, hypertenison, pyoderma gangrenosum with multiple revascularization procedures in the past, left lateral malleolus osteomyelitis per MRI done at [facility] on 12/28/2018 who has left the hospital multiple times AMA re-admitted with: 1. Left Lateral Malleolus Acute Osteomyelitis: based on MRI done at [facility] 12/30/18. Wound culture in the past has grown Escherichia coli. She will need a multidisciplinary approach which includes tobacco cessation, tight glycemic control, good wound care along with prolonged IV antibiotics. She has left the hospital multiple times AGAINST MEDICAL ADVICE due to social issues including homelessness. She does not want to go to a rehabilitation facility. I also gave her the option of prolonged oral antibiotics as an alternative. She will think about all of these and let us know. Wound cultures currently growing GNR and Enterococcus, f/u on ID and LAMINE's. 2. Pyoderma Gangrenosum; long-standing history of pyoderma gangrenosum, has been on chronic steroids and has also been on biologics, most recently Remicade about 6-8 weeks ago x 1, did not receive subsequent doses due to infection. W ould also consider discharging also on PO minocycline due to its anti- inflammatory properties, since it may help the pyoderma. Dr. Atwood and Flaco were consulted during previous admissions, no indication for debridement at this time especially with the fact that the wounds are related to pyoderma and can worsen with aggressive debridement due to pathergy. Hyperbaric therapy was recommended but patient declined. 3. DM-2: uncontrolled: recommend tight glycemic control 4. Tobacco abuse: patient states she quit, her daughter at bedside states otherwise. with complaints of n/v, unresponsiveness and altered mental status. Patient is lethargic and unable to provide history. History is taken from EMS and medical records. Once the EMS patient sustained a fall yesterday and EMS was called to evaluate the patient. However patient refused treatment. Later on that even patient had an episode of nausea and vomiting and became unresponsive. EMS was called and patient was transported to our facility. Recs: - f/u wound culture growing GNR and Enterococcus, awaiting ID and LAMINE's. - continue IV ceftriaxone 2 gm q24 hrs, D4 - patient wants to be discharged on oral antibiotics - anticipated discharge on Augmentin 875mg PO BID and minocycline 100 mg PO BID for 6 weeks ending 03-07-18 - f/u in office 02-15-19 -Continue wound care out patient -prescriptions on the chart In the ED, temp , HR , R, BP , BP . WBC . Hg . Plat . Creat . UA . Blood cultures 04/06/2019 . Urine culture 04/06/[address] chest Review of Systems: General: no fever, chills, no malaise Cutaneous: no rash, pruritus Head: no headaches or injury Eyes: no changes in vision, eye pain, double vision Ears: no ear pain, ear discharge, ringing or hearing loss Nose: no nose bleeding, stuffiness Mouth & throat: no bleeding gums, no horseness, no dental problems, or swollen glands Neck: no pain, node enlargement/lumps, tyroid enlargement or tenderness Respiratory: no cough, wheezing, sputum, hemoptysis, pleuritic chest pain Cardiovascular: no chest pain, leg edema, cyanosis, WORLEY, orthopnea Musculoskeletal: no edema Gastrointestinal: no nausea, no vomiting, no hematemesis, diarrhea, constipation, melena, bright red blood in stools, fecal incontinence, jaundice Genitourinary/Reproductive: no frequent urination, dysuria, hematuria, inconti nence Neurogical: no seizures, no headaches, no weakness, no paresthesias, no loss of speech or vision; no memory loss, no vertigo, no tremors, no numbness Psychiatric: stable mood; no excessive anxiety, sadness or moodiness General appearance: Alert in NAD Eyes: anicteric sclerae, moist conjunctivae; no lid-lag; PERRLA HENT: Atraumatic; oropharynx clear with moist mucous membranes and no mucosal ulcerations/no oral thrush; normal hard and soft palate. Normal external ears. Neck: Trachea midline; supple, no thyromegaly or lymphadenopathy Lungs: CTA, with normal respiratory effort and no intercostal retractions CV: RRR no murmur Abdomen: Soft, non-tender; no masses or hepatosplenomegaly Extremities: no edema, cyanosis Skin: Normal temperature, turgor and texture; no rash, ulcers or subcutaneous nodules Psych: Appropriate affect, alert and oriented to person, place and time. Neuro: alert and oriented x 3. Moving all extermities Cultures: Blood cultures /2019 no growth today Urine culture /2019 Assessment: 1) Severe Sepsis: Present on admission, manifested by fever, tachycardia, increased lactate. Etiology most likely 2) 3) 4) 5) Recommendations: - follow-up blood cultures, urine culture - Will follow. Teri Reynaga MD Infectious Diseases [employer] [facility] M [phone] O [phone] Past History Past Medical History: diabetes (uncontrolled), hypertension, other (pyoderma gangrenosum, left ankle osteomyelitis) Past Surgical History: Other ( s/p multiple vascular procedures of lower extremities) Social history: smoking (current smoker) Family history: no significant family history Medications and Allergies Allergies Allergy/AdvReac Type Severity Reaction Status Date / Time No Known Allergies Allergy Verified 02/18/19 22:39 Home Medications Medication Instructions Recorded Confirmed Last Taken Type Metoprolol [Lopressor TAB] 50 mg PO BID #60 tablet 09/03/16 06/06/19 Unknown Rx Triamcinolone 0.1% [Kenalog 0.1% 1 applic TP BID #1 tube 01/20/17 06/06/19 Unknown Rx CREAM] Lispro Insulin [HumaLOG] 20 unit SQ TID 01/24/19 06/06/19 Unknown History Lyrica 300 mg PO DAILY 01/24/19 06/06/19 Unknown History Ondansetron [Zofran Odt] 4 mg PO Q4H PRN #15 tab.rapdis 01/28/19 06/06/19 Unknown Rx hydroCHLOROthiazide [HCTZ] 25 mg PO QDAY #30 tab 01/28/19 06/06/19 1 Day Ago Rx ~08/31/16 Percocet 7.5/325 mg 1 tab PO TID PRN 06/06/19 06/06/19 Unknown History Active Meds: Active Medications Acetaminophen (Tylenol) 650 mg PO Q4H PRN PRN Reason: Pain MILD(1-3)/Fever >100.5/EDUARDO Dextrose (D50w (25gm) Syringe) 50 ml IV PRN PRN PRN Reason: Hypoglycemia Enoxaparin Sodium (Lovenox) 40 mg SUB-Q QDAY [facility] Last Admin: 06/06/19 10:03 Dose: 40 mg Documented by: Ceftriaxone Sodium (Rocephin/Ns 1 Gm/50 Ml) 1 gm in 50 mls @ 100 mls/hr IV Q24HR [facility]; Protocol Last Admin: 06/06/19 10:03 Dose: 100 mls/hr Documented by: Sodium Chloride (Nacl 0.9% 1000 Ml) 1,000 mls @ 100 mls/hr IV DIRECT [facility] Insulin Human Regular (Humulin R) 0 units SUB-Q Q6HR [facility]; Protocol Last Admin: 06/06/19 06:36 Dose: Not Given Documented by: Morphine Sulfate (Morphine) 2 mg IV Q4H PRN PRN Reason: Pain, Moderate (4-6) Last Admin: 06/06/19 09:32 Dose: 2 mg Documented by: Ondansetron HCl (Zofran) 4 mg IV Q8H PRN PRN Reason: Nausea And Vomiting Sodium Chloride (Sodium Chloride Flush Syringe 10 Ml) 10 ml IV BID [facility] Last Admin: 06/06/19 09:57 Dose: 10 ml Documented by: Sodium Chloride (Sodium Chloride Flush Syringe 10 Ml) 10 ml IV PRN PRN PRN Reason: LINE FLUSH Physical Examination - Constitutional Vitals: Vital Signs Temp Pulse Resp BP Pulse Ox 98.4 F 69 16 174/90 100 06/05/19 23:00 06/06/19 10:32 06/06/19 10:32 06/06/19 10:32 06/06/19 10:32 Temperature -Last 24 Hours Temperature 98.4 F Results - Labs CBC & Chem 7: 06/05/19 23:05 06/06/19 04:05 Labs: Abnormal lab results 06/05/19 06/05/19 06/05/19 Range/Units 23:01 23:05 23:05 MCH 26 L (28-32) pg RDW 18.2 H (13.2-15.2) % [place] % (Auto) 10.7 H (0.0-7.3) % Eos % (Auto) 4.6 H (0.0-4.3) % [place] # 1.1 H (0.0-0.8) K/mm3 Eos # 0.5 H (0.0-0.4) K/mm3 Potassium 5.4 H (3.6-5.0) mmol/L BUN 29 H (7-17) mg/dL Glucose 120 H (65-100) mg/dL POC Glucose 147 H (70-105) Hemoglobin A1c (4-6) % Lactic Acid (0.7-2.0) mmol/L AST 44 H (5-40) units/L Alkaline Phosphatase 365 H (35-129) units/L Albumin 3.0 L (3.9-5) g/dL Urine WBC (Auto) (0.0-6.0) /HPF 06/05/19 06/06/19 06/06/19 Range/Units 23:05 00:31 04:05 MCH (28-32) pg RDW (13.2-15.2) % [place] % (Auto) (0.0-7.3) % Eos % (Auto) (0.0-4.3) % [place] # (0.0-0.8) K/mm3 Eos # (0.0-0.4) K/mm3 Potassium (3.6-5.0) mmol/L BUN (7-17) mg/dL Glucose (65-100) mg/dL POC Glucose (70-105) Hemoglobin A1c 9.1 H (4-6) % Lactic Acid 2.20 H* (0.7-2.0) mmol/L AST (5-40) units/L Alkaline Phosphatase (35-129) units/L Albumin (3.9-5) g/dL Urine WBC (Auto) > 182.0 H (0.0-6.0) /HPF 06/06/19 Range/Units 06:40 MCH (28-32) pg RDW (13.2-15.2) % [place] % (Auto) (0.0-7.3) % Eos % (Auto) (0.0-4.3) % [place] # (0.0-0.8) K/mm3 Eos # (0.0-0.4) K/mm3 Potassium (3.6-5.0) mmol/L BUN (7-17) mg/dL Glucose (65-100) mg/dL POC Glucose 116 H (70-105) Hemoglobin A1c (4-6) % Lactic Acid (0.7-2.0) mmol/L AST (5-40) units/L Alkaline Phosphatase (35-129) units/L Albumin (3.9-5) g/dL Urine WBC (Auto) (0.0-6.0) /HPF
--- NOTE | 2019-06-06 13:03 | Event Note ---
Date: 06/06/19 Patient with altered mental status. I have seen and examined her.
--- NOTE | 2019-06-06 13:18 | Consultation ---
History of Present Illness Consult date: 06/06/19 Consult reason: hypotension History of present illness: This is a 53-year old woman with a history of Diabetes, Hypertension, chronic lower extremity ulcers with prior multiple revascularization procedures. She also has a history of paroxysmal SVT previously treated with metoprolol. In 2015, she had a negative treadmill stress test. Her latest echocardiogram done at [facility] September 2018 documents a hyperdynamic LVEF 73%. Patient is admitted with this time with hypotension, systolic blood pressure at 78 on presentation to the emergency department. Patient reports feeling dizzy and light headed shortly after taking evening medications. Patient is unsure of what medication were taking. She denies starting any new medications since discharged from [facility] 3 weeks ago. Initial labs shows an elevated alkaline phosphatase at 365 and a lactic acid of 2.2. In addition, she complains of bilateral lower extremity pain. She denies chest pain and shortness of breath. Her ECG is sinus rhythm, no acute ST or T wave changes. Past History Past Medical History: diabetes (uncontrolled), hypertension, other (pyoderma gangrenosum, left ankle osteomyelitis) Past Surgical History: Other ( s/p multiple vascular procedures of lower extremities) Social history: smoking (current smoker) Family history: no significant family history Medications and Allergies Allergies Allergy/AdvReac Type Severity Reaction Status Date / Time No Known Allergies Allergy Verified 02/18/19 22:39 Home Medications Medication Instructions Recorded Confirmed Last Taken Type Metoprolol [Lopressor TAB] 50 mg PO BID #60 tablet 09/03/16 06/06/19 Unknown Rx Triamcinolone 0.1% [Kenalog 0.1% 1 applic TP BID #1 tube 01/20/17 06/06/19 Unknown Rx CREAM] Lispro Insulin [HumaLOG] 20 unit SQ TID 01/24/19 06/06/19 Unknown History Lyrica 300 mg PO DAILY 01/24/19 06/06/19 Unknown History Ondansetron [Zofran Odt] 4 mg PO Q4H PRN #15 tab.rapdis 01/28/19 06/06/19 Unknown Rx hydroCHLOROthiazide [HCTZ] 25 mg PO QDAY #30 tab 01/28/19 06/06/19 1 Day Ago Rx ~08/31/16 Percocet 7.5/325 mg 1 tab PO TID PRN 06/06/19 06/06/19 Unknown History Active Meds: Active Medications Acetaminophen (Tylenol) 650 mg PO Q4H PRN PRN Reason: Pain MILD(1-3)/Fever >100.5/EDUARDO Dextrose (D50w (25gm) Syringe) 50 ml IV PRN PRN PRN Reason: Hypoglycemia Enoxaparin Sodium (Lovenox) 40 mg SUB-Q QDAY [facility] Last Admin: 06/06/19 10:03 Dose: 40 mg Documented by: Ceftriaxone Sodium (Rocephin/Ns 1 Gm/50 Ml) 1 gm in 50 mls @ 100 mls/hr IV Q24HR [facility]; Protocol Last Admin: 06/06/19 10:03 Dose: 100 mls/hr Documented by: Sodium Chloride (Nacl 0.9% 1000 Ml) 1,000 mls @ 100 mls/hr IV DIRECT [facility] Insulin Human Regular (Humulin R) 0 units SUB-Q Q6HR [facility]; Protocol Last Admin: 06/06/19 11:36 Dose: Not Given Documented by: Morphine Sulfate (Morphine) 2 mg IV Q4H PRN PRN Reason: Pain, Moderate (4-6) Last Admin: 06/06/19 09:32 Dose: 2 mg Documented by: Ondansetron HCl (Zofran) 4 mg IV Q8H PRN PRN Reason: Nausea And Vomiting Sodium Chloride (Sodium Chloride Flush Syringe 10 Ml) 10 ml IV BID [facility] Last Admin: 06/06/19 09:57 Dose: 10 ml Documented by: Sodium Chloride (Sodium Chloride Flush Syringe 10 Ml) 10 ml IV PRN PRN PRN Reason: LINE FLUSH Physical Examination Vital Signs Pulse Resp 50 L 26 H 06/05/19 22:55 06/05/19 22:55 General appearance: no acute distress HEENT: Positive: PERRL Neck: Positive: trachea midline Cardiac: Positive: Reg Rate and Rhythm Lungs: Positive: Decreased Breath Sounds Neuro: Positive: Grossly Intact Results 06/05/19 23:05 06/06/19 04:05 Cardiac Enzymes 06/05/19 06/06/19 Range/Units 23:05 04:05 AST 44 H (5-40) units/L CK-MB (CK-2) 1.4 1.2 (0.0-4.0) ng/mL Coagulation 06/06/19 Range/Units 01:00 PT 12.7 (12.2-14.9) Sec. INR 0.98 (0.87-1.13) APTT 26.6 (24.2-36.6) Sec. CBC 06/05/19 Range/Units 23:05 WBC 10.4 (4.5-11.0) K/mm3 RBC 4.26 (3.65-5.03) M/mm3 Hgb 11.0 (10.1-14.3) gm/dl Hct 33.5 (30.3-42.9) % Plt Count 360 (140-440) K/mm3 Lymph # 3.5 (1.2-5.4) K/mm3 [place] # 1.1 H (0.0-0.8) K/mm3 Eos # 0.5 H (0.0-0.4) K/mm3 Baso # 0.1 (0.0-0.1) K/mm3 Comprehensive Metabolic Panel 06/05/19 06/06/19 Range/Units 23:05 04:05 Sodium 137 (137-145) mmol/L Potassium 5.4 H 5.0 (3.6-5.0) mmol/L Chloride 100.1 (98-107) mmol/L Carbon Dioxide 25 (22-30) mmol/L BUN 29 H (7-17) mg/dL Creatinine 1.0 (0.7-1.2) mg/dL Glucose 120 H (65-100) mg/dL Calcium 9.2 (8.4-10.2) mg/dL AST 44 H (5-40) units/L ALT 44 (7-56) units/L Alkaline Phosphatase 365 H (35-129) units/L Total Protein 6.7 (6.3-8.2) g/dL Albumin 3.0 L (3.9-5) g/dL Assessment and Plan Hypotension Elevated Alkaline Phosphatase Diabetes Hypertension Pyoderma grangrenosum with multiple LE revascularization chronic nonhealing ulcers of bilateral legs Paroxysmal supraventricular tachycardia on metoprolol as an outpatient In 2015, she had a negative treadmill stress test. She exercised for 4 minutes. An echocardiogram done at [facility] September 2018 documents a hyperdynamic LVEF 73%. We will repeat an echocardiogram for LVEF assessment.
[2019-06-06 14:37] VITALS: BP 163/84
--- NOTE | 2019-06-06 23:49 | Discharge Summary ---
Providers - Providers Date of Admission: 06/06/19 02:06 Attending physician: CHELE ANGEL 06/06/19 02:04 Consult to Physician [CONS] Routine Comment: Consulting Provider: CHELE AGUDELO Physician Instructions: Reason For Exam: hypotension, AMS, 06/06/19 02:09 Consult to Dietitian/Nutrition [CONS] Routine Physician Instructions: Reason For Exam: Reason for Consult: Malnutrition 06/06/19 02:33 Occupational Therapy Evaluate and Treat [CONS] Routine Comment: Reason For Exam: ams, recent fall at home Physical Therapy Evaluation and Treat [CONS] Routine Comment: Reason For Exam: ams, recent fall at home 06/06/19 03:14 Consult to Physician [CONS] Routine Comment: Consulting Provider: TALIA MICHELE Physician Instructions: Reason For Exam: left heel wound, hx left ankle osteomyelitis Consult to Wound/ET Nurse [CONS] Routine Reason For Exam: wound eval Primary care physician: [facility] MD JESI Hospitalization Condition: Fair Disposition: DC-07 LEFT AGAINST MED ADVICE Exam - Constitutional Vitals: Temp Pulse Resp BP Pulse Ox 98.4 F 85 16 163/84 98 06/05/19 23:00 06/06/19 14:36 06/06/19 14:36 06/06/19 14:36 06/06/19 14:36 Plan Follow up with: BEAR HEWITT MD [Primary Care Provider] - 3-5 Days
== END 2019-06-06 15:39 | disposition left against medical advice (07) | DRG 71 ==
LOC: ED 22:51 → 4A 06-06 02:06
PROVIDERS: ADMIT Internal Medicine; ATTEND Internal Medicine
DX: G93.40 Encephalopathy, unspecified (principal); M86.672 Other chronic osteomyelitis, left ankle and foot; N39.0 Urinary tract infection, site not specified; L97.929 Non-pressure chronic ulcer of unspecified part of left lower leg with unspecified severity; L97.919 Non-pressure chronic ulcer of unspecified part of right lower leg with unspecified severity; I47.1 Supraventricular tachycardia; I95.2 Hypotension due to drugs; I10 Essential (primary) hypertension; E11.69 Type 2 diabetes mellitus with other specified complication; R74.0 Nonspecific elevation of levels of transaminase and lactic acid dehydrogenase [LDH]; E86.0 Dehydration; E87.5 Hyperkalemia; Z53.21 Procedure and treatment not carried out due to patient leaving prior to being seen by health care provider; E66.9 Obesity, unspecified; T50.995A Adverse effect of other drugs, medicaments and biological substances, initial encounter; W18.30XA Fall on same level, unspecified, initial encounter; F17.200 Nicotine dependence, unspecified, uncomplicated; Y93.89 Activity, other specified; Y92.098 Other place in other non-institutional residence as the place of occurrence of the external cause; Y99.8 Other external cause status; Z79.4 Long term (current) use of insulin; Z68.29 Body mass index [BMI] 29.0-29.9, adult
CPT/HCPCS: 36415; 70450; 71045; 80053; 80307; 80320; 81001; 82140; 82550; 82553; 82805; 82962; 83036; 84132; 84484; 85025; 85610; 85730; 87040; 87086; 93005; 93010; G0378; G0480; J0696; J1650; J1956; J2270; J2405; J7030

== ENCOUNTER 2019-07-19 12:03 | Emergency (ER) | payer MEDICAID ==
[2019-07-19] MEDS ORDERED: ZOFRAN IV ONE (13:04)
[2019-07-19] MEDS ORDERED: SUBLIMAZE IV ONE (13:04)
[2019-07-19] MEDS ORDERED: NACL 0.9% 1000 ML 1,000 ML IV ONE (13:04)
--- NOTE | 2019-07-19 13:10 | Emergency Department Report ---
HPI - General Chief Complaint: Dyspnea/Respdistress Time Seen by Provider: 07/19/19 12:53 - HPI HPI: Room 9 The patient is a 53-year-old female presenting with chief complaint of nausea vomiting diarrhea. The patient states the past 2-3 days she's had nausea vomiting and diarrhea. The patient states she is unable to eat anything. Patient also complains of pain from her right knee wound which is diagnosed with osteomyelitis. She has also noticed drainage from the right judaism for 1 week. Patient missed a subjective fever. Patient states she was recently admitted to [facility] Location: [See above] Duration: [See above] Quality: [See above] Severity: [See above] Timing: [See above] Context: [See above] Modifying factors: [See above] Associated signs and symptoms: [see above] ED Past Medical Hx - Past Medical History Previous Medical History?: Yes Hx Hypertension: Yes Hx Diabetes: Yes Hx HIV: Yes (Pt denies h/o.) Additional medical history: pyoderma gangrenosum. osteomyelitis - Surgical History Past Surgical History?: Yes Additional Surgical History: left LE. umbilical biopsy - Family History Family history: no significant - Social History Smoking Status: Never Smoker Substance Use Type: None (denies illicit drug use) - Medications Home Medications: Home Medications Medication Instructions Recorded Confirmed Last Taken Type Metoprolol [Lopressor TAB] 50 mg PO BID #60 tablet 09/03/16 06/06/19 Unknown Rx Triamcinolone 0.1% [Kenalog 0.1% 1 applic TP BID #1 tube 01/20/17 06/06/19 Unknown Rx CREAM] Lispro Insulin [HumaLOG] 20 unit SQ TID 01/24/19 06/06/19 Unknown History Lyrica 300 mg PO DAILY 01/24/19 06/06/19 Unknown History Ondansetron [Zofran Odt] 4 mg PO Q4H PRN #15 tab.rapdis 01/28/19 06/06/19 Unknown Rx hydroCHLOROthiazide [HCTZ] 25 mg PO QDAY #30 tab 01/28/19 06/06/19 1 Day Ago Rx ~08/31/16 Percocet 7.5/325 mg 1 tab PO TID PRN 06/06/19 06/06/19 Unknown History HYDROcodone/APAP 5-325 [[place] 1 each PO Q6HR PRN #14 tablet 07/19/19 Unknown Rx 5/325] Promethazine [Phenergan] 25 mg PO Q6HR PRN #20 tab 07/19/19 Unknown Rx levoFLOXacin [Levaquin TAB] 500 mg PO QDAY #7 tablet 07/19/19 Unknown Rx metroNIDAZOLE [Flagyl] 500 mg PO Q8HR #21 tablet 07/19/19 Unknown Rx ED Review of Systems ROS: Stated complaint: PAIN ALL OVER/N/V Other details as noted in HPI Constitutional: fever (subjective) Eyes: denies: eye pain ENT: denies: throat pain Respiratory: no symptoms reported Cardiovascular: denies: chest pain Endocrine: no symptoms reported Gastrointestinal: abdominal pain, nausea, vomiting, diarrhea Genitourinary: denies: dysuria Musculoskeletal: denies: back pain Neurological: denies: headache Physical Exam - Physical Exam Vital Signs: Vital Signs 07/19/19 12:43 Temperature 98.2 F Pulse Rate 98 H Respiratory 14 Rate Blood Pressure 198/97 O2 Sat by Pulse 100 Oximetry Physical Exam: GENERAL: The patient is well-developed well-nourished female lying on stretcher. Be in moderate discomfort. [] HEENT: Normocephalic. Atraumatic. Extraocular motions are intact. Patient has moist mucous membranes. NECK: Supple. Trachea midline CHEST/LUNGS: Clear to auscultation. There is no respiratory distress noted. HEART/CARDIOVASCULAR: Regular. There is no tachycardia. There is no gallop rub or murmur. ABDOMEN: Abdomen is soft, with diffuse tenderness to palpation greatest on the left. No rebound or guarding. Patient has normal bowel sounds. There is no abdominal distention. SKIN: There is no rash. There is no edema. There is no diaphoresis. NEURO: The patient is awake, alert, and oriented. The patient is cooperative. The patient has normal speech MUSCULOSKELETAL: There is no evidence of acute injury. ED Course Vital Signs 07/19/19 12:43 Temperature 98.2 F Pulse Rate 98 H Respiratory 14 Rate Blood Pressure 198/97 O2 Sat by Pulse 100 Oximetry ED Medical Decision Making - Lab Data Result diagrams: 07/19/19 14:10 07/19/19 14:10 Laboratory Tests 07/19/19 07/19/19 14:10 14:10 WBC 8.4 RBC 5.24 H Hgb 13.1 Hct 40.7 MCV 78 L MCH 25 L MCHC 32 RDW 18.5 H Plt Count 370 Lymph % (Auto) 26.4 [place] % (Auto) 7.3 Eos % (Auto) 1.4 Baso % (Auto) 0.6 Lymph # 2.2 [place] # 0.6 Eos # 0.1 Baso # 0.0 Seg Neutrophils % 64.3 Seg Neutrophils # 5.4 Sodium 139 Potassium 3.5 L Chloride 99.1 Carbon Dioxide 25 Anion Gap 18 BUN 19 H Creatinine 1.0 Estimated GFR > 60 BUN/Creatinine Ratio 19 Glucose 133 H Calcium 10.2 Total Bilirubin 0.40 AST 21 ALT 10 Alkaline Phosphatase 203 H Total Protein 8.8 H Albumin 3.9 Albumin/Globulin Ratio 0.8 Lipase 5 L - Radiology Data Radiology results: report reviewed (CT abdomen and pelvis), image reviewed (CT abdomen and pelvis) [facility] [address] [id number] Cat Scan Report Signed Patient: ROS COYLE MR#: [id number] : 1965 Acct:[id number] Age/Sex: 53 / F ADM Date: 07/19/19 Loc: ED Attending Dr: Ordering Physician: AMANDA CUMMINS MD Date of Service: 07/19/19 Procedure(s): CT abdomen pelvis w con Accession Number(s): [id number] cc: AMANDA CUMMINS MD CT ABDOMEN AND PELVIS WITH CONTRAST HISTORY: diffuse abdominal pain, greatest on the left. Nausea, vomiting, diarrhea COMPARISON: None. TECHNIQUE: Axial CT images were obtained through the abdomen and pelvis after 100 cc of Omnipaque 300 intravenously. Sagittal and coronal reformatted images. All CT scans at this location are performed using CT dose reduction for ALARA by means of automated exposure control. FINDINGS: CT ABDOMEN: Lung Bases: Clear. Liver: No significant abnormality. Biliary: No significant abnormality. Spleen: No significant abnormality. Unenlarged. Pancreas: No significant abnormality. Adrenals: No significant abnormality. Kidneys: No significant abnormality. Lymphatics: No lymphadenopathy. Vasculature: Mild diffuse aortic and iliac calcifications are noted. No aneurysm or dissection. Bowel/Peritoneum: There are a few borderline thickened loops of small bowel in the lower abdomen containing fluid. No evidence for dilated bowel, free air free fluid. There are a few scattered diverticula in the distal colon. No acute inflammatory changes. Normal appendix CT PELVIS: : No significant abnormality. Osseous Structures: Mild to moderate thoracolumbar spondylosis. Additional Findings: None IMPRESSION: Mildly thickened and fluid-filled loops of small bowel in the lower abdomen suggestive of a nonspecific enteritis. No evidence for obstruction. Mild diverticulosis of the distal colon. Degenerative changes in the spine. Signer Name: Adilson Westfall Jr, MD Signed: 07/19/2019 4:00 PM Workstation Name: [id number] Transcribed By: TTR Dictated By: ADILSON WESTFALL JR, MD Electronically Authenticated By: ADILSON WESTFALL JR, MD Signed Date/Time: 07/19/19 1600 DD/ 1556 TD/TT: - Differential Diagnosis enteritis, gastroenteritis Critical care attestation.: If time is entered above; I have spent that time in minutes in the direct care of this critically ill patient, excluding procedure time. ED Disposition Clinical Impression: Nausea vomiting and diarrhea, Gastroenteritis, acute Disposition: DC- TO HOME OR SELFCARE Is pt being admited?: No Does the pt Need Aspirin: No Condition: Stable Instructions: Acute Nausea and Vomiting (ED) Additional Instructions: Return to the emergency department should you develop worsening symptoms, inability to tolerate food or liquids, high fever or any other concerns Prescriptions: metroNIDAZOLE [Flagyl] 500 mg PO Q8HR #21 tablet levoFLOXacin [Levaquin TAB] 500 mg PO QDAY #7 tablet HYDROcodone/APAP 5-325 [[place] 5/325] 1 each PO Q6HR PRN #14 tablet PRN Reason: Pain Promethazine [Phenergan] 25 mg PO Q6HR PRN #20 tab PRN Reason: Nausea Referrals: [facility] MD VINICIO [Primary Care Provider] - 3-5 Days PERRY MAHMOOD MD [Staff Physician] - 3-5 Days Time of Disposition: 16:43
[2019-07-19 14:52] LABS: Alanine Aminotransferase 10 units/L (7-56); Albumin 3.9 g/dL (3.9-5); BUN/Creatinine Ratio 19; Blood Urea Nitrogen 19 mg/dL (7-17); Calcium 10.2 mg/dL (8.4-10.2); Hemolysis Index 37
[2019-07-19 14:53] LABS: Basophils % (Auto) 0.6 % (0.0-1.8); Eosinophils # (Auto) 0.1 K/mm3 (0.0-0.4); Eosinophils % (Auto) 1.4 % (0.0-4.3); Hematocrit 40.7 % (30.3-42.9); Hemoglobin 13.1 gm/dl (10.1-14.3); Lymphocytes # (Auto) 2.2 K/mm3 (1.2-5.4); Lymphocytes % (Auto) 26.4 % (13.4-35.0); Mean Corpuscular HGB Conc 32 % (30-34); Mean Corpuscular Volume 78 fl (79-97); Monocytes # (Auto) 0.6 K/mm3 (0.0-0.8); Monocytes % (Auto) 7.3 % (0.0-7.3); Platelet Count 370 K/mm3 (140-440); Red Blood Count 5.24 M/mm3 (3.65-5.03); Red Cell Distribution Width 18.5 % (13.2-15.2)
[2019-07-19] MEDS ORDERED: CATAPRES PO ONE (15:35)
--- NOTE | 2019-07-19 16:05 | Cat Scan Report ---
CT ABDOMEN AND PELVIS WITH CONTRAST HISTORY: diffuse abdominal pain, greatest on the left. Nausea, vomiting, diarrhea COMPARISON: None. TECHNIQUE: Axial CT images were obtained through the abdomen and pelvis after 100 cc of Omnipaque 300 intravenously. Sagittal and coronal reformatted images. All CT scans at this location are performed using CT dose reduction for ALARA by means of automated exposure control. FINDINGS: CT ABDOMEN: Lung Bases: Clear. Liver: No significant abnormality. Biliary: No significant abnormality. Spleen: No significant abnormality. Unenlarged. Pancreas: No significant abnormality. Adrenals: No significant abnormality. Kidneys: No significant abnormality. Lymphatics: No lymphadenopathy. Vasculature: Mild diffuse aortic and iliac calcifications are noted. No aneurysm or dissection. Bowel/Peritoneum: There are a few borderline thickened loops of small bowel in the lower abdomen cont aining fluid. No evidence for dilated bowel, free air free fluid. There are a few scattered diverticu la in the distal colon. No acute inflammatory changes. Normal appendix CT PELVIS: : No significant abnormality. Osseous Structures: Mild to moderate thoracolumbar spondylosis. Additional Findings: None IMPRESSION: Mildly thickened and fluid-filled loops of small bowel in the lower abdomen suggestive of a nonspecif ic enteritis. No evidence for obstruction. Mild diverticulosis of the distal colon. Degenerative changes in the spine. Signer Name: Adilson Westfall Jr, MD Signed: 07/19/2019 4:00 PM Workstation Name: [id number]
[2019-07-19 17:18] VITALS: BP 184/72
[2019-07-19] MEDS ORDERED: NORCO 5/325 ONE (17:26)
[2019-07-19] MEDS ORDERED: NORCO 5/325 PO ONE (17:35)
[2019-07-19 17:54] LABS: Bilirubin,Urine NEG (Negative); Blood,Urine NEG (Negative); Color,Urine Yellow (Yellow); Hyaline Casts,Urine 2 /LPF; Mucus,Urine FEW /HPF; Urobilinogen,Urine < 2.0 mg/dL (<2.0)
== END 2019-07-19 18:13 | disposition home or self-care (01) ==
LOC: ED 12:03
DX: K52.9 Noninfective gastroenteritis and colitis, unspecified (principal); R11.2 Nausea with vomiting, unspecified; M25.561 Pain in right knee; I10 Essential (primary) hypertension; E11.9 Type 2 diabetes mellitus without complications; Z21 Asymptomatic human immunodeficiency virus [HIV] infection status; Z79.899 Other long term (current) drug therapy
CPT/HCPCS: 36415; 74177; 80053; 81001; 83690; 85025; 96361; 96374; 96375; 99285; J2405; J3010; J7030; Q9967

== ENCOUNTER 2019-07-24 13:38 | Inpatient (IN) | payer MEDICAID ==
[2019-07-24] MEDS ORDERED: NARCAN 0.4 MG/1 ML IV ONE ×2 (13:46→13:52)
[2019-07-24] MEDS ORDERED: ZOFRAN IV ONE (13:47)
[2019-07-24] MEDS ORDERED: NARCAN 0.4 MG/1 ML ONE ×2 (13:47→13:52)
[2019-07-24] MEDS ORDERED: ZOFRAN ONE (13:47)
--- NOTE | 2019-07-24 14:10 | Consultation ---
History of Present Illness Consult date: 07/24/19 History of present illness: 53 y/o woman presents with AMS and hypotension (60s/30s). Unknown last known well. Patient is lethargic. Withdraws in all extremities. CT head reviewed and case discussed with ED staff. Patient recently seen for nausea/vomiting and diarrhea. No family at bedside Medications and Allergies Allergies Allergy/AdvReac Type Severity Reaction Status Date / Time No Known Allergies Allergy Verified 02/18/19 22:39 Home Medications Medication Instructions Recorded Confirmed Last Taken Type Metoprolol [Lopressor TAB] 50 mg PO BID #60 tablet 09/03/16 06/06/19 Unknown Rx Triamcinolone 0.1% [Kenalog 0.1% 1 applic TP BID #1 tube 01/20/17 06/06/19 Unknown Rx CREAM] Lispro Insulin [HumaLOG] 20 unit SQ TID 01/24/19 06/06/19 Unknown History Lyrica 300 mg PO DAILY 01/24/19 06/06/19 Unknown History Ondansetron [Zofran Odt] 4 mg PO Q4H PRN #15 tab.rapdis 01/28/19 06/06/19 Unknown Rx hydroCHLOROthiazide [HCTZ] 25 mg PO QDAY #30 tab 01/28/19 06/06/19 1 Day Ago Rx ~08/31/16 Percocet 7.5/325 mg 1 tab PO TID PRN 06/06/19 06/06/19 Unknown History HYDROcodone/APAP 5-325 [[place] 1 each PO Q6HR PRN #14 tablet 07/19/19 Unknown Rx 5/325] Promethazine [Phenergan] 25 mg PO Q6HR PRN #20 tab 07/19/19 Unknown Rx levoFLOXacin [Levaquin TAB] 500 mg PO QDAY #7 tablet 07/19/19 Unknown Rx metroNIDAZOLE [Flagyl] 500 mg PO Q8HR #21 tablet 07/19/19 Unknown Rx Physical Examination - Vital Signs Vital Signs: Vital Signs Pulse Resp BP Pulse Ox 70 26 H 98/53 99 07/24/19 13:42 07/24/19 13:42 07/24/19 13:42 07/24/19 13:42 - Level of Consciousness 1a. Level of Consciousness: resp stimuli/obtunded - LOC Questions 1b. LOC Questions: answers no questions correctly - LOC Command 1c. LOC Commands: performs no tasks correctly - Best Gaze 2. Best Gaze: normal - Visual 3. Visual: no visual loss - Facial Palsy 4. Facial Palsy: normal symmetrical movement - Motor Arm 5a. Motor Arm Left: no gravity effort 5b. Motor Arm Right: no gravity effort - Motor Leg 6a. Motor Leg Left: no gravity effort 6b. Motor Leg Right: no gravity effort - Limb Ataxia 7. Limb Ataxia: absent - Sensory 8. Sensory: normal - Best Language 9. Best Language: mute/global aphasia - Dysarthria 10. Dysarthria: mute/anarrthric - Extinction and Inattention 11. Extinction/Inattention: no abnormality - Scoring Total Score: 23 Stroke Severity: Severe Stroke Results - Laboratory Findings Abnormal Lab Findings: Abnormal Labs 07/24/19 13:59 POC Glucose 163 H Assessment and Plan [facility] Impression:AMS and Hypotension Differential Diagnosis: 1. Cardioembolic stroke 2. Small vessel disease/lacune 3. Thromboembolic, etqbog-fy-gbnuro mechanism 4. Hypercoagulable state-related infarct 5. Thrombotic mechanism, large artery disease 6. Transient ischemic attack Comments: Last known well: unknown Door time:1338 [facility] contacted: [phone] [facility] at bedside: 1404 NIHSS assessment time:1404 Needle time:TPA not considered since unknown last known well Thrombectomy not considered since large proximal intracranial vessel occlusion is not suspected. Currently hemodynamically unstable Discussion: Our recommendations are outlined below. Recommendations: Toxic, metabolic and infectious work-up ED attending to stabilize and fluid resuscitate patient. Recommend CTA head/neck with perfusion if symptoms do not rapidly improve ASA if no contraindications, IV fluids and permissive hypertension (Keep BP < 220/110) Neurochecks PT/OT/ST DVT prophylaxis Follow up with Neurology for further testing/evaluation Medical Decision Making: - Extensive number of diagnosis or management options are considered above. - Extensive amount of complex data reviewed. - High risk of complication and/or morbidity or mortality are associated with differential diagnostic considerations above. - There may be uncertain outcome and increased probability of prolonged functional impairment or high probability of severe prolonged functional impairment associated with some of these differential diagnosis. Medical Data Reviewed: 1.Data reviewed include clinical labs, radiology, Medical Tests; 2.Tests results discussed w/performing or interpreting physician; 3.Obtaining/reviewing old medical records; 4.Obtaining case history from another source; 5.Independent review of image, tracing or specimen.
[2019-07-24 14:17] LABS: Basophils # (Auto) 0.1 K/mm3 (0.0-0.1); Basophils % (Auto) 0.5 % (0.0-1.8); Eosinophils # (Auto) 0.2 K/mm3 (0.0-0.4); Eosinophils % (Auto) 1.9 % (0.0-4.3); Hematocrit 37.3 % (30.3-42.9); Hemoglobin 11.9 gm/dl (10.1-14.3); Lymphocytes # (Auto) 3.2 K/mm3 (1.2-5.4); Lymphocytes % (Auto) 26.9 % (13.4-35.0); Mean Corpuscular HGB Conc 32 % (30-34); Mean Corpuscular Volume 79 fl (79-97); Monocytes # (Auto) 1.1 K/mm3 (0.0-0.8); Monocytes % (Auto) 9.6 % (0.0-7.3); Platelet Count 293 K/mm3 (140-440); Red Blood Count 4.74 M/mm3 (3.65-5.03); Red Cell Distribution Width 17.5 % (13.2-15.2)
--- NOTE | 2019-07-24 14:25 | Cat Scan Report ---
CT BRAIN: 07/24/2019 INDICATION / CLINICAL INFORMATION: Unresponsive. COMPARISON: None available. FINDINGS: BRAIN/INTRACRANIAL STRUCTURES: Unenhanced CT images of the brain were obtained and compared to the pr ior exam from 05/06/2019. There has been no change. There is no evidence of acute abnormality. Ventricles and sulci are slightly prominent in size, consi stent with some mild diffuse cerebral atrophy for age. There is 1 cm area of hypoattenuation in the right centrum semiovale, consistent with chronic ischemi c change. This has not changed when compared to the prior exam. There is no CT evidence of acute ischemic injury, hemorrhage, or mass. There are no abnormal extra-ax ial fluid collections. EXTRACRANIAL STRUCTURES: Unremarkable. IMPRESSION: No acute abnormality. No change when compared to the prior exam. These findings were discussed with in the emergency department at [address] scans at this location are performed using dose reduction to ALARA by means of automated expos ure control. Signer Name: Jed Hodge MD Signed: 07/24/2019 2:21 PM Workstation Name: [id number]
[2019-07-24 14:29] LABS: INR 1.01 (0.87-1.13)
[2019-07-24 14:30] LABS: Partial Thromboplastin Time 24.6 Sec. (24.2-36.6); Thrombin Time 18.2 Sec. (15.1-19.6)
[2019-07-24 14:32] LABS: Creatine Kinase MB 1.6 ng/mL (0.0-4.0)
[2019-07-24 14:33] LABS: Alanine Aminotransferase 8 units/L (7-56); Albumin 3.6 g/dL (3.9-5); BUN/Creatinine Ratio 20; Blood Urea Nitrogen 22 mg/dL (7-17); Calcium 9.7 mg/dL (8.4-10.2); Hemolysis Index 4
--- NOTE | 2019-07-24 14:42 | XRay Report ---
CHEST 1 VIEW INDICATION: ams COMPARISON: 05/06/2019 FINDINGS: Support devices: None Heart: Stable. Lungs/Pleura: No acute pulmonary or pleural findings. IMPRESSION: 1. No significant change. Signer Name: Joseph Mejía MD Signed: 07/24/2019 2:38 PM Workstation Name: [id number]
[2019-07-24] MEDS ORDERED: ASPIRIN PR ONE (14:43)
--- NOTE | 2019-07-24 15:34 | Emergency Department Report ---
ED General Adult HPI - General Chief complaint: Altered Mental Status Stated complaint: AMS Time Seen by Provider: 07/24/19 13:54 Source: EMS Mode of arrival: Stretcher Limitations: Altered Mental Status - History of Present Illness Initial comments: The patient presents to the emergency department after becoming unresponsive while shopping at [employer]. Per EMS the patient was in a wheelchair and apparently the [employer] she slouched to the left side and became difficult to arouse. Upon arrival the patient's blood pressure was possibly 60s over 30s. It is reported that the patient had recent evaluation for nausea, vomiting, diarrhea. -: Sudden Improves with: none Worsens with: none Associated Symptoms: denies other symptoms Treatments Prior to Arrival: none - Related Data Home Medications Medication Instructions Recorded Confirmed Last Taken Lispro Insulin [HumaLOG] 20 unit SQ TID 01/24/19 06/06/19 Unknown Lyrica 300 mg PO DAILY 01/24/19 06/06/19 Unknown Percocet 7.5/325 mg 1 tab PO TID PRN 06/06/19 06/06/19 Unknown Previous Rx's Medication Instructions Recorded Last Taken Type Metoprolol [Lopressor TAB] 50 mg PO BID #60 tablet 09/03/16 Unknown Rx Triamcinolone 0.1% [Kenalog 0.1% 1 applic TP BID #1 tube 01/20/17 Unknown Rx CREAM] Ondansetron [Zofran Odt] 4 mg PO Q4H PRN #15 tab.rapdis 01/28/19 Unknown Rx hydroCHLOROthiazide [HCTZ] 25 mg PO QDAY #30 tab 01/28/19 1 Day Ago Rx ~08/31/16 HYDROcodone/APAP 5-325 [Gordon 1 each PO Q6HR PRN #14 tablet 07/19/19 Unknown Rx 5/325] Promethazine [Phenergan] 25 mg PO Q6HR PRN #20 tab 07/19/19 Unknown Rx levoFLOXacin [Levaquin TAB] 500 mg PO QDAY #7 tablet 07/19/19 Unknown Rx metroNIDAZOLE [Flagyl] 500 mg PO Q8HR #21 tablet 07/19/19 Unknown Rx Allergies Allergy/AdvReac Type Severity Reaction Status Date / Time No Known Allergies Allergy Verified 02/18/19 22:39 ED Review of Systems ROS: Stated complaint: AMS Other details as noted in HPI Comment: Unobtainable due to pts medical conditions ED Past Medical Hx - Past Medical History Hx Hypertension: Yes Hx CVA: No Hx Heart Attack/AMI: No Hx Congestive Heart Failure: No Hx Diabetes: Yes Hx Deep Vein Thrombosis: No Hx Pulmonary Embolism: No Hx GERD: No Hx Liver Disease: No Hx Renal Disease: No Hx Sickle Cell Disease: No Hx Arthritis: No Hx Headaches / Migraines: No Hx Seizures: No Hx Kidney Stones: No Hx Psychiatric Treatment: No Hx Asthma: No Hx COPD: No Hx Tuberculosis: No Hx Dementia: No Hx HIV: Yes (Pt denies h/o.) Additional medical history: pyoderma gangrenosum. osteomyelitis - Surgical History Hx Coronary Stent: No Hx Open Heart Surgery: No Hx Pacemaker: No Hx Internal Defibrillator: No Hx Cholecystectomy: No Hx Appendectomy: No Hx Breast Surgery: No Additional Surgical History: left LE. umbilical biopsy - Social History Smoking Status: Unknown if ever smoked - Medications Home Medications: Home Medications Medication Instructions Recorded Confirmed Last Taken Type Metoprolol [Lopressor TAB] 50 mg PO BID #60 tablet 09/03/16 06/06/19 Unknown Rx Triamcinolone 0.1% [Kenalog 0.1% 1 applic TP BID #1 tube 01/20/17 06/06/19 Unknown Rx CREAM] Lispro Insulin [HumaLOG] 20 unit SQ TID 01/24/19 06/06/19 Unknown History Lyrica 300 mg PO DAILY 01/24/19 06/06/19 Unknown History Ondansetron [Zofran Odt] 4 mg PO Q4H PRN #15 tab.rapdis 01/28/19 06/06/19 Unknown Rx hydroCHLOROthiazide [HCTZ] 25 mg PO QDAY #30 tab 01/28/19 06/06/19 1 Day Ago Rx ~08/31/16 Percocet 7.5/325 mg 1 tab PO TID PRN 06/06/19 06/06/19 Unknown History HYDROcodone/APAP 5-325 [Gordon 1 each PO Q6HR PRN #14 tablet 07/19/19 Unknown Rx 5/325] Promethazine [Phenergan] 25 mg PO Q6HR PRN #20 tab 07/19/19 Unknown Rx levoFLOXacin [Levaquin TAB] 500 mg PO QDAY #7 tablet 07/19/19 Unknown Rx metroNIDAZOLE [Flagyl] 500 mg PO Q8HR #21 tablet 07/19/19 Unknown Rx ED Physical Exam - General Limitations: Altered Mental Status - Head Head exam: Present: atraumatic, normocephalic - Eye Eye exam: Present: normal appearance, PERRL, EOMI, other (pinpoint pupils) - ENT ENT exam: Present: mucous membranes moist - Neck Neck exam: Present: normal inspection - Respiratory Respiratory exam: Present: normal lung sounds bilaterally. Absent: respiratory distress - Cardiovascular Cardiovascular Exam: Present: regular rate, normal rhythm - GI/Abdominal GI/Abdominal exam: Present: soft, normal bowel sounds. Absent: distended, tenderness - Extremities Exam Extremities exam: Present: other (she has multiple ulcers on bilateral lower extremities that appear to be treated as they have bandage upon presentation) - Neurological Exam Neurological exam: Present: other (not able to thoroughly assess secondary to the patient's medical condition the patient does respond to painful stimuli and arouses to verbal stimuli) - Psychiatric Psychiatric exam: Present: other (not able to assess due to the patient's condition) ED Course Vital Signs 07/24/19 13:42 Pulse Rate 70 Respiratory 26 H Rate Blood Pressure 98/53 [Right] O2 Sat by Pulse 99 Oximetry ED Medical Decision Making - Lab Data Result diagrams: 07/24/19 14:07 07/24/19 14:07 Lab Results 07/24/19 07/24/19 07/24/19 Range/Units 13:59 14:07 14:07 WBC 11.9 H (4.5-11.0) K/mm3 RBC 4.74 (3.65-5.03) M/mm3 Hgb 11.9 (10.1-14.3) gm/dl Hct 37.3 (30.3-42.9) % MCV 79 (79-97) fl MCH 25 L (28-32) pg MCHC 32 (30-34) % RDW 17.5 H (13.2-15.2) % Plt Count 293 (140-440) K/mm3 Lymph % (Auto) 26.9 (13.4-35.0) % [place] % (Auto) 9.6 H (0.0-7.3) % Eos % (Auto) 1.9 (0.0-4.3) % Baso % (Auto) 0.5 (0.0-1.8) % Lymph # 3.2 (1.2-5.4) K/mm3 [place] # 1.1 H (0.0-0.8) K/mm3 Eos # 0.2 (0.0-0.4) K/mm3 Baso # 0.1 (0.0-0.1) K/mm3 Seg Neutrophils % 61.1 (40.0-70.0) % Seg Neutrophils # 7.3 (1.8-7.7) K/mm3 PT 13.0 (12.2-14.9) Sec. INR 1.01 (0.87-1.13) APTT 24.6 (24.2-36.6) Sec. Thrombin Time 18.2 (15.1-19.6) Sec. Sodium (137-145) mmol/L Potassium (3.6-5.0) mmol/L Chloride (98-107) mmol/L Carbon Dioxide (22-30) mmol/L Anion Gap mmol/L BUN (7-17) mg/dL Creatinine (0.7-1.2) mg/dL Estimated GFR ml/min BUN/Creatinine Ratio % Glucose (65-100) mg/dL POC Glucose 163 H (70-105) Calcium (8.4-10.2) mg/dL Total Bilirubin (0.1-1.2) mg/dL AST (5-40) units/L ALT (7-56) units/L Alkaline Phosphatase (35-129) units/L Total Creatine Kinase (30-135) units/L CK-MB (CK-2) (0.0-4.0) ng/mL CK-MB (CK-2) Rel Index (0-4) Troponin T (0.00-0.029) ng/mL Total Protein (6.3-8.2) g/dL Albumin (3.9-5) g/dL Albumin/Globulin Ratio % 07/24/19 Range/Units 14:07 WBC (4.5-11.0) K/mm3 RBC (3.65-5.03) M/mm3 Hgb (10.1-14.3) gm/dl Hct (30.3-42.9) % MCV (79-97) fl MCH (28-32) pg MCHC (30-34) % RDW (13.2-15.2) % Plt Count (140-440) K/mm3 Lymph % (Auto) (13.4-35.0) % [place] % (Auto) (0.0-7.3) % Eos % (Auto) (0.0-4.3) % Baso % (Auto) (0.0-1.8) % Lymph # (1.2-5.4) K/mm3 [place] # (0.0-0.8) K/mm3 Eos # (0.0-0.4) K/mm3 Baso # (0.0-0.1) K/mm3 Seg Neutrophils % (40.0-70.0) % Seg Neutrophils # (1.8-7.7) K/mm3 PT (12.2-14.9) Sec. INR (0.87-1.13) APTT (24.2-36.6) Sec. Thrombin Time (15.1-19.6) Sec. Sodium 139 (137-145) mmol/L Potassium 3.0 L (3.6-5.0) mmol/L Chloride 100.5 (98-107) mmol/L Carbon Dioxide 23 (22-30) mmol/L Anion Gap 19 mmol/L BUN 22 H (7-17) mg/dL Creatinine 1.1 (0.7-1.2) mg/dL Estimated GFR > 60 ml/min BUN/Creatinine Ratio 20 % Glucose 170 H (65-100) mg/dL POC Glucose (70-105) Calcium 9.7 (8.4-10.2) mg/dL Total Bilirubin 0.20 (0.1-1.2) mg/dL AST 11 (5-40) units/L ALT 8 (7-56) units/L Alkaline Phosphatase 152 H (35-129) units/L Total Creatine Kinase 34 (30-135) units/L CK-MB (CK-2) 1.6 (0.0-4.0) ng/mL CK-MB (CK-2) Rel Index 4.7 H (0-4) Troponin T 0.026 (0.00-0.029) ng/mL Total Protein 7.5 (6.3-8.2) g/dL Albumin 3.6 L (3.9-5) g/dL Albumin/Globulin Ratio 0.9 % - EKG Data -: EKG Interpreted by Me EKG shows normal: sinus rhythm Rate: normal Critical Care Time: Yes Critical care time in (mins) excluding proc time.: 45 Critical care attestation.: If time is entered above; I have spent that time in minutes in the direct care of this critically ill patient, excluding procedure time. ED Disposition Clinical Impression: Altered mental status Is pt being admited?: Yes Does the pt Need Aspirin: No Condition: Fair Referrals: [facility] MD VINICIO [Primary Care Provider] - 3-5 Days - Assessment Assessment Interval: Baseline - Level of Consciousness 1a. Level of Consciousness: arousable/minor stimuli - LOC Questions 1b. LOC Questions: answers no questions correctly - LOC Command 1c. LOC Commands: performs no tasks correctly - Best Gaze 2. Best Gaze: normal - Visual 3. Visual: no visual loss - Facial Palsy 4. Facial Palsy: normal symmetrical movement - Motor Arm 5a. Motor Arm Left: no gravity effort 5b. Motor Arm Right: no gravity effort - Motor Leg 6a. Motor Leg Left: no gravity effort 6b. Motor Leg Right: no gravity effort - Limb Ataxia 7. Limb Ataxia: absent - Sensory 8. Sensory: normal - Best Language 9. Best Language: mute/global aphasia - Dysarthria 10. Dysarthria: mute/anarrthric - Extinction and Inattention 11. Extinction/Inattention: no abnormality - Scoring Total Score: 22 Stroke Severity: Severe Stroke
[2019-07-24] MEDS ORDERED: ROCEPHIN/NS 1 GM/50 ML 1 GM/50 ML BAG IV ONE ×2 (15:44→16:57)
[2019-07-24 16:16] LABS: Bilirubin,Urine NEG (Negative); Blood,Urine NEG (Negative); Color,Urine Yellow (Yellow); Mucus,Urine FEW /HPF; Urobilinogen,Urine < 2.0 mg/dL (<2.0)
[2019-07-24 16:20] LABS: Amphetamine Screen,Urine PRESUMPTIVE NEGATIVE; Benzodiazepines Screen,Urine PRESUMPTIVE NEGATIVE; Cannabinoid Screen,Urine PRESUMPTIVE NEGATIVE; Cocaine Screen,Urine PRESUMPTIVE NEGATIVE; Methadone Screen,Urine PRESUMPTIVE NEGATIVE; Opiate Screen,Urine PRESUMPTIVE NEGATIVE
[2019-07-24] MEDS ORDERED: ZOFRAN IV PRN (22:28)
[2019-07-24] MEDS ORDERED: REGLAN IV PRN (22:28)
[2019-07-24] MEDS ORDERED: SODIUM CHLORIDE FLUSH SYRINGE 10 ML IV PRN (22:28)
[2019-07-24] MEDS ORDERED: TYLENOL PO PRN (22:28)
--- NOTE | 2019-07-24 22:38 | History and Physical Report ---
History of Present Illness Date of examination: 07/24/19 Date of admission: 07/24/19 15:56 Chief complaint: Sudden onset of unresponsiveness 1 hr ago History of present illness: 53 y/o AAF with pmh of IDDM presents to the emergency department after becoming unresponsive while shopping at [facility]. Per EMS the patient was in a wheelchair and apparently in the [facility] she slouched to the left side and became difficult to arouse. Upon arrival the patient's blood pressure was possibly 60s over 30s. It is reported that the patient had recent evaluation for nausea, vomiting, diarrhea. BG not available.In the Ed patient was responsive and talking on phone.No fever or chills. Past Medical History Hypertension: Yes Diabetes: Yes Additional medical history: pyoderma gangrenosum. osteomyelitis Surgical History Additional Surgical History: left LE. umbilical biopsy Social History Smoking Status: Unknown if ever smoked Medications Home Medications: Home Medications Medication Instructions Recorded Confirmed Last Taken Type Metoprolol [Lopressor TAB] 50 mg PO BID #60 tablet 09/03/16 06/06/19 Unknown Rx Triamcinolone 0.1% [Kenalog 0.1% 1 applic TP BID #1 tube 01/20/17 06/06/19 Unknown Rx CREAM] Lispro Insulin [HumaLOG] 20 unit SQ TID 01/24/19 06/06/19 Unknown History Lyrica 300 mg PO DAILY 01/24/19 06/06/19 Unknown History Ondansetron [Zofran Odt] 4 mg PO Q4H PRN #15 tab.rapdis 01/28/19 06/06/19 Unknown Rx hydroCHLOROthiazide [HCTZ] 25 mg PO QDAY #30 tab 01/28/19 06/06/19 1 Day Ago Rx ~08/31/16 Percocet 7.5/325 mg 1 tab PO TID PRN 06/06/19 06/06/19 Unknown History HYDROcodone/APAP 5-325 [Arabi 1 each PO Q6HR PRN #14 tablet 07/19/19 Unknown Rx 5/325] Promethazine [Phenergan] 25 mg PO Q6HR PRN #20 tab 07/19/19 Unknown Rx levoFLOXacin [Levaquin TAB] 500 mg PO QDAY #7 tablet 07/19/19 Unknown Rx metroNIDAZOLE [Flagyl] 500 mg PO Q8HR #21 tablet 07/19/19 Unknown Rx Review of Systems ROS: Stated complaint: AMS Other details as noted in HPI Comment: Unobtainable due to pts medical conditions Medications and Allergies Allergies Allergy/AdvReac Type Severity Reaction Status Date / Time No Known Allergies Allergy Verified 02/18/19 22:39 Home Medications Medication Instructions Recorded Confirmed Last Taken Type Metoprolol [Lopressor TAB] 50 mg PO BID #60 tablet 09/03/16 07/24/19 Unknown Rx Triamcinolone 0.1% [Kenalog 0.1% 1 applic TP BID #1 tube 01/20/17 07/24/19 Unknown Rx CREAM] Lispro Insulin [HumaLOG] 20 unit SQ TID 01/24/19 07/24/19 Unknown History Lyrica 300 mg PO DAILY 01/24/19 07/24/19 Unknown History Ondansetron [Zofran Odt] 4 mg PO Q4H PRN #15 tab.rapdis 01/28/19 07/24/19 Unknown Rx hydroCHLOROthiazide [HCTZ] 25 mg PO QDAY #30 tab 01/28/19 07/24/19 1 Day Ago Rx ~08/31/16 Percocet 7.5/325 mg 1 tab PO TID PRN 06/06/19 07/24/19 Unknown History HYDROcodone/APAP 5-325 [Arabi 1 each PO Q6HR PRN #14 tablet 07/19/19 07/24/19 Unknown Rx 5/325] Promethazine [Phenergan] 25 mg PO Q6HR PRN #20 tab 07/19/19 07/24/19 Unknown Rx levoFLOXacin [Levaquin TAB] 500 mg PO QDAY #7 tablet 07/19/19 07/24/19 Unknown Rx metroNIDAZOLE [Flagyl] 500 mg PO Q8HR #21 tablet 07/19/19 07/24/19 Unknown Rx Exam - Constitutional Vitals: Temp Pulse Resp BP Pulse Ox 98.1 F 78 20 184/86 99 07/24/19 20:40 07/24/19 20:40 07/24/19 20:40 07/24/19 20:40 07/24/19 20:40 General appearance: Present: no acute distress, well-nourished - EENT Eyes: Present: PERRL ENT: hearing intact, clear oral mucosa - Neck Neck: Present: supple, normal ROM - Respiratory Respiratory effort: normal Respiratory: bilateral: CTA - Cardiovascular Heart rate: 78 Rhythm: regular Heart Sounds: Present: S1 & S2. Absent: rub, click - Extremities Extremities: no ischemia, pulses intact, pulses symmetrical, No edema Peripheral Pulses: within normal limits - Abdominal General gastrointestinal: Present: soft, non-tender, non-distended, normal bowel sounds Female genitourinary: Present: normal - Rectal Rectal Exam: deferred - Integumentary Integumentary: Present: clear, warm, dry - Musculoskeletal Musculoskeletal: gait normal, strength equal bilaterally - Psychiatric Psychiatric: appropriate mood/affect, intact judgment & insight - Neurologic Neurologic: CNII-XII intact, moves all extremities - Allied Health Allied health notes reviewed: nursing, case management Results - Labs CBC & Chem 7: 07/25/19 04:30 07/25/19 04:30 Labs: Laboratory Last Values WBC 11.9 K/mm3 (4.5-11.0) H 07/24/19 14:07 RBC 4.74 M/mm3 (3.65-5.03) 07/24/19 14:07 Hgb 11.9 gm/dl (10.1-14.3) 07/24/19 14:07 Hct 37.3 % (30.3-42.9) 07/24/19 14:07 MCV 79 fl (79-97) 07/24/19 14:07 MCH 25 pg (28-32) L 07/24/19 14:07 MCHC 32 % (30-34) 07/24/19 14:07 RDW 17.5 % (13.2-15.2) H 07/24/19 14:07 Plt Count 293 K/mm3 (140-440) 07/24/19 14:07 Lymph % (Auto) 26.9 % (13.4-35.0) 07/24/19 14:07 [place] % (Auto) 9.6 % (0.0-7.3) H 07/24/19 14:07 Eos % (Auto) 1.9 % (0.0-4.3) 07/24/19 14:07 Baso % (Auto) 0.5 % (0.0-1.8) 07/24/19 14:07 Lymph # 3.2 K/mm3 (1.2-5.4) 07/24/19 14:07 [place] # 1.1 K/mm3 (0.0-0.8) H 07/24/19 14:07 Eos # 0.2 K/mm3 (0.0-0.4) 07/24/19 14:07 Baso # 0.1 K/mm3 (0.0-0.1) 07/24/19 14:07 Seg Neutrophils % 61.1 % (40.0-70.0) 07/24/19 14:07 Seg Neutrophils # 7.3 K/mm3 (1.8-7.7) 07/24/19 14:07 PT 13.0 Sec. (12.2-14.9) 07/24/19 14:07 INR 1.01 (0.87-1.13) 07/24/19 14:07 APTT 24.6 Sec. (24.2-36.6) 07/24/19 14:07 18.2 Sec. (15.1-19.6) 07/24/19 14:07 Sodium 139 mmol/L (137-145) 07/24/19 14:07 Potassium 3.0 mmol/L (3.6-5.0) L 07/24/19 14:07 Chloride 100.5 mmol/L (98-107) 07/24/19 14:07 Carbon Dioxide 23 mmol/L (22-30) 07/24/19 14:07 19 mmol/L 07/24/19 14:07 BUN 22 mg/dL (7-17) H 07/24/19 14:07 1.1 mg/dL (0.7-1.2) 07/24/19 14:07 Estimated GFR > 60 ml/min 07/24/19 14:07 20 % 07/24/19 14:07 Glucose 170 mg/dL (65-100) H 07/24/19 14:07 POC Glucose 163 (70-105) H 07/24/19 13:59 Calcium 9.7 mg/dL (8.4-10.2) 07/24/19 14:07 0.20 mg/dL (0.1-1.2) 07/24/19 14:07 AST 11 units/L (5-40) 07/24/19 14:07 ALT 8 units/L (7-56) 07/24/19 14:07 152 units/L (35-129) H 07/24/19 14:07 34 units/L (30-135) 07/24/19 14:07 CK-MB (CK-2) 1.6 ng/mL (0.0-4.0) 07/24/19 14:07 CK-MB (CK-2) Rel Index 4.7 (0-4) H 07/24/19 14:07 0.021 ng/mL (0.00-0.029) 07/24/19 16:13 7.5 g/dL (6.3-8.2) 07/24/19 14:07 3.6 g/dL (3.9-5) L 07/24/19 14:07 0.9 % 07/24/19 14:07 Yellow (Yellow) 07/24/19 15:42 Slightly-cloudy (Clear) 07/24/19 15:42 6.0 (5.0-7.0) 07/24/19 15:42 Ur Specific [place]att 1.017 (1.003-1.030) 07/24/19 15:42 30 mg/dl mg/dL (Negative) 07/24/19 15:42 Neg mg/dL (Negative) 07/24/19 15:42 Neg mg/dL (Negative) 07/24/19 15:42 Neg (Negative) 07/24/19 15:42 Pos (Negative) 07/24/19 15:42 Neg (Negative) 07/24/19 15:42 < 2.0 mg/dL (<2.0) 07/24/19 15:42 Ur Leukocyte Esterase Sm (Negative) 07/24/19 15:42 15.0 /HPF (0.0-6.0) H 07/24/19 15:42 1.0 /HPF (0.0-6.0) 07/24/19 15:42 U Epithel Cells (Auto) 2.0 /HPF (0-13.0) 07/24/19 15:42 Few /HPF 07/24/19 15:42 Presumptive negative 07/24/19 15:42 Presumptive negative 07/24/19 15:42 Ur Barbiturates Screen Presumptive negative 07/24/19 15:42 Ur Phencyclidine Scrn Presumptive negative 07/24/19 15:42 Ur Amphetamines Screen Presumptive negative 07/24/19 15:42 U Benzodiazepines Scrn Presumptive negative 07/24/19 15:42 Presumptive negative 07/24/19 15:42 U Marijuana (THC) Screen Presumptive negative 07/24/19 15:42 Disclamer 07/24/19 15:42 Short CBC 07/24/19 07/25/19 Range/Units 14:07 04:30 WBC 11.9 H 10.1 (4.5-11.0) K/mm3 Hgb 11.9 11.6 (10.1-14.3) gm/dl Hct 37.3 35.7 (30.3-42.9) % Plt Count 293 239 (140-440) K/mm3 BMP 07/24/19 07/25/19 14:07 04:30 Sodium 139 136 L Potassium 3.0 L 3.6 Chloride 100.5 98.4 Carbon Dioxide 23 25 BUN 22 H 22 H Creatinine 1.1 1.2 Glucose 170 H 333 H Calcium 9.7 9.2 Cardiac Enzymes 07/24/19 07/24/19 Range/Units 14:07 16:13 Total Creatine Kinase 34 (30-135) units/L CK-MB (CK-2) 1.6 (0.0-4.0) ng/mL Troponin T 0.026 0.021 (0.00-0.029) ng/mL Liver Function 07/24/19 07/25/19 Range/Units 14:07 04:30 Total Bilirubin 0.20 0.20 (0.1-1.2) mg/dL AST 11 20 (5-40) units/L ALT 8 12 (7-56) units/L Alkaline Phosphatase 152 H 149 H (35-129) units/L Albumin 3.6 L 3.4 L (3.9-5) g/dL Urine 07/24/19 Range/Units 15:42 Urine Color Yellow (Yellow) Urine pH 6.0 (5.0-7.0) Ur Specific Pyatt 1.017 (1.003-1.030) Urine Protein 30 mg/dl (Negative) mg/dL Urine Glucose (UA) Neg (Negative) mg/dL - Imaging and Cardiology EKG: report reviewed Chest x-ray: report reviewed CT Scan - head: report reviewed Imaging and Cardiology: Head CTA ,Neck CTA Cxr and Head Ct --NAF Assessment and Plan Advance Directives: Yes (Full code) VTE prophylaxis?: Chemical Plan of care discussed with patient/family: Yes - Patient Problems (1) Acute metabolic encephalopathy Current Visit: No Status: Acute Plan to address problem: Probably Hypoglycemic No BG done at scene Patient became very responsive in ED and was talking on phone Moving all 4 extremities CVA unlikely No CVA work up initiated Had CTA's of head and neck which were negative (2) IDDM (insulin dependent diabetes mellitus) Current Visit: Yes Status: Chronic Plan to address problem: Cont Home Insulin and coverage Check A1c (3) Dehydration Current Visit: Yes Status: Acute Plan to address problem: IV fluids for now (4) UTI (urinary tract infection) Current Visit: No Status: Acute Plan to address problem: On IV Rocephin pending cultures (5) DVT prophylaxis Current Visit: Yes Status: Acute Plan to address problem: On Lovenox and GI prophylaxis
[2019-07-24] MEDS ORDERED: NACL 0.9% 1000 ML 1,000 ML IV SCH (23:00)
[2019-07-24] MEDS: DILAUDID IV PRN (23:28)
[2019-07-24] MEDS: PEPCID IV SCH (23:40)
[2019-07-25] MEDS: SODIUM CHLORIDE FLUSH SYRINGE 10 ML IV SCH ×2 (01:37→10:00)
--- NOTE | 2019-07-25 02:18 | Cat Scan Report ---
HEAD CT ANGIOGRAM 07/25/2019 HISTORY: Altered mental status FINDINGS: Contrast-enhanced CT angiographic images of the intracranial circulation were obtained. In addition to the axial images, sagittal and coronal reformatted images were obtained. In addition, 3 p rafeal MIP reconstructions were produced. Images are obtained on an emergency basis Atherosclerotic vascular calcifications are associated with the distal left internal carotid artery, no evidence of occlusion or significant stenosis. Vertebrobasilar system is unremarkable. Intracranial vascular contours are unremarkable. IMPRESSION: No significant abnormality. No CT angiographic correlate for altered mental status noted. All CT scans at this location are performed using dose reduction to ALARA by means of automated expos ure control. Signer Name: Jed Hodge MD Signed: 07/25/2019 2:13 AM Workstation Name: [id number]
--- NOTE | 2019-07-25 02:21 | Cat Scan Report ---
NECK CT ANGIOGRAM 07/25/2019 HISTORY: Altered mental status FINDINGS: Contrast-enhanced CT angiographic images of the neck were obtained. In addition to the axia l images, sagittal and coronal reformatted images were obtained. In addition, 3 plane MIP reconstruct ions were produced. Obtained emergency basis. There is no significant abnormality. Mild atherosclerotic vascular calcifications are present in the left carotid bifurcation, with no ina dence of significant or measurable stenosis. Internal and common carotid arteries are unremarkable. Vertebral artery contours are normal. Visualized portions of the aortic arch are unremarkable. IMPRESSION: No significant abnormality. NASCET like criteria were used in this evaluation. All CT scans at this location are performed using dose reduction to ALARA by means of automated expos ure control. Signer Name: Jed Hodge MD Signed: 07/25/2019 2:16 AM Workstation Name: [id number]
[2019-07-25 05:02] LABS: Basophils # (Auto) 0.1 K/mm3 (0.0-0.1); Basophils % (Auto) 0.6 % (0.0-1.8); Eosinophils # (Auto) 0.1 K/mm3 (0.0-0.4); Eosinophils % (Auto) 0.5 % (0.0-4.3); Hematocrit 35.7 % (30.3-42.9); Hemoglobin 11.6 gm/dl (10.1-14.3); Lymphocytes # (Auto) 3.2 K/mm3 (1.2-5.4); Lymphocytes % (Auto) 32.1 % (13.4-35.0); Mean Corpuscular HGB Conc 33 % (30-34); Mean Corpuscular Volume 79 fl (79-97); Monocytes # (Auto) 1.1 K/mm3 (0.0-0.8); Platelet Count 239 K/mm3 (140-440); Red Blood Count 4.52 M/mm3 (3.65-5.03); Red Cell Distribution Width 17.7 % (13.2-15.2)
[2019-07-25 07:13] LABS: Albumin 3.4 g/dL (3.9-5); Calcium 9.2 mg/dL (8.4-10.2)
[2019-07-25] MEDS: HumaLOG SUB-Q SCH ×2 (08:30→08:31)
--- NOTE | 2019-07-25 09:37 | Vascular Lab Report ---
BILATERAL CAROTID DOPPLER ULTRASOUND INDICATION : altered mental status TECHNIQUE: Grayscale and color Doppler imaging performed through the neck. COMPARISON: None FINDINGS: Right: There is mild partially calcified plaque in the distal CCA. Peak systolic velocity in the CC A is 65 cm/s with end-diastolic velocity of 13 cm/s. Peak systolic velocity in the proximal ICA is 66 cm/s with end-diastolic velocity of 19 cm/s. ICA to CCA ratio is less than 2. There is antegrade fl ow in the ECA and the vertebral artery. Left: There is mild intimal hyperplasia and focal calcific plaques in the CCA. Peak systolic velocity in the CCA is 53 cm/s with end-diastolic velocity of 15 cm/s. Peak systolic velocity in the proximal ICA is 89 cm/s with end-diastolic velocity of 21 cm/s. ICA to CCA ratio is less than 2. There is ant egrade flow in the ECA and the vertebral artery. IMPRESSION: No hemodynamically significant stenosis by NASCET criteria. Signer Name: Adilson Westfall Jr, MD Signed: 07/25/2019 9:33 AM Workstation Name: [id number]
[2019-07-25] MEDS ORDERED: ROCEPHIN/NS 1 GM/50 ML 1 GM/50 ML BAG IV SCH (10:00)
[2019-07-25] MEDS: PEPCID IV SCH (10:07)
[2019-07-25] MEDS: DILAUDID IV PRN (10:23)
--- NOTE | 2019-07-25 12:00 | Progress Note ---
Assessment and Plan / Acute metabolic encephalopathy with syncope Probably Hypoglycemic/hyperglycemic vs UTI vs hypo-tension No BG done at scene, BP was (60s/30s) on admission Patient became very responsive in ED and was talking on phone Moving all 4 extremities, CVA unlikely No CVA work up initiated Had CTA's of head and neck which were negative negative carotid doppler Negative orthostatic cont to monitor clinically ordered 2d echo / IDDM (insulin dependent diabetes mellitus) Cont Home Insulin and coverage A1c - 7.4 /Chronic b/l LE wound, wound care /HTN, uncontrolled - resume home meds / Dehydration IV fluids for now /hypokalemia, repleted / UTI (urinary tract infection) On IV Rocephin pending cultures / DVT prophylaxis On Lovenox and GI prophylaxis Disposition: d/c home likely in the am when BP stabilizes and clears by PT Brief history: 53 y/o AAF with pmh of IDDM presents to the emergency department after becoming unresponsive while shopping at [employer]. Per EMS the patient was in a wheelchair and apparently in the [facility], [place] she slouched to the left side and became difficult to arouse. Upon arrival the patient's blood pressure was possibly 60s over 30s. It is reported that the patient had recent evaluation for nausea, vomiting, diarrhea. In the Ed patient was responsive and talking on phone. Admitted for further Mx Hospitalist physical: GENERAL: well-developed and well-nourished elderly AAF lying on bed appeared to be in no discomfort. HEENT: Normocephalic. Atraumatic. No conjunctival congestion or icterus. Patient has moist mucous membranes. NECK: Supple. Trachea midline. CHEST/LUNGS: Clear to auscultated bilaterally, breathing nonlabored. No wheezes crackles or rhonchi. HEART/CARDIOVASCULAR: Regular in rate and rhythm. S1 and S2 positive. ABDOMEN: Abdomen is soft, nontender. Patient has normal bowel sounds. SKIN: There is no rash. Warm and dry. NEURO: No focal motor deficit. Follows command. MUSCULOSKELETAL: No joint effusion or tenderness. EXTRIMITY: No edema, dressing on b/l LE PSYCH: Cooperative. Subjective Date of service: 07/25/19 Interval history: Patient seen and examined. Medical records and medication list reviewed. No acute event overnight noted by the RN. Patient denies any chest pain or difficulty breathing. Patient is tolerating diet. Discussed plan of care at bedside with patient. Objective - Constitutional Vitals: Vital Signs - 12hr 07/25/19 07/25/19 07/25/19 01:58 02:02 02:59 Temperature Pulse Rate Respiratory Rate Blood Pressure 189/86 189/86 189/86 O2 Sat by Pulse 100 87 85 Oximetry 07/25/19 07/25/19 07/25/19 03:00 03:11 03:39 Temperature Pulse Rate Respiratory Rate Blood Pressure 189/86 189/86 189/86 O2 Sat by Pulse 82 L Oximetry 07/25/19 07/25/19 07/25/19 03:44 04:00 05:52 Temperature 98.2 F Pulse Rate 82 Respiratory 18 Rate Blood Pressure 189/86 189/86 147/67 O2 Sat by Pulse 97 Oximetry - Labs CBC & Chem 7: 07/25/19 04:30 07/25/19 04:30 Labs: Abnormal lab results 07/24/19 07/24/19 07/24/19 Range/Units 13:59 14:07 14:07 WBC 11.9 H (4.5-11.0) K/mm3 MCH 25 L (28-32) pg RDW 17.5 H (13.2-15.2) % Owsley % (Auto) 9.6 H (0.0-7.3) % Owsley # 1.1 H (0.0-0.8) K/mm3 Sodium (137-145) mmol/L Potassium 3.0 L (3.6-5.0) mmol/L BUN 22 H (7-17) mg/dL Glucose 170 H (65-100) mg/dL POC Glucose 163 H (70-105) Hemoglobin A1c (4-6) % Alkaline Phosphatase 152 H (35-129) units/L CK-MB (CK-2) Rel Index 4.7 H (0-4) Albumin 3.6 L (3.9-5) g/dL Urine WBC (Auto) (0.0-6.0) /HPF 07/24/19 07/24/19 07/24/19 Range/Units 15:42 22:46 23:01 WBC (4.5-11.0) K/mm3 MCH (28-32) pg RDW (13.2-15.2) % Owsley % (Auto) (0.0-7.3) % Owsley # (0.0-0.8) K/mm3 Sodium (137-145) mmol/L Potassium (3.6-5.0) mmol/L BUN (7-17) mg/dL Glucose (65-100) mg/dL POC Glucose 376 H (70-105) Hemoglobin A1c 7.4 H (4-6) % Alkaline Phosphatase (35-129) units/L CK-MB (CK-2) Rel Index (0-4) Albumin (3.9-5) g/dL Urine WBC (Auto) 15.0 H (0.0-6.0) /HPF 07/25/19 07/25/19 07/25/19 Range/Units 04:30 04:30 07:49 WBC (4.5-11.0) K/mm3 MCH 26 L (28-32) pg RDW 17.7 H (13.2-15.2) % Owsley % (Auto) 11.0 H (0.0-7.3) % Owsley # 1.1 H (0.0-0.8) K/mm3 Sodium 136 L (137-145) mmol/L Potassium (3.6-5.0) mmol/L BUN 22 H (7-17) mg/dL Glucose 333 H (65-100) mg/dL POC Glucose 259 H (70-105) Hemoglobin A1c (4-6) % Alkaline Phosphatase 149 H (35-129) units/L CK-MB (CK-2) Rel Index (0-4) Albumin 3.4 L (3.9-5) g/dL Urine WBC (Auto) (0.0-6.0) /HPF
[2019-07-25] MEDS ORDERED: HumaLOG SUB-Q SCH ×2 (12:30→23:21)
[2019-07-25] MEDS ORDERED: HumuLIN R SUB-Q SCH (12:30)
[2019-07-25 12:35] VITALS: BP 173/96
[2019-07-25] MEDS ORDERED: HCTZ PO SCH (14:00)
[2019-07-25] MEDS ORDERED: KENALOG TP SCH (14:00)
[2019-07-25] MEDS ORDERED: LOPRESSOR PO SCH (14:00)
[2019-07-25] MEDS ORDERED: PREGABALIN PO SCH (18:00)
[2019-07-25] MEDS ORDERED: LOVENOX SUB-Q SCH (22:00)
[2019-07-26] MEDS ORDERED: LYRICA 300 MG PO SCH (10:00)
== END 2019-07-25 14:30 | disposition left against medical advice (07) | DRG 689 ==
LOC: ED 13:38 → 3A 15:56
PROVIDERS: ADMIT Internal Medicine; ATTEND Internal Medicine
DX: N39.0 Urinary tract infection, site not specified (principal); G93.41 Metabolic encephalopathy; E11.649 Type 2 diabetes mellitus with hypoglycemia without coma; Z79.4 Long term (current) use of insulin; E86.0 Dehydration; E87.6 Hypokalemia; I95.9 Hypotension, unspecified; S81.802A Unspecified open wound, left lower leg, initial encounter; S81.801A Unspecified open wound, right lower leg, initial encounter; I10 Essential (primary) hypertension; Y93.89 Activity, other specified; Y92.89 Other specified places as the place of occurrence of the external cause; Y99.8 Other external cause status; Z79.899 Other long term (current) drug therapy
CPT/HCPCS: 36415; 70450; 70496; 70498; 71045; 80053; 80307; 81001; 82550; 82553; 82962; 83036; 84484; 85025; 85610; 85670; 85730; 87086; 93005; 93010; 93880; 94760; 96361; 96365; 96375; G0378; J0696; J1170; J1815; J2310; J2405; Q9967

== ENCOUNTER 2019-10-11 20:54 | Emergency (ER) | payer MEDICAID ==
[2019-10-11] MEDS ORDERED: SODIUM CHLORIDE 0.9% 1000 ML 1,000 ML IV ONE (21:23)
[2019-10-11] MEDS ORDERED: MORPHINE 4 MG/1 ML INJ IV ONE (21:38)
[2019-10-11] MEDS ORDERED: ONDANSETRON 4 MG/2 ML INJ IV ONE (21:38)
[2019-10-11 22:03] LABS: Basophils # (Auto) 0.3 K/mm3 (0.0-0.1); Basophils % (Auto) 2.5 % (0.0-1.8); Eosinophils # (Auto) 0.3 K/mm3 (0.0-0.4); Eosinophils % (Auto) 2.2 % (0.0-4.3); Hematocrit 38.8 % (30.3-42.9); Hemoglobin 12.7 gm/dl (10.1-14.3); Lymphocytes # (Auto) 2.7 K/mm3 (1.2-5.4); Lymphocytes % (Auto) 23.6 % (13.4-35.0); Mean Corpuscular HGB Conc 33 % (30-34); Mean Corpuscular Volume 79 fl (79-97); Monocytes # (Auto) 1.1 K/mm3 (0.0-0.8); Platelet Count 257 K/mm3 (140-440); Red Blood Count 4.93 M/mm3 (3.65-5.03); Red Cell Distribution Width 17.4 % (13.2-15.2)
--- NOTE | 2019-10-11 22:07 | Emergency Department Report ---
<NELI BARTON - Last Filed: 10/12/19 02:46> ED General Adult HPI - General Chief complaint: High BP Stated complaint: HYPERTENSION Time Seen by Provider: 10/11/19 21:21 Source: EMS Mode of arrival: Ambulatory Limitations: Physical Limitation - History of Present Illness Initial comments: 53-year-old -[place] female with a past medical history of diabetes and hypertension, presents to the emergency room stating that she has elevated blood pressure and has back spasms that has pain 10 out of 10. And severe hyper tension. Patient states she has multiple wounds in her legs that are leaking with a diagnosis of Pyoderma gangrenosum. Patient reports that she recently had her blood pressure medication changed from Lopressor to lisinopril and hydrochlorothiazide at the end of July. Patient reports she is followed by [facility]. -: This evening Severity scale (0 -10): 8 - Related Data Home Medications Medication Instructions Recorded Confirmed Last Taken Lispro Insulin [HumaLOG] 20 unit SQ TID 01/24/19 07/24/19 Unknown Lyrica 300 mg PO DAILY 01/24/19 07/24/19 Unknown Percocet 7.5/325 mg 1 tab PO TID PRN 06/06/19 07/24/19 Unknown Previous Rx's Medication Instructions Recorded Last Taken Type Metoprolol [Lopressor TAB] 50 mg PO BID #60 tablet 09/03/16 Unknown Rx Triamcinolone 0.1% [Kenalog 0.1% 1 applic TP BID #1 tube 01/20/17 Unknown Rx CREAM] Ondansetron [Zofran Odt] 4 mg PO Q4H PRN #15 tab.rapdis 01/28/19 Unknown Rx hydroCHLOROthiazide [HCTZ] 25 mg PO QDAY #30 tab 01/28/19 1 Day Ago Rx ~08/31/16 HYDROcodone/APAP 5-325 [Boss 1 each PO Q6HR PRN #14 tablet 07/19/19 Unknown Rx 5/325] Promethazine [Phenergan] 25 mg PO Q6HR PRN #20 tab 07/19/19 Unknown Rx levoFLOXacin [Levaquin TAB] 500 mg PO QDAY #7 tablet 07/19/19 Unknown Rx metroNIDAZOLE [Flagyl] 500 mg PO Q8HR #21 tablet 07/19/19 Unknown Rx Allergies Allergy/AdvReac Type Severity Reaction Status Date / Time No Known Allergies Allergy Verified 02/18/19 22:39 ED Past Medical Hx - Past Medical History Previous Medical History?: Yes Hx Hypertension: Yes Hx CVA: No Hx Heart Attack/AMI: No Hx Congestive Heart Failure: No Hx Diabetes: Yes Hx Deep Vein Thrombosis: No Hx Pulmonary Embolism: No Hx GERD: No Hx Liver Disease: No Hx Renal Disease: No Hx of Cancer: No Hx Sickle Cell Disease: No Hx Arthritis: No Hx Headaches / Migraines: No Hx Seizures: No Hx Kidney Stones: No Hx Psychiatric Treatment: No Hx Asthma: No Hx COPD: No Hx Tuberculosis: No Hx Dementia: No Hx HIV: Yes (Pt denies h/o.) Additional medical history: pyoderma gangrenosum. osteomyelitis - Surgical History Past Surgical History?: Yes Hx Coronary Stent: No Hx Open Heart Surgery: No Hx Pacemaker: No Hx Internal Defibrillator: No Hx Cholecystectomy: No Hx Appendectomy: No Hx Breast Surgery: No Additional Surgical History: left LE. umbilical biopsy - Social History Smoking Status: Former Smoker Substance Use Type: None - Medications Home Medications: Home Medications Medication Instructions Recorded Confirmed Last Taken Type Metoprolol [Lopressor TAB] 50 mg PO BID #60 tablet 09/03/16 07/24/19 Unknown Rx Triamcinolone 0.1% [Kenalog 0.1% 1 applic TP BID #1 tube 01/20/17 07/24/19 Unknown Rx CREAM] Lispro Insulin [HumaLOG] 20 unit SQ TID 01/24/19 07/24/19 Unknown History Lyrica 300 mg PO DAILY 01/24/19 07/24/19 Unknown History Ondansetron [Zofran Odt] 4 mg PO Q4H PRN #15 tab.rapdis 01/28/19 07/24/19 Unknown Rx hydroCHLOROthiazide [HCTZ] 25 mg PO QDAY #30 tab 01/28/19 07/24/19 1 Day Ago Rx ~08/31/16 Percocet 7.5/325 mg 1 tab PO TID PRN 06/06/19 07/24/19 Unknown History HYDROcodone/APAP 5-325 [Boss 1 each PO Q6HR PRN #14 tablet 07/19/19 07/24/19 Unknown Rx 5/325] Promethazine [Phenergan] 25 mg PO Q6HR PRN #20 tab 07/19/19 07/24/19 Unknown Rx levoFLOXacin [Levaquin TAB] 500 mg PO QDAY #7 tablet 07/19/19 07/24/19 Unknown Rx metroNIDAZOLE [Flagyl] 500 mg PO Q8HR #21 tablet 07/19/19 07/24/19 Unknown Rx ED Physical Exam - General Limitations: Physical Limitation ED Medical Decision Making - Lab Data Result diagrams: 10/11/19 21:42 10/11/19 21:42 - Radiology Data Radiology results: report reviewed Patient: ROS COYLE MR#: [id number] : 1965 Acct:[id number] Age/Sex: 53 / F ADM Date: 10/11/19 Loc: ED Attending Dr: Ordering Physician: GUTIERREZ KATHLEEN Date of Service: 10/11/19 Procedure(s): CT angio chest Accession Number(s): [id number] cc: GUTIERREZ KATHLEEN CTA CHEST WITH IV CONTRAST, 10/12/2019 INDICATION: Chest pain TECHNIQUE: Axial CT images were obtained through the chest after injection of IV contrast. Coronal oblique 2- D reconstruction images were produced. 3 plane MIP reconstruction images were produced at an independent workstation. All CTs at this facility utilize dose reduction techniques including automated exposure control, iterative reconstruction and weight based dosing when appropriate to reduce patient radiation dose to as low as reasonable achievable. COMPARISON: Chest radiograph, 07/24/2019 FINDINGS: Evaluation of the pulmonary arteries demonstrates no central or segmental filling defect to suggest pulmonary embolism. The heart is normal in size. The thoracic aorta is normal in course and caliber. Evaluation of the lung parenchyma demonstrates dependent atelectasis. There is no focal airspace disease or pleural effusion. Limited imaging of the upper abdomen shows no acute abnormality. Evaluation of bony structures demonstrates no evidence of acute bony abnormality. Soft tissue structures appear normal. IMPRESSION: 1. No evidence of pulmonary embolism or acute parenchymal process. Signer Name: Radha To MD Signed: 10/12/2019 3:10 AM Workstation Name: [id number] Transcribed By: EB Dictated By: Radha To MD Electronically Authenticated By: Radha To MD Signed Date/Time: 10/12/19309 DD/ 0306 TD/TT: ED Disposition Clinical Impression: Malignant hypertension, Back pain Disposition: DC-01 TO HOME OR SELFCARE Condition: Stable Instructions: Hypertension (ED) Referrals: PRIMARY CARE, [Primary Care Provider] - 3-5 Days <EVERARDO DAMIAN - Last Filed: 10/12/19 05:05> ED Review of Systems ROS: Stated complaint: HYPERTENSION Other details as noted in HPI ED Course Vital Signs 10/11/19 10/11/19 10/11/19 20:59 21:00 21:04 Temperature 97.2 F L Pulse Rate 93 H 93 H 93 H Respiratory 17 13 18 Rate Blood Pressure 214/151 Blood Pressure 214/151 [Right] O2 Sat by Pulse 100 100 100 Oximetry 10/11/19 10/11/19 10/11/19 21:31 21:41 21:47 Temperature Pulse Rate 88 86 Respiratory 24 12 Rate Blood Pressure 214/151 214/145 Blood Pressure [Right] O2 Sat by Pulse 100 Oximetry 10/11/19 10/11/19 10/11/19 22:00 22:31 23:01 Temperature Pulse Rate 87 84 84 Respiratory 18 15 15 Rate Blood Pressure 176/79 216/84 216/84 Blood Pressure [Right] O2 Sat by Pulse 99 99 100 Oximetry 10/11/19 10/12/19 10/12/19 23:31 00:01 00:31 Temperature Pulse Rate 83 82 77 Respiratory 12 20 20 Rate Blood Pressure 216/84 216/84 216/84 Blood Pressure [Right] O2 Sat by Pulse 100 99 97 Oximetry 10/12/19 10/12/19 10/12/19 01:01 01:31 02:29 Temperature Pulse Rate 79 83 Respiratory 20 18 Rate Blood Pressure 192/84 191/86 Blood Pressure 223/98 [Right] O2 Sat by Pulse 99 98 98 Oximetry 10/12/19 10/12/19 10/12/19 03:01 03:03 03:31 Temperature Pulse Rate 84 83 92 H Respiratory 19 22 Rate Blood Pressure 239/90 239/90 188/77 Blood Pressure [Right] O2 Sat by Pulse 98 98 Oximetry 10/12/19 04:01 Temperature Pulse Rate 65 Respiratory 16 Rate Blood Pressure 177/72 Blood Pressure [Right] O2 Sat by Pulse 98 Oximetry ED Medical Decision Making - Lab Data Result diagrams: 10/11/19 21:42 10/11/19 21:42 - Medical Decision Making 53-year-old -[place] female with a past medical history of diabetes and hypertension, presents to the emergency room stating that she has elevated blood pressure and has back spasms that has pain 10 out of 10. And severe hypertension. Patient states she has multiple wounds in her legs that are leaking with a diagnosis of Pyoderma gangrenosum. Patient reports that she recently had her blood pressure medication changed from Lopressor to lisinopril and hydrochlorothiazide at the end of July. Patient reports she is followed by [facility]. Patient received labetalol and hydralazine. Blood pressure improved significantly. Patient denied any chest pain or back pain. Patient given a prescription for hydralazine and advised to follow-up with her primary care physician in the next 2-3 days and return to the ER if symptoms are not improved. Critical care attestation.: If time is entered above; I have spent that time in minutes in the direct care of this critically ill patient, excluding procedure time. ED Disposition Is pt being admited?: No
[2019-10-11 22:16] LABS: Alanine Aminotransferase 40 units/L (7-56); Albumin 3.4 g/dL (3.9-5); BUN/Creatinine Ratio 20; Blood Urea Nitrogen 22 mg/dL (7-17); Calcium 9.4 mg/dL (8.4-10.2); Hemolysis Index 6
[2019-10-12] MEDS ORDERED: ONDANSETRON 4 MG/2 ML INJ IV ONE (00:40)
[2019-10-12] MEDS ORDERED: MORPHINE 4 MG/1 ML INJ IV ONE (00:40)
[2019-10-12] MEDS ORDERED: diphenhydrAMINE 50 MG/ML VIAL IV ONE (00:40)
[2019-10-12] MEDS ORDERED: hydrALAZINE 20 MG/1 ML INJ IV ONE (02:50)
--- NOTE | 2019-10-12 03:14 | Cat Scan Report ---
CTA CHEST WITH IV CONTRAST, 10/12/2019 INDICATION: Chest pain TECHNIQUE: Axial CT images were obtained through the chest after injection of IV contrast. Coronal oblique 2-D reconstruction images were produced. 3 plane MIP reconstruction images were produced at an [employer] workstation. All CTs at this facility utilize dose reduction techniques including automated expos ure control, iterative reconstruction and weight based dosing when appropriate to reduce patient radi ation dose to as low as reasonable achievable. COMPARISON: Chest radiograph, 07/24/2019 FINDINGS: Evaluation of the pulmonary arteries demonstrates no central or segmental filling defect to suggest p ulmonary embolism. The heart is normal in size. The thoracic aorta is normal in course and caliber. Evaluation of the lung parenchyma demonstrates dependent atelectasis. There is no focal airspace dise ase or pleural effusion. Limited imaging of the upper abdomen shows no acute abnormality. Evaluation of bony structures demonstrates no evidence of acute bony abnormality. Soft tissue structu res appear normal. IMPRESSION: 1. No evidence of pulmonary embolism or acute parenchymal process. Signer Name: Radha To MD Signed: 10/12/2019 3:10 AM Workstation Name: [id number]
--- NOTE | 2019-10-12 03:23 | Cat Scan Report ---
CTA ABDOMEN AND PELVIS INDICATION / CLINICAL INFORMATION: Back pain. Evaluate for dissection. TECHNIQUE: Axial CT images were obtained through the abdomen, pelvis and lower extremities after injection of IV contrast. 3 plane MIP / 3D reconstructions were produced. All CT scans at this location are performe d using CT dose reduction for ALARA by means of automated exposure control. COMPARISON: CT of the abdomen and pelvis, 07/19/2019 Findings: Limited imaging of the bilateral lung bases demonstrates dependent atelectasis. The abdominal aorta is normal in caliber without evidence for dissection. There is satisfactory contr ast opacification of the proximal mesenteric and bilateral renal arteries. ABDOMEN: The liver, spleen and pancreas show no evidence of acute abnormality. The gallbladder is mil dly distended with subtle possible inflammatory change. Bilateral adrenal glands and bilateral kidney s show no evidence of acute abnormality. There is no evidence of bowel obstruction or free fluid. The appendix appears normal. Pelvis: Bilateral iliac arteries are normal in caliber with scattered atherosclerotic calcification. No free fluid is seen within the pelvis. The urinary bladder appears normal. Uterus appears normal. Evaluation of bony structures demonstrates no evidence of acute bony abnormality. Soft tissue structu res appear grossly normal. IMPRESSION: 1. No evidence of aortic aneurysm or dissection. 2. Mild distention of the gallbladder with possible inflammatory change. Please correlate with patien t's clinical circumstances for possible mild cholecystitis in this patient with pain. Signer Name: Radha To MD Signed: 10/12/2019 3:18 AM Workstation Name: [id number]
[2019-10-12 05:11] VITALS: BP 165/66
[2019-10-12] MEDS ORDERED: ONDANSETRON 4 MG ODT TAB PO ONE (06:02)
== END 2019-10-12 07:58 | disposition home or self-care (01) ==
LOC: ED 20:54
DX: I10 Essential (primary) hypertension (principal); M54.5 Low back pain; E11.9 Type 2 diabetes mellitus without complications; Z21 Asymptomatic human immunodeficiency virus [HIV] infection status; Z98.890 Other specified postprocedural states; Z87.891 Personal history of nicotine dependence; Z79.899 Other long term (current) drug therapy
CPT/HCPCS: 36415; 71275; 74174; 80053; 82962; 85025; 96374; 96375; 96376; 99285; J0360; J1200; J2270; J2405; J7030; Q9967; Q0162

== ENCOUNTER 2019-12-24 19:15 | Inpatient (IN) | payer MEDICAID ==
[2019-12-24] MEDS ORDERED: HEPARIN 1,000 UNIT/1 ML VIAL IV ONE (19:25)
[2019-12-24] MEDS ORDERED: SODIUM CHLORIDE 0.9% 1000 ML 1,000 ML IV ONE ×2 (19:25→19:37)
[2019-12-24] MEDS ORDERED: ONDANSETRON 4 MG/2 ML INJ IV ONE (19:26)
[2019-12-24] MEDS ORDERED: NITROGLYCERIN DRIP 50 MG/250 ML BOTTLE IV ONE ×2 (19:29→21:16)
[2019-12-24] MEDS ORDERED: NITROGLYCERIN DRIP 50 MG/250 ML BOTTLE ONE ×2 (19:32→20:43)
[2019-12-24] MEDS ORDERED: HEPARIN 10,000 UNITS/10 ML VIAL ONE ×2 (19:32→20:01)
--- NOTE | 2019-12-24 19:33 | Emergency Department Report ---
ED Chest Pain HPI - General Stated Complaint: HIGH BLOOD SUGAR Time Seen by Provider: 12/24/19 19:24 - History of Present Illness Initial Comments: 53-year-old female with a past medical history of htn, pyoderma gangrenosum, diabetes, previous osteomyelitis of the left lateral malleolus presents to the hospital with generalized weakness since this morning with nausea. Patient was initially refusing EMS transport. The patient and agreed to be transported and complained of chest pain. EKG reviewed acute CT and was transmitted as patient arrived to the ED ramp. Patient states chest pain started after EMS picked her up and she denies previous cardiac pain. Aspirin provided prior to arrival. Patient appears generalized weakness and fatigue and is difficult to obtain information from. Pain 08/25 currently - Related Data Home Medications Medication Instructions Recorded Confirmed Last Taken Lispro Insulin [HumaLOG] 20 unit SQ TID 01/24/19 07/24/19 Unknown Lyrica 300 mg PO DAILY 01/24/19 07/24/19 Unknown Percocet 7.5/325 mg 1 tab PO TID PRN 06/06/19 07/24/19 Unknown Insulin Glargine,Hum.rec.anlog 40 units SQ DAILY 12/24/19 12/24/19 Unknown [Lantus Solostar] Previous Rx's Medication Instructions Recorded Last Taken Type Metoprolol [Lopressor TAB] 50 mg PO BID #60 tablet 09/03/16 Unknown Rx Triamcinolone 0.1% [Kenalog 0.1% 1 applic TP BID #1 tube 01/20/17 Unknown Rx CREAM] Ondansetron [Zofran Odt] 4 mg PO Q4H PRN #15 tab.rapdis 01/28/19 Unknown Rx hydroCHLOROthiazide [HCTZ] 25 mg PO QDAY #30 tab 01/28/19 1 Day Ago Rx ~08/31/16 HYDROcodone/APAP 5-325 [[place] 1 each PO Q6HR PRN #14 tablet 07/19/19 Unknown Rx 5/325] Promethazine [Phenergan] 25 mg PO Q6HR PRN #20 tab 07/19/19 Unknown Rx levoFLOXacin [Levaquin TAB] 500 mg PO QDAY #7 tablet 07/19/19 Unknown Rx metroNIDAZOLE [Flagyl] 500 mg PO Q8HR #21 tablet 07/19/19 Unknown Rx hydrALAZINE [Apresoline TAB] 25 mg PO Q8HR #90 tab 10/12/19 Unknown Rx Allergies Allergy/AdvReac Type Severity Reaction Status Date / Time No Known Allergies Allergy Verified 02/18/19 22:39 Heart Score - HEART Score History: Highly suspicious EKG: Significant ST-depression Age: 45-65 Risk factors: > 3 risk factors or hx of atherosclerotic disease Troponin: < normal limit HEART Score: 7 ED Review of Systems ROS: Stated complaint: HIGH BLOOD SUGAR Other details as noted in HPI Comment: All other systems reviewed and negative ED Past Medical Hx - Past Medical History Hx Hypertension: Yes Hx CVA: No Hx Heart Attack/AMI: No Hx Congestive Heart Failure: No Hx Diabetes: Yes Hx Deep Vein Thrombosis: No Hx Pulmonary Embolism: No Hx GERD: No Hx Liver Disease: No Hx Renal Disease: No Hx Sickle Cell Disease: No Hx Arthritis: No Hx Headaches / Migraines: No Hx Seizures: No Hx Kidney Stones: No Hx Psychiatric Treatment: No Hx Asthma: No Hx COPD: No Hx Tuberculosis: No Hx Dementia: No Hx HIV: Yes (Pt denies h/o.) Additional medical history: pyoderma gangrenosum. osteomyelitis - Surgical History Hx Coronary Stent: No Hx Open Heart Surgery: No Hx Pacemaker: No Hx Internal Defibrillator: No Hx Cholecystectomy: No Hx Appendectomy: No Hx Breast Surgery: No Additional Surgical History: left LE. umbilical biopsy - Social History Smoking Status: Former Smoker Substance Use Type: None - Medications Home Medications: Home Medications Medication Instructions Recorded Confirmed Last Taken Type Metoprolol [Lopressor TAB] 50 mg PO BID #60 tablet 09/03/16 07/24/19 Unknown Rx Triamcinolone 0.1% [Kenalog 0.1% 1 applic TP BID #1 tube 01/20/17 07/24/19 Unknown Rx CREAM] Lispro Insulin [HumaLOG] 20 unit SQ TID 01/24/19 07/24/19 Unknown History Lyrica 300 mg PO DAILY 01/24/19 07/24/19 Unknown History Ondansetron [Zofran Odt] 4 mg PO Q4H PRN #15 tab.rapdis 01/28/19 07/24/19 Unknown Rx hydroCHLOROthiazide [HCTZ] 25 mg PO QDAY #30 tab 01/28/19 07/24/19 1 Day Ago Rx ~08/31/16 Percocet 7.5/325 mg 1 tab PO TID PRN 06/06/19 07/24/19 Unknown History HYDROcodone/APAP 5-325 [[place] 1 each PO Q6HR PRN #14 tablet 07/19/19 07/24/19 Unknown Rx 5/325] Promethazine [Phenergan] 25 mg PO Q6HR PRN #20 tab 07/19/19 07/24/19 Unknown Rx levoFLOXacin [Levaquin TAB] 500 mg PO QDAY #7 tablet 07/19/19 07/24/19 Unknown Rx metroNIDAZOLE [Flagyl] 500 mg PO Q8HR #21 tablet 07/19/19 07/24/19 Unknown Rx hydrALAZINE [Apresoline TAB] 25 mg PO Q8HR #90 tab 10/12/19 Unknown Rx Insulin Glargine,Hum.rec.anlog 40 units SQ DAILY 12/24/19 12/24/19 Unknown Hist ory [Lantus Solostar] ED Physical Exam - Other Other exam information: General: No limitations, patient is alert in no acute distress Head exam: Atraumatic, normocephalic Eyes exam: Normal appearance ENT: Moist mucous membrane Neck exam: Normal inspection, full range of motion Respiratory exam: Clear to auscultation bilateral, no wheezes, rales, crackles Cardiovascular: Normal rate and rhythm Abdomen: Soft, nondistended, and nontender, with normal bowel sounds, no rebound, or guarding, Extremity: Bilateral leg edema left greater than right Back: Normal Inspection, no CVA tenderness Neurologic: Alert, oriented x3, speech clear, no gross motor or sensory deficit Psychiatric: Normal mood, affect Skin: chronic hyperpigmented skin lesions to legs ED Course Vital Signs 12/24/19 12/24/19 12/24/19 19:19 19:30 19:40 Pulse Rate 66 67 67 Respiratory 10 L 14 18 Rate Blood Pressure 83/58 105/66 Blood Pressure 126/68 [Left] O2 Sat by Pulse 93 100 100 Oximetry 12/24/19 12/24/19 19:46 20:01 Pulse Rate 68 94 H Respiratory 16 25 H Rate Blood Pressure 126/68 130/79 Blood Pressure [Left] O2 Sat by Pulse 100 99 Oximetry - Consultations Consultation #1: 12/24/19 19:19 case d/w Dr mandadi and ekg transmitted. Agree with activation of laborer salvage rec asa, heparin bolus without drip, NO nitro, and NS bolus laborer salvage activated CA score - Ca Score Age > 65: (0) No Aspirin use within the Past 7 Days: (0) No 3 or more CAD Risk Factors: (1) Yes 2 or more Angina events in past 24 hrs: (0) No Known CAD with more than 50% Stenosis: (0) No ST Deviation Greater than 0.5mm: (1) Yes ED Medical Decision Making - Lab Data Result diagrams: 12/24/19 20:00 12/24/19 20:00 Lab Results 12/24/19 12/24/19 12/24/19 Range/Units 19:34 19:52 20:00 WBC 12.9 H (4.5-11.0) K/mm3 RBC 4.99 (3.65-5.03) M/mm3 Hgb 13.1 (10.1-14.3) gm/dl Hct 40.9 (30.3-42.9) % MCV 82 (79-97) fl MCH 26 L (28-32) pg MCHC 32 (30-34) % RDW 16.5 H (13.2-15.2) % Plt Count 237 (140-440) K/mm3 Lymph % (Auto) 30.8 (13.4-35.0) % [place] % (Auto) 6.8 (0.0-7.3) % Eos % (Auto) 2.4 (0.0-4.3) % Baso % (Auto) 0.9 (0.0-1.8) % Lymph # 4.0 (1.2-5.4) K/mm3 [place] # 0.9 H (0.0-0.8) K/mm3 Eos # 0.3 (0.0-0.4) K/mm3 Baso # 0.1 (0.0-0.1) K/mm3 Seg Neutrophils % 59.1 (40.0-70.0) % Seg Neutrophils # 7.6 (1.8-7.7) K/mm3 PT 12.7 (12.2-14.9) Sec. INR 0.94 (0.87-1.13) APTT 24.7 (24.2-36.6) Sec. VBG pH (7.320-7.420) Sodium (137-145) mmol/L Potassium (3.6-5.0) mmol/L Chloride (98-107) mmol/L Carbon Dioxide (22-30) mmol/L Anion Gap mmol/L BUN (7-17) mg/dL Creatinine (0.7-1.2) mg/dL Estimated GFR ml/min BUN/Creatinine Ratio % Glucose (65-100) mg/dL POC Glucose 338 H (70-105) Calcium (8.4-10.2) mg/dL Troponin T (0.00-0.029) ng/mL Blood Type Antibody Screen 12/24/19 12/24/19 12/24/19 Range/Units 20:00 20:00 20:00 WBC (4.5-11.0) K/mm3 RBC (3.65-5.03) M/mm3 Hgb (10.1-14.3) gm/dl Hct (30.3-42.9) % MCV (79-97) fl MCH (28-32) pg MCHC (30-34) % RDW (13.2-15.2) % Plt Count (140-440) K/mm3 Lymph % (Auto) (13.4-35.0) % [place] % (Auto) (0.0-7.3) % Eos % (Auto) (0.0-4.3) % Baso % (Auto) (0.0-1.8) % Lymph # (1.2-5.4) K/mm3 [place] # (0.0-0.8) K/mm3 Eos # (0.0-0.4) K/mm3 Baso # (0.0-0.1) K/mm3 Seg Neutrophils % (40.0-70.0) % Seg Neutrophils # (1.8-7.7) K/mm3 PT (12.2-14.9) Sec. INR (0.87-1.13) APTT (24.2-36.6) Sec. VBG pH 7.340 (7.320-7.420) Sodium 133 L (137-145) mmol/L Potassium 5.0 (3.6-5.0) mmol/L Chloride 95.4 L (98-107) mmol/L Carbon Dioxide 23 (22-30) mmol/L Anion Gap 20 mmol/L BUN 25 H (7-17) mg/dL Creatinine 1.0 (0.7-1.2) mg/dL Estimated GFR > 60 ml/min BUN/Creatinine Ratio 25 % Glucose 406 H (65-100) mg/dL POC Glucose (70-105) Calcium 9.1 (8.4-10.2) mg/dL Troponin T 0.020 (0.00-0.029) ng/mL Blood Type A POSITIVE Antibody Screen Negative - EKG Data -: EKG Interpreted by [place] EKG shows normal: sinus rhythm, ST-T waves (anterior depression suggestive of posterior CT) Rate: normal (64) - Radiology Data Radiology results: report reviewed CHEST 1 VIEW INDICATION: Chest Pain. COMPARISON: 07/24/2019. FINDINGS: Support devices: None. Heart: Within normal limits. Lungs/Pleura: No acute air space or interstitial disease. Additional findings: None. IMPRESSION: No acute abnormality. - Medical Decision Making pt to go to laborer salvage stat for intervention Name given to Dr Isbell for admission. Expects pt to be admitted by overnight hospitalist after cath Mandadi came to ed to eval pt prior to transfer to laborer salvage - Differential Diagnosis mi, dka, unstable angina, infection Critical Care Time: Yes Critical care time in (mins) excluding proc time.: 20 Critical care attestation.: If time is entered above; I have spent that time in minutes in the direct care of this critically ill patient, excluding procedure time. ED Disposition Clinical Impression: Uncontrolled diabetes mellitus STEMI (ST elevation myocardial infarction) Qualifiers: Involved coronary artery: right coronary artery Qualified Code(s): I21.11 - ST elevation (STEMI) myocardial infarction involving right coronary artery Disposition: -09 OP ADMIT IP TO THIS HOSP Is pt being admited?: Yes Condition: Stable Time of Disposition: 20:10
[2019-12-24] MEDS ORDERED: MORPHINE 2 MG/1 ML INJ IV ONE (19:42)
[2019-12-24] MEDS ORDERED: HEPARIN 5,000 UNIT/1 ML VIAL SUB-Q ONE (19:45)
[2019-12-24] MEDS ORDERED: HEPARIN 5,000 UNIT/1 ML VIAL IV ONE (19:45)
[2019-12-24] MEDS ORDERED: VERAPAMIL 5 MG/2 ML INJ ONE (20:01)
[2019-12-24] MEDS ORDERED: fentaNYL 100 MCG/2 ML INJ ONE (20:01)
[2019-12-24] MEDS ORDERED: MIDAZOLAM 2 MG/2 ML INJ ONE (20:01)
[2019-12-24] MEDS ORDERED: LIDOCAINE (2%) 20 MG/1 ML VIAL 20 ML MDV INFILTRATI ONE (20:01)
[2019-12-24] MEDS ORDERED: SODIUM CHLORIDE 0.9% 500 ML 500 ML ONE (20:08)
--- NOTE | 2019-12-24 20:12 | XRay Report ---
CHEST 1 VIEW INDICATION: Chest Pain. COMPARISON: 07/24/2019. FINDINGS: Support devices: None. Heart: Within normal limits. Lungs/Pleura: No acute air space or interstitial disease. Additional findings: None. IMPRESSION: No acute abnormality. Signer Name: Caden Gee MD Signed: 12/24/2019 8:08 PM Workstation Name: [id number]
[2019-12-24 20:15] LABS: Basophils # (Auto) 0.1 K/mm3 (0.0-0.1); Basophils % (Auto) 0.9 % (0.0-1.8); Eosinophils # (Auto) 0.3 K/mm3 (0.0-0.4); Eosinophils % (Auto) 2.4 % (0.0-4.3); Hematocrit 40.9 % (30.3-42.9); Hemoglobin 13.1 gm/dl (10.1-14.3); Lymphocytes % (Auto) 30.8 % (13.4-35.0); Mean Corpuscular HGB Conc 32 % (30-34); Mean Corpuscular Volume 82 fl (79-97); Monocytes # (Auto) 0.9 K/mm3 (0.0-0.8); Monocytes % (Auto) 6.8 % (0.0-7.3); Platelet Count 237 K/mm3 (140-440); Red Blood Count 4.99 M/mm3 (3.65-5.03); Red Cell Distribution Width 16.5 % (13.2-15.2)
[2019-12-24] MEDS: HEPARIN/NS 5000 UNIT/500ML 1,000 ML IR ONE ×2 (20:15→20:35)
[2019-12-24] MEDS ORDERED: ONDANSETRON 4 MG/2 ML INJ IV PRN (20:32)
[2019-12-24] MEDS ORDERED: ACETAMINOPHEN 325 MG TAB PO PRN (20:32)
[2019-12-24 20:33] LABS: BUN/Creatinine Ratio 25; Blood Urea Nitrogen 25 mg/dL (7-17); Calcium 9.1 mg/dL (8.4-10.2); Hemolysis Index 77
[2019-12-24 20:34] LABS: INR 0.94 (0.87-1.13)
[2019-12-24 20:35] LABS: Partial Thromboplastin Time 24.7 Sec. (24.2-36.6)
[2019-12-24] MEDS ORDERED: SODIUM CHLORIDE 0.9% 1000 ML 1,000 ML IV SCH (20:45)
[2019-12-24] MEDS: TIROFIBAN/NS 12,500 MCG/250 ML BAG IV ONE ×2 (20:45→20:48)
[2019-12-24] MEDS ORDERED: ALUM-MAG HYDROXIDE-SIMETHICONE 200-200-20MG/5ML ORAL LIQD 30 ML ONE (20:53)
[2019-12-24] MEDS ORDERED: CLOPIDOGREL 300 MG TAB ONE (20:53)
[2019-12-24] MEDS ORDERED: TIROFIBAN/NS 12,500 MCG/250 ML BAG IV SCH (21:00)
[2019-12-24] MEDS ORDERED: traMADol 50 MG TAB PO PRN (21:16)
--- NOTE | 2019-12-24 21:31 | Consultation ---
History of Present Illness Consult date: 12/24/19 Requesting physician: KAYLI TRAYLOR Consult reason: cardiac arrest History of present illness: 53 year-old female with uncontrolled diabetes and peripheral vascular disease skin disorder (pyoderma gangernosum) smoker who has not been feeling well for a few hours called ambulance in patient states chest pain at that time EKG shows ST depression in V1 through V3 suggestive posterior wall NC patient was brought emergently to the hospital patient received morphine. EKG shows mild resolution of ST depressions no real cervical changes but given continue chest pain patient was brought emergently brine room laborer which revealed left main patent LAD. Circumflex proximal. Mid 80% prior to trifurcation of only 12 and 3 which are small Patent with normally functioning RCA proximal mid and distal had 99% lesion but CA-3 flow but with ongoing chest pain felt to be culprit vessel and proceed with PCI of the RCA with 3 drug-eluting stents xienxce 2.5 x 15 mm , 2.75 x 18 mm and 2.75 x 28 mm overlapping , reducing stenosis from 99% down to 0 with CA 3 flow small PDA PLV. Patient chest pain has improved discussed with patient's daughter about condition prior is on Lantus and Humalog 3 times a day denies any nausea vomiting fever or chills but had some lightheadedness. Past History Past Medical History: diabetes, hypertension, hyperlipidemia, PVD, other (pyode rma gangernosum) Past Surgical History: Other (left leg peripheral intervention) Social history: smoking (1.5 pack a day). denies: alcohol abuse, prescription drug abuse Medications and Allergies Allergies Allergy/AdvReac Type Severity Reaction Status Date / Time No Known Allergies Allergy Verified 02/18/19 22:39 Home Medications Medication Instructions Recorded Confirmed Last Taken Type Metoprolol [Lopressor TAB] 50 mg PO BID #60 tablet 09/03/16 07/24/19 Unknown Rx Triamcinolone 0.1% [Kenalog 0.1% 1 applic TP BID #1 tube 01/20/17 07/24/19 Unknown Rx CREAM] Lispro Insulin [HumaLOG] 20 unit SQ TID 01/24/19 07/24/19 Unknown History Lyrica 300 mg PO DAILY 01/24/19 07/24/19 Unknown History Ondansetron [Zofran Odt] 4 mg PO Q4H PRN #15 tab.rapdis 01/28/19 07/24/19 Unknown Rx hydroCHLOROthiazide [HCTZ] 25 mg PO QDAY #30 tab 01/28/19 07/24/19 1 Day Ago Rx ~08/31/16 Percocet 7.5/325 mg 1 tab PO TID PRN 06/06/19 07/24/19 Unknown History HYDROcodone/APAP 5-325 [[place] 1 each PO Q6HR PRN #14 tablet 07/19/19 07/24/19 Unknown Rx 5/325] Promethazine [Phenergan] 25 mg PO Q6HR PRN #20 tab 07/19/19 07/24/19 Unknown Rx levoFLOXacin [Levaquin TAB] 500 mg PO QDAY #7 tablet 07/19/19 07/24/19 Unknown Rx metroNIDAZOLE [Flagyl] 500 mg PO Q8HR #21 tablet 07/19/19 07/24/19 Unknown Rx hydrALAZINE [Apresoline TAB] 25 mg PO Q8HR #90 tab 10/12/19 Unknown Rx Insulin Glargine,Hum.rec.anlog 40 units SQ DAILY 12/24/19 12/24/19 Unknown History [Lantus Solostar] Active Meds: Active Medications Acetaminophen (Tylenol) 650 mg PO Q4H PRN PRN Reason: Pain MILD(1-3)/Fever >100.5/EDUARDO Acetaminophen/Hydrocodone Bitart ([place] 5/325) 1 each PO Q6H PRN PRN Reason: Pain, Moderate (4-6) Aspirin (Ecotrin) 325 mg PO QDAY REPLACED BY [facility] Aspirin (Baby Aspirin) 81 mg PO QDAY CECY Atorvastatin Calcium (Lipitor) 40 mg PO QHS REPLACED BY [facility] Clopidogrel Bisulfate (Plavix) 75 mg PO QDAY CECY Sodium Chloride (Nacl 0.9% 1000 Ml) 1,000 mls @ 42 mls/hr IV ONCE ONE Stop: 12/25/19 19:13 Last Admin: 12/24/19 19:38 Dose: 42 mls/hr Documented by: Sodium Chloride (Nacl 0.9% 1000 Ml) 1,000 mls @ 75 mls/hr IV DIRECT CECY Stop: 12/25/19 08:44 Tirofiban/Sodium Chloride (Aggrastat Drip (12.5 Mg/250 Ml)) 12,500 mcg in 250 mls @ 0 mls/hr IV DIRECT CECY; Protocol Stop: 12/25/19 09:59 Nitroglycerin/Dextrose (Tridil Drip 50mg/250ml) 50 mg in 250 mls @ 6 mls/hr IV TITR ONE; Protocol Stop: 12/26/19 14:55 Insulin Glargine (Lantus) 40 units SUB-Q QHS CECY Losartan Potassium (Cozaar) 25 mg PO QDAY CECY Metoprolol Tartrate (Metoprolol) 50 mg PO BID CECY Ondansetron HCl (Zofran) 4 mg IV Q8H PRN PRN Reason: Nausea And Vomiting Sodium Chloride (Sodium Chloride Flush Syringe 10 Ml) 10 ml IV BID CECY Sodium Chloride (Sodium Chloride Flush Syringe 10 Ml) 10 ml IV PRN PRN PRN Reason: LINE FLUSH Tramadol HCl (Ultram) 50 mg PO Q4H PRN PRN Reason: Pain, Mild (1-3) Review of Systems All systems: negative (as per the HPI) Physical Examination Vital Signs Pulse Resp BP Pulse Ox 66 10 L 83/58 93 12/24/19 19:19 12/24/19 19:19 12/24/19 19:19 12/24/19 19:19 General appearance: no acute distress HEENT: Positive: PERRL, EOMI Neck: Positive: neck supple Cardiac: Positive: Reg Rate and Rhythm, Audible Murmur Lungs: Positive: Normal Exam, Normal Breath Sounds Neuro: Positive: Grossly Intact Abdomen: Positive: Soft, Active Bowel Sounds Female genitourinary: deferred Skin: Positive: Ulceration Extremities: Present: normal, Other (chronic skin changes with ulcers and edema) Results 12/24/19 20:00 12/24/19 20:00 Coagulation 12/24/19 Range/Units 19:52 PT 12.7 (12.2-14.9) Sec. INR 0.94 (0.87-1.13) APTT 24.7 (24.2-36.6) Sec. CBC 12/24/19 Range/Units 20:00 WBC 12.9 H (4.5-11.0) K/mm3 RBC 4.99 (3.65-5.03) M/mm3 Hgb 13.1 (10.1-14.3) gm/dl Hct 40.9 (30.3-42.9) % Plt Count 237 (140-440) K/mm3 Lymph # 4.0 (1.2-5.4) K/mm3 [place] # 0.9 H (0.0-0.8) K/mm3 Eos # 0.3 (0.0-0.4) K/mm3 Baso # 0.1 (0.0-0.1) K/mm3 Comprehensive Metabolic Panel 12/24/19 Range/Units 20:00 Sodium 133 L (137-145) mmol/L Potassium 5.0 (3.6-5.0) mmol/L Chloride 95.4 L (98-107) mmol/L Carbon Dioxide 23 (22-30) mmol/L BUN 25 H (7-17) mg/dL Creatinine 1.0 (0.7-1.2) mg/dL Glucose 406 H (65-100) mg/dL Calcium 9.1 (8.4-10.2) mg/dL - Imaging and Cardiology Cardiac cath: report reviewed (left main patent LAD. Circumflex proximal. Mid 80% prior to trifurcation of only 12 and 3 which are small Patent with normally functioning RCA proximal mid and distal had 99% lesion but CA-3 flow but with ongoing chest pain felt to be culprit vessel and proceed with PCI of the RCA with 3 drug-eluting stents xienxce 2.5 x 15 mm , 2.75 x 18 mm and 2.75 x 28 mm overlapping , reducing stenosis from 99% down to 0 with CA 3 flow small PDA PLV.) EKG interpretations - Telemetry EKG Rhythm: Sinus Rhythm (sinus rhythm with posterior wall NC) Assessment and Plan Patient's chest pain has improved continue IV nitroglycerin and Aggrastat and IV fluids for 12 hours patient will continue dual antiplatelet therapy aspirin and Plavix post radial care. High-dose statin initiate beta may therapy and therapy. Echocardiogram. We'll consider PCI of circumflex if patient fails medical therapy. Discussed this in detail with the patient patient's daughter about cardiac status and also stressed to the patient about smoking cessation. Diabetes control as per the primary care team - Patient Problems (1) Hyperlipemia, mixed Current Visit: Yes Status: Chronic (2) Hypertension Current Visit: Yes Status: Chronic Qualifiers: Hypertension type: essential hypertension Qualified Code(s): I10 - Essential (primary) hypertension (3) Acute diastolic CHF (congestive heart failure) Current Visit: Yes Status: Acute (4) STEMI (ST elevation myocardial infarction) Current Visit: Yes Status: Acute Qualifiers: Involved coronary artery: right coronary artery Qualified Code(s): I21.11 - ST elevation (STEMI) myocardial infarction involving right coronary artery (5) Chest pain Current Visit: No Status: Acute Qualifiers: Ischemic chest pain type: unstable angina pectoris (6) Chronic osteomyelitis involving ankle and foot Current Visit: No Status: Acute Qualifiers: Laterality: unspecified laterality Qualified Code(s): M86.679 - Other chronic osteomyelitis, unspecified ankle and foot (7) Pyoderma gangrenosum Current Visit: No Status: Chronic (8) IDDM (insulin dependent diabetes mellitus) Current Visit: No Status: Chronic (9) PAD (peripheral artery disease) Current Visit: Yes Status: Chronic
--- NOTE | 2019-12-24 21:58 | Cardiac Catherization Report ---
LEFT HEART CATHETERIZATION AND PERCUTANEOUS CORONARY INTERVENTION REPORT CLINICAL INFORMATION: This is a 53-year-old -[place] female with uncontrolled diabetes, smoker, peripheral vascular disease with skin disorder, called EMS for not feeling well. When EMS arrived, started having chest pain. EKG shows ST depressions in V1, V3, suggestive of posterior wall NE. The patient was brought to the hospital, received morphine, heparin. EKG showed mild resolution, but still having chest pain, so acute NE protocol was initiated. FINDINGS: Procedure was done via the right radial approach, sterile technique, local anesthesia, 6-Dominican radial sheath inserted. Next, left system engaged with JL3.5 catheter. Left main is a large caliber vessel, patent, bifurcates into large caliber vessel. LAD that is patent. Small diagonal 1, diagonal 2. Circumflex medium caliber vessel. Proximal was patent. Mid has a focal diffuse 80-90% lesion, then bifurcates into small caliber 2.0 vessel; OM1, 2 and 3, that are patent with [id number] luminal irregularities. CA 3 flow. RCA engaged with JR4 catheter, is a dominant vessel, medium caliber, proximal and mid has 99% lesion, distal 99% lesion, at the bifurcation has 50% but small caliber PLV that is small and short. PDA is a small caliber vessel, but long and patent. LV gram done in [place] and [place] view shows normal LV function, EF 55%. LVEDP of 25 mmHg, LV is 155. Aortic is 155/84. No gradient across the aortic valve on pullback. 1. So, percutaneous/intravascular ultrasound of the RCA feeling that is the culprit vessel, engaged RCA with 6-Dominican JR4 with side holes, crossed with great difficulty with a Runthrough wire into the PDA. Ballooned from the distal to proximal with 2.5 x 12 mm balloon at 8-15 atmospheres x 6 inflations. Reduced stenosis with a dissection plane noted in the mid RCA. 2. Intravascular ultrasound showed distal reference vessel of 2.5 mm, proximal was 2.75 x 3.0. 3. Distal RCA was stented with a drug-eluting Xience 2.5 mm x 15 mm at 15 atmospheres and the proximal mid RCA was stented with a drug-eluting Xience 2.75 x 20, inflated at 16 atmospheres. The gap between had a stenosis, possible dissection. So, I used another drug-eluting Xience 2.75 x 18 and stented in overlap with the distal stent and the proximal stent and inflated that at 15 atmospheres and used the same stent, balloon, and inflated at the overlap region at 18 atmospheres. Repeat angiogram after IV nitro showed CA 3 flow, reduced stenosis from 99% down to 0. No dissection or perforation, no embolization. The patient's chest pain has improved. 4. A 6-Dominican guiding catheter taken over guidewire, 6-Dominican radial sheath was discontinued. Radial band applied. ACT was appropriate. The patient is on IV nitro and IV Aggrastat. SUMMARY: 1. Successful PCI of the proximal and distal RCA with 3 drug-eluting Xience distally 2.5 x 15, and then mid Xience 2.75 x 18 and then proximal mid drug-eluting Xience 2.75 x 28 at 18 atmospheres, a small and short PLV and small and long PDA, they are patent at the bifurcation and has a 50% lesion. 2. Left main patent, LAD patent, circumflex proximal patent, mid 80%. OM1, 2 and 3 are small caliber and patent, normal LV function. We will treat medically. If the patient fails medical therapy, consider PCI of circumflex. JOB# [id number] GISELE/BERTIN
[2019-12-24] MEDS: INSULIN LISPRO 100 UNIT/ML SUB-Q SCH (22:15)
--- NOTE | 2019-12-24 22:30 | History and Physical Report ---
History of Present Illness Date of examination: 12/24/19 Date of admission: 12/24/19 20:32 Chief complaint: I felt dizzy History of present illness: Patient is 53-year-old female with a past medical history of insulin-dependent diabetes, pyoderma gangernosum, hypertension and peripheral vascular disease who presents to ER with complaints of dizziness since this evening. Patient was transported to the hospital via EMS after complaints of chest pain on their ar rival. Cardiology consulted in ED. ECG shows ST elevations in inferior leads and thus code STEMI activated. Patient was then taken urgently to the [facility] by cardiology team. Past History Past Medical History: diabetes, hypertension, hyperlipidemia, PVD, other (pyoderma gangernosum) Past Surgical History: Other (left leg peripheral intervention (2018)) Social history: smoking (x 40 years). denies: alcohol abuse, prescription drug abuse Family history: cancer, diabetes Medications and Allergies Allergies Allergy/AdvReac Type Severity Reaction Status Date / Time No Known Allergies Allergy Verified 02/18/19 22:39 Home Medications Medication Instructions Recorded Confirmed Last Taken Type Metoprolol [Lopressor TAB] 50 mg PO BID #60 tablet 09/03/16 07/24/19 Unknown Rx Triamcinolone 0.1% [Kenalog 0.1% 1 applic TP BID #1 tube 01/20/17 07/24/19 Unknown Rx CREAM] Lispro Insulin [HumaLOG] 20 unit SQ TID 01/24/19 07/24/19 Unknown History Lyrica 300 mg PO DAILY 01/24/19 07/24/19 Unknown History Ondansetron [Zofran Odt] 4 mg PO Q4H PRN #15 tab.rapdis 01/28/19 07/24/19 Unknown Rx hydroCHLOROthiazide [HCTZ] 25 mg PO QDAY #30 tab 01/28/19 07/24/19 1 Day Ago Rx ~08/31/16 Percocet 7.5/325 mg 1 tab PO TID PRN 06/06/19 07/24/19 Unknown History HYDROcodone/APAP 5-325 [[place] 1 each PO Q6HR PRN #14 tablet 07/19/19 07/24/19 Unknown Rx 5/325] Promethazine [Phenergan] 25 mg PO Q6HR PRN #20 tab 07/19/19 07/24/19 Unknown Rx levoFLOXacin [Levaquin TAB] 500 mg PO QDAY #7 tablet 07/19/19 07/24/19 Unknown Rx metroNIDAZOLE [Flagyl] 500 mg PO Q8HR #21 tablet 07/19/19 07/24/19 Unknown Rx hydrALAZINE [Apresoline TAB] 25 mg PO Q8HR #90 tab 10/12/19 Unknown Rx Insulin Glargine,Hum.rec.anlog 40 units SQ DAILY 12/24/19 12/24/19 Unknown History [Lantus Solostar] Active Meds: Active Medications Acetaminophen (Tylenol) 650 mg PO Q4H PRN PRN Reason: Pain MILD(1-3)/Fever >100.5/EDUARDO Acetaminophen/Hydrocodone Bitart ([place] 5/325) 1 each PO Q6H PRN PRN Reason: Pain, Moderate (4-6) Aspirin (Baby Aspirin) 81 mg PO QDAY [facility] Atorvastatin Calcium (Lipitor) 40 mg PO QHS [facility] Clopidogrel Bisulfate (Plavix) 75 mg PO QDAY [facility] Sodium Chloride (Nacl 0.9% 1000 Ml) 1,000 mls @ 42 mls/hr IV ONCE ONE Stop: 12/25/19 19:13 Last Admin: 12/24/19 19:38 Dose: 42 mls/hr Documented by: Sodium Chloride (Nacl 0.9% 1000 Ml) 1,000 mls @ 75 mls/hr IV DIRECT [facility] Stop: 12/25/19 08:44 Tirofiban/Sodium Chloride (Aggrastat Drip (12.5 Mg/250 Ml)) 12,500 mcg in 250 mls @ 16.5 mls/hr IV DIRECT [facility]; Protocol Stop: 12/25/19 20:59 Nitroglycerin/Dextrose (Tridil Drip 50mg/250ml) 50 mg in 250 mls @ 6 mls/hr IV TITR ONE; Protocol Stop: 12/26/19 14:55 Insulin Glargine (Lantus) 40 units SUB-Q QHS [facility] Losartan Potassium (Cozaar) 25 mg PO QDAY [facility] Metoprolol Tartrate (Metoprolol) 50 mg PO BID [facility] Ondansetron HCl (Zofran) 4 mg IV Q8H PRN PRN Reason: Nausea And Vomiting Sodium Chloride (Sodium Chloride Flush Syringe 10 Ml) 10 ml IV BID [facility] Sodium Chloride (Sodium Chloride Flush Syringe 10 Ml) 10 ml IV PRN PRN PRN Reason: LINE FLUSH Tramadol HCl (Ultram) 50 mg PO Q4H PRN PRN Reason: Pain, Mild (1-3) Review of Systems All systems: negative Cardiovascular: lightheadedness Exam - Physical Exam Narrative exam: - Physical Exam Narrative exam: General appearance: Present: No distress noted - EENT Eyes: Present: PERRL ENT: hearing intact, clear oral mucosa - Neck Neck: Present: supple, normal ROM - Respiratory Respiratory effort: normal Respiratory: bilateral: Clear to auscultation - Cardiovascular Heart rate:81 Heart Sounds: Present: S1 & S2. Absent: rub, click - Extremities Extremities: pulses symmetrical, No edema Peripheral Pulses: within normal limits - Abdominal General gastrointestinal: Present: , non-distended, normal bowel sounds genitourinary: Present: normal - Integumentary Integumentary: Skin sores to bilateral extremities - Musculoskeletal Musculoskeletal: gait normal, strength equal bilaterally - Psychiatric Psychiatric: appropriate mood/affect, intact judgment & insight - Neurologic Neurologic: CNII-XII intact, moves all extremities - Constitutional Vitals: Temp Pulse Resp BP Pulse Ox 94 H 25 H 130/79 99 12/24/19 20:01 12/24/19 20:01 12/24/19 20:01 12/24/19 20:01 CA score - Ca Score Age > 65: (0) No Aspirin use within the Past 7 Days: (0) No 3 or more CAD Risk Factors: (1) Yes 2 or more Angina events in past 24 hrs: (0) No Known CAD with more than 50% Stenosis: (0) No Elevated Cardiac Markers: (0) No ST Deviation Greater than 0.5mm: (1) Yes CA Score: 2 Results - Labs CBC & Chem 7: 12/25/19 04:51 12/25/19 04:51 Labs: Laboratory Last Values WBC 12.9 K/mm3 (4.5-11.0) H 12/24/19 20:00 RBC 4.99 M/mm3 (3.65-5.03) 12/24/19 20:00 Hgb 13.1 gm/dl (10.1-14.3) 12/24/19 20:00 Hct 40.9 % (30.3-42.9) 12/24/19 20:00 MCV 82 fl (79-97) 12/24/19 20:00 MCH 26 pg (28-32) L 12/24/19 20:00 MCHC 32 % (30-34) 12/24/19 20:00 RDW 16.5 % (13.2-15.2) H 12/24/19 20:00 Plt Count 237 K/mm3 (140-440) 12/24/19 20:00 Lymph % (Auto) 30.8 % (13.4-35.0) 12/24/19 20:00 [place] % (Auto) 6.8 % (0.0-7.3) 12/24/19 20:00 Eos % (Auto) 2.4 % (0.0-4.3) 12/24/19 20:00 Baso % (Auto) 0.9 % (0.0-1.8) 12/24/19 20:00 Lymph # 4.0 K/mm3 (1.2-5.4) 12/24/19 20:00 [place] # 0.9 K/mm3 (0.0-0.8) H 12/24/19 20:00 Eos # 0.3 K/mm3 (0.0-0.4) 12/24/19 20:00 Baso # 0.1 K/mm3 (0.0-0.1) 12/24/19 20:00 Seg Neutrophils % 59.1 % (40.0-70.0) 12/24/19 20:00 Seg Neutrophils # 7.6 K/mm3 (1.8-7.7) 12/24/19 20:00 PT 12.7 Sec. (12.2-14.9) 12/24/19 19:52 INR 0.94 (0.87-1.13) 12/24/19 19:52 APTT 24.7 Sec. (24.2-36.6) 12/24/19 19:52 VBG pH 7.340 (7.320-7.420) 12/24/19 20:00 Sodium 133 mmol/L (137-145) L 12/24/19 20:00 Potassium 5.0 mmol/L (3.6-5.0) 12/24/19 20:00 Chloride 95.4 mmol/L (98-107) L 12/24/19 20:00 Carbon Dioxide 23 mmol/L (22-30) 12/24/19 20:00 Anion Gap 20 mmol/L 12/24/19 20:00 BUN 25 mg/dL (7-17) H 12/24/19 20:00 Creatinine 1.0 mg/dL (0.7-1.2) 12/24/19 20:00 Estimated GFR > 60 ml/min 12/24/19 20:00 BUN/Creatinine Ratio 25 % 12/24/19 20:00 Glucose 406 mg/dL (65-100) H 12/24/19 20:00 POC Glucose 338 (70-105) H 12/24/19 19:34 Calcium 9.1 mg/dL (8.4-10.2) 12/24/19 20:00 Troponin T 0.020 ng/mL (0.00-0.029) 12/24/19 20:00 Blood Type A POSITIVE 12/24/19 20:00 Antibody Screen Negative 12/24/19 20:00 - Imaging and Cardiology EKG: report reviewed (anterior depression suggestive of posterior [place])) Imaging and Cardiology: Cardiac cath: report reviewed (left main patent LAD. Circumflex proximal. Mid 80% prior to trifurcation of only 12 and 3 which are small Patent with normally functioning RCA proximal mid and distal had 99% lesion but CA-3 flow but with ongoing chest pain felt to be culprit vessel and proceed with PCI of the RCA with 3 drug-eluting stents xienxce 2.5 x 15 mm , 2.75 x 18 mm and 2.75 x 28 mm overlapping , reducing stenosis from 99% down to 0 with CA 3 flow small PDA PLV.) CHEST 1 VIEW INDICATION: Chest Pain. COMPARISON: 07/24/2019. FINDINGS: Support devices: None. Heart: Within normal limits. Lungs/Pleura: No acute air space or interstitial disease. Additional findings: None. IMPRESSION: No acute abnormality. Assessment and Plan Assessment and plan: STEMI (ST elevation myocardial infarction) -Cardiology consulted in ED -patient taken to cardiac catheterization lab for intervention. IDDM -With hyperglycemia -BG on admission 406 -POC BG monitoring -SSI coverage prn Pyoderma gangrenosum -wound care consult -supportive care Hypertension -Home meds once reconciled -Monitor BP q shift Tobacco abuse -Cessation counseling DVT prophylaxis -SCDs bilateral extremities Advance Directives: No Plan of care discussed with patient/family: Yes
[2019-12-24] MEDS ORDERED: NITROGLYCERIN SYRINGE 6 ML ONE (22:42)
--- NOTE | 2019-12-24 22:50 | History and Physical Report ---
History of Present Illness Date of admission: 12/24/19 20:32 Past History Past Medical History: diabetes, hypertension, hyperlipidemia, PVD, other (pyoderma gangernosum) Past Surgical History: Other (left leg peripheral intervention) Social history: smoking (1.5 pack a day). denies: alcohol abuse, prescription drug abuse Medications and Allergies Allergies Allergy/AdvReac Type Severity Reaction Status Date / Time No Known Allergies Allergy Verified 02/18/19 22:39 Home Medications Medication Instructions Recorded Confirmed Last Taken Type Metoprolol [Lopressor TAB] 50 mg PO BID #60 tablet 09/03/16 07/24/19 Unknown Rx Triamcinolone 0.1% [Kenalog 0.1% 1 applic TP BID #1 tube 01/20/17 07/24/19 Unknown Rx CREAM] Lispro Insulin [HumaLOG] 20 unit SQ TID 01/24/19 07/24/19 Unknown History Lyrica 300 mg PO DAILY 01/24/19 07/24/19 Unknown History Ondansetron [Zofran Odt] 4 mg PO Q4H PRN #15 tab.rapdis 01/28/19 07/24/19 Unknown Rx hydroCHLOROthiazide [HCTZ] 25 mg PO QDAY #30 tab 01/28/19 07/24/19 1 Day Ago Rx ~08/31/16 Percocet 7.5/325 mg 1 tab PO TID PRN 06/06/19 07/24/19 Unknown History HYDROcodone/APAP 5-325 [[place] 1 each PO Q6HR PRN #14 tablet 07/19/19 07/24/19 Unknown Rx 5/325] Promethazine [Phenergan] 25 mg PO Q6HR PRN #20 tab 07/19/19 07/24/19 Unknown Rx levoFLOXacin [Levaquin TAB] 500 mg PO QDAY #7 tablet 07/19/19 07/24/19 Unknown Rx metroNIDAZOLE [Flagyl] 500 mg PO Q8HR #21 tablet 07/19/19 07/24/19 Unknown Rx hydrALAZINE [Apresoline TAB] 25 mg PO Q8HR #90 tab 10/12/19 Unknown Rx Insulin Glargine,Hum.rec.anlog 40 units SQ DAILY 12/24/19 12/24/19 Unknown History [Lantus Solostar] Active Meds: Active Medications Acetaminophen (Tylenol) 650 mg PO Q4H PRN PRN Reason: Pain MILD(1-3)/Fever >100.5/EDUARDO Acetaminophen/Hydrocodone Bitart ([place] 5/325) 1 each PO Q6H PRN PRN Reason: Pain, Moderate (4-6) Aspirin (Baby Aspirin) 81 mg PO QDAY [facility] Atorvastatin Calcium (Lipitor) 40 mg PO QHS [facility] Clopidogrel Bisulfate (Plavix) 75 mg PO QDAY [facility] Sodium Chloride (Nacl 0.9% 1000 Ml) 1,000 mls @ 42 mls/hr IV ONCE ONE Stop: 12/25/19 19:13 Last Admin: 12/24/19 19:38 Dose: 42 mls/hr Documented by: Sodium Chloride (Nacl 0.9% 1000 Ml) 1,000 mls @ 75 mls/hr IV DIRECT [facility] Stop: 12/25/19 08:44 Tirofiban/Sodium Chloride (Aggrastat Drip (12.5 Mg/250 Ml)) 12,500 mcg in 250 mls @ 16.5 mls/hr IV DIRECT [facility]; Protocol Stop: 12/25/19 20:59 Nitroglycerin/Dextrose (Tridil Drip 50mg/250ml) 50 mg in 250 mls @ 6 mls/hr IV TITR ONE; Protocol Stop: 12/26/19 14:55 Insulin Glargine (Lantus) 40 units SUB-Q QHS [facility] Losartan Potassium (Cozaar) 25 mg PO QDAY [facility] Metoprolol Tartrate (Metoprolol) 50 mg PO BID [facility] Ondansetron HCl (Zofran) 4 mg IV Q8H PRN PRN Reason: Nausea And Vomiting Sodium Chloride (Sodium Chloride Flush Syringe 10 Ml) 10 ml IV BID [facility] Sodium Chloride (Sodium Chloride Flush Syringe 10 Ml) 10 ml IV PRN PRN PRN Reason: LINE FLUSH Tramadol HCl (Ultram) 50 mg PO Q4H PRN PRN Reason: Pain, Mild (1-3) Exam - Constitutional Vitals: Temp Pulse Resp BP Pulse Ox 94 H 25 H 130/79 99 12/24/19 20:01 12/24/19 20:01 12/24/19 20:01 12/24/19 20:01 CA score - Ca Score Age > 65: (0) No Aspirin use within the Past 7 Days: (0) No 3 or more CAD Risk Factors: (1) Yes 2 or more Angina events in past 24 hrs: (0) No Known CAD with more than 50% Stenosis: (0) No Elevated Cardiac Markers: (0) No ST Deviation Greater than 0.5mm: (1) Yes CA Score: 2 Results - Labs CBC & Chem 7: 12/24/19 20:00 12/24/19 20:00 Labs: Laboratory Last Values WBC 12.9 K/mm3 (4.5-11.0) H 12/24/19 20:00 RBC 4.99 M/mm3 (3.65-5.03) 12/24/19 20:00 Hgb 13.1 gm/dl (10.1-14.3) 12/24/19 20:00 Hct 40.9 % (30.3-42.9) 12/24/19 20:00 MCV 82 fl (79-97) 12/24/19 20:00 MCH 26 pg (28-32) L 12/24/19 20: MCHC 32 % (30-34) 12/24/19 20:00 RDW 16.5 % (13.2-15.2) H 12/24/19 20:00 Plt Count 237 K/mm3 (140-440) 12/24/19 20:00 Lymph % (Auto) 30.8 % (13.4-35.0) 12/24/19 20:00 [place] % (Auto) 6.8 % (0.0-7.3) 12/24/19 20:00 Eos % (Auto) 2.4 % (0.0-4.3) 12/24/19 20:00 Baso % (Auto) 0.9 % (0.0-1.8) 12/24/19 20:00 Lymph # 4.0 K/mm3 (1.2-5.4) 12/24/19 20:00 [place] # 0.9 K/mm3 (0.0-0.8) H 12/24/19 20:00 Eos # 0.3 K/mm3 (0.0-0.4) 12/24/19 20:00 Baso # 0.1 K/mm3 (0.0-0.1) 12/24/19 20:00 Seg Neutrophils % 59.1 % (40.0-70.0) 12/24/19 20:00 Seg Neutrophils # 7.6 K/mm3 (1.8-7.7) 12/24/19 20:00 PT 12.7 Sec. (12.2-14.9) 12/24/19 19:52 INR 0.94 (0.87-1.13) 12/24/19 19:52 APTT 24.7 Sec. (24.2-36.6) 12/24/19 19:52 VBG pH 7.340 (7.320-7.420) 12/24/19 20:00 Sodium 133 mmol/L (137-145) L 12/24/19 20:00 Potassium 5.0 mmol/L (3.6-5.0) 12/24/19 20:00 Chloride 95.4 mmol/L (98-107) L 12/24/19 20:00 Carbon Dioxide 23 mmol/L (22-30) 12/24/19 20:00 Anion Gap 20 mmol/L 12/24/19 20:00 BUN 25 mg/dL (7-17) H 12/24/19 20:00 Creatinine 1.0 mg/dL (0.7-1.2) 12/24/19 20:00 Estimated GFR > 60 ml/min 12/24/19 20:00 BUN/Creatinine Ratio 25 % 12/24/19 20:00 Glucose 406 mg/dL (65-100) H 12/24/19 20:00 POC Glucose 338 (70-105) H 12/24/19 19:34 Calcium 9.1 mg/dL (8.4-10.2) 12/24/19 20:00 Troponin T 0.020 ng/mL (0.00-0.029) 12/24/19 20:00 Blood Type A POSITIVE 12/24/19 20:00 Antibody Screen Negative 12/24/19 20:00
--- NOTE | 2019-12-24 22:55 | Event Note ---
Date: 12/24/19 Notified by Cardiology -Acute posterior wall CA with normal LV function, PCI of RCA. Possible staged PCI of LCx on Thursday. Admitted to ICU, critical care consult placed. Thank you for consult. Patient's chart, labs, medications reviewed. Full consultation to follow .
[2019-12-24] MEDS ORDERED: DEXTROSE 50% IN WATER (25GM) 50 ML SYRINGE IV PRN (23:03)
[2019-12-25] MEDS: METOPROLOL TARTRATE 50 MG TAB PO SCH ×3 (00:16→22:01)
[2019-12-25] MEDS: HYDROcodone/ACETAMINOPHEN 5-325 MG TAB PO PRN ×3 (00:17→17:31)
[2019-12-25 04:55] LABS: Chol/HDL Ratio 3.17 %
[2019-12-25 05:25] LABS: Basophils % (Auto) 0.4 % (0.0-1.8); Eosinophils # (Auto) 0.1 K/mm3 (0.0-0.4); Eosinophils % (Auto) 1.2 % (0.0-4.3); Hematocrit 35.8 % (30.3-42.9); Hemoglobin 11.5 gm/dl (10.1-14.3); Lymphocytes % (Auto) 31.4 % (13.4-35.0); Mean Corpuscular HGB Conc 32 % (30-34); Mean Corpuscular Volume 81 fl (79-97); Monocytes # (Auto) 0.9 K/mm3 (0.0-0.8); Monocytes % (Auto) 6.9 % (0.0-7.3); Platelet Count 219 K/mm3 (140-440); Red Blood Count 4.44 M/mm3 (3.65-5.03); Red Cell Distribution Width 16.1 % (13.2-15.2)
[2019-12-25 05:45] LABS: BUN/Creatinine Ratio 27; Blood Urea Nitrogen 24 mg/dL (7-17); Calcium 8.6 mg/dL (8.4-10.2); Hemolysis Index 11
[2019-12-25] MEDS ORDERED: INSULIN LISPRO 100 UNIT/ML SUB-Q SCH (07:30)
[2019-12-25] MEDS: INSULIN LISPRO 100 UNIT/ML SUB-Q SCH ×6 (08:15→22:04)
--- NOTE | 2019-12-25 09:04 | Consultation ---
History of Present Illness Consult date: 12/25/19 Reason for consult: other (CRITICAL CARE) Past History Past Medical History: diabetes, hypertension, hyperlipidemia, PVD, other (pyo derma gangernosum) Past Surgical History: Other (left leg peripheral intervention (2018)) Social history: smoking (x 40 years). denies: alcohol abuse, prescription drug abuse Family history: cancer, diabetes Medications and Allergies Allergies Allergy/AdvReac Type Severity Reaction Status Date / Time No Known Allergies Allergy Verified 02/18/19 22:39 Home Medications Medication Instructions Recorded Confirmed Last Taken Type Metoprolol [Lopressor TAB] 50 mg PO BID #60 tablet 09/03/16 07/24/19 Unknown Rx Triamcinolone 0.1% [Kenalog 0.1% 1 applic TP BID #1 tube 01/20/17 07/24/19 Unknown Rx CREAM] Lispro Insulin [HumaLOG] 20 unit SQ TID 01/24/19 07/24/19 Unknown History Lyrica 300 mg PO DAILY 01/24/19 07/24/19 Unknown History Ondansetron [Zofran Odt] 4 mg PO Q4H PRN #15 tab.rapdis 01/28/19 07/24/19 Unknown Rx hydroCHLOROthiazide [HCTZ] 25 mg PO QDAY #30 tab 01/28/19 07/24/19 1 Day Ago Rx ~08/31/16 Percocet 7.5/325 mg 1 tab PO TID PRN 06/06/19 07/24/19 Unknown History HYDROcodone/APAP 5-325 [[place] 1 each PO Q6HR PRN #14 tablet 07/19/19 07/24/19 Unknown Rx 5/325] Promethazine [Phenergan] 25 mg PO Q6HR PRN #20 tab 07/19/19 07/24/19 Unknown Rx levoFLOXacin [Levaquin TAB] 500 mg PO QDAY #7 tablet 07/19/19 07/24/19 Unknown Rx metroNIDAZOLE [Flagyl] 500 mg PO Q8HR #21 tablet 07/19/19 07/24/19 Unknown Rx hydrALAZINE [Apresoline TAB] 25 mg PO Q8HR #90 tab 10/12/19 Unknown Rx Insulin Glargine,Hum.rec.anlog 40 units SQ DAILY 12/24/19 12/24/19 Unknown History [Lantus Solostar] Active Meds: Active Medications Acetaminophen (Tylenol) 650 mg PO Q4H PRN PRN Reason: Pain MILD(1-3)/Fever >100.5/EDUARDO Acetaminophen/Hydrocodone Bitart ([place] 5/325) 1 each PO Q6H PRN PRN Reason: Pain, Moderate (4-6) Last Admin: 12/25/19 00:17 Dose: 1 each Documented by: Aspirin (Baby Aspirin) 81 mg PO QDAY [facility] Atorvastatin Calcium (Lipitor) 40 mg PO QHS [facility] Last Admin: 12/25/19 00:18 Dose: 40 mg Documented by: Clopidogrel Bisulfate (Plavix) 75 mg PO QDAY [facility] Dextrose (D50w (25gm) Syringe) 0 ml IV Q30MIN PRN; Protocol PRN Reason: Hypoglycemia Sodium Chloride (Nacl 0.9% 1000 Ml) 1,000 mls @ 42 mls/hr IV ONCE ONE Stop: 12/25/19 19:13 Last Infusion: 12/25/19 08:46 Dose: 0 mls/hr Documented by: Tirofiban/Sodium Chloride (Aggrastat Drip (12.5 Mg/250 Ml)) 12,500 mcg in 250 mls @ 16.5 mls/hr IV DIRECT [facility]; Protocol Stop: 12/25/19 20:59 Last Admin: 12/24/19 20:50 Dose: 16.5 mls/hr Documented by: Nitroglycerin/Dextrose (Tridil Drip 50mg/250ml) 50 mg in 250 mls @ 6 mls/hr IV TITR ONE; Protocol Stop: 12/26/19 14:55 Last Titration: 12/24/19 21:55 Dose: 20 mcg/min, 6 mls/hr Documented by: Insulin Glargine (Lantus) 40 units SUB-Q QHS [facility] Insulin Human Lispro (Humalog) 0 unit SUB-Q ACHS [facility]; Protocol Last Admin: 12/24/19 22:15 Dose: 8 unit Documented by: Losartan Potassium (Cozaar) 25 mg PO QDAY [facility] Metoprolol Tartrate (Metoprolol) 50 mg PO BID [facility] Last Admin: 12/25/19 00:16 Dose: 50 mg Documented by: Ondansetron HCl (Zofran) 4 mg IV Q8H PRN PRN Reason: Nausea And Vomiting Sodium Chloride (Sodium Chloride Flush Syringe 10 Ml) 10 ml IV BID [facility] Last Admin: 12/25/19 00:19 Dose: 10 ml Documented by: Sodium Chloride (Sodium Chloride Flush Syringe 10 Ml) 10 ml IV PRN PRN PRN Reason: LINE FLUSH Tramadol HCl (Ultram) 50 mg PO Q4H PRN PRN Reason: Pain, Mild (1-3) Physical Examination Vital signs: Vital Signs Pulse Resp BP Pulse Ox 66 10 L 83/58 93 12/24/19 19:19 12/24/19 19:19 12/24/19 19:19 12/24/19 19:19 Results - Laboratory Findings CBC and BMP: 12/25/19 04:51 12/25/19 04:51 PT/INR, D-dimer PT 12.7 Sec. (12.2-14.9) 12/24/19 19:52 INR 0.94 (0.87-1.13) 12/24/19 19:52 Abnormal lab findings: Abnormal Labs 12/24/19 12/24/19 12/24/19 19:34 20:00 20:00 WBC 12.9 H MCH 26 L RDW 16.5 H [place] # 0.9 H Sodium 133 L Potassium Chloride 95.4 L BUN 25 H Glucose 406 H POC Glucose 338 H Total Creatine Kinase CK-MB (CK-2) CK-MB (CK-2) Rel Index Troponin T Triglycerides Cholesterol HDL Cholesterol 12/24/19 12/25/19 12/25/19 23:59 00:25 04:51 WBC 12.8 H MCH 26 L RDW 16.1 H [place] # 0.9 H Sodium Potassium Chloride BUN Glucose POC Glucose 334 H Total Creatine Kinase CK-MB (CK-2) CK-MB (CK-2) Rel Index Troponin T 1.100 H* D Triglycerides 151 H Cholesterol 219 H HDL Cholesterol 69 H 12/25/19 12/25/19 04:51 08:31 WBC MCH RDW [place] # Sodium 133 L Potassium 5.1 H Chloride 97.6 L BUN 24 H Glucose 203 H POC Glucose 151 H Total Creatine Kinase 1174 H CK-MB (CK-2) 146.0 H CK-MB (CK-2) Rel Index 12.4 H Troponin T 3.900 H* D Triglycerides Cholesterol HDL Cholesterol
--- NOTE | 2019-12-25 09:45 | Progress Note ---
Assessment and Plan Patient is off nitroglycerin and Aggrastat patient will be transferred to telemetry bedside echo preliminary look shows normal LV function with moderate LVH no significant regurgitation patient continue dual antiplatelet therapy high-dose statin beta may and ARB. Patient will schedule in a.m. for PCI circumflex and angiogram of the RCA. - Patient Problems (1) Hyperlipemia, mixed Current Visit: Yes Status: Chronic (2) Hypertension Current Visit: Yes Status: Chronic Qualifiers: Hypertension type: essential hypertension Qualified Code(s): I10 - Essential (primary) hypertension (3) Acute diastolic CHF (congestive heart failure) Current Visit: Yes Status: Acute (4) STEMI (ST elevation myocardial infarction) Current Visit: Yes Status: Acute Qualifiers: Involved coronary artery: right coronary artery Qualified Code(s): I21.11 - ST elevation (STEMI) myocardial infarction involving right coronary artery (5) Chest pain Current Visit: No Status: Acute Qualifiers: Ischemic chest pain type: unstable angina pectoris (6) Chronic osteomyelitis involving ankle and foot Current Visit: No Status: Acute Qualifiers: Laterality: unspecified laterality Qualified Code(s): M86.679 - Other chronic osteomyelitis, unspecified ankle and foot (7) Pyoderma gangrenosum Current Visit: No Status: Chronic (8) IDDM (insulin dependent diabetes mellitus) Current Visit: No Status: Chronic (9) PAD (peripheral artery disease) Current Visit: Yes Status: Chronic Subjective Date of service: 12/25/19 Principal diagnosis: stemi Interval history: pt feeling better cp is better Objective Vital Signs Temp Pulse Resp BP BP Pulse Ox 12/25/19 09:10 71 17 172/72 100 12/25/19 09:00 14 158/87 100 12/25/19 08:50 63 15 172/72 100 12/25/19 08:40 41 L 15 166/83 95 12/25/19 08:30 43 L 18 166/83 98 12/25/19 08:20 49 L 13 140/95 94 12/25/19 08:10 69 15 140/95 95 12/25/19 08:00 67 34 H 140/95 100 12/25/19 07:50 68 15 178/95 100 12/25/19 07:40 67 13 173/94 100 12/25/19 07:30 65 11 L 173/94 100 12/25/19 07:20 66 14 154/87 100 02/09/20 07:10 66 16 119/72 100 12/25/19 07:00 65 13 119/72 100 12/25/19 06:50 65 14 125/79 100 12/25/19 06:40 65 14 120/78 100 12/25/19 06:30 66 15 120/78 100 12/25/19 06:20 67 13 117/81 100 12/25/19 06:10 69 13 119/74 100 12/25/19 06:00 68 13 119/74 99 12/25/19 05:53 97.2 F L 62 14 107/71 99 12/25/19 05:51 66 14 142/78 100 12/25/19 05:49 97.2 F L 62 14 107/71 99 12/25/19 05:41 66 14 155/84 100 12/25/19 05:30 66 15 155/84 100 12/25/19 05:21 68 16 173/90 100 12/25/19 05:11 70 17 142/79 100 12/25/19 05:00 97.2 F L 68 15 142/79 100 12/25/19 04:51 78 140/82 100 12/25/19 04:41 124/65 100 12/25/19 04:30 97.2 F L 66 10 L 124/65 100 12/25/19 04:21 76 13 127/72 100 12/25/19 04:11 76 15 107/71 100 12/25/19 04:00 97.9 F 77 14 107/71 99 12/25/19 03:51 77 14 126/72 99 12/25/19 03:41 78 16 120/71 100 12/25/19 03:30 78 15 120/71 100 12/25/19 03:21 79 14 148/85 100 12/25/19 03:11 81 15 122/67 100 12/25/19 03:00 98.3 F 75 16 122/67 99 12/25/19 02:51 76 14 115/71 99 12/25/19 02:41 88 15 117/74 99 12/25/19 02:30 98.3 F 77 15 117/74 99 12/25/19 02:21 76 16 114/74 100 12/25/19 02:11 77 15 106/67 99 12/25/19 02:00 98.3 F 76 14 106/67 99 12/25/19 01:51 79 15 123/73 99 12/25/19 01:50 98.3 F 76 17 128/65 100 12/25/19 01:41 77 14 147/87 98 12/25/19 01:35 98.3 F 71 21 145/85 100 12/25/19 01:30 80 14 147/87 98 12/25/19 01:21 76 14 153/93 97 12/25/19 01:20 98.2 F 88 20 138/67 100 12/25/19 01:11 170/93 98 12/25/19 01:05 98.3 F 71 21 145/85 100 12/25/19 01:01 76 14 175/91 12/25/19 00:50 98.3 F 88 21 128/67 100 12/25/19 00:35 98.3 F 78 21 139/72 100 12/25/19 00:20 98.3 F 82 21 156/67 100 12/25/19 00:17 14 12/25/19 00:16 85 176/88 12/25/19 00:05 98.3 F 77 21 156/67 100 12/25/19 00:00 97.4 F L 21 99 12/24/19 23:55 97.5 F L 89 23 178/89 12/24/19 23:40 98.3 F 88 21 156/67 100 12/24/19 22:25 97.2 F L 78 21 145/79 99 12/24/19 22:10 97.2 F L 78 21 126/79 99 12/24/19 22:00 71 12/24/19 21:25 21 99 12/24/19 20:01 94 H 25 H 130/79 99 12/24/19 19:46 68 16 126/68 100 12/24/19 19:40 67 18 126/68 100 12/24/19 19:30 67 14 105/66 100 12/24/19 19:19 66 10 L 83/58 93 - Physical Examination General: Appears Well HEENT: Positive: PERRL, EOMI Neck: Positive: neck supple Cardiac: Positive: Reg Rate and Rhythm Lungs: Positive: clear to auscultation Neuro: Positive: Grossly Intact Abdomen: Positive: Soft, Active Bowel Sounds Skin: Positive: Ulceration Extremities: Present: normal, Other (chronic skin changes with ulcers and edema) - Labs and Meds Cardiac Enzymes 12/25/19 Range/Units 04:51 CK-MB (CK-2) 146.0 H (0.0-4.0) ng/mL Coagulation 12/24/19 Range/Units 19:52 PT 12.7 (12.2-14.9) Sec. INR 0.94 (0.87-1.13) APTT 24.7 (24.2-36.6) Sec. Lipids 12/24/19 Range/Units 23:59 Triglycerides 151 H (2-149) mg/dL Cholesterol 219 H (50-199) mg/dL HDL Cholesterol 69 H (40-59) mg/dL Cholesterol/HDL Ratio 3.17 % CBC 12/24/19 12/25/19 Range/Units 20:00 04:51 WBC 12.9 H 12.8 H (4.5-11.0) K/mm3 RBC 4.99 4.44 (3.65-5.03) M/mm3 Hgb 13.1 11.5 (10.1-14.3) gm/dl Hct 40.9 35.8 (30.3-42.9) % Plt Count 237 219 (140-440) K/mm3 Lymph # 4.0 4.0 (1.2-5.4) K/mm3 [place] # 0.9 H 0.9 H (0.0-0.8) K/mm3 Eos # 0.3 0.1 (0.0-0.4) K/mm3 Baso # 0.1 0.0 (0.0-0.1) K/mm3 Comprehensive Metabolic Panel 12/24/19 12/25/19 Range/Units 20:00 04:51 Sodium 133 L 133 L (137-145) mmol/L Potassium 5.0 5.1 H (3.6-5.0) mmol/L Chloride 95.4 L 97.6 L (98-107) mmol/L Carbon Dioxide 23 26 (22-30) mmol/L BUN 25 H 24 H (7-17) mg/dL Creatinine 1.0 0.9 (0.7-1.2) mg/dL Glucose 406 H 203 H (65-100) mg/dL Calcium 9.1 8.6 (8.4-10.2) mg/dL - Imaging and Cardiology EKG: report reviewed (anterior depression suggestive of posterior PR)) Cardiac cath: report reviewed (left main patent LAD. Circumflex proximal. Mid 80% prior to trifurcation of only 12 and 3 which are small Patent with normally functioning RCA proximal mid and distal had 99% lesion but CA-3 flow but with ongoing chest pain felt to be culprit vessel and proceed with PCI of the RCA with 3 drug-eluting stents xienxce 2.5 x 15 mm , 2.75 x 18 mm and 2.75 x 28 mm overlapping , reducing stenosis from 99% down to 0 with CA 3 flow small PDA PLV.) - Telemetry EKG Rhythm: Sinus Rhythm
[2019-12-25] MEDS: ASPIRIN 81 MG TAB CHEW PO SCH (09:59)
[2019-12-25] MEDS: CLOPIDOGREL 75 MG TAB PO SCH (09:59)
[2019-12-25] MEDS ORDERED: SODIUM CHLORIDE 0.9% 500 ML 500 ML IV SCH (10:00)
[2019-12-25] MEDS ORDERED: ASPIRIN EC 325 MG TAB PO SCH (10:00)
[2019-12-25] MEDS ORDERED: LOSARTAN 25 MG TAB PO SCH (10:00)
[2019-12-25] MEDS ORDERED: ONDANSETRON 4 MG ODT TAB PO PRN (13:33)
[2019-12-25] MEDS ORDERED: PROMETHAZINE 25 MG TAB PO PRN (13:33)
--- NOTE | 2019-12-25 13:38 | Progress Note ---
Assessment and Plan STEMI (ST elevation myocardial infarction) -Cardiology consulted in ED, s/p cardiac cath with PCI to proximal and distal RCA with 3 drug-eluting stents on 12/24 - continue IV nitroglycerin and Aggrastat and IV fluids for 12 hours and dual antiplatelet therapy with aspirin, Plavix , high dose statin, BB -plan for REPEAT cardiac catheterization on Thursday for mid circumflex IDDM, uncontrolled -BG on admission 406 -SSI coverage qachs and long acting at bedtime Pyoderma gangrenosum -wound care consulted -cont supportive care and home meds Hypertension -Home meds once reconciled -Monitor BP q shift Tobacco abuse -Cessation counseling DVT prophylaxis -SCDs bilateral extremities Brief HISTORY: Patient is 53-year-old female with a past medical history of insulin-dependent diabetes, pyoderma gangernosum, hypertension and peripheral vascular disease who presents to ER with complaints of dizziness since this evening. Patient was transported to the hospital via EMS after complaints of chest pain on their arrival. Cardiology consulted in ED. ECG shows ST elevations in inferior leads and thus code STEMI activated. Patient was then taken urgently to the [facility] by cardiology team. Subjective Date of service: 12/25/19 Principal diagnosis: stemi Interval history: patient seen and examined she denies any chest pain now, BP stable planned for cardiac cath tomorrow transfer to tele Objective - Constitutional Vitals: Vital Signs - 12hr 12/25/19 12/25/19 12/25/19 01:41 01:50 01:51 Temperature 98.3 F Pulse Rate 77 76 79 Respiratory 14 17 15 Rate Blood Pressure 147/87 128/65 123/73 O2 Sat by Pulse 98 100 99 Oximetry 12/25/19 12/25/19 12/25/19 02:00 02:11 02:21 Temperature 98.3 F Pulse Rate 76 77 76 Respiratory 14 15 16 Rate Blood Pressure 106/67 106/67 114/74 O2 Sat by Pulse 99 99 100 Oximetry 12/25/19 12/25/19 12/25/19 02:30 02:41 02:51 Temperature 98.3 F Pulse Rate 77 88 76 Respiratory 15 15 14 Rate Blood Pressure 117/74 117/74 115/71 O2 Sat by Pulse 99 99 99 Oximetry 12/25/19 12/25/19 12/25/19 03:00 03:11 03:21 Temperature 98.3 F Pulse Rate 75 81 79 Respiratory 16 15 14 Rate Blood Pressure 122/67 122/67 148/85 O2 Sat by Pulse 99 100 100 Oximetry 12/25/19 12/25/19 12/25/19 03:30 03:41 03:51 Temperature Pulse Rate 78 78 77 Respiratory 15 16 14 Rate Blood Pressure 120/71 120/71 126/72 O2 Sat by Pulse 100 100 99 Oximetry 12/25/19 12/25/19 12/25/19 04:00 04:11 04:21 Temperature 97.9 F Pulse Rate 77 76 76 Respiratory 14 15 13 Rate Blood Pressure 107/71 107/71 127/72 O2 Sat by Pulse 99 100 100 Oximetry 12/25/19 12/25/19 12/25/19 04:30 04:41 04:51 Temperature 97.2 F L Pulse Rate 66 78 Respiratory 10 L Rate Blood Pressure 124/65 124/65 140/82 O2 Sat by Pulse 100 100 100 Oximetry 12/25/19 12/25/19 12/25/19 05:00 05:11 05:21 Temperature 97.2 F L Pulse Rate 68 70 68 Respiratory 15 17 16 Rate Blood Pressure 142/79 142/79 173/90 O2 Sat by Pulse 100 100 100 Oximetry 12/25/19 12/25/19 12/25/19 05:30 05:41 05:49 Temperature 97.2 F L Pulse Rate 66 66 62 Respiratory 15 14 14 Rate Blood Pressure 155/84 155/84 107/71 O2 Sat by Pulse 100 100 99 Oximetry 12/25/19 12/25/19 12/25/19 05:51 05:53 06:00 Temperature 97.2 F L Pulse Rate 66 62 68 Respiratory 14 14 13 Rate Blood Pressure 142/78 107/71 119/74 O2 Sat by Pulse 100 99 99 Oximetry 12/25/19 12/25/19 12/25/19 06:10 06:20 06:30 Temperature Pulse Rate 69 67 66 Respiratory 13 13 15 Rate Blood Pressure 119/74 117/81 120/78 O2 Sat by Pulse 100 100 100 Oximetry 12/25/19 12/25/19 12/25/19 06:40 06:50 07:00 Temperature Pulse Rate 65 65 65 Respiratory 14 14 13 Rate Blood Pressure 120/78 125/79 119/72 O2 Sat by Pulse 100 100 100 Oximetry 12/25/19 12/25/19 12/25/19 07:10 07:20 07:30 Temperature Pulse Rate 66 66 65 Respiratory 16 14 11 L Rate Blood Pressure 119/72 154/87 173/94 O2 Sat by Pulse 100 100 100 Oximetry 12/25/19 12/25/19 12/25/19 07:40 07:50 08:00 Temperature 97.4 F L Pulse Rate 67 68 67 Respiratory 13 15 34 H Rate Blood Pressure 173/94 178/95 140/95 O2 Sat by Pulse 100 100 100 Oximetry 12/25/19 12/25/19 12/25/19 08:10 08:20 08:30 Temperature Pulse Rate 69 49 L 43 L Respiratory 15 13 18 Rate Blood Pressure 140/95 140/95 166/83 O2 Sat by Pulse 95 94 98 Oximetry 12/25/19 12/25/19 12/25/19 08:40 08:50 09:00 Temperature Pulse Rate 41 L 63 Respiratory 15 15 14 Rate Blood Pressure 166/83 172/72 158/87 O2 Sat by Pulse 95 100 100 Oximetry 12/25/19 12/25/19 12/25/19 09:10 09:20 09:30 Temperature Pulse Rate 71 76 75 Respiratory 17 12 10 L Rate Blood Pressure 172/72 157/82 144/90 O2 Sat by Pulse 100 98 100 Oximetry 12/25/19 12/25/19 12/25/19 09:40 09:50 09:59 Temperature Pulse Rate 79 77 79 Respiratory 15 15 Rate Blood Pressure 144/90 100/79 100/79 O2 Sat by Pulse 100 100 Oximetry 12/25/19 12/25/19 12/25/19 10:00 10:01 10:10 Temperature Pulse Rate 68 68 65 Respiratory 10 L 14 Rate Blood Pressure 177/97 100/79 177/97 O2 Sat by Pulse 95 100 Oximetry 12/25/19 12/25/19 12/25/19 10:20 10:30 10:40 Temperature Pulse Rate 79 73 73 Respiratory 13 14 10 L Rate Blood Pressure 177/97 135/107 135/107 O2 Sat by Pulse 97 98 100 Oximetry 12/25/19 12/25/19 12/25/19 10:50 11:00 11:10 Temperature Pulse Rate 73 Respiratory 15 Rate Blood Pressure 163/77 163/85 O2 Sat by Pulse 100 100 Oximetry General appearance: Present: no acute distress, obese - EENT Eyes: PERRL, EOM intact ENT: hearing intact, clear oral mucosa Ears: bilateral: normal - Neck Neck: supple, normal ROM - Respiratory Respiratory effort: normal Respiratory: bilateral: CTA - Cardiovascular Rhythm: regular Heart Sounds: Present: S1 & S2. Absent: gallop, rub Extremities: pulses intact, No edema, normal color, Full ROM Extremity abnormal: other (multiple dry ulcer and chronic healing wounds b/l on LE ) - Gastrointestinal General gastrointestinal: Present: soft, non-tender, non-distended, normal bowel sounds - Integumentary Integumentary: clear, warm, dry - Musculoskeletal Musculoskeletal: 1, strength equal bilaterally - Neurologic Neurologic: moves all extremities - Psychiatric Psychiatric: memory intact, appropriate mood/affect, intact judgment & insight - Labs CBC & Chem 7: 12/25/19 14:45 12/25/19 14:45 Labs: Abnormal lab results 12/24/19 12/24/19 12/24/19 Range/Units 19:34 20:00 20:00 WBC 12.9 H (4.5-11.0) K/mm3 MCH 26 L (28-32) pg RDW 16.5 H (13.2-15.2) % [place] # 0.9 H (0.0-0.8) K/mm3 Sodium 133 L (137-145) mmol/L Potassium (3.6-5.0) mmol/L Chloride 95.4 L (98-107) mmol/L BUN 25 H (7-17) mg/dL Glucose 406 H (65-100) mg/dL POC Glucose 338 H (70-105) Total Creatine Kinase (30-135) units/L CK-MB (CK-2) (0.0-4.0) ng/mL CK-MB (CK-2) Rel Index (0-4) Troponin T (0.00-0.029) ng/mL Triglycerides (2-149) mg/dL Cholesterol (50-199) mg/dL HDL Cholesterol (40-59) mg/dL 12/24/19 12/25/19 12/25/19 Range/Units 23:59 00:25 04:51 WBC 12.8 H (4.5-11.0) K/mm3 MCH 26 L (28-32) pg RDW 16.1 H (13.2-15.2) % [place] # 0.9 H (0.0-0.8) K/mm3 Sodium (137-145) mmol/L Potassium (3.6-5.0) mmol/L Chloride (98-107) mmol/L BUN (7-17) mg/dL Glucose (65-100) mg/dL POC Glucose 334 H (70-105) Total Creatine Kinase (30-135) units/L CK-MB (CK-2) (0.0-4.0) ng/mL CK-MB (CK-2) Rel Index (0-4) Troponin T 1.100 H* D (0.00-0.029) ng/mL Triglycerides 151 H (2-149) mg/dL Cholesterol 219 H (50-199) mg/dL HDL Cholesterol 69 H (40-59) mg/dL 12/25/19 12/25/19 12/25/19 Range/Units 04:51 08:31 11:50 WBC (4.5-11.0) K/mm3 MCH (28-32) pg RDW (13.2-15.2) % [place] # (0.0-0.8) K/mm3 Sodium 133 L (137-145) mmol/L Potassium 5.1 H (3.6-5.0) mmol/L Chloride 97.6 L (98-107) mmol/L BUN 24 H (7-17) mg/dL Glucose 203 H (65-100) mg/dL POC Glucose 151 H 158 H (70-105) Total Creatine Kinase 1174 H (30-135) units/L CK-MB (CK-2) 146.0 H (0.0-4.0) ng/mL CK-MB (CK-2) Rel Index 12.4 H (0-4) Troponin T 3.900 H* D (0.00-0.029) ng/mL Triglycerides (2-149) mg/dL Cholesterol (50-199) mg/dL HDL Cholesterol (40-59) mg/dL
[2019-12-25 15:24] LABS: Hematocrit 38.1 % (30.3-42.9); Hemoglobin 12.4 gm/dl (10.1-14.3); Mean Corpuscular HGB Conc 33 % (30-34); Mean Corpuscular Volume 81 fl (79-97); Platelet Count 232 K/mm3 (140-440); Red Blood Count 4.71 M/mm3 (3.65-5.03); Red Cell Distribution Width 16.3 % (13.2-15.2)
[2019-12-25] MEDS: hydroCHLOROthiazide 25 MG TAB PO SCH (15:29)
[2019-12-25] MEDS: hydrALAZINE 25 MG TAB PO SCH ×2 (15:30→22:00)
[2019-12-25 15:33] LABS: BUN/Creatinine Ratio 26; Blood Urea Nitrogen 26 mg/dL (7-17); Calcium 9.2 mg/dL (8.4-10.2); Hemolysis Index 7
[2019-12-25 16:19] LABS: Basophils % (Manual) 0 % (0.0-1.8); Total Cells Counted 100
[2019-12-25 16:21] LABS: Platelet Estimate Consistent w Auto; RBC Morphology Normal
--- NOTE | 2019-12-25 19:19 | Consultation ---
History of Present Illness Consult date: 12/25/19 Reason for consult: dyspnea, chest pain History of present illness: PULMONARY AND CRITICAL CARE CONSULTATION DR. Tim thank you for asking us to participate in the care of this patient. Patient is 53-year-old female with a past medical history of insulin-dependent diabetes, pyoderma gangernosum, hypertension and peripheral vascular disease who presents to ER with complaints of dizziness since this evening. Patient was transported to the hospital via EMS after complaints of chest pain on their arrival. Cardiology consulted in ED. Patient also complained shortness of breath. ECG shows ST elevations in inferior leads and thus code STEMI activated. Patient was then taken urgently to the [facility] by cardiology team. Patient has heavy history of smoking 1 pack a day x 40 years. Counselled to stop smoking. Denies alcohol or drug abuse. 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 . Children 1. No known drug allergies. Patients O2 saturation 99% on room air. Chest xray reported no acute abnormality. Past History Past Medical History: diabetes, hypertension, hyperlipidemia, PVD, other (pyoderma gangernosum) Past Surgical History: Other (left leg peripheral intervention (2018)) Social history: smoking (x 40 years). denies: alcohol abuse, prescription drug abuse Family history: cancer, diabetes Medications and Allergies Allergies Allergy/AdvReac Type Severity Reaction Status Date / Time No Known Allergies Allergy Verified 02/18/19 22:39 Home Medications Medication Instructions Recorded Confirmed Last Taken Type Metoprolol [Lopressor TAB] 50 mg PO BID #60 tablet 09/03/16 12/25/19 1 Day Ago Rx ~12/24/19 Triamcinolone 0.1% [Kenalog 0.1% 1 applic TP BID #1 tube 01/20/17 12/25/19 Unknown Rx CREAM] Lispro Insulin [HumaLOG] 20 unit SQ TID 01/24/19 12/25/19 Unknown History Lyrica 300 mg PO DAILY 01/24/19 12/25/19 12/24/19 History Ondansetron [Zofran Odt] 4 mg PO Q4H PRN #15 tab.rapdis 01/28/19 12/25/19 Unknown Rx hydroCHLOROthiazide [HCTZ] 25 mg PO QDAY #30 tab 01/28/19 12/25/19 1 Day Ago Rx ~12/24/19 Percocet 7.5/325 mg 1 tab PO TID PRN 06/06/19 12/25/19 1 Day Ago History ~12/24/19 HYDROcodone/APAP 5-325 [Breaks 1 each PO Q6HR PRN #14 tablet 07/19/19 12/25/19 Unknown Rx 5/325] Promethazine [Phenergan] 25 mg PO Q6HR PRN #20 tab 07/19/19 12/25/19 Unknown Rx levoFLOXacin [Levaquin TAB] 500 mg PO QDAY #7 tablet 07/19/19 12/25/19 Unknown Rx metroNIDAZOLE [Flagyl] 500 mg PO Q8HR #21 tablet 07/19/19 12/25/19 Unknown Rx hydrALAZINE [Apresoline TAB] 25 mg PO Q8HR #90 tab 10/12/19 12/25/19 Unknown Rx Insulin Glargine,Hum.rec.anlog 40 units SQ DAILY 12/24/19 12/24/19 Unknown History [Lantus Solostar] Active Meds: Active Medications Acetaminophen (Tylenol) 650 mg PO Q4H PRN PRN Reason: Pain MILD(1-3)/Fever >100.5/EDUARDO Acetaminophen/Hydrocodone Bitart (Breaks 5/325) 1 each PO Q6HR PRN PRN Reason: PAIN Last Admin: 12/25/19 17:31 Dose: 1 each Documented by: Aspirin (Baby Aspirin) 81 mg PO QDAY [facility] Last Admin: 12/25/19 09:59 Dose: 81 mg Documented by: Atorvastatin Calcium (Lipitor) 80 mg PO QHS [facility] Clopidogrel Bisulfate (Plavix) 75 mg PO QDAY [facility] Last Admin: 12/25/19 09:59 Dose: 75 mg Documented by: Dextrose (D50w (25gm) Syringe) 0 ml IV Q30MIN PRN; Protocol PRN Reason: Hypoglycemia Hydralazine HCl (Apresoline) 25 mg PO Q8HR [facility] Last Admin: 12/25/19 15:30 Dose: Not Given Documented by: Hydrochlorothiazide (Hctz) 25 mg PO QDAY [facility] Last Admin: 12/25/19 15:29 Dose: 25 mg Documented by: Nitroglycerin/Dextrose (Tridil Drip 50mg/250ml) 50 mg in 250 mls @ 6 mls/hr IV TITR ONE; Protocol Stop: 12/26/19 14:55 Last Titration: 12/24/19 21:55 Dose: 20 mcg/min, 6 mls/hr Documented by: Sodium Chloride (Nacl 0.9% 500 Ml) 500 mls @ 50 mls/hr IV DIRECT [facility] Stop: 12/25/19 19:59 Insulin Glargine (Lantus) 40 units SUB-Q QHS [facility] Insulin Human Lispro (Humalog) 0 unit SUB-Q ACHS [facility]; Protocol Last Admin: 12/25/19 19:00 Dose: Not Given Documented by: Insulin Human Lispro (Humalog) 20 unit SUB-Q TID [facility] Last Admin: 12/25/19 15:29 Dose: 20 unit Documented by: Metoprolol Tartrate (Metoprolol) 50 mg PO BID [facility] Last Admin: 12/25/19 09:59 Dose: 50 mg Documented by: Ondansetron HCl (Zofran) 4 mg IV Q8H PRN PRN Reason: Nausea And Vomiting Ondansetron HCl (Zofran Odt) 4 mg PO Q4H PRN PRN Reason: Nausea And Vomiting Pregabalin (Pregabalin) 300 mg PO DAILY [facility] Promethazine HCl (Phenergan) 25 mg PO Q6HR PRN PRN Reason: Nausea Sodium Chloride (Sodium Chloride Flush Syringe 10 Ml) 10 ml IV BID [facility] Last Admin: 12/25/19 10:02 Dose: 10 ml Documented by: Sodium Chloride (Sodium Chloride Flush Syringe 10 Ml) 10 ml IV PRN PRN PRN Reason: LINE FLUSH Tramadol HCl (Ultram) 50 mg PO Q4H PRN PRN Reason: Pain, Mild (1-3) Triamcinolone Acetonide (Kenalog) 1 applic TP BID [facility] Review of Systems All systems: negative Physical Examination Vital signs: Vital Signs Pulse Resp BP Pulse Ox 66 10 L 83/58 93 12/24/19 19:19 12/24/19 19:19 12/24/19 19:19 12/24/19 19:19 General appearance: alert, appears uncomfortable Eyes: non-icteric ENT: oropharynx moist Neck: supple, no JVD Ascultation: Bilateral: diminished breath sounds Cardiovascular: regular rate and rhythm Gastrointestinal: normoactive bowel sounds, soft, non-tender Integumentary: other (Pyoderma gangrenosum both lower legs.) Extremities: other (Pyoderma gangrenosum.) Musculoskeletal: other (Pyoderma gangrenosum.) Gait: other (Can not assess at this time.) normal mental status, non-focal exam, pupils equal and round mood appropriate Results - Laboratory Findings CBC and BMP: 12/25/19 14:45 12/25/19 14:45 PT/INR, D-dimer PT 12.7 Sec. (12.2-14.9) 12/24/19 19:52 INR 0.94 (0.87-1.13) 12/24/19 19:52 Abnormal lab findings: Abnormal Labs 12/24/19 12/24/19 12/24/19 19:34 20:00 20:00 WBC 12.9 H MCH 26 L RDW 16.5 H [place] # 0.9 H Lymphocytes % (Manual) Monocytes % (Manual) Lymphocytes # (Manual) Monocytes # (Manual) Sodium 133 L Potassium Chloride 95.4 L BUN 25 H Glucose 406 H POC Glucose 338 H Total Creatine Kinase CK-MB (CK-2) CK-MB (CK-2) Rel Index Troponin T Triglycerides Cholesterol HDL Cholesterol 12/24/19 12/25/19 12/25/19 23:59 00:25 04:51 WBC 12.8 H MCH 26 L RDW 16.1 H [place] # 0.9 H Lymphocytes % (Manual) Monocytes % (Manual) Lymphocytes # (Manual) Monocytes # (Manual) Sodium Potassium Chloride BUN Glucose POC Glucose 334 H Total Creatine Kinase CK-MB (CK-2) CK-MB (CK-2) Rel Index Troponin T 1.100 H* D Triglycerides 151 H Cholesterol 219 H HDL Cholesterol 69 H 12/25/19 12/25/19 12/25/19 04:51 08:31 11:50 WBC MCH RDW [place] # Lymphocytes % (Manual) Monocytes % (Manual) Lymphocytes # (Manual) Monocytes # (Manual) Sodium 133 L Potassium 5.1 H Chloride 97.6 L BUN 24 H Glucose 203 H POC Glucose 151 H 158 H Total Creatine Kinase 1174 H CK-MB (CK-2) 146.0 H CK-MB (CK-2) Rel Index 12.4 H Troponin T 3.900 H* D Triglycerides Cholesterol HDL Cholesterol 12/25/19 12/25/19 14:45 14:45 WBC 13.2 H MCH 26 L RDW 16.3 H [place] # Lymphocytes % (Manual) 44.0 H Monocytes % (Manual) 8.0 H Lymphocytes # (Manual) 5.8 H Monocytes # (Manual) 1.1 H Sodium 135 L Potassium Chloride BUN 26 H Glucose 126 H POC Glucose Total Creatine Kinase CK-MB (CK-2) CK-MB (CK-2) Rel Index Troponin T Triglycerides Cholesterol HDL Cholesterol - Diagnostic Findings Chest x-ray: report reviewed (REPORTED NO ACUTE ABNORMALITY.), image reviewed Assessment and Plan Patient is 53-year-old female with a past medical history of insulin-dependent diabetes, pyoderma gangernosum, hypertension and peripheral vascular disease who presents to ER with complaints of dizziness since this evening. Patient was transported to the hospital via EMS after complaints of chest pain on their arrival. Cardiology consulted in ED. Patient also complained shortness of breath. ECG shows ST elevations in inferior leads and thus code STEMI activated. Patient was then taken urgently to the [facility] by cardiology team. Patient has heavy history of smoking 1 pack a day x 40 years. Counselled to stop smoking. Denies alcohol or drug abuse. 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 . Children 1. No known drug allergies. Patients O2 saturation 99% on room air. Chest xray reported no acute abnormality. - Patient Problems (1) STEMI (ST elevation myocardial infarction) Current Visit: Yes Status: Acute Qualifiers: Involved coronary artery: right coronary artery Qualified Code(s): I21.11 - ST elevation (STEMI) myocardial infarction involving right coronary artery Plan to address problem: Management as per cardiology. (2) Uncontrolled diabetes mellitus Current Visit: Yes Status: Acute Plan to address problem: Management as per primary care. (3) Hypertension Current Visit: Yes Status: Chronic Qualifiers: Hypertension type: essential hypertension Qualified Code(s): I10 - Essential (primary) hypertension Plan to address problem: Management as per primary care. (4) PAD (peripheral artery disease) Current Visit: Yes Status: Chronic Plan to address problem: Management as per vascular. (5) Chest pain Current Visit: No Status: Acute Qualifiers: Ischemic chest pain type: unstable angina pectoris Plan to address problem: Management as per cardiology. (6) Shortness of breath Current Visit: Yes Status: Acute Plan to address problem: Likely related SD. Management as per cardiology. (7) Tobacco use disorder Current Visit: Yes Status: Acute Plan to address problem: Counselled to stop smoking. With heavy history of smoking , possible COPD. Recommend PFTs as out patient.
[2019-12-25] MEDS ORDERED: METOPROLOL TARTRATE 50 MG TAB PO SCH (22:00)
[2019-12-25] MEDS: INSULIN GLARGINE 100 UNITS/ML SUB-Q SCH (22:03)
[2019-12-25] MEDS: TRIAMCINOLONE 0.1% CREAM 15 GM TP SCH (22:03)
[2019-12-26] MEDS: hydrALAZINE 25 MG TAB PO SCH ×4 (05:55→22:40)
[2019-12-26] MEDS: HYDROcodone/ACETAMINOPHEN 5-325 MG TAB PO PRN ×2 (06:24→15:47)
[2019-12-26] MEDS: INSULIN LISPRO 100 UNIT/ML SUB-Q SCH ×7 (07:56→22:41)
[2019-12-26] MEDS ORDERED: HEPARIN/NS 5000 UNIT/500ML 1,000 ML IR ONE (07:58)
[2019-12-26] MEDS ORDERED: SODIUM CHLORIDE 0.9% 500 ML 500 ML ONE (08:05)
[2019-12-26] MEDS ORDERED: ASPIRIN 81 MG TAB CHEW ONE (08:17)
[2019-12-26] MEDS: fentaNYL 100 MCG/2 ML INJ ONE (08:41)
[2019-12-26] MEDS: MIDAZOLAM 2 MG/2 ML INJ ONE (08:41)
[2019-12-26] MEDS: LIDOCAINE (2%) 20 MG/1 ML VIAL 20 ML MDV INFILTRATI ONE ×2 (08:43→08:47)
[2019-12-26] MEDS: NITROGLYCERIN SYRINGE 3 ML ONE ×2 (08:44→08:49)
[2019-12-26] MEDS: HEPARIN 10,000 UNITS/10 ML VIAL ONE ×3 (08:48→08:58)
[2019-12-26] MEDS: VERAPAMIL 5 MG/2 ML INJ ONE ×2 (08:48→08:49)
[2019-12-26] MEDS ORDERED: CLOPIDOGREL 75 MG TAB ONE (09:15)
--- NOTE | 2019-12-26 09:39 | Progress Note ---
Assessment and Plan Patient has successful PCI of the mid circumflex RCA stents are patent LAD with isosorbide for small vessel disease continue beta may therapy high-dose statin and aspirin and Plavix diabetes control as per primary care team post PCI care anticipated discharge in a.m. patient's left end-diastolic pressure has improved from initial admission - Patient Problems (1) Hyperlipemia, mixed Current Visit: Yes Status: Chronic (2) Hypertension Current Visit: Yes Status: Chronic Qualifiers: Hypertension type: essential hypertension Qualified Code(s): I10 - Essential (primary) hypertension (3) Acute diastolic CHF (congestive heart failure) Current Visit: Yes Status: Acute (4) STEMI (ST elevation myocardial infarction) Current Visit: Yes Status: Acute Qualifiers: Involved coronary artery: right coronary artery Qualified Code(s): I21.11 - ST elevation (STEMI) myocardial infarction involving right coronary artery (5) Chest pain Current Visit: No Status: Acute Qualifiers: Ischemic chest pain type: unstable angina pectoris (6) Chronic osteomyelitis involving ankle and foot Current Visit: No Status: Acute Qualifiers: Laterality: unspecified laterality Qualified Code(s): M86.679 - Other chronic osteomyelitis, unspecified ankle and foot (7) Pyoderma gangrenosum Current Visit: No Status: Chronic (8) IDDM (insulin dependent diabetes mellitus) Current Visit: No Status: Chronic (9) PAD (peripheral artery disease) Current Visit: Yes Status: Chronic Subjective Date of service: 12/26/19 Principal diagnosis: stemi Interval history: cp is better Objective Vital Signs Temp Pulse Pulse Pulse Resp BP BP 12/26/19 07:28 98.0 F 82 18 155/63 12/26/19 05:55 82 140/64 12/26/19 05:00 68 15 179/97 12/26/19 04:00 98.1 F 73 18 140/64 12/26/19 00:00 98.8 F 73 18 140/64 12/25/19 22:01 76 136/65 12/25/19 22:00 75 83 83 136/65 12/25/19 19:59 97.9 F 74 18 144/69 12/25/19 17:13 98.0 F 83 18 136/65 12/25/19 12:47 98.0 F 70 20 198/100 12/25/19 11:10 163/85 12/25/19 11:00 02/09/20 10:50 73 15 163/77 12/25/19 10:40 73 10 L 135/107 12/25/19 10:30 73 14 135/107 12/25/19 10:20 79 13 177/97 12/25/19 10:10 65 14 177/97 12/25/19 10:01 68 100/79 12/25/19 10:00 68 10 L 177/97 12/25/19 09:59 79 100/79 12/25/19 09:50 77 15 100/79 12/25/19 09:40 79 15 144/90 Pulse Ox 12/26/19 07:28 100 12/26/19 05:55 12/26/19 05:00 100 12/26/19 04:00 98 12/26/19 00:00 98 12/25/19 22:01 12/25/19 22:00 99 12/25/19 19:59 98 12/25/19 17:13 99 12/25/19 12:47 100 12/25/19 11:10 12/25/19 11:00 100 12/25/19 10:50 100 12/25/19 10:40 100 12/25/19 10:30 98 12/25/19 10:20 97 12/25/19 10:10 100 12/25/19 10:01 12/25/19 10:00 95 12/25/19 09:59 12/25/19 09:50 100 12/25/19 09:40 100 - Physical Examination General: Appears Well HEENT: Positive: PERRL, EOMI Neck: Positive: neck supple Cardiac: Positive: Reg Rate and Rhythm Lungs: Positive: clear to auscultation Neuro: Positive: Grossly Intact Abdomen: Positive: Soft, Active Bowel Sounds Skin: Positive: Ulceration Incision: Cardiac Cath Site (no hematoma mild swelling) Extremities: Present: normal, Other (chronic skin changes with ulcers and edema) - Labs and Meds CBC 12/25/19 Range/Units 14:45 WBC 13.2 H (4.5-11.0) K/mm3 RBC 4.71 (3.65-5.03) M/mm3 Hgb 12.4 (10.1-14.3) gm/dl Hct 38.1 (30.3-42.9) % Plt Count 232 (140-440) K/mm3 Lymph # [employer] Comprehensive Metabolic Panel 12/25/19 Range/Units 14:45 Sodium 135 L (137-145) mmol/L Potassium 4.4 (3.6-5.0) mmol/L Chloride 98.4 (98-107) mmol/L Carbon Dioxide 26 (22-30) mmol/L BUN 26 H (7-17) mg/dL Creatinine 1.0 (0.7-1.2) mg/dL Glucose 126 H (65-100) mg/dL Calcium 9.2 (8.4-10.2) mg/dL - Imaging and Cardiology EKG: report reviewed (anterior depression suggestive of posterior [place])) Echo: report reviewed (normal lv funciton and no significant regurgitations) Cardiac cath: report reviewed (left main patent LAD. Circumflex proximal. Mid 80% prior to trifurcation of only 12 and 3 which are small Patent with normally functioning RCA proximal mid and distal had 99% lesion but CA-3 flow but with ongoing chest pain felt to be culprit vessel and proceed with PCI of the RCA with 3 drug-eluting stents xienxce 2.5 x 15 mm , 2.75 x 18 mm and 2.75 x 28 mm overlapping , reducing stenosis from 99% down to 0 with CA 3 flow small PDA PLV.), other (12/26/2019 left main. LAD patent circumflex successful PCI of the mid circumflex with drug-eluting 2.5 x 18 mm RCA stents patent small vessel PDA PLV disease with normal LV function) - Telemetry EKG Rhythm: Sinus Rhythm - EKG Sinus rhythms and dysrhythmias: sinus rhythm
[2019-12-26] MEDS ORDERED: ACETAMINOPHEN 325 MG TAB ONE (09:41)
[2019-12-26] MEDS ORDERED: SODIUM CHLORIDE 0.9% 1000 ML 1,000 ML IV SCH (09:45)
[2019-12-26] MEDS ORDERED: INSULIN GLARGINE HUM REC ANLOG 40 UNIT SQ SCH (10:00)
[2019-12-26] MEDS ORDERED: LYRICA 300 MG PO SCH (10:00)
[2019-12-26] MEDS: CLOPIDOGREL 75 MG TAB PO SCH (10:00)
--- NOTE | 2019-12-26 10:03 | Cardiac Catherization Report ---
LEFT HEART CATHETERIZATION CLINICAL INFORMATION: This is a 53-year-old female, a smoker, hypertension, diabetes and peripheral vascular disease, who presents with a myocardial infarction, had PCI of the RCA extensive, also had concomitant circumflex disease with LAD patent. She is here for a left heart catheterization/percutaneous coronary intervention of circumflex. The patient was done with moderate sedation, started at 8:41, finished at 9:13, which is 32 minutes of moderate sedation. Procedure was done via the right radial artery, sterile technique, local anesthesia, 6-Prydeinig radial sheath inserted. PROCEDURE FINDINGS: LV gram done in DONATO and WOLFE view shows normal LV function, EF 55-60%, LVEDP 16 mmHg, LV is 116, aortic is 170/72. No gradient across the aortic valve on pullback. RCA engaged with JR4, is a medium caliber vessel, dominant proximal to distal stents, patent at the apex. There is no more disease at the bifurcation that is patent, but bifurcates a very small PLV that has an ostial 60% and PDA is small caliber, but long, has a proximal 50%. Left system engaged with an EBU 3.5 catheter, left main is large and patent. LAD is a large caliber vessel, patent. Small diagonal 1 has ostial 90% and diagonal 2 is small caliber vessel, patent. Circumflex ostial proximal 40%, mid 90%, bifurcates into OM1, 2 and 3, which are small caliber vessels, but patent with diffuse disease. Percutaneous coronary intervention of the circumflex: 1. Engaged LCAwith EBU 3.5 catheter. 2. Crossed into distal OM with short [place] wire. 3. Predilated with 2.25 x 12 mm balloon inflated at 15 atmospheres x 2 inflations. 4. Intravascular ultrasound, diffuse disease within the circumflex, none in the left main with reference vessel 2.75, so stented the mid circumflex above the bifurcation with a drug-eluting Xience 2.5 x 18 mm inflated at 20 atmospheres achieving 2.9 diameter, deflated. Multiple angiograms, excellent angiographic result, reduced stenosis from 90% down to 0%. No dissection, no perforation, no embolization noted Removed coronary wire, continued CA 3 flow. A 6-Prydeinig guiding catheter taken over guidewire, 6-Prydeinig radial sheath was discontinued. Radial band applied. No hematoma, no bleeding. SUMMARY: 1. Successful PCI of the mid circumflex with a drug-eluting Xience 2.5 x 18 mm at 20 atmospheres. Proximal circumflex 40%, OM1, 2 and 3 are small caliber vessel, patent with diffuse disease. 2. Left main patent, LAD patent, diagonal-1, ostial 90%, but small caliber vessel, less than 1.5 mm and diagonal 2 patent. RCA proximal and distal stent patent. PLV small caliber proximal 60% and PDA proximal 50%, normal LV function. Treat medically. Post-PCI care. Continue dual antiplatelet therapy and smoking cessation. JOB# [id number] GISELE/BERTIN ALFARO
[2019-12-26] MEDS ORDERED: fentaNYL 100 MCG/2 ML INJ ONE (10:49)
[2019-12-26] MEDS: TRIAMCINOLONE 0.1% CREAM 15 GM TP SCH ×2 (10:56→22:33)
[2019-12-26] MEDS: oxyCODONE /ACETAMINOPHEN 5-325MG TAB PO PRN ×2 (13:31→19:01)
[2019-12-26] MEDS ORDERED: oxyCODONE /ACETAMINOPHEN 5-325MG TAB ONE (13:32)
--- NOTE | 2019-12-26 13:50 | Progress Note ---
Assessment and Plan Pt just returned from [facility]. She is complaining of some non-specific pains in her legs and hands. No complaints of shortness of breath, chest pain, or cough. She is on room air with an O2 saturation of 100%. She is afebrile and has a mild leukocytosis. Pt has a history of heavy smoking, counseled to stop smoking. - Patient Problems (1) STEMI (ST elevation myocardial infarction) Current Visit: Yes Status: Acute Qualifiers: Involved coronary artery: right coronary artery Qualified Code(s): I21.11 - ST elevation (STEMI) myocardial infarction involving right coronary artery Plan to address problem: Management as per cardiology. (2) Uncontrolled diabetes mellitus Current Visit: Yes Status: Acute Plan to address problem: Management as per primary care. (3) Hypertension Current Visit: Yes Status: Chronic Qualifiers: Hypertension type: essential hypertension Qualified Code(s): I10 - Essential (primary) hypertension Plan to address problem: Management as per primary care. (4) PAD (peripheral artery disease) Current Visit: Yes Status: Chronic Plan to address problem: Management as per vascular. (5) Chest pain Current Visit: No Status: Acute Qualifiers: Ischemic chest pain type: unstable angina pectoris Plan to address problem: Management as per cardiology. (6) Shortness of breath Current Visit: Yes Status: Acute Plan to address problem: Likely related AL. Management as per cardiology. (7) Tobacco use disorder Current Visit: Yes Status: Acute Plan to address problem: Counselled to stop smoking. With heavy history of smoking , possible COPD. Recommend PFTs as out patient. Subjective Date of service: 12/26/19 Principal diagnosis: stemi Interval history: Pt just returned from [employer] [facility]. She is complaining of some non-specific pains in her legs and hands. No complaints of shortness of breath, chest pain, or cough. She is on room air with an O2 saturation of 100%. She is afebrile and has a mild leukocytosis. Pt has a history of heavy smoking, counseled to stop smoking. Objective Vital Signs - 12hr 12/26/19 12/26/19 12/26/19 04:00 05:00 05:55 Temperature 98.1 F Pulse Rate 73 68 82 Respiratory 18 15 Rate Blood Pressure 179/97 140/64 Blood Pressure 140/64 [Left] O2 Sat by Pulse 98 100 Oximetry 12/26/19 12/26/19 12/26/19 07:28 09:33 09:44 Temperature 98.0 F Pulse Rate 82 76 Respiratory 18 12 18 Rate Blood Pressure 155/63 146/77 Blood Pressure [Left] O2 Sat by Pulse 100 100 Oximetry 12/26/19 12/26/19 12/26/19 09:45 10:00 10:33 Temperature Pulse Rate 75 77 77 Respiratory 18 18 19 Rate Blood Pressure 148/74 156/83 191/85 Blood Pressure [Left] O2 Sat by Pulse 100 100 100 Oximetry 12/26/19 12/26/19 12/26/19 11:00 11:30 12:00 Temperature Pulse Rate 76 78 78 Respiratory 15 17 18 Rate Blood Pressure 178/90 149/73 141/61 Blood Pressure [Left] O2 Sat by Pulse 99 98 98 Oximetry 12/26/19 12/26/19 12/26/19 12:30 13:00 13:30 Temperature Pulse Rate 86 86 87 Respiratory 17 21 15 Rate Blood Pressure 152/112 151/73 171/75 Blood Pressure [Left] O2 Sat by Pulse 98 100 100 Oximetry 12/26/19 13:31 Temperature Pulse Rate Respiratory 15 Rate Blood Pressure Blood Pressure [Left] O2 Sat by Pulse Oximetry Constitutional: no acute distress, alert, appears uncomfortable Eyes: non-icteric ENT: oropharynx moist Neck: supple, no lymphadenopathy, no JVD Effort: normal Ascultation: Bilateral: diminished breath sounds Cardiovascular: regular rate and rhythm Gastrointestinal: normoactive bowel sounds, soft, non-tender Integumentary: other (Pyoderma gangrenosum both lower legs.) Extremities: no edema, other (Pyoderma gangrenosum.) Neurologic: normal mental status, non-focal exam, pupils equal and round Psychiatric: mood appropriate CBC and BMP: 12/25/19 14:45 12/25/19 14:45 ABG, PT/INR, D-dimer: PT/INR, D-dimer PT 12.7 Sec. (12.2-14.9) 12/24/19 19:52 INR 0.94 (0.87-1.13) 12/24/19 19:52 Abnormal lab findings: Abnormal Labs 12/24/19 12/24/19 12/24/19 19:34 20:00 20:00 WBC 12.9 H MCH 26 L RDW 16.5 H Edgar # 0.9 H Lymphocytes % (Manual) Monocytes % (Manual) Lymphocytes # (Manual) Monocytes # (Manual) Activated Clotting Time Sodium 133 L Potassium Chloride 95.4 L BUN 25 H Glucose 406 H POC Glucose 338 H Total Creatine Kinase CK-MB (CK-2) CK-MB (CK-2) Rel Index Troponin T Triglycerides Cholesterol HDL Cholesterol 12/24/19 12/24/19 12/25/19 20:51 23:59 00:25 WBC MCH RDW Edgar # Lymphocytes % (Manual) Monocytes % (Manual) Lymphocytes # (Manual) Monocytes # (Manual) Activated Clotting Time 329 H Sodium Potassium Chloride BUN Glucose POC Glucose 334 H Total Creatine Kinase CK-MB (CK-2) CK-MB (CK-2) Rel Index Troponin T 1.100 H* D Triglycerides 151 H Cholesterol 219 H HDL Cholesterol 69 H 12/25/19 12/25/19 12/25/19 04:51 04:51 08:31 WBC 12.8 H MCH 26 L RDW 16.1 H Edgar # 0.9 H Lymphocytes % (Manual) Monocytes % (Manual) Lymphocytes # (Manual) Monocytes # (Manual) Activated Clotting Time Sodium 133 L Potassium 5.1 H Chloride 97.6 L BUN 24 H Glucose 203 H POC Glucose 151 H Total Creatine Kinase 1174 H CK-MB (CK-2) 146.0 H CK-MB (CK-2) Rel Index 12.4 H Troponin T 3.900 H* D Triglycerides Cholesterol HDL Cholesterol 12/25/19 12/25/19 12/25/19 11:50 14:45 14:45 WBC 13.2 H MCH 26 L RDW 16.3 H Edgar # Lymphocytes % (Manual) 44.0 H Monocytes % (Manual) 8.0 H Lymphocytes # (Manual) 5.8 H Monocytes # (Manual) 1.1 H Activated Clotting Time Sodium 135 L Potassium Chloride BUN 26 H Glucose 126 H POC Glucose 158 H Total Creatine Kinase CK-MB (CK-2) CK-MB (CK-2) Rel Index Troponin T Triglycerides Cholesterol HDL Cholesterol 12/25/19 12/26/19 12/26/19 21:35 06:26 07:42 WBC MCH RDW Edgar # Lymphocytes % (Manual) Monocytes % (Manual) Lymphocytes # (Manual) Monocytes # (Manual) Activated Clotting Time Sodium Potassium Chloride BUN Glucose POC Glucose 152 H 113 H 124 H Total Creatine Kinase CK-MB (CK-2) CK-MB (CK-2) Rel Index Troponin T Triglycerides Cholesterol HDL Cholesterol
[2019-12-26] MEDS ORDERED: ALPRAZolam 0.25 MG TAB PO ONE (14:00)
[2019-12-26] MEDS: ASPIRIN 81 MG TAB CHEW PO SCH (14:52)
[2019-12-26] MEDS: hydroCHLOROthiazide 25 MG TAB PO SCH (14:52)
[2019-12-26] MEDS: METOPROLOL TARTRATE 50 MG TAB PO SCH ×2 (14:52→22:33)
[2019-12-26] MEDS: PREGABALIN 75 MG CAP PO SCH (14:53)
--- NOTE | 2019-12-26 16:35 | Progress Note ---
Assessment and Plan STEMI (ST elevation myocardial infarction) -Cardiology consulted in ED, s/p cardiac cath with PCI to proximal and distal RCA with 3 drug-eluting stents on 12/24 - s/p IV nitroglycerin and Aggrastat and IV fluids for 12 hours -REPEAT cardiac catheterization on today with PCI to mid circumflex - cont dual antiplatelet therapy with aspirin, Plavix , high dose statin, BB IDDM, uncontrolled -BG on admission 406 -cont SSI coverage qachs and long acting at bedtime - consistent carb diet Pyoderma gangrenosum with chronic LE wound -wound care consulted -cont supportive care and home meds Hypertension -Home meds once reconciled -Monitor BP q shift Tobacco abuse -Cessation counseling Morbid obesity, counseled for healthy diet plan DVT prophylaxis -SCDs bilateral extremities Disposition: tomorrow am Brief HISTORY: Patient is 53-year-old female with a past medical history of insulin-dependent diabetes, pyoderma gangernosum, hypertension and peripheral vascular disease who presents to ER with complaints of dizziness since this evening. Patient was transported to the hospital via EMS after complaints of chest pain on their arrival. Cardiology consulted in ED. ECG shows ST elevations in inferior leads and thus code STEMI activated. Patient was then taken urgently to the [facility] by cardiology team. Subjective Date of service: 12/26/19 Principal diagnosis: stemi Interval history: patient seen and examined she denies any chest pain now, BP stable s/p cardiac cath today with PCI no acute issue Objective - Exam Narrative Exam: General appearance: Present: no acute distress, obese - EENT Eyes: PERRL, EOM intact ENT: hearing intact, clear oral mucosa Ears: bilateral: normal - Neck Neck: supple, normal ROM - Respiratory Respiratory effort: normal Respiratory: bilateral: CTA - Cardiovascular Rhythm: regular Heart Sounds: Present: S1 & S2. Absent: gallop, rub Extremities: pulses intact, No edema, normal color, Full ROM Extremity abnormal: other (multiple dry ulcer and chronic healing wounds b/l on LE ) - Gastrointestinal General gastrointestinal: Present: soft, non-tender, non-distended, normal bowel sounds - Integumentary Integumentary: clear, warm, dry - Musculoskeletal Musculoskeletal: 1, strength equal bilaterally - Neurologic Neurologic: moves all extremities - Psychiatric Psychiatric: memory intact, appropriate mood/affect, intact judgment & insight - Constitutional Vitals: Vital Signs - 12hr 0212/26/19 12/26/19 05:00 05:55 07:28 Temperature 98.0 F Pulse Rate 68 82 82 Respiratory 15 18 Rate Blood Pressure 179/97 140/64 155/63 Blood Pressure [Left] O2 Sat by Pulse 100 100 Oximetry 12/26/19 12/26/19 12/26/19 09:33 09:44 09:45 Temperature Pulse Rate 76 75 Respiratory 12 18 18 Rate Blood Pressure 146/77 148/74 Blood Pressure [Left] O2 Sat by Pulse 100 100 Oximetry 12/26/19 12/26/19 12/26/19 10:00 10:33 11:00 Temperature Pulse Rate 77 77 76 Respiratory 18 19 15 Rate Blood Pressure 156/83 191/85 178/90 Blood Pressure [Left] O2 Sat by Pulse 100 100 99 Oximetry 12/26/19 12/26/19 12/26/19 11:30 12:00 12:30 Temperature Pulse Rate 78 78 86 Respiratory 17 18 17 Rate Blood Pressure 149/73 141/61 152/112 Blood Pressure [Left] O2 Sat by Pulse 98 98 98 Oximetry 12/26/19 12/26/19 12/26/19 13:00 13:30 13:31 Temperature Pulse Rate 86 87 Respiratory 21 15 15 Rate Blood Pressure 151/73 171/75 Blood Pressure [Left] O2 Sat by Pulse 100 100 Oximetry 12/26/19 12/26/19 12/26/19 14:30 14:52 14:53 Temperature Pulse Rate 97 H 97 H 97 H Respiratory 18 Rate Blood Pressure 143/83 143/83 Blood Pressure 143/83 [Left] O2 Sat by Pulse 96 Oximetry 12/26/19 12/26/19 12/26/19 14:56 15:03 15:41 Temperature Pulse Rate 97 H 88 90 Respiratory 18 18 Rate Blood Pressure 143/83 Blood Pressure 155/83 152/74 [Left] O2 Sat by Pulse 99 98 Oximetry - Labs CBC & Chem 7: 12/27/19 04:00 12/27/19 04:00 Labs: Abnormal lab results 12/24/19 12/25/19 12/26/19 Range/Units 20:51 21:35 06:26 Activated Clotting Time 329 H (74-137) POC Glucose 152 H 113 H (70-105) 12/26/19 12/26/19 12/26/19 Range/Units 07:42 14:46 16:06 Activated Clotting Time (74-137) POC Glucose 124 H 230 H 249 H (70-105)
[2019-12-26 16:49] LABS: Hematocrit 41.8 % (30.3-42.9); Hemoglobin 13.4 gm/dl (10.1-14.3)
[2019-12-26] MEDS: INSULIN GLARGINE 100 UNITS/ML SUB-Q SCH (22:36)
[2019-12-26 22:41] LABS: Calcium 8.8 mg/dL (8.4-10.2)
[2019-12-27] MEDS: oxyCODONE /ACETAMINOPHEN 5-325MG TAB PO PRN ×2 (03:14→09:48)
[2019-12-27 05:02] LABS: Basophils % (Auto) 0.6 % (0.0-1.8); Eosinophils % (Auto) 3.2 % (0.0-4.3); Hematocrit 36.8 % (30.3-42.9); Hemoglobin 11.8 gm/dl (10.1-14.3); Lymphocytes # (Auto) 3.6 K/mm3 (1.2-5.4); Mean Corpuscular HGB Conc 32 % (30-34); Mean Corpuscular Volume 82 fl (79-97); Monocytes # (Auto) 0.9 K/mm3 (0.0-0.8); Monocytes % (Auto) 9.1 % (0.0-7.3); Platelet Count 183 K/mm3 (140-440); Red Blood Count 4.47 M/mm3 (3.65-5.03); Red Cell Distribution Width 16.6 % (13.2-15.2)
[2019-12-27 05:03] LABS: Basophils # (Auto) 0.1 K/mm3 (0.0-0.1); Eosinophils # (Auto) 0.3 K/mm3 (0.0-0.4)
[2019-12-27 05:21] LABS: Creatine Kinase MB 13.1 ng/mL (0.0-4.0)
[2019-12-27 05:25] LABS: Calcium 8.8 mg/dL (8.4-10.2)
[2019-12-27] MEDS: hydrALAZINE 25 MG TAB PO SCH ×2 (05:54→13:33)
[2019-12-27] MEDS: INSULIN LISPRO 100 UNIT/ML SUB-Q SCH ×5 (09:23→17:44)
[2019-12-27] MEDS: CLOPIDOGREL 75 MG TAB PO SCH (09:24)
[2019-12-27] MEDS: ASPIRIN 81 MG TAB CHEW PO SCH (09:24)
[2019-12-27] MEDS: PREGABALIN 75 MG CAP PO SCH (09:25)
[2019-12-27] MEDS: METOPROLOL TARTRATE 50 MG TAB PO SCH (09:26)
[2019-12-27] MEDS: TRIAMCINOLONE 0.1% CREAM 15 GM TP SCH (09:27)
[2019-12-27] MEDS: hydroCHLOROthiazide 25 MG TAB PO SCH (09:27)
--- NOTE | 2019-12-27 09:56 | Progress Note ---
Assessment and Plan Patient has successful PCI of the mid circumflex RCA stents are patent LAD with isosorbide for small vessel disease continue beta may therapy high-dose statin and aspirin and Plavix diabetes control as per primary care team. Currently stable cardiac status. Pt may discharge from cardiology standpoint. Follow up in our [place] office with Dr. Reilly on 01/02/2020 @ 3:15PM. The patient has been seen in conjunction with Dr. Reilly who agrees with the assessment and plan of care. - Patient Problems (1) Hyperlipemia, mixed Current Visit: Yes Status: Chronic (2) Hypertension Current Visit: Yes Status: Chronic Qualifiers: Hypertension type: essential hypertension Qualified Code(s): I10 - [place] l (primary) hypertension (3) Acute diastolic CHF (congestive heart failure) Current Visit: Yes Status: Acute (4) STEMI (ST elevation myocardial infarction) Current Visit: Yes Status: Acute Qualifiers: Involved coronary artery: right coronary artery Qualified Code(s): I21.11 - ST elevation (STEMI) myocardial infarction involving right coronary artery (5) Chest pain Current Visit: No Status: Acute Qualifiers: Ischemic chest pain type: unstable angina pectoris (6) Chronic osteomyelitis involving ankle and foot Current Visit: No Status: Acute Qualifiers: Laterality: unspecified laterality Qualified Code(s): M86.679 - Other chronic osteomyelitis, unspecified ankle and foot (7) Pyoderma gangrenosum Current Visit: No Status: Chronic (8) IDDM (insulin dependent diabetes mellitus) Current Visit: No Status: Chronic (9) PAD (peripheral artery disease) Current Visit: Yes Status: Chronic Subjective Date of service: 12/27/19 Principal diagnosis: stemi Interval history: pt resting up in chair, no current cardiac complaints. agitated because she wants to go home. in SR/ST on tele HR 100s. Objective Last Vital Signs Temp 98.4 F 12/27/19 03:37 Pulse 104 H 12/27/19 09:27 Resp 18 12/27/19 03:37 BP 112/67 12/27/19 09:27 Pulse Ox 99 12/27/19 03:37 - Physical Examination General: Appears Well HEENT: Positive: PERRL, EOMI Neck: Positive: neck supple Cardiac: Positive: Reg Rate and Rhythm, S1/S2 Lungs: Positive: Decreased Breath Sounds Neuro: Positive: Grossly Intact Abdomen: Positive: Soft, Active Bowel Sounds Skin: Positive: Ulceration Incision: Cardiac Cath Site (right radial site c/d/i, no bleeding or hematoma) Extremities: Present: normal, Other (chronic skin changes with ulcers and edema) - Labs and Meds Cardiac Enzymes 12/27/19 Range/Units 04:00 CK-MB (CK-2) 13.1 H (0.0-4.0) ng/mL CBC 12/26/19 12/27/19 Range/Units 16:30 04:00 WBC 9.5 (4.5-11.0) K/mm3 RBC 4.47 (3.65-5.03) M/mm3 Hgb 13.4 11.8 (10.1-14.3) gm/dl Hct 41.8 36.8 (30.3-42.9) % Plt Count 226 183 (140-440) K/mm3 Lymph # 3.6 (1.2-5.4) K/mm3 Coke # 0.9 H (0.0-0.8) K/mm3 Eos # 0.3 (0.0-0.4) K/mm3 Baso # 0.1 (0.0-0.1) K/mm3 Comprehensive Metabolic Panel 12/26/19 12/27/19 Range/Units 21:25 04:00 Sodium 135 L 136 L (137-145) mmol/L Potassium 5.1 H 4.5 (3.6-5.0) mmol/L Chloride 100.1 100.4 (98-107) mmol/L Carbon Dioxide 18 L D 23 (22-30) mmol/L BUN 34 H 33 H (7-17) mg/dL Creatinine 1.4 H 1.2 (0.7-1.2) mg/dL Glucose 144 H 196 H (65-100) mg/dL Calcium 8.8 8.8 (8.4-10.2) mg/dL - Imaging and Cardiology EKG: report reviewed (anterior depression suggestive of posterior [place])) Echo: report reviewed (normal lv funciton and no significant regurgitations) Cardiac cath: report reviewed (left main patent LAD. Circumflex proximal. Mid 80% prior to trifurcation of only 12 and 3 which are small Patent with normally functioning RCA proximal mid and distal had 99% lesion but CA-3 flow but with ongoing chest pain felt to be culprit vessel and proceed with PCI of the RCA with 3 drug-eluting stents xienxce 2.5 x 15 mm , 2.75 x 18 mm and 2.75 x 28 mm overlapping , reducing stenosis from 99% down to 0 with CA 3 flow small PDA PLV.), other (12/26/2019 left main. LAD patent circumflex successful PCI of the mid circumflex with drug-eluting 2.5 x 18 mm RCA stents patent small vessel PDA PLV disease with normal LV function) - EKG Sinus rhythms and dysrhythmias: sinus rhythm
[2019-12-27 12:28] VITALS: BP 119/80
--- NOTE | 2019-12-27 13:31 | Progress Note ---
Assessment and Plan Pt is alert and awake. She is resting on room air with an O2 saturation of 98%. She denies of shortness of breath, chest pain, or cough. She is afebrile and has no leukocytosis. Pt has a history of heavy smoking, counseled to stop smoking. Recommend PFTs as an outpatient. - Patient Problems (1) STEMI (ST elevation myocardial infarction) Current Visit: Yes Status: Acute Qualifiers: Involved coronary artery: right coronary artery Qualified Code(s): I21.11 - ST elevation (STEMI) myocardial infarction involving right coronary artery Plan to address problem: Management as per cardiology. (2) Uncontrolled diabetes mellitus Current Visit: Yes Status: Acute Plan to address problem: Management as per primary care. (3) Hypertension Current Visit: Yes Status: Chronic Qualifiers: Hypertension type: essential hypertension Qualified Code(s): I10 - Ess ential (primary) hypertension Plan to address problem: Management as per primary care. (4) PAD (peripheral artery disease) Current Visit: Yes Status: Chronic Plan to address problem: Management as per vascular. (5) Chest pain Current Visit: No Status: Acute Qualifiers: Ischemic chest pain type: unstable angina pectoris Plan to address problem: Management as per cardiology. (6) Shortness of breath Current Visit: Yes Status: Acute Plan to address problem: Likely related [place]. Management as per cardiology. (7) Tobacco use disorder Current Visit: Yes Status: Acute Plan to address problem: Counselled to stop smoking. With heavy history of smoking , possible COPD. Recommend PFTs as out patient. Subjective Date of service: 12/27/19 Principal diagnosis: stemi Interval history: Pt is alert and awake. She is resting on room air with an O2 saturation of 98%. She denies of shortness of breath, chest pain, or cough. She is afebrile and has no leukocytosis. Pt has a history of heavy smoking, counseled to stop smoking. Recommend PFTs as an outpatient. Objective Vital Signs - 12hr 12/27/19 12/27/19 12/27/19 03:14 03:37 05:54 Temperature 98.4 F Pulse Rate 101 H 88 Respiratory 20 18 Rate Blood Pressure 144/86 138/88 O2 Sat by Pulse 99 Oximetry 12/27/19 12/27/19 12/27/19 08:35 09:26 09:27 Temperature 97.5 F L Pulse Rate 105 H 104 H 104 H Respiratory 18 Rate Blood Pressure 111/67 112/67 112/67 O2 Sat by Pulse 100 Oximetry 12/27/19 12:05 Temperature 98.6 F Pulse Rate 106 H Respiratory 18 Rate Blood Pressure 119/80 O2 Sat by Pulse 98 Oximetry Constitutional: no acute distress, alert Eyes: non-icteric ENT: oropharynx moist Neck: supple, no lymphadenopathy, no JVD Effort: normal Ascultation: Bilateral: diminished breath sounds Cardiovascular: regular rate and rhythm Gastrointestinal: normoactive bowel sounds, soft, non-tender Integumentary: other (Pyoderma gangrenosum both lower legs.) Extremities: no edema, other (Pyoderma gangrenosum.) Neurologic: normal mental status, non-focal exam, pupils equal and round Psychiatric: mood appropriate CBC and BMP: 12/27/19 04:00 12/27/19 04:00 ABG, PT/INR, D-dimer: PT/INR, D-dimer PT 12.7 Sec. (12.2-14.9) 12/24/19 19:52 INR 0.94 (0.87-1.13) 12/24/19 19:52 Abnormal lab findings: Abnormal Labs 12/24/19 12/24/19 12/24/19 19:34 20:00 20:00 WBC 12.9 H MCH 26 L RDW 16.5 H Lymph % (Auto) Forrest % (Auto) Forrest # 0.9 H Lymphocytes % (Manual) Monocytes % (Manual) Lymphocytes # (Manual) Monocytes # (Manual) Activated Clotting Time Sodium 133 L Potassium Chloride 95.4 L Carbon Dioxide BUN 25 H Creatinine Glucose 406 H POC Glucose 338 H Total Creatine Kinase CK-MB (CK-2) CK-MB (CK-2) Rel Index Troponin T Triglycerides Cholesterol HDL Cholesterol 12/24/19 12/24/19 12/25/19 20:51 23:59 00:25 WBC MCH RDW Lymph % (Auto) Forrest % (Auto) Forrest # Lymphocytes % (Manual) Monocytes % (Manual) Lymphocytes # (Manual) Monocytes # (Manual) Activated Clotting Time 329 H Sodium Potassium Chloride Carbon Dioxide BUN Creatinine Glucose POC Glucose 334 H Total Creatine Kinase CK-MB (CK-2) CK-MB (CK-2) Rel Index Troponin T 1.100 H* D Triglycerides 151 H Cholesterol 219 H HDL Cholesterol 69 H 12/25/19 12/25/19 12/25/19 04:51 04:51 08:31 WBC 12.8 H MCH 26 L RDW 16.1 H Lymph % (Auto) Forrest % (Auto) Forrest # 0.9 H Lymphocytes % (Manual) Monocytes % (Manual) Lymphocytes # (Manual) Monocytes # (Manual) Activated Clotting Time Sodium 133 L Potassium 5.1 H Chloride 97.6 L Carbon Dioxide BUN 24 H Creatinine Glucose 203 H POC Glucose 151 H Total Creatine Kinase 1174 H CK-MB (CK-2) 146.0 H CK-MB (CK-2) Rel Index 12.4 H Troponin T 3.900 H* D Triglycerides Cholesterol HDL Cholesterol 12/25/19 12/25/19 12/25/19 11:50 14:45 14:45 WBC 13.2 H MCH 26 L RDW 16.3 H Lymph % (Auto) Forrest % (Auto) Forrest # Lymphocytes % (Manual) 44.0 H Monocytes % (Manual) 8.0 H Lymphocytes # (Manual) 5.8 H Monocytes # (Manual) 1.1 H Activated Clotting Time Sodium 135 L Potassium Chloride Carbon Dioxide BUN 26 H Creatinine Glucose 126 H POC Glucose 158 H Total Creatine Kinase CK-MB (CK-2) CK-MB (CK-2) Rel Index Troponin T Triglycerides Cholesterol HDL Cholesterol 12/25/19 12/26/19 12/26/19 21:35 06:26 07:42 WBC MCH RDW Lymph % (Auto) Forrest % (Auto) Forrest # Lymphocytes % (Manual) Monocytes % (Manual) Lymphocytes # (Manual) Monocytes # (Manual) Activated Clotting Time Sodium Potassium Chloride Carbon Dioxide BUN Creatinine Glucose POC Glucose 152 H 113 H 124 H Total Creatine Kinase CK-MB (CK-2) CK-MB (CK-2) Rel Index Troponin T Triglycerides Cholesterol HDL Cholesterol 12/26/19 12/26/19 12/26/19 14:46 16:06 16:30 WBC MCH RDW Lymph % (Auto) Forrest % (Auto) Forrest # Lymphocytes % (Manual) Monocytes % (Manual) Lymphocytes # (Manual) Monocytes # (Manual) Activated Clotting Time Sodium Potassium Chloride Carbon Dioxide BUN Creatinine Glucose POC Glucose 230 H 249 H Total Creatine Kinase 277 H CK-MB (CK-2) CK-MB (CK-2) Rel Index Troponin T Triglycerides Cholesterol HDL Cholesterol 0212/26/19 12/27/19 20:12 21:25 04:00 WBC MCH 26 L RDW 16.6 H Lymph % (Auto) 38.0 H Forrest % (Auto) 9.1 H Forrest # 0.9 H Lymphocytes % (Manual) Monocytes % (Manual) Lymphocytes # (Manual) Monocytes # (Manual) Activated Clotting Time Sodium 135 L Potassium 5.1 H Chloride Carbon Dioxide 18 L D BUN 34 H Creatinine 1.4 H Glucose 144 H POC Glucose 127 H Total Creatine Kinase CK-MB (CK-2) CK-MB (CK-2) Rel Index Troponin T Triglycerides Cholesterol HDL Cholesterol 12/27/19 12/27/19 04:00 08:44 WBC MCH RDW Lymph % (Auto) Forrest % (Auto) Forrest # Lymphocytes % (Manual) Monocytes % (Manual) Lymphocytes # (Manual) Monocytes # (Manual) Activated Clotting Time Sodium 136 L Potassium Chloride Carbon Dioxide BUN 33 H Creatinine Glucose 196 H POC Glucose 237 H Total Creatine Kinase 188 H CK-MB (CK-2) 13.1 H CK-MB (CK-2) Rel Index 6.9 H Troponin T 2.830 H* D Triglycerides Cholesterol HDL Cholesterol
--- NOTE | 2019-12-27 16:06 | Discharge Summary ---
Providers - Providers Date of Admission: 12/24/19 20:32 Date of discharge: 12/27/19 Attending physician: ARTHUR HAYS 12/24/19 Consult to Cardiac Rehabilitation [CONS] Routine Reason For Exam: post pci 12/24/19 19:26 Consult to Physician [CONS] Stat Comment: Consulting Provider: TANNER REILLY Physician Instructions: Reason For Exam: stemi 12/24/19 21:24 Consult to Physician [CONS] Routine Comment: texted physcian post mi case and informed Consulting Provider: YASMINE MENDOZA Physician Instructions: Reason For Exam: icu consult 12/24/19 23:30 Consult to Physician [CONS] Routine Comment: Consulting Provider: VESNA ANGEL Physician Instructions: Reason For Exam: icu admit stemi 12/24/19 23:47 Consult to Wound/ET Nurse [CONS] Routine Reason For Exam: wound eval 12/26/19 Consult to Cardiac Rehabilitation [CONS] Routine Reason For Exam: post pci Primary care physician: [employer] Hospitalization Condition: Stable Pertinent studies: CXR Cardiac cath 2d echo Hospital course: Patient is 53-year-old female with a past medical history of insulin-dependent diabetes, pyoderma gangernosum, hypertension and peripheral vascular disease who presents to ER with complaints of dizziness since this evening. Patient was transported to the hospital via EMS after complaints of chest pain on their arrival. Cardiology consulted in ED. ECG shows ST elevations in inferior leads and thus code STEMI activated. Patient was then taken urgently to the [facility] by cardiology team. Discharge diagnosis and Mx: STEMI (ST elevation myocardial infarction) -Cardiology consulted in ED, s/p cardiac cath with PCI to proximal and distal RCA with 3 drug-eluting stents on 12/24 and PCI to mid circumflex on 12/26 - s/p IV nitroglycerin and Aggrastat and IV fluids for 12 hours - cont dual antiplatelet therapy with aspirin, Plavix , high dose statin, BB IDDM, uncontrolled -BG on admission 406 -cont SSI coverage qachs and long acting at bedtime - consistent carb diet Pyoderma gangrenosum with chronic LE wound -wound care consulted -cont supportive care and home meds Hypertension -Home meds once reconciled -Monitor BP q shift Tobacco abuse -Cessation counseling Morbid obesity, counseled for healthy diet plan DVT prophylaxis -SCDs bilateral extremities Disposition: home Physical exam General appearance: Present: no acute distress, obese - EENT Eyes: PERRL, EOM intact ENT: hearing intact, clear oral mucosa Ears: bilateral: normal - Neck Neck: supple, normal ROM - Respiratory Respiratory effort: normal Respiratory: bilateral: CTA - Cardiovascular Rhythm: regular Heart Sounds: Present: S1 & S2. Absent: gallop, rub Extremities: pulses intact, No edema, normal color, Full ROM Extremity abnormal: other (multiple dry ulcer and chronic healing wounds b/l on LE ) - Gastrointestinal General gastrointestinal: Present: soft, non-tender, non-distended, normal bowel sounds - Integumentary Integumentary: clear, warm, dry - Musculoskeletal Musculoskeletal: 1, strength equal bilaterally - Neurologic Neurologic: moves all extremities - Psychiatric Psychiatric: memory intact, appropriate mood/affect, intact judgment & insight Disposition: DC-30 STILL A PATIENT Time spent for discharge: 34 minutes Core Measure Documentation - Palliative Care Palliative Care/ Comfort Measures: Not Applicable - Core Measures Any of the following diagnoses?: acute LA - Acute LA Discharge Requirements Aspirin at discharge: Yes PETRONA/ARB for LVSD if EF <40%: Not Applicable Beta may at discharge: Yes Statin for LDL = or >100 mg/dl on DC: Yes Exam - Physical Exam Narrative exam: General appearance: Present: no acute distress, obese - EENT Eyes: PERRL, EOM intact ENT: hearing intact, clear oral mucosa Ears: bilateral: normal - Neck Neck: supple, normal ROM - Respiratory Respiratory effort: normal Respiratory: bilateral: CTA - Cardiovascular Rhythm: regular Heart Sounds: Present: S1 & S2. Absent: gallop, rub Extremities: pulses intact, No edema, normal color, Full ROM Extremity abnormal: other (multiple dry ulcer and chronic healing wounds b/l on LE ) - Gastrointestinal General gastrointestinal: Present: soft, non-tender, non-distended, normal bowel sounds - Integumentary Integumentary: clear, warm, dry - Musculoskeletal Musculoskeletal: 1, strength equal bilaterally - Neurologic Neurologic: moves all extremities - Psychiatric Psychiatric: memory intact, appropriate mood/affect, intact judgment & insight - Constitutional Vitals: Temp Pulse Resp BP Pulse Ox 98.6 F 106 H 18 119/80 98 12/27/19 12:05 12/27/19 12:05 12/27/19 12:05 12/27/19 12:05 12/27/19 12:05 Plan Activity: advance as tolerated Weight Bearing Status: Weight Bear as Tolerated Diet: low fat, low salt Wound: per wound nurse instructions Follow up with: PRIMARY MD QI [Primary Care Provider] - 7 Days TANNER REILLY MD [Staff Physician] - 7 Days (Follow up in our [place] office with Dr. Reilly on 01/02/2020 @ 3:15PM. ) Prescriptions: AtorvaSTATin [Lipitor] 80 mg PO QHS #30 tablet Aspirin [Aspirin BABY CHEW TAB] 81 mg PO QDAY #30 tab.chew ISOSORBIDE MONOnitrate [Imdur ER] 30 mg PO QDAY #30 tablet Clopidogrel [Plavix] 75 mg PO QDAY #30 tablet
== END 2019-12-27 18:13 | disposition home health service (06) | DRG 246 ==
LOC: ED 19:15 → CC1 20:32 → 4A 12-25 11:57
PROVIDERS: ADMIT Internal Medicine Geriatric Medicine; ATTEND Internal Medicine
PROC: 02703FZ Dilation of Coronary Artery, One Artery with Three Intraluminal Devices, Percutaneous Approach (ICD-10-PCS; 2019-12-24)
PROC: 4A023N7 Measurement of Cardiac Sampling and Pressure, Left Heart, Percutaneous Approach (ICD-10-PCS; 2019-12-24)
PROC: B2111ZZ Fluoroscopy of Multiple Coronary Arteries using Low Osmolar Contrast (ICD-10-PCS; 2019-12-24)
PROC: B240ZZ3 Ultrasonography of Single Coronary Artery, Intravascular (ICD-10-PCS; 2019-12-24)
PROC: B2151ZZ Fluoroscopy of Left Heart using Low Osmolar Contrast (ICD-10-PCS; 2019-12-24)
PROC: 027034Z Dilation of Coronary Artery, One Artery with Drug-eluting Intraluminal Device, Percutaneous Approach (ICD-10-PCS; principal; 2019-12-26)
PROC: 4A023N7 Measurement of Cardiac Sampling and Pressure, Left Heart, Percutaneous Approach (ICD-10-PCS; 2019-12-26)
PROC: B2111ZZ Fluoroscopy of Multiple Coronary Arteries using Low Osmolar Contrast (ICD-10-PCS; 2019-12-26)
PROC: B240ZZ3 Ultrasonography of Single Coronary Artery, Intravascular (ICD-10-PCS; 2019-12-26)
PROC: B2151ZZ Fluoroscopy of Left Heart using Low Osmolar Contrast (ICD-10-PCS; 2019-12-26)
DX: I21.11 ST elevation (STEMI) myocardial infarction involving right coronary artery (principal); I50.31 Acute diastolic (congestive) heart failure; F17.210 Nicotine dependence, cigarettes, uncomplicated; L88 Pyoderma gangrenosum; I73.9 Peripheral vascular disease, unspecified; I11.0 Hypertensive heart disease with heart failure; M86.679 Other chronic osteomyelitis, unspecified ankle and foot; E87.2 Acidosis; E11.65 Type 2 diabetes mellitus with hyperglycemia; E66.01 Morbid (severe) obesity due to excess calories; Z71.6 Tobacco abuse counseling; Z79.4 Long term (current) use of insulin; Z85.9 Personal history of malignant neoplasm, unspecified; Z83.3 Family history of diabetes mellitus; Z71.3 Dietary counseling and surveillance; Z68.35 Body mass index [BMI] 35.0-35.9, adult
CPT/HCPCS: 36415; 71045; 80048; 80061; 82550; 82553; 82805; 82962; 84484; 85007; 85014; 85018; 85025; 85049; 85347; 85610; 85730; 86850; 86900; 86901; 92928; 92941; 92978; 93005; 93010; 93306; 93458; 96374; 96375; 99406; G0378; A9270-GY; C1725; C1753; C1769; C1874; C1887; C1894; C9600; C9606; J1644; J1815; J2250; J2270; J2405; J3010; J3246; J7030; J7040; Q9967

== ENCOUNTER 2020-02-14 21:19 | Emergency (ER) | payer MEDICAID ==
[2020-02-14 21:59] LABS: Hematocrit 39.9 % (30.3-42.9); Hemoglobin 13.2 gm/dl (10.1-14.3); Mean Corpuscular HGB Conc 33 % (30-34); Mean Corpuscular Volume 81 fl (79-97); Platelet Count 260 K/mm3 (140-440); Red Blood Count 4.96 M/mm3 (3.65-5.03); Red Cell Distribution Width 15.8 % (13.2-15.2)
[2020-02-14 22:19] LABS: BUN/Creatinine Ratio 26; Blood Urea Nitrogen 23 mg/dL (7-17); Calcium 9.6 mg/dL (8.4-10.2); Hemolysis Index 10
--- NOTE | 2020-02-14 22:34 | XRay Report ---
CHEST 1 VIEW INDICATION / CLINICAL INFORMATION: Chest Pain. COMPARISON: Chest radiograph 12/24/2019 FINDINGS: SUPPORT DEVICES: None. HEART / MEDIASTINUM: No significant abnormality. LUNGS / PLEURA: No significant pulmonary or pleural abnormality. No pneumothorax. IMPRESSION: No acute finding. Signer Name: Memo Ring MD Signed: 02/14/2020 10:30 PM Workstation Name: [id number]
[2020-02-14 22:35] LABS: Total Cells Counted 100
[2020-02-14 22:36] LABS: RBC Morphology Normal
[2020-02-14] MEDS ORDERED: METOPROLOL TARTRATE 5 MG/5 ML INJ IV ONE (22:46)
[2020-02-14] MEDS ORDERED: HYDROmorphone 1 MG/1 ML INJ IV ONE (22:46)
--- NOTE | 2020-02-14 23:16 | Emergency Department Report ---
ED General Adult HPI - General Chief complaint: High BP Stated complaint: CP Time Seen by Provider: 02/14/20 22:00 Source: patient, EMS ( EMS documentation not available at time of chart dictation ), RN notes reviewed, old records reviewed Mode of arrival: Stretcher Limitations: No Limitations - History of Present Illness Initial comments: During the entire history and physical examination, I am chaperoned by nurse Jesusita Silva The patient is a 54-year-old female, with a history of pyoderma gangrenosum, coronary artery disease, on isosorbide, aspirin and Plavix, reports compliance with her medications, on chronic metoprolol therapy, recently admitted to this hospital last month, had a cardiac catheterization which showed a successful PCI of mid circumflex with drug-eluting stent, found to have left main patent, LAD patent, diagonal -1, ostial 90%, but small caliber vessel, less than 1.5 mm and diagonal 2 patent. Medical therapy is recommended. She presents to the ER with EMS with a complaint of high blood pressure and heart palpitations and heart racing. She is not having physical pain over her chest. She has chronic pain in her bilateral elbows and lower extremities from her pyoderma gangrenosum. She has ran out of her Percocet 7.5, and is scheduled to have a telephone/telemedicine evaluation by her site inspector this Thursday. She also reports that she ran out of her metoprolol a few days ago. She states that her blood pressure was "almost 300." There is no complaint of headache, neck pain, chest pain, abdominal pain, shortness of breath, vomiting, diaphoresis, fever, cough or exposure to coronavirus. She has chronic pain over her extremities from her pyoderma gangrenosum. There is no complaint of hematemesis and/or bright red blood per rectum. She is adamant that she has been compliant with her aspirin and Plavix therapy. Sensation of heart racing has been constant for a few hours. She woke up this morning "feeling fine." -: Sudden Consistency: constant Improves with: none Worsens with: none - Related Data Home Medications Medication Instructions Recorded Confirmed Last Taken Lispro Insulin [HumaLOG] 20 unit SQ TID 01/24/19 12/25/19 Unknown Insulin Glargine,Hum.rec.anlog 40 units SQ DAILY 12/24/19 12/24/19 Unknown [Lantus Solostar] Previous Rx's Medication Instructions Recorded Last Taken Type Metoprolol [Lopressor TAB] 50 mg PO BID #60 tablet 09/03/16 1 Day Ago Rx ~12/24/19 Triamcinolone 0.1% [Kenalog 0.1% 1 applic TP BID #1 tube 01/20/17 Unknown Rx CREAM] Ondansetron [Zofran ODT TAB] 4 mg PO Q4H PRN #15 tab.rapdis 01/28/19 Unknown Rx hydroCHLOROthiazide [HCTZ] 25 mg PO QDAY #30 tab 01/28/19 1 Day Ago Rx ~12/24/19 HYDROcodone/APAP 5-325 [[place] 1 each PO Q6HR PRN #14 tablet 07/19/19 Unknown Rx 5-325 mg TAB] Promethazine [Phenergan] 25 mg PO Q6HR PRN #20 tab 07/19/19 Unknown Rx Aspirin [Aspirin BABY CHEW TAB] 81 mg PO QDAY #30 tab.chew 12/27/19 Unknown Rx AtorvaSTATin [Lipitor] 80 mg PO QHS #30 tablet 12/27/19 Unknown Rx Clopidogrel [Plavix] 75 mg PO QDAY #30 tablet 12/27/19 Unknown Rx Dextrose 50% in Water [D50W (25GM) 0 ml IV Q30MIN PRN syringe 12/27/19 Unknown Rx Syringe] ISOSORBIDE MONOnitrate [Imdur ER] 30 mg PO QDAY #30 tablet 12/27/19 Unknown Rx Metoprolol [Lopressor TAB] 50 mg PO BID #60 tablet 02/15/20 Unknown Rx Oxycodone HCl/Acetaminophen 1 each PO Q6HR PRN #12 tablet 02/15/20 Unknown Rx [Percocet 7.5/325 mg] Allergies Allergy/AdvReac Type Severity Reaction Status Date / Time No Known Allergies Allergy Verified 02/18/19 22:39 ED Review of Systems ROS: Stated complaint: CP Other details as noted in HPI Constitutional: denies: fever Eyes: denies: eye discharge ENT: denies: congestion Respiratory: denies: cough, wheezing Cardiovascular: palpitations. denies: chest pain Gastrointestinal: denies: nausea, vomiting, diarrhea Genitourinary: as per HPI Musculoskeletal: as per HPI, arthralgia, myalgia Skin: rash, lesions Neurological: denies: weakness Psychiatric: anxiety Hematological/Lymphatic: denies: easy bleeding ED Past Medical Hx - Past Medical History Hx Hypertension: Yes Hx CVA: No Hx Heart Attack/AMI: Yes (Stents x 4 placed Dec 24) Hx Congestive Heart Failure: No Hx Diabetes: Yes Hx Deep Vein Thrombosis: No Hx Pulmonary Embolism: No Hx GERD: No Hx Liver Disease: No Hx Renal Disease: No Hx Sickle Cell Disease: No Hx Arthritis: No Hx Headaches / Migraines: No Hx Seizures: No Hx Kidney Stones: No Hx Psychiatric Treatment: No Hx Asthma: No Hx COPD: No Hx Tuberculosis: No Hx Dementia: No Hx HIV: Yes (Pt denies h/o.) Additional medical history: pyoderma gangrenosum. osteomyelitis - Surgical History Past Surgical History?: Yes Hx Coronary Stent: No Hx Open Heart Surgery: No Hx Pacemaker: No Hx Internal Defibrillator: No Hx Cholecystectomy: No Hx Appendectomy: No Hx Breast Surgery: No Additional Surgical History: left LE. umbilical biopsy. Stents x 4 - Social History Smoking Status: Unknown if ever smoked Substance Use Type: Prescribed - Medications Home Medications: Home Medications Medication Instructions Recorded Confirmed Last Taken Type Metoprolol [Lopressor TAB] 50 mg PO BID #60 tablet 09/03/16 12/25/19 1 Day Ago Rx ~12/24/19 Triamcinolone 0.1% [Kenalog 0.1% 1 applic TP BID #1 tube 01/20/17 12/25/19 Unknown Rx CREAM] Lispro Insulin [HumaLOG] 20 unit SQ TID 01/24/19 12/25/19 Unknown History Ondansetron [Zofran ODT TAB] 4 mg PO Q4H PRN #15 tab.rapdis 01/28/19 12/25/19 Unknown Rx hydroCHLOROthiazide [HCTZ] 25 mg PO QDAY #30 tab 01/28/19 12/25/19 1 Day Ago Rx ~12/24/19 HYDROcodone/APAP 5-325 [[place] 1 each PO Q6HR PRN #14 tablet 07/19/19 12/25/19 Unknown Rx 5-325 mg TAB] Promethazine [Phenergan] 25 mg PO Q6HR PRN #20 tab 07/19/19 12/25/19 Unknown Rx Insulin Glargine,Hum.rec.anlog 40 units SQ DAILY 12/24/19 12/24/19 Unknown History [Guillermoanaisus [place]] Aspirin [Aspirin BABY CHEW TAB] 81 mg PO QDAY #30 tab.chew 12/27/19 Unknown Rx AtorvaSTATin [Lipitor] 80 mg PO QHS #30 tablet 12/27/19 Unknown Rx Clopidogrel [Plavix] 75 mg PO QDAY #30 tablet 12/27/19 Unknown Rx Dextrose 50% in Water [D50W (25GM) 0 ml IV Q30MIN PRN syringe 12/27/19 Unknown Rx Syringe] ISOSORBIDE MONOnitrate [Imdur ER] 30 mg PO QDAY #30 tablet 12/27/19 Unknown Rx Metoprolol [Lopressor TAB] 50 mg PO BID #60 tablet 02/15/20 Unknown Rx Oxycodone HCl/Acetaminophen 1 each PO Q6HR PRN #12 tablet 02/15/20 Unknown Rx [Percocet 7.5/325 mg] ED Physical Exam - General Limitations: Physical Limitation General appearance: alert, anxious, obese - Head Head exam: Present: atraumatic, normocephalic - Eye Eye exam: Present: normal appearance, EOMI. Absent: nystagmus - ENT ENT exam: Present: normal exam, normal orophraynx, mucous membranes moist, normal external ear exam - Neck Neck exam: Present: normal inspection, full ROM. Absent: tenderness, meningismus - Respiratory Respiratory exam: Present: normal lung sounds bilaterally. Absent: respiratory distress - Cardiovascular Cardiovascular Exam: Present: normal rhythm, tachycardia, normal heart sounds. Absent: bradycardia, systolic murmur, diastolic murmur, rubs, gallop - GI/Abdominal GI/Abdominal exam: Present: soft. Absent: distended, tenderness, guarding, rebound, rigid, pulsatile mass - Extremities Exam Extremities exam: Present: other (2+ pulses noted in the bilateral upper extremities. Chronic appearing wounds and lesions noted to the bilateral elbows and lower extremities. There is no long bony tenderness, The compartments are soft. The pelvis is stable. There is no palpable cord. No redness, pus or streaking or obvious signs of cellulitis noted on the bilateral lower extremity wound) - Back Exam Back exam: Present: normal inspection, full ROM. Absent: tenderness, CVA tenderness (R), CVA tenderness (L), paraspinal tenderness, vertebral tenderness - Neurological Exam Neurological exam: Present: alert, other (There is no facial droop. The tongue is midline. Extraocular movements are intact bilaterally. There is 5 out of 5 strength in bilateral upper and lower extremities. Sensation is intact to light touch bilateral upper and lower extremities. ). Absent: motor sensory deficit - Psychiatric Psychiatric exam: Present: anxious - Skin Skin exam: Present: warm, dry, intact, normal color. Absent: rash ED Course Vital Signs 02/14/20 02/14/20 02/14/20 21:35 22:00 22:30 Temperature 98.2 F Pulse Rate 120 H 118 H 120 H Respiratory 14 18 17 Rate Blood Pressure 144/92 147/81 Blood Pressure 141/93 [Right] O2 Sat by Pulse 99 99 100 Oximetry 02/14/20 02/14/20 02/14/20 23:00 23:15 23:18 Temperature Pulse Rate 115 H 115 H Respiratory 18 18 Rate Blood Pressure 161/96 131/81 Blood Pressure [Right] O2 Sat by Pulse 100 Oximetry 02/14/20 02/14/20 02/15/20 23:30 23:48 00:00 Temperature Pulse Rate 101 H 105 H Respiratory 17 18 21 Rate Blood Pressure 133/71 153/81 Blood Pressure [Right] O2 Sat by Pulse 98 99 Oximetry 02/15/20 02/15/20 02/15/20 00:30 01:00 01:30 Temperature Pulse Rate 104 H 77 71 Respiratory 20 21 17 Rate Blood Pressure 123/81 141/94 152/72 Blood Pressure [Right] O2 Sat by Pulse 99 100 99 Oximetry 02/15/20 02:30 Temperature Pulse Rate 69 Respiratory 20 Rate Blood Pressure 152/72 Blood Pressure [Right] O2 Sat by Pulse 100 Oximetry - Reevaluation(s) Reevaluation #1: 02/14/20 23:16 Differential diagnosis, including but not limited to: Atrial tachycardia, pulmonary embolism, medication noncompliance, breakthrough pain, electrolyte derangement Assessment and plan: 54-year-old female with a complaint of high blood pressure, and heart racing/tachycardia, likely secondary to running out of her metoprolol. She was reportedly hypertensive, and this is markedly improved. To me, she denies chest pain or shortness of breath. I suspect her presenting tachycardia is multifactorial, likely secondary to anxiety, pain, and lack of metoprolol. Rhythm today appears to be in atrial tachycardia, does not appear to be consistent with atrial fibrillation, troponin was sent prior to my personal evaluation and is very slightly elevated, likely secondary to tachycardia, this is most likely a type II troponin leak. We will treat her symptoms with hydromorphone, and Lopressor. Additional screening laboratory studies ordered. Repeat EKG will be obtained. Discussed this plan of care with the patient who verbalized understanding. We will reassess after her data points have resulted. She had a definitive cardiac risk ratification last month, and she endorses compliance with her antiplatelet therapy. This is very unlikely to be an in-stent stenosis based off of the history. Reevaluation #2: 02/14/20 23:44 Heart rate has slowed down to 100/103 bpm. Patient reports feeling improved. Repeat EKG, now with slower rate after metoprolol, confirms sinus tachycardia with persistent left axis and LAFB. Reevaluation #3: 02/15/20 01:55 Tachycardia resolved. Troponin basically unchanged. Still suspect type II troponin leak. Patient does not endorse any chest pain at this time. CT scan chest pending. Reevaluation #4: 02/15/20 02:40 cta chest negative vitals improved will refill metoprolol and give a short refill on percocet 7.5 to follow up with outpatient cardiology and pmd 02/15/20 02:47 ED Medical Decision Making - Lab Data Result diagrams: 02/14/20 21:43 02/14/20 21:43 Vital Signs 02/14/20 21:35 Temperature 98.2 F Pulse Rate 120 H Respiratory 14 Rate Blood Pressure 141/93 [Right] O2 Sat by Pulse 99 Oximetry Lab Results 02/14/20 02/14/20 Range/Units 21:43 21:43 WBC 12.1 H (4.5-11.0) K/mm3 RBC 4.96 (3.65-5.03) M/mm3 Hgb 13.2 (10.1-14.3) gm/dl Hct 39.9 (30.3-42.9) % MCV 81 (79-97) fl MCH 27 L (28-32) pg MCHC 33 (30-34) % RDW 15.8 H (13.2-15.2) % Plt Count 260 (140-440) K/mm3 Lymph # [employer] Line Technician Add Manual Diff Complete Total Counted 100 Seg Neuts % (Manual) 43.0 (40.0-70.0) % Band Neutrophils % 0 % Lymphocytes % (Manual) 45.0 H (13.4-35.0) % Reactive Lymphs % (Man) 0 % Monocytes % (Manual) 8.0 H (0.0-7.3) % Eosinophils % (Manual) 3.0 (0.0-4.3) % Basophils % (Manual) 1.0 (0.0-1.8) % Metamyelocytes % 0 % Myelocytes % 0 % Promyelocytes % 0 % Blast Cells % 0 % Nucleated RBC % Not Reportable Seg Neutrophils # Man 5.2 (1.8-7.7) K/mm3 Band Neutrophils # 0.0 K/mm3 Lymphocytes # (Manual) 5.4 (1.2-5.4) K/mm3 Abs React Lymphs (Man) 0.0 K/mm3 Monocytes # (Manual) 1.0 H (0.0-0.8) K/mm3 Eosinophils # (Manual) 0.4 (0.0-0.4) K/mm3 Basophils # (Manual) 0.1 (0.0-0.1) K/mm3 Metamyelocytes # 0.0 K/mm3 Myelocytes # 0.0 K/mm3 Promyelocytes # 0.0 K/mm3 Blast Cells # 0.0 K/mm3 WBC Morphology Not Reportable Hypersegmented Neuts Not Reportable Hyposegmented Neuts Not Reportable Hypogranular Neuts Not Reportable Smudge Cells Not Reportable Toxic Granulation Not Reportable Toxic Vacuolation Not Reportable Dohle Bodies Not Reportable Pelger-Huet Anomaly Not Reportable Helen Rods Not Reportable Platelet Estimate Not Reportable Clumped Platelets Not Reportable Plt Clumps, EDTA Not Reportable Large Platelets Not Reportable Giant Platelets Not Reportable Platelet Satelliting Not Reportable Plt Morphology Comment Not Reportable RBC Morphology Normal Dimorphic RBCs Not Reportable Polychromasia Not Reportable Hypochromasia Not Reportable Poikilocytosis Not Reportable Anisocytosis Not Reportable Microcytosis Not Reportable Macrocytosis Not Reportable Spherocytes Not Reportable Pappenheimer Bodies Not Reportable Sickle Cells Not Reportable Target Cells Not Reportable Tear Drop Cells Not Reportable Ovalocytes Not Reportable Helmet Cells Not Reportable Masters-Lacoste Bodies Not Reportable Wilmot Rings Not Reportable Snow Cells Not Reportable Bite Cells Not Reportable Crenated Cell Not Reportable Elliptocytes Not Reportable Acanthocytes (Spur) Not Reportable Rouleaux Not Reportable Hemoglobin C Crystals Not Reportable Schistocytes Not Reportable Malaria parasites Not Reportable Js Bodies Not Reportable Hem Pathologist Commnt No Sodium 137 (137-145) mmol/L Potassium 3.8 (3.6-5.0) mmol/L Chloride 99.4 (98-107) mmol/L Carbon Dioxide 22 (22-30) mmol/L Anion Gap 19 mmol/L BUN 23 H (7-17) mg/dL Creatinine 0.9 (0.7-1.2) mg/dL Estimated GFR > 60 ml/min BUN/Creatinine Ratio 26 % Glucose 253 H (65-100) mg/dL Calcium 9.6 (8.4-10.2) mg/dL Troponin T 0.030 H (0.00-0.029) ng/mL - EKG Data -: EKG Interpreted by Me Rate: tachycardia - Radiology Data Radiology results: report reviewed, image reviewed Print Report Referring Physician: CHELE ANGEL Patient Name: ROS COYLE Date of : 1965 Sex: Female Report Date: 2020-02-14 Report Status: Finalized Findings [address] [address] XRay Report Signed Patient: ROS COYEL MR#: [id number] : 1965 Acct:[id number] Age/Sex: 54 / F ADM Date: 02/14/20 Loc: ED Attending Dr: Ordering Physician: CHELE ANGEL MD Date of Service: 02/14/20 Procedure(s): XR chest 1V ap Accession Number(s): [id number] cc: CHELE ANGEL MD Fluoro Time In Minutes: CHEST 1 VIEW INDICATION / CLINICAL INFORMATION: Chest Pain. COMPARISON: Chest radiograph 12/24/2019 FINDINGS: SUPPORT DEVICES: None. HEART / MEDIASTINUM: No significant abnormality. LUNGS / PLEURA: No significant pulmonary or pleural abnormality. No pneumothorax. IMPRESSION: No acute finding. Signer Name: Memo Ring MD Signed: 02/14/2020 10:30 PM Workstation Name: [id number] Transcribed By: ABILIO Dictated By: Memo Rnig MD Electronically Authenticated By: Memo Ring MD Signed Date/Time: 02/14/202229 DD/ 28 TD/TT: Critical care attestation.: If time is entered above; I have spent that time in minutes in the direct care of this critically ill patient, excluding procedure time. ED Disposition Clinical Impression: Palpitations, Hypertension, Medication refill Disposition: - TO HOME OR SELFCARE Is pt being admited?: No Does the pt Need Aspirin: No Condition: Good Instructions: Hypertension (ED) Additional Instructions: Continue outpatient medications. Do not take metformin medication for the next 2 days, if patient takes this medication. Please follow-up with your primary care doctor or website project manager within the next 5 to 7 days. Please make certain to continue outpatient aspirin and Plavix. Please have your primary care doctor or website project manager contact the medical records department to obtain copies of your laboratory studies and radiology studies that were performed today to follow-up on nonemergent incidental findings. Please return to the emergency room right away with new, worsened or different symptoms, or symptoms not present on the initial emergency room evaluation. Prescriptions: Metoprolol [Lopressor TAB] 50 mg PO BID #60 tablet Oxycodone HCl/Acetaminophen [Percocet 7.5/325 mg] 1 each PO Q6HR PRN #12 tablet PRN Reason: Pain Referrals: ERICA WISDOM MD [Staff Physician] - as needed TANNER BERTRAND MD [Staff Physician] - 3-5 Days
[2020-02-14 23:59] LABS: INR 1.01 (0.87-1.13)
[2020-02-15] MEDS ORDERED: SODIUM CHLORIDE 0.9% 500 ML 500 ML IV ONE (00:10)
[2020-02-15 02:32] LABS: Chol/HDL Ratio 3.12 %
[2020-02-15 02:36] VITALS: BP 152/72
--- NOTE | 2020-02-15 02:44 | Cat Scan Report ---
CT angio chest INDICATION / CLINICAL INFORMATION: P.E. PROTOCOL!!! Tachycardia, Elevated D-dimer, HTN Omnipaque 350 / 100ml's was used for this exam.. TECHNIQUE: Axial CT images were obtained after injection of 100 cc of Omnipaque 350 IV contrast using CTA protoc ol. 3 plane MIP / 3D reconstructions were produced. All CT scans at this location are performed using CT dose reduction for ALARA by means of automated exposure control. COMPARISON: 10/11/2019 FINDINGS: Following the administration of intravenous contrast, no filling defects are seen in the main pulmona ry arteries or their branches. No significant parenchymal abnormality is seen in the lungs. No enlarg ed mediastinal or hilar lymph nodes are identified. No significant skeletal abnormality is seen. IMPRESSION: No evidence of pulmonary embolus. Negative CTA of the chest Signer Name: Alfonzo Acosta MD FACR Signed: 02/15/2020 2:40 AM Workstation Name: [id number]
== END 2020-02-15 07:15 | disposition home or self-care (01) ==
LOC: ED 21:19
DX: I10 Essential (primary) hypertension (principal); R00.2 Palpitations; I25.10 Atherosclerotic heart disease of native coronary artery without angina pectoris; I25.2 Old myocardial infarction; E11.9 Type 2 diabetes mellitus without complications; Z21 Asymptomatic human immunodeficiency virus [HIV] infection status; Z98.890 Other specified postprocedural states; Z79.899 Other long term (current) drug therapy; Z79.4 Long term (current) use of insulin; Z95.5 Presence of coronary angioplasty implant and graft; Z76.0 Encounter for issue of repeat prescription
CPT/HCPCS: 36415; 71045; 71275; 80048; 80061; 82550; 83735; 84443; 84484; 85007; 85025; 85379; 85610; 93005; 93010; 96374; 96375; 99285; J1170; J7040; Q9967

== ENCOUNTER 2020-04-29 23:59 | Inpatient (IN) | payer MEDICAID ==
[2020-04-30] MEDS ORDERED: ONDANSETRON 4 MG/2 ML INJ IV ONE (03:43)
--- NOTE | 2020-04-30 03:58 | XRay Report ---
CHEST 1 VIEW 04/30/2020 2:45 AM INDICATION / CLINICAL INFORMATION: fever. COMPARISON: Chest x-ray 02/14/2020 FINDINGS: SUPPORT DEVICES: None. HEART / MEDIASTINUM: No significant abnormality. LUNGS / PLEURA: No significant pulmonary or pleural abnormality. No pneumothorax. ADDITIONAL FINDINGS: No significant additional findings. IMPRESSION: 1. No acute findings. Signer Name: Cortez Alvarez MD Signed: 04/30/2020 3:53 AM Workstation Name: [email or web address]
[2020-04-30 04:34] LABS: Basophils % (Auto) 0.2 % (0.0-1.8); Eosinophils % (Auto) 0.1 % (0.0-4.3); Hemoglobin 13.9 gm/dl (10.1-14.3); Lymphocytes # (Auto) 1.9 K/mm3 (1.2-5.4); Lymphocytes % (Auto) 10.3 % (13.4-35.0); Mean Corpuscular HGB Conc 32 % (30-34); Mean Corpuscular Volume 80 fl (79-97); Monocytes % (Auto) 5.5 % (0.0-7.3); Platelet Count 174 K/mm3 (140-440); Red Blood Count 5.39 M/mm3 (3.65-5.03); Red Cell Distribution Width 16.9 % (13.2-15.2)
[2020-04-30 04:48] LABS: Alanine Aminotransferase 16 units/L (7-56); Albumin 3.3 g/dL (3.9-5); BUN/Creatinine Ratio 22; Blood Urea Nitrogen 24 mg/dL (7-17); Calcium 9.1 mg/dL (8.4-10.2); Hemolysis Index 15
[2020-04-30] MEDS ORDERED: PIPERACIL/TAZOBACTA 4.5/NS 100 4.5 GM/100 ML VIAL IV ONE (04:59)
[2020-04-30] MEDS ORDERED: ACETAMINOPHEN 650 MG RECT SUPP PR ONE (04:59)
[2020-04-30] MEDS ORDERED: SODIUM CHLORIDE 0.9% 1000 ML 2,000 ML IV ONE (04:59)
[2020-04-30] MEDS ORDERED: INSULIN REGULAR, HUMAN 100 UNITS/1 ML IV ONE (05:01)
--- NOTE | 2020-04-30 05:01 | Event Note ---
Date: 04/30/20 Medical screening note: 54-year-old female with a history of heart disease, pyoderma gangrenosum, diabetes, presenting with fever, malaise, weakness, hyperglycemia. In the emergency room, patient is lethargic, and febrile. Her bilateral lower extremities appear to be quite warm and tender. There is a history of nausea and vomiting. Laboratory studies reviewed and appreciated. IV fluids, rectal acetaminophen, broad-spectrum antibiotics, CT scan of the brain, abdomen pelvis ordered. Anticipate admission once initial diagnostics have resulted. Vital Signs 04/30/20 04/30/20 04/30/20 00:35 02:50 03:11 Temperature 100.3 F H Pulse Rate 102 H 80 76 Respiratory 22 18 18 Rate Blood Pressure 143/77 129/74 [Left] O2 Sat by Pulse 99 99 100 Oximetry 04/30/20 04:20 Temperature 102.0 F H Pulse Rate Respiratory Rate Blood Pressure [Left] O2 Sat by Pulse Oximetry Vital Signs 04/30/20 04/30/20 04/30/20 00:35 02:50 03:11 Temperature 100.3 F H Pulse Rate 102 H 80 76 Respiratory 22 18 18 Rate Blood Pressure 143/77 129/74 [Left] O2 Sat by Pulse 99 99 100 Oximetry 04/30/20 04:20 Temperature 102.0 F H Pulse Rate Respiratory Rate Blood Pressure [Left] O2 Sat by Pulse Oximetry Lab Results 04/30/20 04/30/20 04/30/20 Range/Units 00:50 03:22 03:22 WBC 18.0 H (4.5-11.0) K/mm3 RBC 5.39 H (3.65-5.03) M/mm3 Hgb 13.9 (10.1-14.3) gm/dl Hct 43.0 H (30.3-42.9) % MCV 80 (79-97) fl MCH 26 L (28-32) pg MCHC 32 (30-34) % RDW 16.9 H (13.2-15.2) % Plt Count 174 (140-440) K/mm3 Lymph % (Auto) 10.3 L (13.4-35.0) % [place] % (Auto) 5.5 (0.0-7.3) % Eos % (Auto) 0.1 (0.0-4.3) % Baso % (Auto) 0.2 (0.0-1.8) % Lymph # 1.9 (1.2-5.4) K/mm3 [place] # 1.0 H (0.0-0.8) K/mm3 Eos # 0.0 (0.0-0.4) K/mm3 Baso # 0.0 (0.0-0.1) K/mm3 Seg Neutrophils % 83.9 H (40.0-70.0) % Seg Neutrophils # 15.1 H (1.8-7.7) K/mm3 Sodium 137 (137-145) mmol/L Potassium 3.9 (3.6-5.0) mmol/L Chloride 97.1 L (98-107) mmol/L Carbon Dioxide 24 (22-30) mmol/L Anion Gap 20 mmol/L BUN 24 H (7-17) mg/dL Creatinine 1.1 (0.7-1.2) mg/dL Estimated GFR > 60 ml/min BUN/Creatinine Ratio 22 % Glucose 313 H (65-100) mg/dL POC Glucose 426 H (70-105) Calcium 9.1 (8.4-10.2) mg/dL Total Bilirubin 0.30 (0.1-1.2) mg/dL AST 14 (5-40) units/L ALT 16 (7-56) units/L Alkaline Phosphatase 128 (35-129) units/L Total Protein 6.4 (6.3-8.2) g/dL Albumin 3.3 L (3.9-5) g/dL Albumin/Globulin Ratio 1.1 %
--- NOTE | 2020-04-30 05:41 | Cat Scan Report ---
CT HEAD WITHOUT CONTRAST INDICATION / CLINICAL INFORMATION: weakness delerium. TECHNIQUE: All CT scans at this location are performed using CT dose reduction for ALARA by means of automated e xposure control. COMPARISON: None available. FINDINGS: HEMORRHAGE: None. EXTRA-AXIAL SPACES: Normal in size and morphology for the patient's age. VENTRICULAR SYSTEM: Normal in size and morphology for the patient's age. CEREBRAL PARENCHYMA: 1 cm area of hypoattenuation within right centrum semiovale region characteristi c for chronic ischemic change is again noted. No acute territorial infarct. MIDLINE SHIFT OR HERNIATION: None. CEREBELLUM / BRAINSTEM: No significant abnormality. ORBITS: Normal as visualized. SOFT TISSUES of HEAD: No significant abnormality. CALVARIUM: No significant abnormality. PARANASAL SINUSES / MASTOID AIR CELLS: Normal as visualized. ADDITIONAL FINDINGS: None. IMPRESSION: 1. No acute intracranial abnormality. Signer Name: Cortez Alvarez MD Signed: 04/30/2020 5:36 AM Workstation Name: [id number]
--- NOTE | 2020-04-30 05:44 | Cat Scan Report ---
CT ABDOMEN AND PELVIS WITHOUT CONTRAST INDICATION: weakness delerium n/v. TECHNIQUE: Axial CT images were obtained through the abdomen and pelvis without IV contrast. All CT scans at [facility] location are performed using CT dose reduction for ALARA by means of automated exposure control. COMPARISON: CTA abdomen 10/12/2019 FINDINGS: LOWER CHEST: No significant abnormality. LIVER: No significant abnormality. GALLBLADDER: No significant abnormality. BILE DUCTS: No significant abnormality. PANCREAS: No significant abnormality. SPLEEN: No significant abnormality. ADRENALS: No significant abnormality. RIGHT KIDNEY and URETER: No significant abnormality. LEFT KIDNEY and URETER: No significant abnormality. STOMACH and SMALL BOWEL: No significant abnormality. COLON: Moderate amount of colonic stool characteristic for constipation. Mild colonic diverticulosis. APPENDIX: No significant abnormality. PERITONEUM: No free fluid. No free air. No fluid collection. LYMPH NODES: No significant adenopathy. AORTA and ARTERIES: No significant abnormality. IVC and VEINS: No significant abnormality. URINARY BLADDER: No significant abnormality. REPRODUCTIVE ORGANS: No significant abnormality. ADDITIONAL FINDINGS: None. SKELETAL SYSTEM: No significant abnormality. IMPRESSION: 1. Mild colonic diverticulosis and moderate constipation. Signer Name: Cortez Alvarez MD Signed: 04/30/2020 5:39 AM Workstation Name: [id number]
[2020-04-30] MEDS ORDERED: VANCOMYCIN/NS 1 GM/250 ML 1 GM/250 ML BAG IV ONE (05:57)
--- NOTE | 2020-04-30 05:57 | Emergency Department Report ---
ED Fever HPI - General Chief Complaint: Hyperglycemia Stated Complaint: HIGH BS PUI?: No Time Seen by Provider: 04/30/20 05:46 Source: patient, EMS, old records Exam Limitations: clinical condition - History of Present Illness Initial Comments: Mrs. Acosta is a 54-year-old female with history of osteomyelitis, UTI, insulin- dependent diabetes, myocardial infarction, dyslipidemia, diastolic heart failure, peripheral artery disease, pyoderma gangrenosum SVT hypertension who presents with fever malaise altered mental status. Patient arrived per EMS. S he provided limited history. History obtained from EMS nurse report and electronic medical record. Presentation mostly elevated high blood sugar vomiting according to EMS. Fever noted here in the emergency department. Timing/Duration: other (1) Associated Symptoms: other (Bilateral leg pain vomiting) ED Review of Systems ROS: Stated complaint: HIGH BS Other details as noted in HPI Comment: Unobtainable due to pts medical conditions (Patient provided limited cooperation with history) ED Past Medical Hx - Past Medical History Hx Hypertension: Yes Hx CVA: No Hx Heart Attack/AMI: Yes (Stents x 4 placed Dec 24) Hx Congestive Heart Failure: No Hx Diabetes: Yes Hx Deep Vein Thrombosis: No Hx Pulmonary Embolism: No Hx GERD: No Hx Liver Disease: No Hx Renal Disease: No Hx Sickle Cell Disease: No Hx Arthritis: No Hx Headaches / Migraines: No Hx Seizures: No Hx Kidney Stones: No Hx Psychiatric Treatment: No Hx Asthma: No Hx COPD: No Hx Tuberculosis: No Hx Dementia: No Hx HIV: Yes (Pt denies h/o.) Additional medical history: pyoderma gangrenosum. osteomyelitis - Surgical History Past Surgical History?: Yes Hx Coronary Stent: No Hx Open Heart Surgery: No Hx Pacemaker: No Hx Internal Defibrillator: No Hx Cholecystectomy: No Hx Appendectomy: No Hx Breast Surgery: No Additional Surgical History: left LE. umbilical biopsy. Stents x 4 - Social History Smoking Status: Never Smoker - Medications Home Medications: Home Medications Medication Instructions Recorded Confirmed Last Taken Type Metoprolol [Lopressor TAB] 50 mg PO BID #60 tablet 09/03/16 12/25/19 1 Day Ago Rx ~12/24/19 Triamcinolone 0.1% [Kenalog 0.1% 1 applic TP BID #1 tube 01/20/17 12/25/19 Unknown Rx CREAM] Lispro Insulin [HumaLOG] 20 unit SQ TID 01/24/19 12/25/19 Unknown History Ondansetron [Zofran ODT TAB] 4 mg PO Q4H PRN #15 tab.rapdis 01/28/19 12/25/19 Unknown Rx hydroCHLOROthiazide [HCTZ] 25 mg PO QDAY #30 tab 01/28/19 12/25/19 1 Day Ago Rx ~12/24/19 HYDROcodone/APAP 5-325 [[place] 1 each PO Q6HR PRN #14 tablet 07/19/19 12/25/19 Unknown Rx 5-325 mg TAB] Promethazine [Phenergan] 25 mg PO Q6HR PRN #20 tab 07/19/19 12/25/19 Unknown Rx Insulin Glargine,Hum.rec.anlog 40 units SQ DAILY 12/24/19 12/24/19 Unknown History [Lantus Solostar] Aspirin [Aspirin BABY CHEW TAB] 81 mg PO QDAY #30 tab.chew 12/27/19 Unknown Rx AtorvaSTATin [Lipitor] 80 mg PO QHS #30 tablet 12/27/19 Unknown Rx Clopidogrel [Plavix] 75 mg PO QDAY #30 tablet 12/27/19 Unknown Rx Dextrose 50% in Water [D50W (25GM) 0 ml IV Q30MIN PRN syringe 12/27/19 Unknown Rx Syringe] ISOSORBIDE MONOnitrate [Imdur ER] 30 mg PO QDAY #30 tablet 12/27/19 Unknown Rx Metoprolol [Lopressor TAB] 50 mg PO BID #60 tablet 02/15/20 Unknown Rx Oxycodone HCl/Acetaminophen 1 each PO Q6HR PRN #12 tablet 02/15/20 Unknown Rx [Percocet 7.5/325 mg] ED Physical Exam - General Limitations: Physical Limitation General appearance: alert, other (Moans withdraws from pain would not cooperate with history ) - Head Head exam: Present: atraumatic, normocephalic, other ( prominent ulcer right temporal region of face) - Eye Eye exam: Present: normal appearance - ENT ENT exam: Present: mucous membranes dry - Neck Neck exam: Present: normal inspection, full ROM - Respiratory Respiratory exam: Present: normal lung sounds bilaterally. Absent: respiratory distress, wheezes, rales, rhonchi - Cardiovascular Cardiovascular Exam: Present: regular rate, normal rhythm, normal heart sounds. Absent: rubs, gallop - GI/Abdominal GI/Abdominal exam: Present: soft. Absent: distended, tenderness, guarding, rebound - Extremities Exam Extremities exam: Present: other (Multiple deep ulcers with diffuse erythema and warmth) - Neurological Exam Neurological exam: Present: alert - Psychiatric Psychiatric exam: Present: flat affect ED Course Vital Signs 04/30/20 04/30/20 04/30/20 00:35 02:50 03:11 Temperature 100.3 F H Pulse Rate 102 H 80 76 Respiratory 22 18 18 Rate Blood Pressure Blood Pressure 143/77 129/74 [Left] O2 Sat by Pulse 99 99 100 Oximetry 04/30/20 04/30/20 04:20 05:01 Temperature 102.0 F H Pulse Rate 81 Respiratory 22 Rate Blood Pressure 147/121 Blood Pressure [Left] O2 Sat by Pulse 99 Oximetry ED Medical Decision Making - Lab Data Result diagrams: 04/30/20 03:22 04/30/20 03:22 - EKG Data 04/30/20 06:27 EKG obtained 0 618 Rhythm is irregular sinus rhythm with junctional beats unclear if this is due to technique or actual arrhythmia such as atrial flutter or atrial fibrillation Previous EKGs in August revealed sinus rhythm versus sinus tachycardia - Medical Decision Making 1. Sepsis: Sepsis protocol initiated by my colleague. I suspect lower extremity cellulitis as source of fever. CT abdomen pelvis did not reveal acute inflammatory process. 2. Altered mental status: Patient is mostly lethargic with appropriate answers according to nursing staff. I suspect acute delirium due to illness. CT head without acute process. Chronic changes seen. Critical Care Time: Yes Critical care attestation.: If time is entered above; I have spent that time in minutes in the direct care of this critically ill patient, excluding procedure time. 40 minutes of critical care time excluding procedures were used in the care of the patient. I reviewed electronic record. I discussed treatment plan with the nursing team members at the bedside. I was concerned for sepsis. I came immediately to the bedside upon my arrival. Patient required multiple interventions and reassessments. ED Disposition Clinical Impression: Acute metabolic encephalopathy, Cellulitis, Pyoderma gangrenosum, Sepsis, Atrial arrhythmia Disposition: OP ADMIT IP TO THIS HOSP Is pt being admited?: Yes Does the pt Need Aspirin: No Condition: Stable
[2020-04-30] MEDS ORDERED: VANCOMYCIN 2,000 MG in SODIUM CHLORIDE 0.9% 500 ML 500 ML IV ONE (06:15)
[2020-04-30 06:23] LABS: INR 1.04 (0.87-1.13)
[2020-04-30 06:36] LABS: Alanine Aminotransferase 16 units/L (7-56); Albumin 3.4 g/dL (3.9-5)
[2020-04-30 06:51] LABS: Bilirubin,Direct < 0.2 mg/dL (0-0.2)
[2020-04-30 07:09] LABS: Bacteria,Urine 1+ /HPF (Negative); Bilirubin,Urine NEG (Negative); Blood,Urine NEG (Negative); Color,Urine Yellow (Yellow); Mucus,Urine FEW /HPF; Urobilinogen,Urine < 2.0 mg/dL (<2.0)
[2020-04-30 07:14] LABS: Chol/HDL Ratio 3.68 %
[2020-04-30] MEDS ORDERED: ACETAMINOPHEN 650 MG RECT SUPP PR PRN (09:21)
[2020-04-30] MEDS ORDERED: MORPHINE 2 MG/1 ML INJ IV PRN (09:21)
[2020-04-30] MEDS ORDERED: SODIUM CHLORIDE 0.9% 1000 ML IV SOLN IV ONE (09:21)
[2020-04-30] MEDS ORDERED: ONDANSETRON 4 MG/2 ML INJ IV PRN (09:21)
[2020-04-30] MEDS ORDERED: NALOXONE 0.4 MG/1 ML INJ IV PRN (09:21)
[2020-04-30] MEDS ORDERED: DEXTROSE 50% IN WATER (25GM) 50 ML SYRINGE IV PRN (09:21)
[2020-04-30] MEDS ORDERED: ALBUTEROL 2.5 MG/3 ML NEBU IH PRN (09:21)
--- NOTE | 2020-04-30 09:28 | History and Physical Report ---
History of Present Illness Date of examination: 04/30/20 Date of admission: 04/30/20 Chief complaint: Fever History of present illness: Patient is a 54-year-old female with past medical history of diabetes mellitus, insulin-dependent, prior history of myocardial infarction, dyslipidemia, diastolic heart failure osteomyelitis, peripheral artery disease, pyoderma gang renosum, SVT, hypertension who presents with fever malaise altered mental status. Patient arrived per EMS. She provided limited history. History obtained from EMS nurse report and electronic medical record. Presentation mostly elevated high blood sugar vomiting according to EMS. Fever noted here in the emergency department. In the ED patient was noted to be febrile to 102 with a white count of 18. Currently receiving Zosyn. During my examination the patient is very lethargic unable to provide any additional information. Past History Past Medical History: other (As mentioned in HPI) Past Surgical History: No surgical history Social history: no significant social history Family history: no significant family history Medications and Allergies Allergies Allergy/AdvReac Type Severity Reaction Status Date / Time No Known Allergies Allergy Verified 02/18/19 22:39 Home Medications Medication Instructions Recorded Confirmed Last Taken Type Metoprolol [Lopressor TAB] 50 mg PO BID #60 tablet 09/03/16 04/30/20 1 Day Ago Rx ~12/24/19 Triamcinolone 0.1% [Kenalog 0.1% 1 applic TP BID #1 tube 01/20/17 04/30/20 Unknown Rx CREAM] Lispro Insulin [HumaLOG] 20 unit SQ TID 01/24/19 04/30/20 Unknown History Ondansetron [Zofran ODT TAB] 4 mg PO Q4H PRN #15 tab.rapdis 01/28/19 04/30/20 Unknown Rx hydroCHLOROthiazide [HCTZ] 25 mg PO QDAY #30 tab 01/28/19 04/30/20 1 Day Ago Rx ~12/24/19 HYDROcodone/APAP 5-325 [[place] 1 each PO Q6HR PRN #14 tablet 07/19/19 04/30/20 Unknown Rx 5-325 mg TAB] Promethazine [Phenergan] 25 mg PO Q6HR PRN #20 tab 07/19/19 04/30/20 Unknown Rx Insulin Glargine,Hum.rec.anlog 40 units SQ DAILY 12/24/19 04/30/20 Unknown History [[place]] Aspirin [Aspirin BABY CHEW TAB] 81 mg PO QDAY #30 tab.chew 12/27/19 04/30/20 Unknown Rx AtorvaSTATin [Lipitor] 80 mg PO QHS #30 tablet 12/27/19 04/30/20 Unknown Rx Clopidogrel [Plavix] 75 mg PO QDAY #30 tablet 12/27/19 04/30/20 Unknown Rx Dextrose 50% in Water [D50W (25GM) 0 ml IV Q30MIN PRN syringe 12/27/19 04/30/20 Unknown Rx Syringe] ISOSORBIDE MONOnitrate [Imdur ER] 30 mg PO QDAY #30 tablet 12/27/19 04/30/20 Unknown Rx Metoprolol [Lopressor TAB] 50 mg PO BID #60 tablet 02/15/20 04/30/20 Unknown Rx Oxycodone HCl/Acetaminophen 1 each PO Q6HR PRN #12 tablet 02/15/20 04/30/20 Unknown Rx [Percocet 7.5/325 mg] Lisinopril [Zestril TAB] 40 mg PO QDAY 04/30/20 04/30/20 Unknown History Pregabalin [Lyrica] 150 mg PO TID 04/30/20 04/30/20 Unknown History metFORMIN [Glucophage] 500 mg PO BID 04/30/20 04/30/20 Unknown History predniSONE [Deltasone] 40 mg PO QDAY 04/30/20 04/30/20 Unknown History Active Meds: Active Medications Acetaminophen (Tylenol) 650 mg NM Q4H PRN PRN Reason: Pain MILD(1-3)/Fever >100.5/EDUARDO Albuterol (Proventil) 2.5 mg IH Q3HRT PRN PRN Reason: Shortness Of Breath Dextrose (D50w (25gm) Syringe) 50 ml IV Q30MIN PRN; Protocol PRN Reason: Hypoglycemia Piperacillin Sod/Tazobactam Sod (Zosyn/Ns 4.5gm/100ml) 4.5 gm in 100 mls @ 200 mls/hr IV Q8HR CECY; Protocol Insulin Human Lispro (Humalog) 0 unit SUB-Q Q6HR CECY; Protocol Morphine Sulfate (Morphine) 2 mg IV Q4H PRN PRN Reason: Pain, Moderate (4-6) Naloxone HCl (Naloxone) 0.1 mg IV Q2MIN PRN PRN Reason: Res Rate </= 8 or 02 SAT < 92% Ondansetron HCl (Zofran) 4 mg IV Q4H PRN PRN Reason: Nausea And Vomiting Senna (Senokot) 8.6 mg PO Q12HR CECY Sodium Chloride (Sodium Chloride Flush Syringe 10 Ml) 10 ml IV BID CECY Sodium Chloride (Sodium Chloride Flush Syringe 10 Ml) 10 ml IV PRN PRN PRN Reason: LINE FLUSH Sodium Chloride (Nacl 0.9% 1000 Ml) 3,200 ml 30 ml/kg (3200 ml) IV ONCE ONE Stop: 04/30/20 09:22 Review of Systems ROS unobtainable: due to mental status Exam - Physical Exam Narrative exam: VITAL SIGNS: Reviewed. GENERAL: The patient appears normally developed, obese, stuporous vital signs as documented. HEAD: No signs of head trauma. Right facial deep ulcer nonbleeding. EYES: Pupils are equal. Extraocular motions intact. EARS: Hearing grossly intact. MOUTH: Oropharynx is normal. NECK: No adenopathy, no JVD. CHEST: Chest with clear breath sounds bilaterally. No wheezes, rales, or rhonchi. CARDIAC: Regular rate and rhythm. S1 and S2, without murmurs, gallops, or rubs. VASCULAR: No Edema. Peripheral pulses normal and equal in all extremities. ABDOMEN: Soft, non tender and non distended. No rebound or guarding, and no masses palpated. Bowel Sounds normal. MUSCULOSKELETAL: Multiple skin lesions consistent with prior derma gangrenosum, good range of motion of all major joints. Extremities without clubbing, cyanosis or edema. NEUROLOGIC EXAM: Stuporous, altered, no focal sensory or strength deficits. Speech normal although limited follows commands. PSYCHIATRIC: Mood normal. SKIN: Multiple skin lesions detail exam as documented in skin assessment - Constitutional Vitals: Temp Pulse Resp BP Pulse Ox 100.3 F H 97 H 20 135/61 98 04/30/20 07:35 04/30/20 09:00 04/30/20 09:00 04/30/20 09:00 04/30/20 09:00 HEART Score - HEART Score Troponin: Troponin T 0.044 ng/mL (0.00-0.029) H 04/30/20 05:24 Results - Labs CBC & Chem 7: 04/30/20 03:22 04/30/20 03:22 Labs: Laboratory Last Values WBC 18.0 K/mm3 (4.5-11.0) H 04/30/20 03:22 RBC 5.39 M/mm3 (3.65-5.03) H 04/30/20 03:22 Hgb 13.9 gm/dl (10.1-14.3) 04/30/20 03:22 Hct 43.0 % (30.3-42.9) H 04/30/20 03:22 MCV 80 fl (79-97) 04/30/20 03:22 MCH 26 pg (28-32) L 04/30/20 03:22 MCHC 32 % (30-34) 04/30/20 03:22 RDW 16.9 % (13.2-15.2) H 04/30/20 03:22 Plt Count 174 K/mm3 (140-440) 04/30/20 03:22 Lymph % (Auto) 10.3 % (13.4-35.0) L 04/30/20 03:22 [place] % (Auto) 5.5 % (0.0-7.3) 04/30/20 03:22 Eos % (Auto) 0.1 % (0.0-4.3) 04/30/20 03:22 Baso % (Auto) 0.2 % (0.0-1.8) 04/30/20 03:22 Lymph # 1.9 K/mm3 (1.2-5.4) 04/30/20 03:22 [place] # 1.0 K/mm3 (0.0-0.8) H 04/30/20 03:22 Eos # 0.0 K/mm3 (0.0-0.4) 04/30/20 03:22 Baso # 0.0 K/mm3 (0.0-0.1) 04/30/20 03:22 Seg Neutrophils % 83.9 % (40.0-70.0) H 04/30/20 03:22 Seg Neutrophils # 15.1 K/mm3 (1.8-7.7) H 04/30/20 03:22 PT 13.4 Sec. (12.2-14.9) 04/30/20 05:24 INR 1.04 (0.87-1.13) 04/30/20 05:24 VBG pH TNR 04/30/20 03:22 Sodium 137 mmol/L (137-145) 04/30/20 03:22 Potassium 3.9 mmol/L (3.6-5.0) 04/30/20 03:22 Chloride 97.1 mmol/L (98-107) L 04/30/20 03:22 Carbon Dioxide 24 mmol/L (22-30) 04/30/20 03:22 Anion Gap 20 mmol/L 04/30/20 03:22 BUN 24 mg/dL (7-17) H 04/30/20 03:22 Creatinine 1.1 mg/dL (0.7-1.2) 04/30/20 03:22 Estimated GFR > 60 ml/min 04/30/20 03:22 BUN/Creatinine Ratio 22 % 04/30/20 03:22 Glucose 313 mg/dL (65-100) H 04/30/20 03:22 POC Glucose 236 (70-105) H 04/30/20 07:44 Lactic Acid 5.90 mmol/L (0.7-2.0) H* 04/30/20 08:08 Calcium 9.1 mg/dL (8.4-10.2) 04/30/20 03:22 Magnesium 1.80 mg/dL (1.7-2.3) 04/30/20 05:24 Total Bilirubin 0.50 mg/dL (0.1-1.2) 04/30/20 05:24 Direct Bilirubin < 0.2 mg/dL (0-0.2) 04/30/20 05:24 Indirect Bilirubin 0.3 mg/dL 04/30/20 05:24 AST 14 units/L (5-40) 04/30/20 05:24 ALT 16 units/L (7-56) 04/30/20 05:24 Alkaline Phosphatase 129 units/L (35-129) 04/30/20 05:24 Total Creatine Kinase 38 units/L (30-135) 04/30/20 05:24 Troponin T 0.044 ng/mL (0.00-0.029) H 04/30/20 05:24 Total Protein 6.5 g/dL (6.3-8.2) 04/30/20 05:24 Albumin 3.4 g/dL (3.9-5) L 04/30/20 05:24 Albumin/Globulin Ratio 1.1 % 04/30/20 05:24 Triglycerides 202 mg/dL (2-149) H 04/30/20 05:24 Cholesterol 210 mg/dL (50-199) H 04/30/20 05:24 LDL Cholesterol Direct 139 mg/dL (50-130) H 04/30/20 05:24 HDL Cholesterol 57 mg/dL (40-59) 04/30/20 05:24 Cholesterol/HDL Ratio 3.68 % 04/30/20 05:24 Urine Color Yellow (Yellow) 04/30/20 06:03 Urine Turbidity Clear (Clear) 04/30/20 06:03 Urine pH 5.0 (5.0-7.0) 04/30/20 06:03 Ur Specific [place] 1.023 (1.003-1.030) 04/30/20 06:03 Urine Protein 100 mg/dl mg/dL (Negative) 04/30/20 06:03 Urine Glucose (UA) >=500 mg/dL (Negative) 04/30/20 06:03 Urine Ketones Neg mg/dL (Negative) 04/30/20 06:03 Urine Blood Neg (Negative) 04/30/20 06:03 Urine Nitrite Neg (Negative) 04/30/20 06:03 Urine Bilirubin Neg (Negative) 04/30/20 06:03 Urine Urobilinogen < 2.0 mg/dL (<2.0) 04/30/20 06:03 Ur Leukocyte Esterase Neg (Negative) 04/30/20 06:03 Urine WBC (Auto) 5.0 /HPF (0.0-6.0) 04/30/20 06:03 Urine RBC (Auto) 3.0 /HPF (0.0-6.0) 04/30/20 06:03 U Epithel Cells (Auto) < 1.0 /HPF (0-13.0) 04/30/20 06:03 Urine Bacteria (Auto) 1+ /HPF (Negative) 04/30/20 06:03 Urine Mucus Few /HPF 04/30/20 06:03 Salicylates < 0.3 mg/dL (2.8-20.0) L 04/30/20 05:24 Acetaminophen < 5.0 ug/mL (10.0-30.0) L 04/30/20 05:24 Microbiology: Microbiology 04/30/20 05:24 Peripheral/Venous Blood Culture - Preliminary Culture in Progress 04/30/20 05:46 Peripheral/Venous Blood Culture - Preliminary Culture in Progress - Imaging and Cardiology Chest x-ray: image reviewed (No acute pathology noted) Roland/IV: IV Catheter Type [Right Upper INT / Saline Lock arm] IV Catheter Type [Left Hand] INT / Saline Lock Assessment and Plan Assessment and plan: Patient is a 54-year-old female with past medical history of diabetes mellitus, insulin-dependent, prior history of myocardial infarction, dyslipidemia, diastolic heart failure osteomyelitis, peripheral artery disease, pyoderma gangrenosum, SVT, hypertension who presents with fever malaise altered mental status. Patient arrived per EMS. She provided limited history. History obtained from EMS nurse report and electronic medical record. Presentation mostly elevated high blood sugar vomiting according to EMS. Fever noted here in the emergency department. In the ED patient was noted to be febrile to 102 with a white count of 18. Currently receiving Zosyn. During my examination the patient is very lethargic unable to provide any additional information. Antibiotics have been given as mentioned above blood cultures ordered and sepsis protocol began. Blood cultures currently pending. Imaging personally reviewed: CT abdomen pelvis: Diverticulosis constipation, no acute infectious abnormality. Severe sepsis Acute metabolic encephalopathy Diabetes mellitus with hyperglycemia Pyoderma gangrenosum Dyslipidemia, Diastolic heart failure, Plan, Admit to telemetry Blood sugar control Monitor mental status If no improvement in mental status may need further imaging studies and neurology consultation Empiric antibiotics Follow blood cultures Wound care management ID consultation Obtain restart appropriate home medications DVT and GI prophylaxis Advance Directives: Yes Plan of care discussed with patient/family: Yes
[2020-04-30] MEDS ORDERED: SODIUM CHLORIDE 0.9% 250ML 0 ML ONE (11:11)
[2020-04-30] MEDS ORDERED: SODIUM CHLORIDE 0.9% 1000 ML 3,000 ML ONE (11:11)
[2020-04-30] MEDS ORDERED: SODIUM CHLORIDE 0.9% 1000 ML 1,000 ML ONE (11:14)
[2020-04-30] MEDS: INSULIN LISPRO 100 UNIT/ML SUB-Q SCH ×2 (12:14→18:12)
[2020-04-30] MEDS: SENNOSIDES 8.6 MG TAB PO SCH ×3 (12:15→23:49)
[2020-04-30] MEDS ORDERED: PIPERACIL/TAZOBACTA 4.5/NS 100 4.5 GM/100 ML VIAL IV SCH (14:00)
--- NOTE | 2020-04-30 15:13 | Consultation ---
History of Present Illness - Reason for Consult Consult date: 04/30/20 - History of Present Illness 54-year-old female past medical history osteomyelitis, UTI, insulin-dependent diabetes, CHF, pyoderma gangrenosum admitted with fevers, malaise, altered mental status. Limited history was provided as she is confused. She was also vomiting, and found to have hyperglycemia Febrile to 102 with a white count of 18. Currently receiving Zosyn. Blood cultures currently pending. Imaging personally reviewed: CT abdomen pelvis: Diverticulosis constipation, no acute infectious abnormality. Chest x-ray: No abnormality detected Medications and Allergies Allergies Allergy/AdvReac Type Severity Reaction Status Date / Time No Known Allergies Allergy Verified 02/18/19 22:39 Home Medications Medication Instructions Recorded Confirmed Last Taken Type Metoprolol [Lopressor TAB] 50 mg PO BID #60 tablet 09/03/16 04/30/20 1 Day Ago Rx ~12/24/19 Triamcinolone 0.1% [Kenalog 0.1% 1 applic TP BID #1 tube 01/20/17 04/30/20 Unknown Rx CREAM] Lispro Insulin [HumaLOG] 20 unit SQ TID 01/24/19 04/30/20 Unknown History Ondansetron [Zofran ODT TAB] 4 mg PO Q4H PRN #15 tab.rapdis 01/28/19 04/30/20 Unknown Rx hydroCHLOROthiazide [HCTZ] 25 mg PO QDAY #30 tab 01/28/19 04/30/20 1 Day Ago Rx ~12/24/19 HYDROcodone/APAP 5-325 [[place] 1 each PO Q6HR PRN #14 tablet 07/19/19 04/30/20 Unknown Rx 5-325 mg TAB] Promethazine [Phenergan] 25 mg PO Q6HR PRN #20 tab 07/19/19 04/30/20 Unknown Rx Insulin Glargine,Hum.rec.anlog 40 units SQ DAILY 12/24/19 04/30/20 Unknown History [Lantus Solostar] Aspirin [Aspirin BABY CHEW TAB] 81 mg PO QDAY #30 tab.chew 12/27/19 04/30/20 Unknown Rx AtorvaSTATin [Lipitor] 80 mg PO QHS #30 tablet 12/27/19 04/30/20 Unknown Rx Clopidogrel [Plavix] 75 mg PO QDAY #30 tablet 12/27/19 04/30/20 Unknown Rx Dextrose 50% in Water [D50W (25GM) 0 ml IV Q30MIN PRN syringe 12/27/19 04/30/20 Unknown Rx Syringe] ISOSORBIDE MONOnitrate [Imdur ER] 30 mg PO QDAY #30 tablet 12/27/19 04/30/20 Unknown Rx Metoprolol [Lopressor TAB] 50 mg PO BID #60 tablet 02/15/20 04/30/20 Unknown Rx Oxycodone HCl/Acetaminophen 1 each PO Q6HR PRN #12 tablet 02/15/20 04/30/20 Unknown Rx [Percocet 7.5/325 mg] Lisinopril [Zestril TAB] 40 mg PO QDAY 04/30/20 04/30/20 Unknown History Pregabalin [Lyrica] 150 mg PO TID 04/30/20 04/30/20 Unknown History metFORMIN [Glucophage] 500 mg PO BID 04/30/20 04/30/20 Unknown History predniSONE [Deltasone] 40 mg PO QDAY 04/30/20 04/30/20 Unknown History Active Meds: Active Medications Acetaminophen (Tylenol) 650 mg NC Q4H PRN PRN Reason: Pain MILD(1-3)/Fever >100.5/EDUARDO Albuterol (Proventil) 2.5 mg IH Q3HRT PRN PRN Reason: Shortness Of Breath Dextrose (D50w (25gm) Syringe) 50 ml IV Q30MIN PRN; Protocol PRN Reason: Hypoglycemia Piperacillin Sod/Tazobactam Sod (Zosyn/Ns 4.5gm/100ml) 4.5 gm in 100 mls @ 200 mls/hr IV Q8HR [facility]; Protocol Insulin Human Lispro (Humalog) 0 unit SUB-Q Q6HR [facility]; Protocol Last Admin: 04/30/20 12:14 Dose: 6 unit Documented by: Morphine Sulfate (Morphine) 2 mg IV Q4H PRN PRN Reason: Pain, Moderate (4-6) Naloxone HCl (Naloxone) 0.1 mg IV Q2MIN PRN PRN Reason: Res Rate </= 8 or 02 SAT < 92% Ondansetron HCl (Zofran) 4 mg IV Q4H PRN PRN Reason: Nausea And Vomiting Senna (Senokot) 8.6 mg PO Q12HR [facility] Last Admin: 04/30/20 12:15 Dose: 8.6 mg Documented by: Sodium Chloride (Sodium Chloride Flush Syringe 10 Ml) 10 ml IV BID [facility] Last Admin: 04/30/20 11:11 Dose: 10 ml Documented by: Sodium Chloride (Sodium Chloride Flush Syringe 10 Ml) 10 ml IV PRN PRN PRN Reason: LINE FLUSH Review of Systems ROS unobtainable: due to mental status Physical Examination - Physical Exam Narrative exam: Physical Exam: Constitutional: Mildly confused Head, Ears, Nose: Normocephalic, atraumatic. External ears, nose normal Eyes: Conjunctivae/corneas clear. No icterus. No ptosis. Neck: Supple, no meningeal signs Oral: dentition fair, no thrush Cardiovascular: S1, S2 normal. Respiratory: Good air entry, clear to auscultation bilaterally GI: Soft, non-tender; bowel sounds normal. No peritoneal signs. Musculoskeletal: No pedal edema, no cyanosis. Skin: Multiple lesions across the face and extremities of pyoderma gangrenosum. Hem/Lymphatic: No palpable cervical or supraclavicular nodes. No lymphangitis Psych: Mood ok. Affect normal Neurological: Confused - Constitutional Vitals: Vital Signs Temp Pulse Resp BP Pulse Ox 98.6 F 92 H 18 157/67 80 L 04/30/20 12:34 04/30/20 12:02 04/30/20 12:02 04/30/20 12:02 04/30/20 12:02 Temperature -Last 24 Hours Temperature 98.6 F Temperature 100.3 F Temperature 102.0 F Temperature 100.3 F Results - Labs CBC & Chem 7: 04/30/20 03:22 04/30/20 03:22 Labs: Abnormal lab results 04/30/20 04/30/20 04/30/20 Range/Units 00:50 03:22 03:22 WBC 18.0 H (4.5-11.0) K/mm3 RBC 5.39 H (3.65-5.03) M/mm3 Hct 43.0 H (30.3-42.9) % MCH 26 L (28-32) pg RDW 16.9 H (13.2-15.2) % Lymph % (Auto) 10.3 L (13.4-35.0) % [place] # 1.0 H (0.0-0.8) K/mm3 Seg Neutrophils % 83.9 H (40.0-70.0) % Seg Neutrophils # 15.1 H (1.8-7.7) K/mm3 Chloride 97.1 L (98-107) mmol/L BUN 24 H (7-17) mg/dL Glucose 313 H (65-100) mg/dL POC Glucose 426 H (70-105) Hemoglobin A1c (4-6) % Lactic Acid (0.7-2.0) mmol/L Troponin T (0.00-0.029) ng/mL Albumin 3.3 L (3.9-5) g/dL Triglycerides (2-149) mg/dL Cholesterol (50-199) mg/dL LDL Cholesterol Direct (50-130) mg/dL Salicylates (2.8-20.0) mg/dL Acetaminophen (10.0-30.0) ug/mL 04/30/20 04/30/20 04/30/20 Range/Units 03:22 03:22 05:24 WBC (4.5-11.0) K/mm3 RBC (3.65-5.03) M/mm3 Hct (30.3-42.9) % MCH (28-32) pg RDW (13.2-15.2) % Lymph % (Auto) (13.4-35.0) % [place] # (0.0-0.8) K/mm3 Seg Neutrophils % (40.0-70.0) % Seg Neutrophils # (1.8-7.7) K/mm3 Chloride (98-107) mmol/L BUN (7-17) mg/dL Glucose (65-100) mg/dL POC Glucose (70-105) Hemoglobin A1c 11.8 H (4-6) % Lactic Acid 2.70 H* (0.7-2.0) mmol/L Troponin T 0.044 H (0.00-0.029) ng/mL Albumin (3.9-5) g/dL Triglycerides 202 H (2-149) mg/dL Cholesterol 210 H (50-199) mg/dL LDL Cholesterol Direct 139 H (50-130) mg/dL Salicylates (2.8-20.0) mg/dL Acetaminophen (10.0-30.0) ug/mL 04/30/20 04/30/20 04/30/20 Range/Units 05:24 05:24 05:24 WBC (4.5-11.0) K/mm3 RBC (3.65-5.03) M/mm3 Hct (30.3-42.9) % MCH (28-32) pg RDW (13.2-15.2) % Lymph % (Auto) (13.4-35.0) % [place] # (0.0-0.8) K/mm3 Seg Neutrophils % (40.0-70.0) % Seg Neutrophils # (1.8-7.7) K/mm3 Chloride (98-107) mmol/L BUN (7-17) mg/dL Glucose (65-100) mg/dL POC Glucose (70-105) Hemoglobin A1c (4-6) % Lactic Acid (0.7-2.0) mmol/L Troponin T (0.00-0.029) ng/mL Albumin 3.4 L (3.9-5) g/dL Triglycerides (2-149) mg/dL Cholesterol (50-199) mg/dL LDL Cholesterol Direct (50-130) mg/dL Salicylates < 0.3 L (2.8-20.0) mg/dL Acetaminophen < 5.0 L (10.0-30.0) ug/mL 04/30/20 04/30/20 04/30/20 Range/Units 07:44 08:08 09:33 WBC (4.5-11.0) K/mm3 RBC (3.65-5.03) M/mm3 Hct (30.3-42.9) % MCH (28-32) pg RDW (13.2-15.2) % Lymph % (Auto) (13.4-35.0) % [place] # (0.0-0.8) K/mm3 Seg Neutrophils % (40.0-70.0) % Seg Neutrophils # (1.8-7.7) K/mm3 Chloride (98-107) mmol/L BUN (7-17) mg/dL Glucose (65-100) mg/dL POC Glucose 236 H (70-105) Hemoglobin A1c (4-6) % Lactic Acid 5.90 H* 2.20 H* (0.7-2.0) mmol/L Troponin T (0.00-0.029) ng/mL Albumin (3.9-5) g/dL Triglycerides (2-149) mg/dL Cholesterol (50-199) mg/dL LDL Cholesterol Direct (50-130) mg/dL Salicylates (2.8-20.0) mg/dL Acetaminophen (10.0-30.0) ug/mL 04/30/20 Range/Units 12:19 WBC (4.5-11.0) K/mm3 RBC (3.65-5.03) M/mm3 Hct (30.3-42.9) % MCH (28-32) pg RDW (13.2-15.2) % Lymph % (Auto) (13.4-35.0) % [place] # (0.0-0.8) K/mm3 Seg Neutrophils % (40.0-70.0) % Seg Neutrophils # (1.8-7.7) K/mm3 Chloride (98-107) mmol/L BUN (7-17) mg/dL Glucose (65-100) mg/dL POC Glucose 288 H (70-105) Hemoglobin A1c (4-6) % Lactic Acid (0.7-2.0) mmol/L Troponin T (0.00-0.029) ng/mL Albumin (3.9-5) g/dL Triglycerides (2-149) mg/dL Cholesterol (50-199) mg/dL LDL Cholesterol Direct (50-130) mg/dL Salicylates (2.8-20.0) mg/dL Acetaminophen (10.0-30.0) ug/mL Assessment and Plan Cultures: Blood culture 04/30/2020 pending A/P:54 yo F osteomyelitis, UTI, insulin-dependent diabetes, CHF, pyoderma gangrenosum admitted with sepsis #Acute sepsis: Present with fevers and leukocytosis. Unclear source as of right now, as pyoderma gangrenosum is largely noninfectious. #Pyoderma gangrenosum: Typically not infectious process despite the appearance of the lesions. It is possible to have a superinfection, we will treat as such until or if no etiology is found. #Insulin-dependent diabetes: Tight glycemic control. Recs: -Stop Zosyn -Started empiric vancomycin, cefepime, metronidazole -Follow-up blood cultures -Typically no point in obtaining wound cultures from pyoderma gangrenosum lesions Thank you for the consult, we will continue to follow. Charles Alejandra MD [facility], [place] ([facility]) M: [phone] O: [phone] F: [phone]
[2020-04-30] MEDS ORDERED: VANCOMYCIN PHARMACY TO DOSE IV SCH (16:00)
[2020-04-30] MEDS ORDERED: NON-FORMULARY EACH (Oxycodone Hcl/Acetaminophen [Percocet 7.5/325 Mg] 1 EACH) PO PRN (16:01)
[2020-04-30] MEDS ORDERED: PROMETHAZINE 25 MG TAB PO PRN (16:01)
[2020-04-30] MEDS ORDERED: ONDANSETRON 4 MG ODT TAB PO PRN (16:01)
[2020-04-30] MEDS ORDERED: INSULIN GLARGINE HUM REC ANLOG 40 UNIT SQ SCH (16:15)
[2020-04-30] MEDS ORDERED: oxyCODONE 5 MG TAB PO PRN (16:23)
[2020-04-30] MEDS: oxyCODONE /ACETAMINOPHEN 5-325MG TAB PO PRN (16:30)
[2020-04-30] MEDS: metroNIDAZOLE/NS 500 MG/100 ML 500 MG/100 ML BAG IV SCH ×2 (16:30→23:50)
[2020-04-30] MEDS: VANCOMYCIN 1,500 MG in SODIUM CHLORIDE 0.9% 500 ML 500 ML IV SCH (18:06)
[2020-04-30] MEDS: INSULIN GLARGINE 100 UNITS/ML SUB-Q SCH (18:12)
[2020-04-30] MEDS ORDERED: NON-FORMULARY EACH (Pregabalin [Lyrica] 150 MG) PO SCH (20:00)
[2020-04-30] MEDS: METOPROLOL TARTRATE 50 MG TAB PO SCH (22:44)
[2020-04-30] MEDS: TRIAMCINOLONE 0.1% CREAM 15 GM TP SCH (22:44)
[2020-04-30] MEDS: PREGABALIN 75 MG CAP PO SCH (22:44)
[2020-04-30] MEDS: CEFEPIME/NS 2 GM/100 ML 2 GM/100 ML BAG IV SCH (23:08)
[2020-05-01] MEDS: INSULIN LISPRO 100 UNIT/ML SUB-Q SCH ×5 (01:08→23:05)
[2020-05-01] MEDS: oxyCODONE /ACETAMINOPHEN 5-325MG TAB PO PRN ×3 (01:09→21:52)
[2020-05-01] MEDS: CEFEPIME/NS 2 GM/100 ML 2 GM/100 ML BAG IV SCH ×3 (05:25→21:54)
[2020-05-01 05:45] LABS: Hematocrit 36.7 % (30.3-42.9); Hemoglobin 11.7 gm/dl (10.1-14.3); Mean Corpuscular HGB Conc 32 % (30-34); Mean Corpuscular Volume 83 fl (79-97); Platelet Count 153 K/mm3 (140-440); Red Blood Count 4.44 M/mm3 (3.65-5.03); Red Cell Distribution Width 17.6 % (13.2-15.2)
[2020-05-01] MEDS: metroNIDAZOLE/NS 500 MG/100 ML 500 MG/100 ML BAG IV SCH ×3 (05:51→21:54)
[2020-05-01 06:01] LABS: BUN/Creatinine Ratio 16; Blood Urea Nitrogen 18 mg/dL (7-17); Calcium 7.9 mg/dL (8.4-10.2); Hemolysis Index 12
[2020-05-01] MEDS: VANCOMYCIN 1,500 MG in SODIUM CHLORIDE 0.9% 500 ML 500 ML IV SCH ×2 (07:28→17:27)
[2020-05-01] MEDS: PREGABALIN 75 MG CAP PO SCH ×3 (08:44→21:53)
[2020-05-01] MEDS: INSULIN GLARGINE 100 UNITS/ML SUB-Q SCH ×2 (08:45→21:56)
[2020-05-01] MEDS: SENNOSIDES 8.6 MG TAB PO SCH ×2 (09:28→21:53)
[2020-05-01] MEDS: ASPIRIN 81 MG TAB CHEW PO SCH (09:28)
[2020-05-01] MEDS: predniSONE 20 MG TAB PO SCH (09:29)
[2020-05-01] MEDS: CLOPIDOGREL 75 MG TAB PO SCH (09:29)
[2020-05-01] MEDS: METOPROLOL TARTRATE 50 MG TAB PO SCH ×2 (09:29→21:53)
[2020-05-01] MEDS: hydroCHLOROthiazide 25 MG TAB PO SCH (09:29)
[2020-05-01] MEDS: TRIAMCINOLONE 0.1% CREAM 15 GM TP SCH ×2 (09:30→21:57)
[2020-05-01] MEDS ORDERED: predniSONE 50 MG TAB PO SCH (10:00)
--- NOTE | 2020-05-01 11:41 | Consultation ---
History of Present Illness Consult date: 05/01/20 - History of present illness History of present illness: 54 yo female with a long documented h/o pyoderma gangrenosum. Past History Past Medical History: other (As mentioned in HPI) Past Surgical History: No surgical history Social history: no significant social history Family history: no significant family history Medications and Allergies Allergies Allergy/AdvReac Type Severity Reaction Status Date / Time No Known Allergies Allergy Verified 02/18/19 22:39 Home Medications Medication Instructions Recorded Confirmed Last Taken Type Metoprolol [Lopressor TAB] 50 mg PO BID #60 tablet 09/03/16 04/30/20 1 Day Ago Rx ~12/24/19 Triamcinolone 0.1% [Kenalog 0.1% 1 applic TP BID #1 tube 01/20/17 04/30/20 Unknown Rx CREAM] Lispro Insulin [HumaLOG] 20 unit SQ TID 01/24/19 04/30/20 Unknown History Ondansetron [Zofran ODT TAB] 4 mg PO Q4H PRN #15 tab.rapdis 01/28/19 04/30/20 Unknown Rx hydroCHLOROthiazide [HCTZ] 25 mg PO QDAY #30 tab 01/28/19 04/30/20 1 Day Ago Rx ~12/24/19 HYDROcodone/APAP 5-325 [[place] 1 each PO Q6HR PRN #14 tablet 07/19/19 04/30/20 Unknown Rx 5-325 mg TAB] Promethazine [Phenergan] 25 mg PO Q6HR PRN #20 tab 07/19/19 04/30/20 Unknown Rx Insulin Glargine,Hum.rec.anlog 40 units SQ DAILY 12/24/19 04/30/20 Unknown History [Lantus Solostar] Aspirin [Aspirin BABY CHEW TAB] 81 mg PO QDAY #30 tab.chew 12/27/19 04/30/20 Unknown Rx AtorvaSTATin [Lipitor] 80 mg PO QHS #30 tablet 12/27/19 04/30/20 Unknown Rx Clopidogrel [Plavix] 75 mg PO QDAY #30 tablet 12/27/19 04/30/20 Unknown Rx Dextrose 50% in Water [D50W (25GM) 0 ml IV Q30MIN PRN syringe 12/27/19 04/30/20 Unknown Rx Syringe] ISOSORBIDE MONOnitrate [Imdur ER] 30 mg PO QDAY #30 tablet 12/27/19 04/30/20 Unknown Rx Metoprolol [Lopressor TAB] 50 mg PO BID #60 tablet 02/15/20 04/30/20 Unknown Rx Oxycodone HCl/Acetaminophen 1 each PO Q6HR PRN #12 tablet 02/15/20 04/30/20 Unknown Rx [Percocet 7.5/325 mg] Lisinopril [Zestril TAB] 40 mg PO QDAY 04/30/20 04/30/20 Unknown History Pregabalin [Lyrica] 150 mg PO TID 04/30/20 04/30/20 Unknown History metFORMIN [Glucophage] 500 mg PO BID 04/30/20 04/30/20 Unknown History predniSONE [Deltasone] 40 mg PO QDAY 04/30/20 04/30/20 Unknown History Active Meds: Active Medications Acetaminophen (Tylenol) 650 mg AL Q4H PRN PRN Reason: Pain MILD(1-3)/Fever >100.5/EDUARDO Albuterol (Proventil) 2.5 mg IH Q3HRT PRN PRN Reason: Shortness Of Breath Aspirin (Baby Aspirin) 81 mg PO QDAY [facility] Last Admin: 05/01/20 09:28 Dose: 81 mg Documented by: Atorvastatin Calcium (Lipitor) 80 mg PO QHS [facility] Last Admin: 04/30/20 22:44 Dose: 80 mg Documented by: Clopidogrel Bisulfate (Plavix) 75 mg PO QDAY [facility] Last Admin: 05/01/20 09:29 Dose: 75 mg Documented by: Dextrose (D50w (25gm) Syringe) 50 ml IV Q30MIN PRN; Protocol PRN Reason: Hypoglycemia Hydrochlorothiazide (Hctz) 25 mg PO QDAY [facility] Last Admin: 05/01/20 09:29 Dose: 25 mg Documented by: Cefepime HCl (Cefepime/Ns 2 Gm/100 Ml) 2 gm in 100 mls @ 200 mls/hr IV Q8HR [facility]; Protocol Last Infusion: 05/01/20 05:50 Dose: Infused Documented by: Metronidazole (Flagyl 500 Mg/100 Ml) 500 mg in 100 mls @ 100 mls/hr IV Q8HR [facility]; Protocol Last Admin: 05/01/20 05:51 Dose: 100 mls/hr Documented by: Vancomycin HCl 1,500 mg/ (Sodium Chloride) 530 mls @ 333.333 mls/hr IV Q12H [facility] Last Admin: 05/01/20 07:28 Dose: 333.333 mls/hr Documented by: Insulin Glargine (Lantus) 20 units SUB-Q QAMDIAB [facility] Last Admin: 05/01/20 08:45 Dose: 20 units Documented by: Insulin Human Lispro (Humalog) 0 unit SUB-Q Q6HR [facility]; Protocol Last Admin: 05/01/20 05:54 Dose: Not Given Documented by: Isosorbide Mononitrate (Imdur) 30 mg PO QDAY [facility] Last Admin: 05/01/20 09:29 Dose: 30 mg Documented by: Metoprolol Tartrate (Metoprolol) 50 mg PO BID [facility] Last Admin: 05/01/20 09:29 Dose: 50 mg Documented by: Morphine Sulfate (Morphine) 2 mg IV Q4H PRN PRN Reason: Pain, Moderate (4-6) Last Admin: 05/01/20 09:30 Dose: 2 mg Documented by: Naloxone HCl (Naloxone) 0.1 mg IV Q2MIN PRN PRN Reason: Res Rate </= 8 or 02 SAT < 92% Ondansetron HCl (Zofran) 4 mg IV Q4H PRN PRN Reason: Nausea And Vomiting Ondansetron HCl (Zofran Odt) 4 mg PO Q4H PRN PRN Reason: Nausea And Vomiting Last Admin: 05/01/20 01:09 Dose: 4 mg Documented by: Oxycodone HCl (Roxicodone) 2.5 mg PO Q6H PRN PRN Reason: Pain, Moderate (4-6) Oxycodone/Acetaminophen (Percocet 5/325) 1 tab PO Q6H PRN PRN Reason: Pain, Moderate (4-6) Last Admin: 05/01/20 01:09 Dose: 1 tab Documented by: Prednisone (Deltasone) 40 mg PO QDAY [facility] Last Admin: 05/01/20 09:29 Dose: 40 mg Documented by: Pregabalin (Pregabalin) 150 mg PO TID [facility] Last Admin: 05/01/20 08:44 Dose: 150 mg Documented by: Promethazine HCl (Phenergan) 25 mg PO Q6HR PRN PRN Reason: Nausea Senna (Senokot) 8.6 mg PO Q12HR [facility] Last Admin: 05/01/20 09:28 Dose: 8.6 mg Documented by: Sodium Chloride (Sodium Chloride Flush Syringe 10 Ml) 10 ml IV BID [facility] Last Admin: 05/01/20 09:31 Dose: 10 ml Documented by: Sodium Chloride (Sodium Chloride Flush Syringe 10 Ml) 10 ml IV PRN PRN PRN Reason: LINE FLUSH Triamcinolone Acetonide (Kenalog) 1 applic TP BID [facility] Last Admin: 05/01/20 09:30 Dose: 1 applic Documented by: Review of Systems All systems: negative (none) Exam Vital Signs Temp Pulse Resp Pulse Ox 100.3 F H 102 H 22 99 04/30/20 00:35 04/30/20 00:35 04/30/20 00:35 04/30/20 00:35 - General physical appearance Positive: well developed, well nourished, no distress - Eyes Positive: PERRL, normal occular movement - ENT Positive: normal pinna, normal nares, normal mucosa, no hearing loss, no congestion - Neck Positive: no masses, no bruits, trachea midline, no venous distension - Respiratory Positive: normal expansion, normal respiratory effort, clear to auscultation - Cardiovascular Rhythm: regular Heart Sounds: Present: S1 & S2. Absent: rub, click - Extremities Extremities: no ischemia, pulses symmetrical, No edema - Breasts Breasts: deferred - Abdomen Abdomen: Present: soft, bowel sounds normal. Absent: tender, distended Hernia: none - Genitourinary Female Genitourinary: deferred - Integumentary other (Pt has multiple ulcerated lesions of her face, BUE's and BLE's c/w pyoderma gangrenosum.) - Neurologic Neurologic: alert and oriented to time, place and person, motor strength and sensation are grossly intact - Musculoskeletal normal gait, normal posture - Psychiatric Psychiatric: appropriate mood/affect, intact judgment & insight Results - Labs 05/01/20 05:03 05/01/20 05:03 Abnormal lab results 04/30/20 04/30/20 04/30/20 Range/Units 03:22 12:19 18:09 WBC (4.5-11.0) K/mm3 MCH (28-32) pg RDW (13.2-15.2) % BUN (7-17) mg/dL Glucose (65-100) mg/dL POC Glucose 288 H 145 H (70-105) Hemoglobin A1c 11.8 H (4-6) % Calcium (8.4-10.2) mg/dL 04/30/20 05/01/20 05/01/20 Range/Units 21:02 00:34 05:03 WBC 12.0 H (4.5-11.0) K/mm3 MCH 26 L (28-32) pg RDW 17.6 H (13.2-15.2) % BUN (7-17) mg/dL Glucose (65-100) mg/dL POC Glucose 192 H 156 H (70-105) Hemoglobin A1c (4-6) % Calcium (8.4-10.2) mg/dL 05/01/20 05/01/20 05/01/20 Range/Units 05:03 05:50 08:02 WBC (4.5-11.0) K/mm3 MCH (28-32) pg RDW (13.2-15.2) % BUN 18 H (7-17) mg/dL Glucose 140 H (65-100) mg/dL POC Glucose 143 H 145 H (70-105) Hemoglobin A1c (4-6) % Calcium 7.9 L (8.4-10.2) mg/dL 05/01/20 Range/Units 11:43 WBC (4.5-11.0) K/mm3 MCH (28-32) pg RDW (13.2-15.2) % BUN (7-17) mg/dL Glucose (65-100) mg/dL POC Glucose 157 H (70-105) Hemoglobin A1c (4-6) % Calcium (8.4-10.2) mg/dL Diabetes panel 04/30/20 05/01/20 Range/Units 03:22 05:03 Sodium 138 (137-145) mmol/L Potassium 3.6 (3.6-5.0) mmol/L Chloride 105.7 (98-107) mmol/L Carbon Dioxide 23 (22-30) mmol/L BUN 18 H (7-17) mg/dL Creatinine 1.1 (0.7-1.2) mg/dL Glucose 140 H (65-100) mg/dL Hemoglobin A1c 11.8 H (4-6) % Calcium 7.9 L (8.4-10.2) mg/dL Calcium panel 05/01/20 Range/Units 05:03 Calcium 7.9 L (8.4-10.2) mg/dL Pituitary panel 05/01/20 Range/Units 05:03 Sodium 138 (137-145) mmol/L Potassium 3.6 (3.6-5.0) mmol/L Chloride 105.7 (98-107) mmol/L Carbon Dioxide 23 (22-30) mmol/L BUN 18 H (7-17) mg/dL Creatinine 1.1 (0.7-1.2) mg/dL Glucose 140 H (65-100) mg/dL Calcium 7.9 L (8.4-10.2) mg/dL Adrenal panel 05/01/20 Range/Units 05:03 Sodium 138 (137-145) mmol/L Potassium 3.6 (3.6-5.0) mmol/L Chloride 105.7 (98-107) mmol/L Carbon Dioxide 23 (22-30) mmol/L BUN 18 H (7-17) mg/dL Creatinine 1.1 (0.7-1.2) mg/dL Glucose 140 H (65-100) mg/dL Calcium 7.9 L (8.4-10.2) mg/dL Assessment and Plan - Patient Problems (1) Pyoderma gangrenosum Current Visit: Yes Status: Chronic Plan to address problem: 1) Local wound care. 2) Debridement is contraindicated. 3) Wound care consult.
--- NOTE | 2020-05-01 14:11 | Progress Note ---
Assessment and Plan Cultures: Blood culture 04/30/2020 pending A/P:54 yo F osteomyelitis, UTI, insulin-dependent diabetes, CHF, pyoderma gangrenosum admitted with sepsis #Acute sepsis: Present with fevers and leukocytosis. Unclear source as of right now, as pyoderma gangrenosum is largely noninfectious. #Pyoderma gangrenosum: Typically not infectious process despite the appearance of the lesions. It is possible to have a superinfection, we will treat as such until or if no etiology is found. #Insulin-dependent diabetes: Tight glycemic control. Recs: -Continue empiric vancomycin, cefepime, metronidazole -Follow-up blood cultures -Typically no point in obtaining wound cultures from pyoderma gangrenosum lesions -Improving. No role for debridement of PG wounds. -Assuming continued improvement of fevers and white count, plan on discharge on short course of oral antibiotics. Thank you for the consult, we will continue to follow. Charles Alejandra MD [facility] ([facility]) M: [phone] O: [phone] F: [phone] Subjective Date of service: 05/01/20 Interval history: Afebrile and improving white count. No acute complaints. Objective - Exam Narrative Exam: Physical Exam: Constitutional: Mildly confused Head, Ears, Nose: Normocephalic, atraumatic. Eyes: Conjunctivae/corneas clear. No icterus. No ptosis. Neck: Supple, no meningeal signs Oral: dentition fair, no thrush Cardiovascular: S1, S2 normal. Respiratory: Good air entry, clear to auscultation bilaterally GI: Soft, non-tender; bowel sounds normal. No peritoneal signs. Musculoskeletal: No pedal edema, no cyanosis. Skin: Multiple lesions across the face and extremities of pyoderma gangrenosum. Hem/Lymphatic: No palpable cervical or supraclavicular nodes. No lymphangitis Psych: Mood ok. Affect normal Neurological: Confused - Constitutional Vitals: Vital Signs Temp Pulse Resp BP Pulse Ox 98.9 F 87 19 148/70 98 05/01/20 11:25 05/01/20 13:57 05/01/20 11:25 05/01/20 11:25 05/01/20 11:10 Temperature -Last 24 Hours Temperature 98.9 F Temperature 98.2 F Temperature 99.2 F Temperature 98.6 F Temperature 99.4 F Temperature 98.6 F - Labs CBC & Chem 7: 05/01/20 05:03 05/01/20 05:03 Labs: Abnormal lab results 04/30/20 04/30/20 04/30/20 Range/Units 03:22 18:09 21:02 WBC (4.5-11.0) K/mm3 MCH (28-32) pg RDW (13.2-15.2) % BUN (7-17) mg/dL Glucose (65-100) mg/dL POC Glucose 145 H 192 H (70-105) Hemoglobin A1c 11.8 H (4-6) % Calcium (8.4-10.2) mg/dL 05/01/20 05/01/20 05/01/20 Range/Units 00:34 05:03 05:03 WBC 12.0 H (4.5-11.0) K/mm3 MCH 26 L (28-32) pg RDW 17.6 H (13.2-15.2) % BUN 18 H (7-17) mg/dL Glucose 140 H (65-100) mg/dL POC Glucose 156 H (70-105) Hemoglobin A1c (4-6) % Calcium 7.9 L (8.4-10.2) mg/dL 05/01/20 05/01/20 05/01/20 Range/Units 05:50 08:02 11:43 WBC (4.5-11.0) K/mm3 MCH (28-32) pg RDW (13.2-15.2) % BUN (7-17) mg/dL Glucose (65-100) mg/dL POC Glucose 143 H 145 H 157 H (70-105) Hemoglobin A1c (4-6) % Calcium (8.4-10.2) mg/dL
--- NOTE | 2020-05-01 20:16 | Progress Note ---
Assessment and Plan Assessment and plan: Severe sepsis Acute metabolic encephalopathy Diabetes mellitus with hyperglycemia Pyoderma gangrenosum Dyslipidemia, Diastolic heart failure, Plan, Admit to telemetry Blood sugar control Monitor mental status If no improvement in mental status may need further imaging studies and neurology consultation Empiric antibiotics Follow blood cultures Wound care management ID consultation Obtain restart appropriate home medications DVT and GI prophylaxis History Interval history: Patient seen and examined at the bedside this afternoon Patient's chart and medications reviewed Patient feels slightly better Vital signs noted Hospitalist Physical - Constitutional Vitals: Temp Pulse Resp BP Pulse Ox 98.6 F 82 18 154/80 95 05/01/20 19:39 05/01/20 19:39 05/01/20 19:39 05/01/20 19:39 05/01/20 19:39 General appearance: Present: mild distress, well-nourished, obese - EENT Eyes: Present: PERRL, EOM intact - Neck Neck: Present: supple, normal ROM - Respiratory Respiratory effort: normal Respiratory: bilateral: diminished, negative: rales, rhonchi, wheezing - Cardiovascular Rhythm: regular Heart Sounds: Present: S1 & S2 - Extremities Extremities: no ischemia, abnormal (Multiple areas of ulceration) Extremity abnormal: edema - Abdominal General gastrointestinal: soft, non-tender, non-distended, normal bowel sounds - Integumentary Integumentary: Present: rash (Pyoderma gangrenosum) - Psychiatric Psychiatric: appropriate mood/affect, cooperative - Neurologic Neurologic: moves all extremities HEART Score - HEART Score Troponin: Troponin T 0.044 ng/mL (0.00-0.029) H 04/30/20 05:24 Results - Labs CBC & Chem 7: 05/01/20 05:03 05/01/20 05:03 Labs: Laboratory Last Values WBC 12.0 K/mm3 (4.5-11.0) H 05/01/20 05:03 RBC 4.44 M/mm3 (3.65-5.03) 05/01/20 05:03 Hgb 11.7 gm/dl (10.1-14.3) 05/01/20 05:03 Hct 36.7 % (30.3-42.9) D 05/01/20 05:03 MCV 83 fl (79-97) 05/01/20 05:03 MCH 26 pg (28-32) L 05/01/20 05:03 MCHC 32 % (30-34) 05/01/20 05:03 RDW 17.6 % (13.2-15.2) H 05/01/20 05:03 Plt Count 153 K/mm3 (140-440) 05/01/20 05:03 Lymph % (Auto) 10.3 % (13.4-35.0) L 04/30/20 03:22 [place] % (Auto) 5.5 % (0.0-7.3) 04/30/20 03:22 Eos % (Auto) 0.1 % (0.0-4.3) 04/30/20 03:22 Baso % (Auto) 0.2 % (0.0-1.8) 04/30/20 03:22 Lymph # 1.9 K/mm3 (1.2-5.4) 04/30/20 03:22 [place] # 1.0 K/mm3 (0.0-0.8) H 04/30/20 03:22 Eos # 0.0 K/mm3 (0.0-0.4) 04/30/20 03:22 Baso # 0.0 K/mm3 (0.0-0.1) 04/30/20 03:22 Seg Neutrophils % 83.9 % (40.0-70.0) H 04/30/20 03:22 Seg Neutrophils # 15.1 K/mm3 (1.8-7.7) H 04/30/20 03:22 PT 13.4 Sec. (12.2-14.9) 04/30/20 05:24 INR 1.04 (0.87-1.13) 04/30/20 05:24 VBG pH TNR 04/30/20 03:22 Sodium 138 mmol/L (137-145) 05/01/20 05:03 Potassium 3.6 mmol/L (3.6-5.0) 05/01/20 05:03 Chloride 105.7 mmol/L (98-107) 05/01/20 05:03 Carbon Dioxide 23 mmol/L (22-30) 05/01/20 05:03 Anion Gap 13 mmol/L 05/01/20 05:03 BUN 18 mg/dL (7-17) H 05/01/20 05:03 Creatinine 1.1 mg/dL (0.7-1.2) 05/01/20 05:03 Estimated GFR > 60 ml/min 05/01/20 05:03 BUN/Creatinine Ratio 16 % 05/01/20 05:03 Glucose 140 mg/dL (65-100) H 05/01/20 05:03 POC Glucose 138 (70-105) H 05/01/20 16:18 Hemoglobin A1c 11.8 % (4-6) H 04/30/20 03:22 Lactic Acid 1.80 mmol/L (0.7-2.0) 04/30/20 14:45 Calcium 7.9 mg/dL (8.4-10.2) L 05/01/20 05:03 Magnesium 1.80 mg/dL (1.7-2.3) 04/30/20 05:24 Total Bilirubin 0.50 mg/dL (0.1-1.2) 04/30/20 05:24 Direct Bilirubin < 0.2 mg/dL (0-0.2) 04/30/20 05:24 Indirect Bilirubin 0.3 mg/dL 04/30/20 05:24 AST 14 units/L (5-40) 04/30/20 05:24 ALT 16 units/L (7-56) 04/30/20 05:24 Alkaline Phosphatase 129 units/L (35-129) 04/30/20 05:24 Total Creatine Kinase 38 units/L (30-135) 04/30/20 05:24 Troponin T 0.044 ng/mL (0.00-0.029) H 04/30/20 05:24 Total Protein 6.5 g/dL (6.3-8.2) 04/30/20 05:24 Albumin 3.4 g/dL (3.9-5) L 04/30/20 05:24 Albumin/Globulin Ratio 1.1 % 04/30/20 05:24 Triglycerides 202 mg/dL (2-149) H 04/30/20 05:24 Cholesterol 210 mg/dL (50-199) H 04/30/20 05:24 LDL Cholesterol Direct 139 mg/dL (50-130) H 04/30/20 05:24 HDL Cholesterol 57 mg/dL (40-59) 04/30/20 05:24 Cholesterol/HDL Ratio 3.68 % 04/30/20 05:24 Urine Color Yellow (Yellow) 04/30/20 06:03 Urine Turbidity Clear (Clear) 04/30/20 06:03 Urine pH 5.0 (5.0-7.0) 04/30/20 06:03 Ur Specific [place] 1.023 (1.003-1.030) 04/30/20 06:03 Urine Protein 100 mg/dl mg/dL (Negative) 04/30/20 06:03 Urine Glucose (UA) >=500 mg/dL (Negative) 04/30/20 06:03 Urine Ketones Neg mg/dL (Negative) 04/30/20 06:03 Urine Blood Neg (Negative) 04/30/20 06:03 Urine Nitrite Neg (Negative) 04/30/20 06:03 Urine Bilirubin Neg (Negative) 04/30/20 06:03 Urine Urobilinogen < 2.0 mg/dL (<2.0) 04/30/20 06:03 Ur Leukocyte Esterase Neg (Negative) 04/30/20 06:03 Urine WBC (Auto) 5.0 /HPF (0.0-6.0) 04/30/20 06:03 Urine RBC (Auto) 3.0 /HPF (0.0-6.0) 04/30/20 06:03 U Epithel Cells (Auto) < 1.0 /HPF (0-13.0) 04/30/20 06:03 Urine Bacteria (Auto) 1+ /HPF (Negative) 04/30/20 06:03 Urine Mucus Few /HPF 04/30/20 06:03 Salicylates < 0.3 mg/dL (2.8-20.0) L 04/30/20 05:24 Acetaminophen < 5.0 ug/mL (10.0-30.0) L 04/30/20 05:24 Blood Type A POSITIVE 04/30/20 14:45 Antibody Screen Negative 04/30/20 14:45 Microbiology: Microbiology 04/30/20 Unknown Urine,Clean Catch Urine Culture - Preliminary NO GROWTH AFTER 24 HOURS 04/30/20 05:24 Peripheral/Venous Blood Culture - Preliminary NO GROWTH AFTER 24 HOURS 04/30/20 05:46 Peripheral/Venous Blood Culture - Preliminary NO GROWTH AFTER 24 HOURS Roland/IV: Voiding Method Bedside Commode IV Catheter Type [Right Upper INT / Saline Lock arm] IV Catheter Type [Left Hand] INT / Saline Lock Active Medications - Current Medications Current Medications: Generic Name Dose Route Start Last Admin Trade Name Freq PRN Reason Stop Dose Admin Acetaminophen 650 mg 04/30/20 09:21 Tylenol [place] Q4H PRN Pain MILD(1-3)/Fever >100.5/EDUARDO Albuterol 2.5 mg 04/30/20 09:21 Proventil IH Q3HRT PRN Shortness Of Breath Aspirin 81 mg 05/01/20 10:00 05/01/20 09:28 Baby Aspirin PO 81 mg QDAY CECY Administration Atorvastatin Calcium 80 mg 04/30/20 22:00 04/30/20 22:44 Lipitor PO 80 mg QHS CECY Administration Clopidogrel Bisulfate 75 mg 05/01/20 10:00 05/01/20 09:29 Plavix PO 75 mg QDAY CECY Administration Dextrose 50 ml 04/30/20 09:21 D50w (25gm) Syringe IV Q30MIN PRN Hypoglycemia Protocol Hydrochlorothiazide 25 mg 05/01/20 10:00 05/01/20 09:29 Hctz PO 25 mg QDAY CECY Administration Cefepime HCl 2 gm in 100 mls @ 200 mls/hr 04/30/20 22:00 05/01/20 13:11 Cefepime/Ns 2 Gm/100 Ml IV 10 mls/hr Q8HR CECY Administration Protocol Metronidazole 500 mg in 100 mls @ 100 mls/hr 04/30/20 16:00 05/01/20 13:11 Flagyl 500 Mg/100 Ml IV 100 mls/hr Q8HR CECY Administration Protocol Vancomycin HCl 1,500 mg/ 530 mls @ 333.333 mls/hr 04/30/20 17:00 05/01/20 17:27 Sodium Chloride IV 333.333 mls/hr Q12H CECY Administration Insulin Glargine 20 units 05/01/20 08:00 05/01/20 08:45 Lantus SUB-Q 20 units QAMDIAB CECY Administration Insulin Human Lispro 0 unit 04/30/20 12:00 05/01/20 17:08 Humalog SUB-Q Not Given Q6HR CECY Protocol Isosorbide Mononitrate 30 mg 05/01/20 10:00 05/01/20 09:29 Imdur PO 30 mg QDAY CECY Administration Metoprolol Tartrate 50 mg 04/30/20 22:00 05/01/20 09:29 Metoprolol PO 50 mg BID CECY Administration Morphine Sulfate 2 mg 04/30/20 09:21 05/01/20 09:30 Morphine IV 2 mg Q4H PRN Administration Pain, Moderate (4-6) Naloxone HCl 0.1 mg 04/30/20 09:21 Naloxone IV Q2MIN PRN Res Rate </= 8 or 02 SAT < 92% Ondansetron HCl 4 mg 04/30/20 09:21 Zofran IV Q4H PRN Nausea And Vomiting Ondansetron HCl 4 mg 04/30/20 16:01 05/01/20 01:09 Zofran Odt PO 4 mg Q4H PRN Administration Nausea And Vomiting Oxycodone HCl 2.5 mg 04/30/20 16:23 Roxicodone PO Q6H PRN Pain, Moderate (4-6) Oxycodone/Acetaminophen 1 tab 04/30/20 16:22 05/01/20 13:11 Percocet 5/325 PO 1 tab Q6H PRN Administration Pain, Moderate (4-6) Prednisone 40 mg 05/01/20 10:00 05/01/20 09:29 Deltasone PO 40 mg QDAY CECY Administration Pregabalin 150 mg 04/30/20 20:00 05/01/20 13:12 Pregabalin PO 150 mg TID CECY Administration Promethazine HCl 25 mg 04/30/20 16:01 Phenergan PO Q6HR PRN Nausea Senna 8.6 mg 04/30/20 10:00 05/01/20 09:28 Senokot PO 8.6 mg Q12HR CECY Administration Sodium Chloride 10 ml 04/30/20 10:00 05/01/20 09:31 Sodium Chloride Flush Syringe 10 Ml IV 10 ml BID CECY Administration Sodium Chloride 10 ml 04/30/20 09:21 Sodium Chloride Flush Syringe 10 Ml IV PRN PRN LINE FLUSH Triamcinolone Acetonide 1 applic 04/30/20 22:00 05/01/20 09:30 Kenalog TP 1 applic BID CECY Administration Nutrition/Malnutrition Assess - Dietary Evaluation Nutrition/Malnutrition Findings: Nutrition Notes Start: 04/30/20 13:09 Freq: Status: Active Protocol: Document 04/30/20 13:09 LP (Rec: 04/30/20 13:22 LP [id number]) Nutrition Notes Need for Assessment generated from: MD Order Initial or Follow up Assessment Current Diagnosis Decubitus(Pressure Ulcer), Diabetes,Hypertension Other Pertinent Diagnosis UTI Current Diet Consistent CHO Labs/Tests BG 288 TG 202 Chol 210 LDL 139 Pertinent Medications Reviewed Height 5 ft 9 in Weight 106.594 kg [place] Body Weight (kg) 65.90 BMI 34.7 Weight Status Obese Subjective/Other Information Consult for malnutrition. Unable to see pt at time of visit. Burn Absent Trauma Absent Minimum of two criteria No physical signs of malnutrition #1 Nutrition Diagnosis Increased nutrient needs ( specify in comment below) Comments: Protein Etiology Wound healing As Evidenced by Signs and Symptoms Pt with multiple wounds Is patient on ventilator? No Is Patient Ambulatory and/or Out of Bed No REE-([facility]-confined to bed) [phone] Calculation Used for Recommendations [facility] Additional Notes Protein needs are 107-129g (1. 25-1.5g/kg) Fluid needs are 1ml/kcal Nutrition Intervention Change Diet Order: Continue Add Supplement/Snack (indicate name/kcal Ensure High protein /protein ) Provides kCal: 320 Provides Protein (gm) 36 Goal #1 Meet at least 80% of kcal and protein needs Goal #2 Wound healing Anticipated Discharge Needs: Consistent CHO diet and extra protein for wound healing Follow-Up By: 05/02/20 Additional Comments Follow for intakes and ONS tolerance
[2020-05-02] MEDS: CEFEPIME/NS 2 GM/100 ML 2 GM/100 ML BAG IV SCH (05:29)
[2020-05-02] MEDS: VANCOMYCIN 1,500 MG in SODIUM CHLORIDE 0.9% 500 ML 500 ML IV SCH (05:29)
[2020-05-02] MEDS: metroNIDAZOLE/NS 500 MG/100 ML 500 MG/100 ML BAG IV SCH (05:30)
[2020-05-02] MEDS: INSULIN LISPRO 100 UNIT/ML SUB-Q SCH (06:51)
[2020-05-02 07:19] VITALS: BP 170/86
[2020-05-02] MEDS: PREGABALIN 75 MG CAP PO SCH (09:07)
[2020-05-02] MEDS: ASPIRIN 81 MG TAB CHEW PO SCH (09:08)
[2020-05-02] MEDS: predniSONE 20 MG TAB PO SCH (09:09)
[2020-05-02] MEDS: CLOPIDOGREL 75 MG TAB PO SCH (09:11)
[2020-05-02] MEDS: METOPROLOL TARTRATE 50 MG TAB PO SCH (09:11)
[2020-05-02] MEDS: SENNOSIDES 8.6 MG TAB PO SCH (09:12)
[2020-05-02] MEDS: hydroCHLOROthiazide 25 MG TAB PO SCH (09:12)
[2020-05-02] MEDS: TRIAMCINOLONE 0.1% CREAM 15 GM TP SCH (09:12)
[2020-05-02] MEDS: oxyCODONE /ACETAMINOPHEN 5-325MG TAB PO PRN (09:23)
[2020-05-02] MEDS: INSULIN GLARGINE 100 UNITS/ML SUB-Q SCH (10:00)
--- NOTE | 2020-05-04 07:13 | Discharge Summary ---
Providers - Providers Date of Admission: 04/30/20 07:43 Attending physician: BITA DELUCA 04/30/20 09:25 Consult to Dietitian/Nutrition [CONS] Routine Physician Instructions: Reason For Exam: Reason for Consult: Malnutrition Consult to Physician [CONS] Routine Comment: Consulting Provider: TALIA MICHELE Physician Instructions: Reason For Exam: sepesis 04/30/20 09:26 Consult to Physician [CONS] Routine Comment: Consulting Provider: ADONIS SOTELO Physician Instructions: Reason For Exam: generalized wound 05/01/20 07:16 Consult to Wound/ET Nurse [CONS] Routine Reason For Exam: wound eval for BUE, BLE and R baptism wounds Primary care physician: [facility] MD JESI Hospitalization Condition: Stable Hospital course: Severe sepsis Acute metabolic encephalopathy Diabetes mellitus with hyperglycemia Pyoderma gangrenosum Dyslipidemia, Chronic diastolic heart failure, Disposition: -07 LEFT AGAINST MED ADVICE Exam - Constitutional Vitals: Temp Pulse Resp BP Pulse Ox 98.0 F 71 20 170/86 96 05/02/20 07:10 05/02/20 09:11 05/02/20 07:10 05/02/20 09:11 05/02/20 09:30 Plan Follow up with: BEAR HEWITT MD [Primary Care Provider] - 7 Days Forms: AMA Form
== END 2020-05-02 10:50 | disposition left against medical advice (07) | DRG 871 ==
LOC: ED 23:59 → 4A 04-30 07:43
PROVIDERS: ADMIT Internal Medicine; ATTEND Internal Medicine
DX: A41.9 Sepsis, unspecified organism (principal); G93.41 Metabolic encephalopathy; L88 Pyoderma gangrenosum; I50.30 Unspecified diastolic (congestive) heart failure; E78.5 Hyperlipidemia, unspecified; I11.0 Hypertensive heart disease with heart failure; E11.51 Type 2 diabetes mellitus with diabetic peripheral angiopathy without gangrene; E11.65 Type 2 diabetes mellitus with hyperglycemia; R65.20 Severe sepsis without septic shock; Z53.29 Procedure and treatment not carried out because of patient's decision for other reasons; Z87.440 Personal history of urinary (tract) infections; I25.2 Old myocardial infarction; Z95.818 Presence of other cardiac implants and grafts; I50.32 Chronic diastolic (congestive) heart failure
CPT/HCPCS: 36415; 70450; 71045; 74176; 80048; 80053; 80061; 80076; 80320; 81001; 82140; 82550; 82962; 83036; 83735; 84484; 85025; 85027; 85610; 86850; 86900; 86901; 87040; 87086; 87641; 93005; 96365; 96375; G0378; A9270-GY; G0480; J0692; J1815; J2270; J2405; J2543; J3370; J7030; J7040; J7050; J7512; Q0162

== ENCOUNTER 2020-07-07 01:28 | Observation (INO) | payer MEDICAID ==
[2020-07-07 02:38] LABS: Basophils # (Auto) 0.1 K/mm3 (0.0-0.1); Basophils % (Auto) 0.6 % (0.0-1.8); Eosinophils % (Auto) 0.2 % (0.0-4.3); Hematocrit 32.6 % (30.3-42.9); Hemoglobin 10.8 gm/dl (10.1-14.3); Lymphocytes # (Auto) 2.4 K/mm3 (1.2-5.4); Lymphocytes % (Auto) 18.1 % (13.4-35.0); Mean Corpuscular HGB Conc 33 % (30-34); Mean Corpuscular Volume 83 fl (79-97); Monocytes # (Auto) 0.6 K/mm3 (0.0-0.8); Monocytes % (Auto) 4.3 % (0.0-7.3); Platelet Count 291 K/mm3 (140-440); Red Blood Count 3.91 M/mm3 (3.65-5.03); Red Cell Distribution Width 17.1 % (13.2-15.2)
[2020-07-07 03:09] LABS: Calcium 9.5 mg/dL (8.4-10.2)
--- NOTE | 2020-07-07 03:16 | XRay Report ---
CHEST 1 VIEW, 07/07/2020 1:58 AM CLINICAL INFORMATION/INDICATION: Chest pain COMPARISON: Chest radiograph, 06/22/2020 FINDINGS: SUPPORT DEVICES: None. HEART: The cardiac silhouette is normal in size. LUNGS/PLEURA: The lungs are clear of focal airspace disease or significant pleural effusion ADDITIONAL FINDINGS: No additional acute findings. IMPRESSION: 1. No evidence of acute cardiopulmonary process. Signer Name: Radha To MD Signed: 07/07/2020 3:11 AM Workstation Name: [id number]
[2020-07-07 03:25] LABS: Chol/HDL Ratio 3.64 %
--- NOTE | 2020-07-07 03:39 | Emergency Department Report ---
ED Chest Pain HPI - General Chief Complaint: Chest Pain Stated Complaint: CHEST PAIN PUI?: No Time Seen by Provider: 07/07/20 03:31 Source: patient, EMS Mode of arrival: Wheelchair Limitations: Physical Limitation - History of Present Illness Initial Comments: Patient is a 54-year-old female that presents emergency room with complaints of chest pain and bloody stool. Patient states she is having blood streaking in her stool x3 days. Patient states her chest pain started today. Patient states the chest pain is substernal. Patient states the chest pain is nonradiating. Patient states the chest pain is an 8 out of 10. Patient states the pain is better with rest and worse with exertion. Patient denies shortness of breath. Patient denies fever and chills. Patient denies cough. Patient denies recent travel. Patient denies recent international travel. Patient denies exposure to the novel coronavirus. Patient denies sick contacts. Patient denies fever and chills. Patient denies cough. Patient denies diarrh ea. Patient denies coming in contact with anybody with symptoms of the novel coronavirus. MD Complaint: chest pain -: Sudden Onset: during rest Pain Location: substernal, left chest Severity: severe Severity scale (0 -10): 8 Quality: sharp Improves With: rest Worsens With: exertion re: dyspnea. denies: nausea, vomting, diaphoresis, sense of impending doom Other Symptoms: denies: cough, fever, syncope, rash, acid taste in mouth, leg swelling, palpitations, burping Treatments Prior to Arrival: aspirin Aspirin use within the Past 7 Days: (1) Yes - Related Data On Oral Contraceptives: No Home Medications Medication Instructions Recorded Confirmed Last Taken Clopidogrel [Plavix] 75 mg PO QDAY 06/22/20 06/22/20 Unknown ISOSORBIDE MONOnitrate [Imdur ER] 30 mg PO DAILY 06/22/20 06/22/20 Unknown Lispro Insulin [HumaLOG] 20 unit SQ TID 06/22/20 06/22/20 Unknown Metoprolol Tartrate [Lopressor] 50 mg PO DAILY 06/22/20 06/22/20 Unknown metFORMIN XR [Glucophage XR] 500 mg PO QDAY 06/22/20 06/22/20 Unknown Previous Rx's Medication Instructions Recorded Last Taken Type Aspirin [Aspirin BABY CHEW TAB] 81 mg PO DAILY tab.chew 06/24/20 Unknown Rx Clopidogrel [Plavix] 75 mg PO QDAY tablet 06/24/20 Unknown Rx ISOSORBIDE MONOnitrate [Imdur ER] 30 mg PO DAILY tablet 06/24/20 Unknown Rx Insulin NPH Hum/Reg Insulin Hm 35 unit SQ BID 30 Days #3 vial 06/24/20 Unknown Rx [Novolin 70-30 100 Unit/ml Vial] Triamcinolone 0.1% [Kenalog 0.1% 1 applic TP BID tube 06/24/20 Unknown Rx CREAM] levoFLOXacin [Levaquin] 750 mg PO QDAY #8 tablet 06/24/20 Unknown Rx metFORMIN XR [Glucophage XR] 500 mg PO QDAY tablet 06/24/20 Unknown Rx oxyCODONE /ACETAMINOPHEN [Percocet 1 tab PO Q6H PRN #20 tablet 06/24/20 Unknown Rx 5/325 mg] predniSONE [Deltasone] 20 mg PO QDAY tablet 06/24/20 Unknown Rx Allergies Allergy/AdvReac Type Severity Reaction Status Date / Time No Known Allergies Allergy Verified 02/18/19 22:39 Heart Score - HEART Score History: Moderately suspicious EKG: Non-specific Age: 45-65 Risk factors: > 3 risk factors or hx of atherosclerotic disease Troponin: 1-3x normal limit HEART Score: 6 ED Review of Systems ROS: Stated complaint: CHEST PAIN Other details as noted in HPI Constitutional: denies: chills, fever Eyes: denies: eye pain, eye discharge, vision change ENT: denies: ear pain, throat pain Respiratory: denies: cough, shortness of breath, wheezing Cardiovascular: chest pain. denies: palpitations Endocrine: no symptoms reported Gastrointestinal: hematochezia. denies: abdominal pain, nausea, diarrhea Genitourinary: denies: urgency, dysuria, discharge Musculoskeletal: denies: back pain, joint swelling, arthralgia Skin: denies: rash, lesions Neurological: denies: headache, weakness, paresthesias Psychiatric: denies: anxiety, depression Hematological/Lymphatic: denies: easy bleeding, easy bruising ED Past Medical Hx - Past Medical History Previous Medical History?: Yes Hx Hypertension: Yes Hx CVA: No Hx Heart Attack/AMI: Yes (Stents x 4 placed Dec 24) Hx Congestive Heart Failure: No Hx Diabetes: Yes Hx Deep Vein Thrombosis: No Hx Pulmonary Embolism: No Hx GERD: No Hx Liver Disease: No Hx Renal Disease: No Hx Sickle Cell Disease: No Hx Arthritis: No Hx Headaches / Migraines: No Hx Seizures: No Hx Kidney Stones: No Hx Psychiatric Treatment: No Hx Asthma: No Hx COPD: No Hx Tuberculosis: No Hx Dementia: No Hx HIV: Yes (Pt denies h/o.) Additional medical history: pyoderma gangrenosum. osteomyelitis - Surgical History Past Surgical History?: Yes Hx Coronary Stent: No Hx Open Heart Surgery: No Hx Pacemaker: No Hx Internal Defibrillator: No Hx Cholecystectomy: No Hx Appendectomy: No Hx Breast Surgery: No Additional Surgical History: left LE. umbilical biopsy. Stents x 4 - Family History Family history: no significant - Social History Smoking Status: Current Every Day Smoker Substance Use Type: None - Medications Home Medications: Home Medications Medication Instructions Recorded Confirmed Last Taken Type Clopidogrel [Plavix] 75 mg PO QDAY 06/22/20 06/22/20 Unknown History ISOSORBIDE MONOnitrate [Imdur ER] 30 mg PO DAILY 06/22/20 06/22/20 Unknown History Lispro Insulin [HumaLOG] 20 unit SQ TID 06/22/20 06/22/20 Unknown History Metoprolol Tartrate [Lopressor] 50 mg PO DAILY 06/22/20 06/22/20 Unknown History metFORMIN XR [Glucophage XR] 500 mg PO QDAY 06/22/20 06/22/20 Unknown History Aspirin [Aspirin BABY CHEW TAB] 81 mg PO DAILY tab.chew 06/24/20 Unknown Rx Clopidogrel [Plavix] 75 mg PO QDAY tablet 06/24/20 Unknown Rx ISOSORBIDE MONOnitrate [Imdur ER] 30 mg PO DAILY tablet 06/24/20 Unknown Rx Insulin NPH Hum/Reg Insulin Hm 35 unit SQ BID 30 Days #3 vial 06/24/20 Unknown Rx [Novolin 70-30 100 Unit/ml Vial] Triamcinolone 0.1% [Kenalog 0.1% 1 applic TP BID tube 06/24/20 Unknown Rx CREAM] levoFLOXacin [Levaquin] 750 mg PO QDAY #8 tablet 06/24/20 Unknown Rx metFORMIN XR [Glucophage XR] 500 mg PO QDAY tablet 06/24/20 Unknown Rx oxyCODONE /ACETAMINOPHEN [Percocet 1 tab PO Q6H PRN #20 tablet 06/24/20 Unknown Rx 5/325 mg] predniSONE [Deltasone] 20 mg PO QDAY tablet 06/24/20 Unknown Rx ED Physical Exam - General Limitations: Physical Limitation General appearance: alert, in no apparent distress - Head Head exam: Present: atraumatic, normocephalic - Eye Eye exam: Present: normal appearance, PERRL Pupils: Present: normal accommodation - ENT ENT exam: Present: mucous membranes moist - Neck Neck exam: Present: normal inspection - Respiratory Respiratory exam: Present: normal lung sounds bilaterally. Absent: respiratory distress, wheezes, rales, chest wall tenderness - Cardiovascular Cardiovascular Exam: Present: regular rate, normal rhythm. Absent: systolic murmur, diastolic murmur, rubs, gallop - GI/Abdominal GI/Abdominal exam: Present: soft, normal bowel sounds. Absent: distended, tenderness, guarding - Rectal Rectal exam: Present: normal rectal tone, heme (+) stool, black stool, bloody stool - Extremities Exam Extremities exam: Present: normal inspection - Back Exam Back exam: Present: normal inspection - Neurological Exam Neurological exam: Present: alert, oriented X3 - Psychiatric Psychiatric exam: Present: normal affect, normal mood - Skin Skin exam: Present: warm, dry, intact, normal color. Absent: rash ED Course Vital Signs 07/07/20 02:00 Temperature 97.9 F Pulse Rate 87 Respiratory 18 Rate Blood Pressure 162/86 O2 Sat by Pulse 97 Oximetry - Reevaluation(s) Reevaluation #1: Rectal exam done. Patient has melena and bright red blood on exam. Guaiac positive. Ernestina, nurse in the room during the entire exam 07/07/20 03:45 Reevaluation #2: I discussed all results with patient. I discussed plan of care with patient. Patient agrees with plan of care and admission. Patient to be admitted to the hospitalist service. 07/07/20 04:05 - Consultations Consultation #1: GI consulted 07/07/20 04:01 Consultation #2: Hospitalist consulted for admission. Hospitalist to admit patient. 07/07/20 04:05 CA score - Ca Score Age > 65: (0) No Aspirin use within the Past 7 Days: (0) No 3 or more CAD Risk Factors: (1) Yes 2 or more Angina events in past 24 hrs: (0) No Known CAD with more than 50% Stenosis: (0) No Elevated Cardiac Markers: (0) No ST Deviation Greater than 0.5mm: (1) Yes CA Score: 2 ED Medical Decision Making - Lab Data Result diagrams: 07/07/20 02:22 07/07/20 02:22 - EKG Data -: EKG Interpreted by Me EKG shows normal: sinus rhythm, axis, intervals, QRS complexes, ST-T waves Rate: normal - Radiology Data Radiology results: report reviewed, image reviewed interpreted by me: Chest x-ray: No acute findings, lung delgado are clear, no foreign bodies, no rib fractures noted, no pneumonia, no pneumothorax. CHEST 1 VIEW, 07/07/2020 1:58 AM CLINICAL INFORMATION/INDICATION: Chest pain COMPARISON: Chest radiograph, 06/22/2020 FINDINGS: SUPPORT DEVICES: None. HEART: The cardiac silhouette is normal in size. LUNGS/PLEURA: The lungs are clear of focal airspace disease or significant pleural effusion ADDITIONAL FINDINGS: No additional acute findings. IMPRESSION: 1. No evidence of acute cardiopulmonary process. - Medical Decision Making Patient is a 58-year-old female with extensive cardiac history presents emergency room with complaints of chest pain and GI bleed. Patient complains of bright red blood per rectum. Patient had labs which were unremarkable except for renal insufficiency and elevated troponin. Patient had normal H&H. Patient had a rectal exam during initial evaluation and was positive for black stool and bright red blood and was guaiac positive. Patient has high risk factors and will be admitted to the hospitalist service to rule out ACS. GI was consulted. Patient was placed on n.p.o. Patient given a PPI. Patient admitted to the hospitalist service. - Differential Diagnosis Melena, GI bleed, chest pain, ACS, CAD Critical Care Time: Yes Critical care time in (mins) excluding proc time.: 35 Critical care attestation.: If time is entered above; I have spent that time in minutes in the direct care of this critically ill patient, excluding procedure time. Critical Care Time: 35 minutes ED Disposition Clinical Impression: Renal insufficiency, Elevated troponin I level, Elevated troponin, Hyperglycemia, Melena Chest pain Qualifiers: Chest pain type: unspecified Qualified Code(s): R07.9 - Chest pain, unspecified GI bleed Qualifiers: GI bleed type/associated pathology: unspecified gastrointestinal hemorrhage type Qualified Code(s): K92.2 - Gastrointestinal hemorrhage, unspecified Disposition: DC-09 OP ADMIT IP TO THIS HOSP Is pt being admited?: Yes Does the pt Need Aspirin: No Condition: Critical Time of Disposition: 04:01
[2020-07-07] MEDS ORDERED: PANTOPRAZOLE 40 MG INJ IV ONE ×2 (03:56→05:15)
--- NOTE | 2020-07-07 10:30 | History and Physical Report ---
History of Present Illness Date of examination: 07/07/20 Date of admission: 07/07/20 04:01 Chief complaint: 1. chest pain 2. GI bleed-Bloody stool times 2 days History of present illness: Patient is a 54-year-old female that presents emergency room with complaints of chest pain and bloody stool. Patient has elevated WBC on admission. Per ED record patient said she has blood streaking in her stool x3 days. Patient states the chest pain is substernal. Patient states the chest pain is nonradiating. patient seen-Admission lab reviewed. Also reviewed mar and v/s. ED work up shows - NA 135, WBC 13.2, Potassium 4.2, Troponine 0.037, 0.033, CR 1.3 CHEST 1 VIEW, 07/07/2020 1:58 AM -No acute finding lung delgado are clear, no foreign bodies, no rib fractures noted, no pneumonia, no pneumothorax. HEART: The cardiac silhouette is normal in size. LUNGS/PLEURA: The lungs are clear of focal airspace disease or significant pleural effusion Past History Past Medical History: hypertension, hyperlipidemia Medications and Allergies Allergies Allergy/AdvReac Type Severity Reaction Status Date / Time No Known Allergies Allergy Verified 02/18/19 22:39 Home Medications Medication Instructions Recorded Confirmed Last Taken Type Clopidogrel [Plavix] 75 mg PO QDAY 06/22/20 07/07/20 07/06/20 History ISOSORBIDE MONOnitrate [Imdur ER] 30 mg PO DAILY 06/22/20 07/07/20 07/06/20 History Lispro Insulin [HumaLOG] 20 unit SQ TID 06/22/20 07/07/20 07/06/20 History Metoprolol Tartrate [Lopressor] 50 mg PO DAILY 06/22/20 07/07/20 07/07/20 History metFORMIN XR [Glucophage XR] 500 mg PO QDAY 06/22/20 07/07/20 07/06/20 History Aspirin [Aspirin BABY CHEW TAB] 81 mg PO DAILY tab.chew 06/24/20 07/07/20 07/06/20 Rx Clopidogrel [Plavix] 75 mg PO QDAY tablet 06/24/20 07/07/20 07/06/20 Rx ISOSORBIDE MONOnitrate [Imdur ER] 30 mg PO DAILY tablet 06/24/20 07/07/2020 Rx Insulin NPH Hum/Reg Insulin Hm 35 unit SQ BID 30 Days #3 vial 06/24/20 07/07/20 07/06/20 Rx [Novolin 70-30 100 Unit/ml Vial] Triamcinolone 0.1% [Kenalog 0.1% 1 applic TP BID tube 06/24/20 07/07/20 07/06/20 Rx CREAM] levoFLOXacin [Levaquin] 750 mg PO QDAY #8 tablet 06/24/20 07/07/20 Unknown Rx metFORMIN XR [Glucophage XR] 500 mg PO QDAY tablet 06/24/20 07/07/20 07/06/20 Rx oxyCODONE /ACETAMINOPHEN [Percocet 1 tab PO Q6H PRN #20 tablet 06/24/20 07/07/20 07/06/20 Rx 5/325 mg] predniSONE [Deltasone] 20 mg PO QDAY tablet 06/24/20 07/07/20 07/06/20 Rx Review of Systems Cardiovascular: chest pain, high blood pressure Gastrointestinal: melena Exam - Constitutional Vitals: Temp Pulse Resp BP Pulse Ox 98.0 F 78 20 198/85 100 07/07/20 07:40 07/07/20 07:40 07/07/20 07:40 07/07/20 07:40 07/07/20 07:40 General appearance: Present: mild distress, well-nourished - EENT Eyes: Present: PERRL ENT: hearing intact, clear oral mucosa - Neck Neck: Present: supple, normal ROM - Respiratory Respiratory effort: normal Respiratory: bilateral: CTA - Cardiovascular Heart rate: 78 Heart Sounds: Present: S1 & S2. Absent: rub, click - Extremities Extremities: pulses symmetrical, No edema Peripheral Pulses: within normal limits - Abdominal General gastrointestinal: Present: soft, non-tender, non-distended, normal bowel sounds, other (bloody stool) Female genitourinary: Present: normal - Integumentary Integumentary: Present: clear, warm, dry - Musculoskeletal Musculoskeletal: gait normal, strength equal bilaterally - Psychiatric Psychiatric: appropriate mood/affect, intact judgment & insight - Neurologic Neurologic: CNII-XII intact, moves all extremities - Allied Health Allied health notes reviewed: nursing HEART Score - HEART Score History: Moderately suspicious EKG: Non-specific Age: 45-65 Risk factors: > 3 risk factors or hx of atherosclerotic disease Troponin: Troponin T 0.033 ng/mL (0.00-0.029) H D 07/07/20 07:31 Troponin: 1-3x normal limit HEART Score: 6 Results - Labs CBC & Chem 7: 07/07/20 02:22 07/07/20 02:22 Labs: Abnormal lab results 07/07/20 07/07/20 07/07/20 Range/Units 02:22 02:22 07:31 WBC 13.2 H (4.5-11.0) K/mm3 RDW 17.1 H (13.2-15.2) % Seg Neutrophils % 76.8 H (40.0-70.0) % Seg Neutrophils # 10.1 H (1.8-7.7) K/mm3 Sodium 135 L (137-145) mmol/L Chloride 96.4 L (98-107) mmol/L BUN 32 H (7-17) mg/dL Creatinine 1.3 H (0.6-1.2) mg/dL Glucose 318 H (65-100) mg/dL POC Glucose (70-105) Troponin T 0.037 H 0.033 H D (0.00-0.029) ng/mL Triglycerides 183 H (2-149) mg/dL 07/07/20 Range/Units 08:53 WBC (4.5-11.0) K/mm3 RDW (13.2-15.2) % Seg Neutrophils % (40.0-70.0) % Seg Neutrophils # (1.8-7.7) K/mm3 Sodium (137-145) mmol/L Chloride (98-107) mmol/L BUN (7-17) mg/dL Creatinine (0.6-1.2) mg/dL Glucose (65-100) mg/dL POC Glucose 198 H (70-105) Troponin T (0.00-0.029) ng/mL Triglycerides (2-149) mg/dL Assessment and Plan - Patient Problems (1) Chest pain Current Visit: Yes Status: Acute Qualifiers: Chest pain type: unspecified Qualified Code(s): R07.9 - Chest pain, unspecified Plan to address problem: pain management Chest x-ray negative for acute process Elevated Troponin-radiologic tech consult if needed ECHO ordered-f/u with result (2) GI bleed Current Visit: Yes Status: Acute Qualifiers: GI bleed type/associated pathology: unspecified gastrointestinal hemorrhage type Qualified Code(s): K92.2 - Gastrointestinal hemorrhage, unspecified Plan to address problem: GI consulted Will f/u plan of care Hold plavix-patient on plavix at home (3) Hyperglycemia Current Visit: Yes Status: Acute Plan to address problem: Monitor blood sugar With SSI Resume home 70/30 novolin BID HGA1C -f/u with result (4) DVT prophylaxis Current Visit: No Status: Acute Plan to address problem: SCD (5) Hypertension Current Visit: No Status: Chronic Plan to address problem: Monitor blood pressure. 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 cause Monitor kidney function Advised to avoid nephro toxic drugs Hold metformin
[2020-07-07] MEDS: METOPROLOL TARTRATE 50 MG TAB PO SCH ×2 (11:09→21:43)
[2020-07-07] MEDS: oxyCODONE 5 MG TAB PO PRN ×2 (11:10→21:43)
[2020-07-07] MEDS ORDERED: hydrALAZINE 20 MG/1 ML INJ IV PRN (15:44)
[2020-07-07] MEDS ORDERED: predniSONE 10 MG TAB PO SCH (16:00)
[2020-07-07] MEDS ORDERED: predniSONE 20 MG TAB PO NR (16:00)
[2020-07-07] MEDS ORDERED: INSULIN NPH/REGULAR 70/30 INJ SUB-Q SCH (17:00)
--- NOTE | 2020-07-07 17:42 | Gastroenterology Consultation ---
History of Present Illness - Reason for Consult Consult date: 07/07/20 GI bleed Requesting physician: ABHI STARKEY - History of Present Illness This is a 54 yo female with pmh of osteomyelitis, UTI, insulin-dependent diabetes, CHF, pyoderma gangrenosum admitted overnight for chest pain and GI bleed. patient reports having bloody diarrhea for the past 3 days with bright red blood. Last episode was earlier this morning. No abdominal pain, nausea/vomiting, or melena. No weight loss. No prior h/o GI bleed or colonoscopy. No family hx of colon cancer. She is on ASA and plavix for AR with stents placed in 12/2019. Medication list reviewed. Past History Past Medical History: hypertension, hyperlipidemia Medications and Allergies Allergies Allergy/AdvReac Type Severity Reaction Status Date / Time No Known Allergies Allergy Verified 02/18/19 22:39 Home Medications Medication Instructions Recorded Confirmed Last Taken Type Clopidogrel [Plavix] 75 mg PO QDAY 06/22/20 07/07/20 07/06/20 History ISOSORBIDE MONOnitrate [Imdur ER] 30 mg PO DAILY 06/22/20 07/07/20 07/06/20 History Lispro Insulin [HumaLOG] 20 unit SQ TID 06/22/20 07/07/20 07/06/20 History Metoprolol Tartrate [Lopressor] 50 mg PO DAILY 06/22/20 07/07/20 07/07/20 History metFORMIN XR [Glucophage XR] 500 mg PO QDAY 06/22/20 07/07/20 07/06/20 History Aspirin [Aspirin BABY CHEW TAB] 81 mg PO DAILY tab.chew 06/24/20 07/07/20 07/06/20 Rx Clopidogrel [Plavix] 75 mg PO QDAY tablet 06/24/20 07/07/20 07/06/20 Rx ISOSORBIDE MONOnitrate [Imdur ER] 30 mg PO DAILY tablet 06/24/20 07/07/20 07/06/20 Rx Insulin NPH Hum/Reg Insulin Hm 35 unit SQ BID 30 Days #3 vial 06/24/20 07/07/20 07/06/20 Rx [Novolin 70-30 100 Unit/ml Vial] Triamcinolone 0.1% [Kenalog 0.1% 1 applic TP BID tube 06/24/20 07/07/2020 Rx CREAM] levoFLOXacin [Levaquin] 750 mg PO QDAY #8 tablet 06/24/20 07/07/20 Unknown Rx metFORMIN XR [Glucophage XR] 500 mg PO QDAY tablet 06/24/20 07/07/20 07/06/20 Rx oxyCODONE /ACETAMINOPHEN [Percocet 1 tab PO Q6H PRN #20 tablet 06/24/20 07/07/20 07/06/20 Rx 5/325 mg] predniSONE [Deltasone] 20 mg PO QDAY tablet 06/24/20 07/07/20 07/06/20 Rx Active Meds: Active Medications Hydralazine HCl (Apresoline) 5 mg IV Q4H PRN PRN Reason: Hypertension Insulin Human Isoph/Insulin Regular (Humulin 70/30) 20 unit SUB-Q BIDDIAB [facility] Last Admin: 07/07/20 16:48 Dose: 20 unit Documented by: Isosorbide Mononitrate (Imdur) 30 mg PO QDAY [facility] Last Admin: 07/07/20 11:09 Dose: 30 mg Documented by: Metoprolol Tartrate (Metoprolol) 50 mg PO BID [facility] Last Admin: 07/07/20 11:09 Dose: 50 mg Documented by: Oxycodone HCl (Roxicodone) 5 mg PO Q8H PRN PRN Reason: Pain, Moderate (4-6) Last Admin: 07/07/20 11:10 Dose: 5 mg Documented by: Prednisone (Deltasone) 20 mg PO ONCE NR Stop: 07/07/20 23:00 Review of Systems - Review of Systems All systems: negative Constitutional: no weight loss Cardiovascular: chest pain Respiratory: no cough Gastrointestinal: diarrhea, BRBPR, hematochezia, no abdominal pain, no nausea, no vomiting Neurological: no weakness Allergic/Immunologic: no wheezing Exam - Constitutional Vital Signs: Temp Pulse Resp BP Pulse Ox 98.2 F 73 20 151/66 99 07/07/20 15:52 07/07/20 15:52 07/07/20 15:52 07/07/20 15:52 07/07/20 16:17 General appearance: no acute distress - EENT Eyes: EOM intact - Neck Neck: supple - Respiratory Respiratory effort: normal - Cardiovascular Rhythm: regular Heart Sounds: Present: S1 & S2 - Gastrointestinal General gastrointestinal: Present: soft, non-tender, non-distended - Integumentary Integumentary: Present: clear, warm - Neurologic Neurological: alert and oriented x3 - Psychiatric Psychiatric: appropriate mood/affect - Labs CBC & Chem 7: 07/07/20 02:22 07/07/20 02:22 Lab Results: Laboratory Results - last 24 hr 07/07/20 07/07/20 07/07/20 02:22 02:22 05:45 WBC 13.2 H RBC 3.91 Hgb 10.8 Hct 32.6 MCV 83 MCH 28 MCHC 33 RDW 17.1 H Plt Count 291 Lymph % (Auto) 18.1 [place] % (Auto) 4.3 Eos % (Auto) 0.2 Baso % (Auto) 0.6 Lymph # 2.4 [place] # 0.6 Eos # 0.0 Baso # 0.1 Seg Neutrophils % 76.8 H Seg Neutrophils # 10.1 H Sodium 135 L Potassium 4.2 Chloride 96.4 L Carbon Dioxide 26 Anion Gap 17 BUN 32 H Creatinine 1.3 H Estimated GFR 51 BUN/Creatinine Ratio 25 Glucose 318 H POC Glucose Hemoglobin A1c Calcium 9.5 Troponin T 0.037 H 0.019 Triglycerides 183 H Cholesterol 182 LDL Cholesterol Direct 103 HDL Cholesterol 50 Cholesterol/HDL Ratio 3.64 07/07/20 07/07/20 07/07/20 07:31 08:53 12:22 WBC RBC Hgb Hct MCV MCH MCHC RDW Plt Count Lymph % (Auto) [place] % (Auto) Eos % (Auto) Baso % (Auto) Lymph # [place] # Eos # Baso # Seg Neutrophils % Seg Neutrophils # Sodium Potassium Chloride Carbon Dioxide Anion Gap BUN Creatinine Estimated GFR BUN/Creatinine Ratio Glucose POC Glucose 198 H 174 H Hemoglobin A1c Calcium Troponin T 0.033 H D Triglycerides Cholesterol LDL Cholesterol Direct HDL Cholesterol Cholesterol/HDL Ratio 07/07/20 07/07/20 16:13 Unknown WBC RBC Hgb Hct MCV MCH MCHC RDW Plt Count Lymph % (Auto) [place] % (Auto) Eos % (Auto) Baso % (Auto) Lymph # [place] # Eos # Baso # Seg Neutrophils % Seg Neutrophils # Sodium Potassium Chloride Carbon Dioxide Anion Gap BUN Creatinine Estimated GFR BUN/Creatinine Ratio Glucose POC Glucose 219 H Hemoglobin A1c 11.3 H Calcium Troponin T Triglycerides Cholesterol LDL Cholesterol Direct HDL Cholesterol Cholesterol/HDL Ratio Assessment and Plan # GI bleed - Bloody diarrhea x 3 days. ddx including diverticular bleed, hemorrhoids, polyps, malignancy. - Hgb stable at 10.8. previously around 11-12. - on DAPT for CAD and cardiac stents in 12/2019. - HD stable. Rec - will plan for colonoscopy tomorrow. - may need cardiac clearance. - hold anticoagulation. - monitor H/H serially and transfuse as needed. - Golytely prep tonight. - clear liquid diet and NPO MN.
[2020-07-07] MEDS ORDERED: POLYETHYLENE GLYCOL/ELECT SOLN 4000 ML PO ONE (18:48)
[2020-07-07 19:47] VITALS: BP 118/67
--- NOTE | 2020-07-08 17:42 | Discharge Summary ---
Providers - Providers Date of Admission: 07/07/20 04:01 Date of discharge: 07/07/20 Attending physician: ALVIN BOUCHER MD 07/07/20 04:01 Consult to Physician [CONS] Routine Comment: Consulting Provider: TAVIA BREWSTER Physician Instructions: Reason For Exam: gi bleed. 07/07/20 11:55 Consult to Wound/ET Nurse [CONS] Routine Reason For Exam: wound eval [facility] Condition: [facility] Hospital course: Patient is a 54-year-old female that presents emergency room with complaints of chest pain and bloody stool. Patient has elevated WBC on admission. Per ED record patient said she has blood streaking in her stool x3 days. Patient states the chest pain is substernal. Patient states the chest pain is nonradiating. patient seen-Admission lab reviewed. Also reviewed mar and v/s. Assessment and Plan - Patient Problems (1) Chest pain Current Visit: Yes Status: Acute Qualifiers: Chest pain type: unspecified Qualified Code(s): R07.9 - Chest pain, unspecified Plan to address problem: Patient left AMA before further work-up (2) GI bleed Current Visit: Yes Status: Acute Qualifiers: GI bleed type/associated pathology: unspecified gastrointestinal hemorrhage type Qualified Code(s): K92.2 - Gastrointestinal hemorrhage, unspecified Plan to address problem: GI consulted Will f/u plan of care Hold plavix-patient on plavix at home Patient left AMA before further work-up (3) Hyperglycemia Current Visit: Yes Status: Acute Plan to address problem: Monitor blood sugar With SSI Resume home 70/30 novolin BID HGA1C -f/u with result Patient left AMA before further work-up (4) DVT prophylaxis Current Visit: No Status: Acute Plan to address problem: SCD (5) Hypertension Current Visit: No Status: Chronic Plan to address problem: Monitor blood pressure. 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 cause Monitor kidney function Advised to avoid nephro toxic drugs Hold metformin Disposition: DC-07 LEFT AGAINST MED ADVICE Time spent for discharge: 35 minutes - Discharge Diagnoses (1) Chest pain Status: Acute Qualifiers: Chest pain type: unspecified Qualified Code(s): R07.9 - Chest pain, unspecified (2) GI bleed Status: Acute Qualifiers: GI bleed type/associated pathology: unspecified gastrointestinal hemorrhage type Qualified Code(s): K92.2 - Gastrointestinal hemorrhage, unspecified Core Measure Documentation - Palliative Care Palliative Care/ Comfort Measures: Not Applicable - Core Measures Any of the following diagnoses?: none Exam - Constitutional Vitals: Temp Pulse Resp BP Pulse Ox 97.9 F 88 20 118/67 99 07/07/20 19:44 07/07/20 21:43 07/07/20 19:44 07/07/20 21:43 07/07/20 19:44 General appearance: Present: no acute distress, well-nourished - EENT Eyes: Present: PERRL ENT: hearing intact, clear oral mucosa - Neck Neck: Present: supple, normal ROM - Respiratory Respiratory effort: normal Respiratory: bilateral: CTA - Cardiovascular Heart Sounds: Present: S1 & S2. Absent: rub, click - Extremities Extremities: pulses symmetrical, No edema Peripheral Pulses: within normal limits - Abdominal General gastrointestinal: Present: soft, non-tender, non-distended, normal bowel sounds Female genitourinary: Present: normal - Integumentary Integumentary: Present: clear, warm, dry - Musculoskeletal Musculoskeletal: gait normal, strength equal bilaterally - Psychiatric Psychiatric: appropriate mood/affect, intact judgment & insight - Neurologic Neurologic: CNII-XII intact, moves all extremities - Allied Health Allied health notes reviewed: nursing, case management Plan Activity: no restrictions Follow up with: BEAR HEWITT MD [Primary Care Provider] - 3-5 Days Forms: AMA Form
== END 2020-07-08 00:15 | disposition left against medical advice (07) ==
LOC: ED 01:28 → 4A 04:01
PROVIDERS: ADMIT Internal Medicine Geriatric Medicine; ATTEND Internal Medicine Geriatric Medicine
DX: R07.89 Other chest pain (principal); K92.2 Gastrointestinal hemorrhage, unspecified; E11.65 Type 2 diabetes mellitus with hyperglycemia; I10 Essential (primary) hypertension; N17.9 Acute kidney failure, unspecified; E78.5 Hyperlipidemia, unspecified; R79.89 Other specified abnormal findings of blood chemistry; K92.1 Melena; I25.2 Old myocardial infarction; F17.200 Nicotine dependence, unspecified, uncomplicated; Z95.5 Presence of coronary angioplasty implant and graft; Z79.02 Long term (current) use of antithrombotics/antiplatelets; Z79.82 Long term (current) use of aspirin; Z79.4 Long term (current) use of insulin; Z79.899 Other long term (current) drug therapy
CPT/HCPCS: 36415; 71045; 80048; 80061; 82962; 83036; 84484; 85025; 93005; 93306; 96372; 96374; 99291; C9113; G0378; J1815

== ENCOUNTER 2020-09-27 09:52 | Outpatient (CLI) | payer MEDICAID ==
[2020-09-27] MEDS ORDERED: LIDOCAINE (4%) 40 MG/ML TOPICAL SOLN 50 ML BOTTLE TP SCH (09:55)
== END 2020-09-27 09:53 | disposition home or self-care (01) ==
LOC: WOUND 09:52
PROVIDERS: ATTEND Surgery
DX: L88 Pyoderma gangrenosum (principal); E11.9 Type 2 diabetes mellitus without complications; I11.0 Hypertensive heart disease with heart failure; I50.9 Heart failure, unspecified; I25.10 Atherosclerotic heart disease of native coronary artery without angina pectoris; I25.2 Old myocardial infarction; E78.5 Hyperlipidemia, unspecified; F17.290 Nicotine dependence, other tobacco product, uncomplicated; Z79.4 Long term (current) use of insulin; Z79.01 Long term (current) use of anticoagulants; Z79.82 Long term (current) use of aspirin
CPT/HCPCS: 99215; G0463

== ENCOUNTER 2021-01-02 05:37 | Emergency (ER) | payer MEDICAID ==
--- NOTE | 2021-01-02 06:10 | Event Note ---
ED Screening Note Date of service: 01/02/21 Time: 06:08 ED Screening Note: pt is 55 y/o aaf who presents for bilat LE pain with weeping from chronic LE cellulitis , hx of multiple traumas , states aching and pain that started after waiting [place]ri[place] train last night. This initial assessment/diagnostic orders/clinical plan/treatment(s) is/are subject to change based on patients health status, clinical progression and re- assessment by fellow clinical providers in the ED. Further treatment and workup at subsequent clinical providers discretion. Patient/guardian urged not to elope from the ED as their condition may be serious if not clinically assessed and managed. Initial orders include: cbc, bmp,
--- NOTE | 2021-01-02 07:15 | XRay Report ---
Bilateral FOOT 4 VIEW(S) INDICATION / CLINICAL INFORMATION: r/o osteo COMPARISON: None available. FINDINGS: Left foot: Marked diffuse soft tissue swelling. 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 Nondisplaced fracture of proximal medial navicular. Right foot: Moderate diffuse soft tissue swelling without fracture or dislocation. IMPRESSION: 1. 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 2. Bilateral foot soft tissue swelling possibly secondary to cellulitis. No visualized ulcer or osteo myelitis. Signer Name: Cortez Alvarez MD Signed: 01/02/2021 7:10 AM Workstation Name: [id number]
[2021-01-02 07:30] LABS: Basophils # (Auto) 0.1 K/mm3 (0.0-0.1); Basophils % (Auto) 0.6 % (0.0-1.8); Eosinophils # (Auto) 0.1 K/mm3 (0.0-0.4); Eosinophils % (Auto) 1.4 % (0.0-4.3); Hematocrit 40.7 % (30.3-42.9); Hemoglobin 12.9 gm/dl (10.1-14.3); Lymphocytes # (Auto) 2.4 K/mm3 (1.2-5.4); Mean Corpuscular HGB Conc 32 % (30-34); Mean Corpuscular Volume 80 fl (79-97); Monocytes # (Auto) 0.6 K/mm3 (0.0-0.8); Monocytes % (Auto) 6.9 % (0.0-7.3); Platelet Count 252 K/mm3 (140-440); Red Blood Count 5.09 M/mm3 (3.65-5.03)
[2021-01-02 07:39] LABS: BUN/Creatinine Ratio 17; Blood Urea Nitrogen 17 mg/dL (7-17); Calcium 9.7 mg/dL (8.4-10.2); Hemolysis Index 4
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
[2021-01-02 11:49] VITALS: BP 176/89
== END 2021-01-02 11:48 | disposition home or self-care (01) ==
LOC: ED 05:37
DX: S92.255A Nondisplaced fracture of navicular [scaphoid] of left foot, initial encounter for closed fracture (principal); E11.65 Type 2 diabetes mellitus with hyperglycemia; I10 Essential (primary) hypertension; I25.2 Old myocardial infarction; F17.200 Nicotine dependence, unspecified, uncomplicated; Z98.890 Other specified postprocedural states; Z79.4 Long term (current) use of insulin; Z79.899 Other long term (current) drug therapy; X58.XXXA Exposure to other specified factors, initial encounter; Y93.89 Activity, other specified; Y92.89 Other specified places as the place of occurrence of the external cause; Y99.8 Other external cause status
CPT/HCPCS: 36415; 80048; 85025